=== PATIENT | male | born 1975 | race Caucasian/White ===

== ENCOUNTER 2017-12-18 15:26 | Inpatient (IN) | payer OTHER, SELFPAY ==
[2017-12-18] VITALS (21 sets, daily range): BP systolic 80–162; BP diastolic 55–131; PULSE 76–195; RESP 11–24; TEMP 36.3–37.1; O2SAT 94–99; BMI 31.8; BMI 30.8; BMI 30.9
--- NOTE | 2017-12-18 15:36 | EKG12_ITS ---
Test Reason : CHEST PAIN Blood Pressure : / mmHG Vent. Rate : 184 BPM Atrial Rate : 192 BPM P-R Int : 000 ms QRS Dur : 080 ms QT Int : 246 ms P-R-T Axes : 000 039 263 degrees QTc Int : 430 ms Atrial fibrillation Abnormal ECG Confirmed by AMARJIT PAPPAS ([id number]), video news editor BERE HARRISON ([id number]) on 12/21/2017 1:33:58 PM Referred By: Confirmed By:AMARJIT PAPPAS
--- NOTE | 2017-12-18 15:38 | RAD_ITS ---
STUDY: X-RAY CHEST REASON FOR EXAM: Male, 42 years old. Chest pain. TECHNIQUE: Single frontal view of the chest. COMPARISON: 08/03/2017. FINDINGS: The lungs are hyperexpanded. There are coarsened interstitial markings suggestive of mild chronic fibrosis. No gross focal infiltrates. No gross effusions. Normal size heart. Normal mediastinum and frank. Normal visualized pulmonary arteries. Normal visualized aortic arch and descending thoracic aorta. Normal visualized thoracic spine. Normal visualized ribs, clavicles, and shoulders. There is no demonstrated abnormality of the visualized soft tissue structures of the upper abdomen. RAD/Chest 1 View (Portable) IMPRESSION: There are findings consistent with COPD. There is no evidence of acute chest disease. Electronically Signed: Brayden Wang MD at 16:00 EDT , Service support ,
[2017-12-18 15:49] LABS: Absolute Lymphocyte Count 3.09 X10^3/ul (0.83-4.51); Absolute Neutrophil Count 8.1 X10^3/uL (2.0-7.7); Basophil# 0.02 X10^3/uL; Basophil% 0.2 % (0-1); Eosinophil# 0.16 X10^3/uL; Eosinophils% 1.3 % (0-5); Hemoglobin 16.5 g/dl (13.0-16.5); Lymphocyte # 3.09 X10^3/ul (4.0); Lymphocyte % 24.6 % (19-41); Mean Corp Hgb Conc 33.7 g/gl (32-36); Mean Corpuscular Hgb 34.7 pg (27.0-32.0); Mean Corpuscular Volume 103.2 fL (80-94); Mean Platelet Vol. 9.7 fl (6.2-12.0); Monocyte# 1.19 X10^3/uL; Monocyte% 9.5 % (0-10); Neutrophil # 8.05 X10^3/uL (2.7-7.7); Neutrophil % 64.2 % (47-70); POSITIVE COUNT NO; POSITIVE DIFFERENTIAL NO; POSITIVE MORPHOLOGY NO; Platelet Count 264 K/mm3 (150-450); RBC Distribution Width CV 14.3 % (11.6-14.6); Red Blood Count 4.75 M/mm3 (4.6-6.2); White Blood Count 12.5 K/mm3 (4.4-11.0)
--- NOTE | 2017-12-18 15:56 | ED.VISSUMM ---
- ER Visit Summary Date of Service: 12/18/17 Chief Complaint: Irregular heartbeat and chest pain History of Present Illness: The patient is a 42 M past medical history of hypertension which she is now currently off his medications because his blood pressures been running more normal. She states he accelerated heart rate that began around 1420 today. And developed chest pain rating to both arms. Associated dyspnea. Denies any cardiac history. Had a stress test or heart cath. He is a smoker 2 packs per day. Denies any family history. States that the heart rate became rapid today after walking steps. Physical Examination: Well-appearing male. Currently his heart rates 184. Blood pressure 161/131. His pulse ox is 9 9% on 2 L. HEENT exam unremarkable. Neck nontender no thyromegaly. Lungs clear to auscultation bilaterally. Heart irregularly irregular rate about 180s consistent with A. fib RVR. Abdomen is soft nontender. Normal bowel sounds no peritoneal signs. Extremities moves all 4. Neurovascular intact. Nontender, no edema no cords. Neurologically is awake and alert with no focal motor deficits. Test Results: EKG shows new onset A. fib RVR with a rate of 184. No signs of [place]. CBC normal. BMP unremarkable. Troponin is elevated 7.25 consistent with a non-ST elevation [place]. PT/INR and TSH are both pending. Chest x-ray shows chronic changes but normal cardiac silhouette and mediastinum read both by myself the radiologist. Emergency Department Course and Treatment: Patient was given a second dose of Cardizem currently is rate 120-130. His chest pain is almost totally resolved. He will be anticoagulated with Lovenox. He will be started on a Cardizem drip. He is already received aspirin. And also be started on nitroglycerin drip. This was all discussed with the entertainment dancer on-call Dr. Gustavo Plata and he and are comfortable with the plan. He plans on doing a heart catheterization on the patient in the next several days. Treatment Plan: Admission to the ICU for new onset A. fib RVR and a non-ST elevation [place] Disposition: Admission Impression: New onset A. fib RVR a non-ST elevation [place] Chest pain Tobacco abuse This note was generated with SimplyCastation software. It may contain incorrect words, spelling, and punctuation that were not noted in review of the chart prior to signing ED Disposition - Plan for ED Patient: Chief Complaint: Chest Pain Referrals: Alexander Adam MD [Primary Care Provider] -
[2017-12-18] MEDS: dilTIAZem 25 MG/5 ML Vial 20 MG IV BOLUS ×2 (16:00→16:17)
[2017-12-18] MEDS: Aspirin 325 MG Tablet PO (16:00)
--- NOTE | 2017-12-18 16:00 | ED.DCSUM_ITS ---
- ER Visit Summary Date of Service: 12/18/17 Chief Complaint: Irregular heartbeat and chest pain History of Present Illness: The patient is a 42 M past medical history of hypertension which she is now currently off his medications because his blood pressures been running more normal. She states he accelerated heart rate that began around 1420 today. And developed chest pain rating to both arms. Associated dyspnea. Denies any cardiac history. Had a stress test or heart cath. He is a smoker 2 packs per day. Denies any family history. States that the heart rate became rapid today after walking steps. Physical Examination: Well-appearing male. Currently his heart rates 184. Blood pressure 161/131. His pulse ox is 9 9% on 2 L. HEENT exam unremarkable. Neck nontender no thyromegaly. Lungs clear to auscultation bilaterally. Heart irregularly irregular rate about 180s consistent with A. fib RVR. Abdomen is soft nontender. Normal bowel sounds no peritoneal signs. Extremities moves all 4. Neurovascular intact. Nontender, no edema no cords. Neurologically is awake and alert with no focal motor deficits. Test Results: EKG shows new onset A. fib RVR with a rate of 184. No signs of [place]. CBC normal. BMP unremarkable. Troponin is elevated 7.25 consistent with a non-ST elevation [place]. PT/INR and TSH are both pending. Chest x-ray shows chronic changes but normal cardiac silhouette and mediastinum read both by myself the radiologist. Emergency Department Course and Treatment: Patient was given a second dose of Cardizem currently is rate 120-130. His chest pain is almost totally resolved. He will be anticoagulated with Lovenox. He will be started on a Cardizem drip. He is already received aspirin. And also be started on nitroglycerin drip. This was all discussed with the abrasive grader on-call Dr. Gustavo Plata and he and are comfortable with the plan. He plans on doing a heart catheterization on the patient in the next several days. Treatment Plan: Admission to the ICU for new onset A. fib RVR and a non-ST elevation [place] Disposition: Admission Impression: New onset A. fib RVR a non-ST elevation [place] Chest pain Tobacco abuse This note was generated with backstitchation software. It may contain incorrect words, spelling, and punctuation that were not noted in review of the chart prior to signing ED Disposition - Plan for ED Patient: Chief Complaint: Chest Pain Referrals: Alexander Adam MD [Primary Care Provider] -
[2017-12-18 16:08] LABS: Anion Gap 9 (5-15); BUN 12 mg/dL (7-18); BUN/Creat Ratio 11.7 RATIO (10-20); Calcium,Total 8.7 mg/dL (8.5-10.1); Chloride 103 mmol/L (98-107); Creatinine, Serum 1.03 mg/dL (0.70-1.30); EST Glomerular Filtration Rate 83 mL/min (>60); Est Glom Filt Rate - Afr Amer 101 mL/min (>60); Estimated Creatinine Clearance 118.32 ml/min; Glucose 130 mg/dL (74-106); Potassium 3.4 mmol/L (3.5-5.1); Sodium Level 136 mmol/L (136-145)
--- NOTE | 2017-12-18 16:11 | ED.RN ---
TROP 7.[address] LAB[address] DR SEXTON AWARE
[2017-12-18 16:26] LABS: Prothrombin Time (Protime)PT. 13.1 SECONDS (11.7-14.9); Thyroid Stim Hormone (TSH) 1.97 uIU/mL (0.358-3.74)
[2017-12-18] MEDS: Enoxaparin 120 MG/0.8 ML Syringe SC (16:51)
[2017-12-18] MEDS: Clopidogrel Bisulfate 300 MG Tablet PO (16:55)
--- NOTE | 2017-12-18 17:15 | PCM.HP.STD ---
Problem List (1) Atrial fibrillation with RVR Status: Acute (2) NSTEMI (non-ST elevated myocardial infarction) Status: Acute (3) Hypertension Status: Chronic History of Present Illness Date of Admission: 12/18/17 Chief Complaint: Chest pain, palpitation. The patient is a 42 year old M with past medical history as mentioned above presented to the emergency room because of chest pain or palpitation. This afternoon, he was walking down the stairs to the bathroom and he started having chest pain, described as chest tightness, retrosternal, sudden onset, dull aching pain, 7 out of 10 in severity, associated with palpitation and shortness of breath, lasted for a few minutes and slightly relieved with rest. He sat down for a few minutes and chest pain improved shortly after, he had another episode of chest pain and he was short of breath, having palpitations and profuse sweating. He denied syncope or presyncope. At this time, he has no more chest pain. He is still complaining of palpitation. In the emergency room, patient was in A. fib with RVR, heart rate was up to 180s and his blood pressure was elevated. He was afebrile, pulse ox was 97% on 2 L of oxygen. His routine blood work is remarkable for mild leukocytosis and potassium of 3.4, otherwise normal. TSH was normal. Troponin was 7.25. EKG revealed A. fib with RVR, heart rate has been in the 180s, no acute ischemic changes. Chest x-ray showed no acute infiltrate, consolidation or effusion. He is being admitted for A. fib with RVR and acute non-ST elevation [place]. Past Medical History Past Medical History (Chronic Problems): Chronic Problems Hypertension (Chronic) Allergies No Known Allergies Allergy (Verified 12/18/17 15:26) Home Medications: Ambulatory Orders Medication Instructions Recorded NK [NK] 12/18/17 Surgical History: noncontributory Psychiatric History: No pertinent psych hx Lives: Spouse/ Significant Other Smoking Status: Current every day smoker Tobacco Use: Cigarettes Alcohol: Heavy Drugs: None Review of Systems Constitutional: Denies: Anorexia, Chills, Fever, Weakness Eyes: Denies: Blurred vision, Double vision, Drainage, Redness HEENT: Denies: Difficulty Hearing, Ear Pain, Eye Pain, Nasal Congestion, Sore Throat Cardiovascular: Reports: Chest Pain, Chest Tightness, Light Headedness, Palpitations. Denies: Heaviness, Orthopnea, Paroxysmal Noc. Dyspnea, Syncope Respiratory: Reports: Shortness of Breath, Shortness of breath at rest. Denies: Cough, Pleuritic Pain, Sputum production, Wheezing Gastrointestinal: Denies: Abdominal Pain, Constipation, Diarrhea, Nausea, Vomiting Genitourinary: Denies: Dysuria, Frequency, Hematuria Musculoskeletal: Denies: Arm Pain, Back Pain, Foot Pain Skin: Denies: Dryness, Rash Neurological: Denies: Balance problems, Double vision, Change in Speech, Slurred speech, Confusion, Focal weakness, Headaches, Incoordination Psychiatric: Denies: Anxiety, Depression Endocrine: Denies: Change in Body Habitus, Polydipsia VTE Information - Inpt Only VTE Present on Admission: No VTE Mechan Device Prophylaxis: None VTE Pharm Prophylaxis ordered?: No Patient Problems: Active and Suspected Problems Atrial fibrillation with RVR (Acute) NSTEMI (non-ST elevated myocardial infarction) (Acute) - Physical Exam General: Alert, Oriented x3, Cooperative, No apparent distress HEENT: Atraumatic, PERRLA, EOMI Oral: Moist Mucosa, No Gingival or Mucosal Lesions/ Ulcerations Neck: Supple, No JVD, Negative Carotid Bruits, Trachea Midline, Thyroid Normal Size and Texture Lungs: Clear to auscultation, No rhonchi, No wheeze, No rales, Diminished Cardiovascular: Normal S1, Normal S2, No murmurs, PMI Normal, Irregular Rate, Tachycardic Abdomen: Bowel Sounds Present, Soft, Non Tender, Non-Distended, No Hepato-splenomegaly Extremities: No clubbing, No cyanosis, No edema Skin: No rashes, No breakdown Lymphatic: No Cervical, Supraclavicular, or Inguinal Adenopathy Neurological: Cranial nerves II-XII grossly intact, Motor Exam 5/5 strength throughout Psych/Mental Status: Normal Affect, Appropriate, Alert and oriented to time, place, person, mood and affect Vital Signs Temp Pulse Resp BP Pulse Ox 98.8 F 141 H 24 H 149/93 H 97 12/18/17 16:59 12/18/17 16:59 12/18/17 16:59 12/18/17 16:59 12/18/17 16:59 Oxygen Flow Rate (L/min) 2 Oxygen Delivery Method Nasal Cannula Weight: 275 lb 2.19 oz Body Mass Index (BMI) 31.8 Laboratory Tests Past 24 Hrs 12/18/17 12/18/17 12/18/17 15:30 15:30 15:30 WBC 12.5 H RBC 4.75 Hgb 16.5 Hct 49.0 MCV 103.2 H MCH 34.7 H MCHC 33.7 RDW 14.3 RDW Differential 54.0 H Plt Count 264 MPV 9.7 Immature Gran % (Auto) 0.200 Neut % (Auto) 64.2 Lymph % (Auto) 24.6 [place] % (Auto) 9.5 Eos % (Auto) 1.3 Baso % (Auto) 0.2 Absolute Neuts (auto) 8.1 H Absolute Lymphs (auto) 3.09 Total Counted Not Reportable PT 13.1 INR 1.0 Sodium 136 Potassium 3.4 L Chloride 103 Carbon Dioxide 24.0 Anion Gap 9 BUN 12 Creatinine 1.03 Estim Creat Clear Calc 118.32 Est GFR (MDRD) Af Amer 101 Est GFR (MDRD) Non-Af 83 BUN/Creatinine Ratio 11.7 Glucose 130 H Calcium 8.7 Troponin I 7.25 H* TSH 12/18/17 15:30 WBC RBC Hgb Hct MCV MCH MCHC RDW RDW Differential Plt Count MPV Immature Gran % (Auto) Neut % (Auto) Lymph % (Auto) [place] % (Auto) Eos % (Auto) Baso % (Auto) Absolute Neuts (auto) Absolute Lymphs (auto) Total Counted PT INR Sodium Potassium Chloride Carbon Dioxide Anion Gap BUN Creatinine Estim Creat Clear Calc Est GFR (MDRD) Af Amer Est GFR (MDRD) Non-Af BUN/Creatinine Ratio Glucose Calcium Troponin I TSH 1.97 Clinical Impression(s) from Imaging Studies Chest X-Ray 12/18/17 15:38 IMPRESSION: There are findings consistent with COPD. There is no evidence of acute chest disease. Electronically Signed: Brayden Wang MD at 16:00 EDT , Service support , Assessment/Plan Active and Suspected Problems Atrial fibrillation with RVR (Acute) NSTEMI (non-ST elevated myocardial infarction) (Acute) This is a 42 years old male patient presented to the emergency room because of chest pain on palpitation, found to have A. fib with RVR and acute non-ST elevation [place]. #1 A. fib with RVR: Without significant prior cardiac history. In the ER, heart rate has been in the 180s, given 2 doses of IV Cardizem bolus. Heart rate remained high. He was started on IV Cardizem drip. Blood pressure stable. EKG reviewed, revealed A. fib with RVR, no acute ischemic changes. TSH was normal. Plan: Admit to ICU, critical care monitoring, serial cardiac enzymes, repeat EKG tomorrow morning, repeat CBC and BMP tomorrow morning, check serum magnesium, 2D echocardiogram, cardiology consult. #2 non-ST elevation [place]: EKG reviewed, revealed A. fib with RVR, no acute ST elevation. This could be due to A. fib with RVR or possibly underlying CAD. Patient received loading dose of Plavix and therapeutic Lovenox. Plan as above, cardiac monitoring, serial cardiac enzymes, repeat EKG tomorrow morning, therapeutic Lovenox twice daily, 2D echocardiogram, fasting lipid profile, IV nitroglycerin drip as recommended by cardiology. #3 mild hypokalemia: Replace potassium with potassium chloride added to IV fluids, check serum magnesium, repeat BMP tomorrow morning. #4 Hypertension: Patient used to be on lisinopril for hypertension, stopped taking it by himself one year ago because he claimed that his blood pressure has been stable. At this time, blood pressure is elevated, he will be on IV nitroglycerin drip. #5 DVT prophylaxis: He will be on Lovenox twice daily. This note was generated with [employer] dictation software. It may contain incorrect words, spelling, and punctuation that were not noted in checking the note before signing. Code Visit Inpatient E&M: 82376 Init Hosp L3
--- NOTE | 2017-12-18 17:20 | HP.PCM_ITS ---
Problem List (1) Atrial fibrillation with RVR Status: Acute (2) NSTEMI (non-ST elevated myocardial infarction) Status: Acute (3) Hypertension Status: Chronic History of Present Illness Date of Admission: 12/18/17 Chief Complaint: Chest pain, palpitation. The patient is a 42 year old M with past medical history as mentioned above presented to the emergency room because of chest pain or palpitation. This afternoon, he was walking down the stairs to the bathroom and he started having chest pain, described as chest tightness, retrosternal, sudden onset, dull aching pain, 7 out of 10 in severity, associated with palpitation and shortness of breath, lasted for a few minutes and slightly relieved with rest. He sat down for a few minutes and chest pain improved shortly after, he had another episode of chest pain and he was short of breath, having palpitations and profuse sweating. He denied syncope or presyncope. At this time, he has no more chest pain. He is still complaining of palpitation. In the emergency room , patient was in A. fib with RVR, heart rate was up to 180s and his blood pressure was elevated. He was afebrile, pulse ox was 97% on 2 L of oxygen. His routine blood work is remarkable for mild leukocytosis and potassium of 3.4 , otherwise normal. TSH was normal. Troponin was 7.25. EKG revealed A. fib with RVR, heart rate has been in the 180s, no acute ischemic changes. Chest x- ray showed no acute infiltrate, consolidation or effusion. He is being admitted for A. fib with RVR and acute non-ST elevation [place]. Past Medical History Past Medical History (Chronic Problems): Chronic Problems Hypertension (Chronic) Allergies No Known Allergies Allergy (Verified 12/18/17 15:26) Home Medications: Ambulatory Orders Medication Instructions Recorded NK [NK] 12/18/17 Surgical History: noncontributory Psychiatric History: No pertinent psych hx Lives: Spouse/ Significant Other Smoking Status: Current every day smoker Tobacco Use: Cigarettes Alcohol: Heavy Drugs: None Review of Systems Constitutional: Denies: Anorexia, Chills, Fever, Weakness Eyes: Denies: Blurred vision, Double vision, Drainage, Redness HEENT: Denies: Difficulty Hearing, Ear Pain, Eye Pain, Nasal Congestion, Sore Throat Cardiovascular: Reports: Chest Pain, Chest Tightness, Light Headedness, Palpitations. Denies: Heaviness, Orthopnea, Paroxysmal Noc. Dyspnea, Syncope Respiratory: Reports: Shortness of Breath, Shortness of breath at rest. Denies : Cough, Pleuritic Pain, Sputum production, Wheezing Gastrointestinal: Denies: Abdominal Pain, Constipation, Diarrhea, Nausea, Vomiting Genitourinary: Denies: Dysuria, Frequency, Hematuria Musculoskeletal: Denies: Arm Pain, Back Pain, Foot Pain Skin: Denies: Dryness, Rash Neurological: Denies: Balance problems, Double vision, Change in Speech, Slurred speech, Confusion, Focal weakness, Headaches, Incoordination Psychiatric: Denies: Anxiety, Depression Endocrine: Denies: Change in Body Habitus, Polydipsia VTE Information - Inpt Only VTE Present on Admission: No VTE Mechan Device Prophylaxis: None VTE Pharm Prophylaxis ordered?: No Patient Problems: Active and Suspected Problems Atrial fibrillation with RVR (Acute) NSTEMI (non-ST elevated myocardial infarction) (Acute) - Physical Exam General: Alert, Oriented x3, Cooperative, No apparent distress HEENT: Atraumatic, PERRLA, EOMI Oral: Moist Mucosa, No Gingival or Mucosal Lesions/ Ulcerations Neck: Supple, No JVD, Negative Carotid Bruits, Trachea Midline, Thyroid Normal Size and Texture Lungs: Clear to auscultation, No rhonchi, No wheeze, No rales, Diminished Cardiovascular: Normal S1, Normal S2, No murmurs, PMI Normal, Irregular Rate, Tachycardic Abdomen: Bowel Sounds Present, Soft, Non Tender, Non-Distended, No Hepato- splenomegaly Extremities: No clubbing, No cyanosis, No edema Skin: No rashes, No breakdown Lymphatic: No Cervical, Supraclavicular, or Inguinal Adenopathy Neurological: Cranial nerves II-XII grossly intact, Motor Exam 5/5 strength throughout Psych/Mental Status: Normal Affect, Appropriate, Alert and oriented to time, place, person, mood and affect Vital Signs Temp Pulse Resp BP Pulse Ox 98.8 F 141 H 24 H 149/93 H 97 12/18/17 16:59 12/18/17 16:59 12/18/17 16:59 12/18/17 16:59 12/18/17 16:59 Oxygen Flow Rate (L/min) 2 Oxygen Delivery Method Nasal Cannula Weight: 275 lb 2.19 oz Body Mass Index (BMI) 31.8 Laboratory Tests Past 24 Hrs 12/18/17 12/18/17 12/18/17 15:30 15:30 15:30 WBC 12.5 H RBC 4.75 Hgb 16.5 Hct 49.0 MCV 103.2 H MCH 34.7 H MCHC 33.7 RDW 14.3 RDW Differential 54.0 H Plt Count 264 MPV 9.7 Immature Gran % (Auto) 0.200 Neut % (Auto) 64.2 Lymph % (Auto) 24.6 [place] % (Auto) 9.5 Eos % (Auto) 1.3 Baso % (Auto) 0.2 Absolute Neuts (auto) 8.1 H Absolute Lymphs (auto) 3.09 Total Counted Not Reportable PT 13.1 INR 1.0 Sodium 136 Potassium 3.4 L Chloride 103 Carbon Dioxide 24.0 Anion Gap 9 BUN 12 Creatinine 1.03 Estim Creat Clear Calc 118.32 Est GFR (MDRD) Af Amer 101 Est GFR (MDRD) Non-Af 83 BUN/Creatinine Ratio 11.7 Glucose 130 H Calcium 8.7 Troponin I 7.25 H* TSH 12/18/17 15:30 WBC RBC Hgb Hct MCV MCH MCHC RDW RDW Differential Plt Count MPV Immature Gran % (Auto) Neut % (Auto) Lymph % (Auto) [place] % (Auto) Eos % (Auto) Baso % (Auto) Absolute Neuts (auto) Absolute Lymphs (auto) Total Counted PT INR Sodium Potassium Chloride Carbon Dioxide Anion Gap BUN Creatinine Estim Creat Clear Calc Est GFR (MDRD) Af Amer Est GFR (MDRD) Non-Af BUN/Creatinine Ratio Glucose Calcium Troponin I TSH 1.97 Clinical Impression(s) from Imaging Studies Chest X-Ray 12/18/17 15:38 IMPRESSION: There are findings consistent with COPD. There is no evidence of acute chest disease. Electronically Signed: Brayden Wang MD at 16:00 EDT , Service support , Assessment/Plan Active and Suspected Problems Atrial fibrillation with RVR (Acute) NSTEMI (non-ST elevated myocardial infarction) (Acute) This is a 42 years old male patient presented to the emergency room because of chest pain on palpitation, found to have A. fib with RVR and acute non-ST elevation [place]. #1 A. fib with RVR: Without significant prior cardiac history. In the ER, heart rate has been in the 180s, given 2 doses of IV Cardizem bolus. Heart rate remained high. He was started on IV Cardizem drip. Blood pressure stable. EKG reviewed, revealed A. fib with RVR, no acute ischemic changes. TSH was normal. Plan: Admit to ICU, critical care monitoring, serial cardiac enzymes, repeat EKG tomorrow morning, repeat CBC and BMP tomorrow morning, check serum magnesium, 2D echocardiogram, cardiology consult. #2 non-ST elevation [place]: EKG reviewed, revealed A. fib with RVR, no acute ST elevation. This could be due to A. fib with RVR or possibly underlying CAD. Patient received loading dose of Plavix and therapeutic Lovenox. Plan as above , cardiac monitoring, serial cardiac enzymes, repeat EKG tomorrow morning, therapeutic Lovenox twice daily, 2D echocardiogram, fasting lipid profile, IV nitroglycerin drip as recommended by cardiology. #3 mild hypokalemia: Replace potassium with potassium chloride added to IV fluids, check serum magnesium, repeat BMP tomorrow morning. #4 Hypertension: Patient used to be on lisinopril for hypertension, stopped taking it by himself one year ago because he claimed that his blood pressure has been stable. At this time, blood pressure is elevated, he will be on IV nitroglycerin drip. #5 DVT prophylaxis: He will be on Lovenox twice daily. This note was generated with [employer] dictation software. It may contain incorrect words, spelling, and punctuation that were not noted in checking the note before signing. Code Visit Inpatient E&M: 96615 Init Hosp L3
--- NOTE | 2017-12-18 19:15 | NURSING ---
converted to sr hr 80's bp 128/86, ekg completed
--- NOTE | 2017-12-18 19:25 | ECHOD_ITS ---
Reason For Study: Afib, Aflutter Procedure This was a 2D Doppler, Color Flow transthoracic echocardiogram. Exam performed portable in ICU/CCU. Left Ventricle Normal size and thickness. The estimated ejection fraction is 65 %. Normal diastology for age. No regional wall motion abnormalities noted. Right Ventricle Normal size and thickness. Normal systolic function. Atria Normal left atrium. Normal right atrium. Normal atrial septum. Mitral Valve Mild diffuse mitral valve thickening. Mild (1+) posteriorly directed mitral valve insufficiency. Tricuspid Valve Normal tricuspid valve. Trivial tricuspid valve insufficiency. Right ventricular systolic pressure estimated to be 21 mmHg. Aortic Valve Normal aortic valve. Trisinus/trileaflet aortic valve. Pulmonic Valve Normal pulmonic valve. Trivial pulmonic valve insufficiency. Great Vessels Normal aortic root. Normal arch. Normal inferior vena cava. Inferior vena cava collapse with sniff. Pericardium/Pleural No pericardial effusion. MMode/2D Measurements & Calculations LVIDd: 4.9 cm IVSd: 1.1 cm Ao root diam: 3.3 cm LVIDs: 3.3 cm LVPWd: 1.2 cm LA dimension: 3.1 cm RVDd: 3.6 cm FS: 31.5 % LAV(MOD-bp): 38.7 ml LA A4 area: 13.9 cm2 RA A4 area: 12.0 cm2 LAV(MOD-bp) Indexed: 15.0 ml/m2 LAV(MOD-sp2): 41.5 ml LAV(MOD-sp4): 29.5 ml Doppler Measurements & Calculations MV E max guy: 67.2 cm/sec Lat Peak E' Guy: 14.0 cm/sec Med Peak E' Guy: 9.0 cm/sec MV A max guy: 54.6 cm/sec E/E' lat: 4.8 E/E' med: 7.4 MV E/A: 1.2 Ao V2 max: 109.5 cm/sec LV V1 max: 87.3 cm/sec PA V2 max: 73.8 cm/sec Ao max P.8 mmHg LV V1 max P.1 mmHg Ao V2 mean: 84.6 cm/sec Ao mean P.0 mmHg Ao V2 VTI: 21.1 cm TR max guy: 188.6 cm/sec TR max P.3 mmHg Interpretation Summary The estimated ejection fraction is 65 %. Normal diastology for age. Mild (1+) posteriorly directed mitral valve insufficiency. Trivial tricuspid valve insufficiency. Right ventricular systolic pressure estimated to be 21 mmHg. There is no comparison study available. Ordering Physician: Cassandra Ruth Referring Physician: Virgil Adam Performed By: Lucero Loya, AUBREY, RVT
[2017-12-18 20:30] LABS: Magnesium 2.1 mg/dL (1.6-2.6)
[2017-12-18] MEDS: Metoprolol Tartrate 5 MG/5 ML Vial IV (21:06)
[2017-12-18] MEDS: 0.9% NaCl Peripheral Flush Adult/Peds IV (21:07)
[2017-12-18] MEDS: Metoprolol Tartrate 25 MG Tablet PO (22:24)
[2017-12-19] VITALS (25 sets, daily range): BP systolic 83–129; BP diastolic 49–87; PULSE 61–91; RESP 15–23; TEMP 36.6–37.2; O2SAT 93–97
[2017-12-19 01:40] LABS: M R Staph aureus DNA By PCR Negative (Negative); Probe Check PASS; Specimen Processing Control PASS
[2017-12-19 04:48] LABS: Absolute Lymphocyte Count 2.33 X10^3/ul (0.83-4.51); Absolute Neutrophil Count 4.9 X10^3/uL (2.0-7.7); Basophil# 0.02 X10^3/uL; Basophil% 0.2 % (0-1); Eosinophil# 0.17 X10^3/uL; Eosinophils% 2.1 % (0-5); Hematocrit 44.3 % (40-54); Hemoglobin 14.4 g/dl (13.0-16.5); Lymphocyte # 2.33 X10^3/ul (4.0); Lymphocyte % 28.4 % (19-41); Mean Corp Hgb Conc 32.5 g/gl (32-36); Mean Corpuscular Volume 104.7 fL (80-94); Mean Platelet Vol. 9.5 fl (6.2-12.0); Monocyte# 0.81 X10^3/uL; Monocyte% 9.9 % (0-10); Neutrophil # 4.85 X10^3/uL (2.7-7.7); Neutrophil % 59.2 % (47-70); Platelet Count 233 K/mm3 (150-450); RBC Distribution Width CV 14.5 % (11.6-14.6); Red Blood Count 4.23 M/mm3 (4.6-6.2); White Blood Count 8.2 K/mm3 (4.4-11.0)
[2017-12-19 04:50] LABS: POSITIVE COUNT NO; POSITIVE DIFFERENTIAL NO; POSITIVE MORPHOLOGY NO
[2017-12-19 05:11] LABS: Anion Gap 8 (5-15); BUN 12 mg/dL (7-18); BUN/Creat Ratio 13.6 RATIO (10-20); Calcium,Total 8.1 mg/dL (8.5-10.1); Chloride 106 mmol/L (98-107); Cholesterol 166 mg/dL (200); Creatinine, Serum 0.88 mg/dL (0.70-1.30); EST Glomerular Filtration Rate 100 mL/min (>60); Est Glom Filt Rate - Afr Amer 121 mL/min (>60); Glucose 100 mg/dL (74-106); High Density Lipoprotein 32 mg/dL; Potassium 4.4 mmol/L (3.5-5.1); Sodium Level 138 mmol/L (136-145); Triglycerides 177 mg/dL; Very Low Density Lipoprotein 35 mg/dL (5-40)
[2017-12-19] MEDS: Enoxaparin 120 MG/0.8 ML Syringe SC ×2 (05:17→17:58)
--- NOTE | 2017-12-19 05:55 | EKG12_ITS ---
Test Reason : Blood Pressure : / mmHG Vent. Rate : 087 BPM Atrial Rate : 087 BPM P-R Int : 150 ms QRS Dur : 072 ms QT Int : 326 ms P-R-T Axes : 011 023 027 degrees QTc Int : 392 ms Sinus rhythm with Premature atrial complexes Otherwise normal ECG No previous ECGs available Confirmed by AMARJIT PAPPAS ([id number]), multimedia editor BERE HARRISON ([id number] on 12/24/2017 2:50:50 PM Referred By: KATERINE Confirmed By:AMARJIT PAPPAS
--- NOTE | 2017-12-19 09:22 | PCM.CONS.C ---
Problem List (1) Tobacco abuse Status: Acute (2) Atrial fibrillation with RVR Status: Acute (3) NSTEMI (non-ST elevated myocardial infarction) Status: Acute (4) Hypertension Status: Chronic Reason for Consult Date of Consultation: 12/19/17 Reason for Consultation: New onset atrial fibrillation, chest pain, non-STEMI, tobacco abuse History of Present Illness: The patient is a 42 year old M, no previous cardiac disease, heavy smoker of approximately 2 packs for the past 28 years, also with hypertension, unknown cholesterol, who was in normal health up until yesterday when he developed severe palpitations with associated substernal chest pressure and sought medical attention at [facility] ER. At that time he was found to be in atrial fibrillation with rapid ventricular response with no acute changes. Patient was given IV Cardizem and started on IV Cardizem drip. His initial troponin was found to be 7.2, and he was admitted to ICU. Overnight he converted to normal sinus rhythm with no significant EKG changes. He was placed on baby aspirin, loaded with Plavix, started on IV heparin, as well as IV nitroglycerin drip. This morning the patient is symptom-free, and is doing fairly well. His telemetry showed normal sinus rhythm with rare PACs. His peak troponin was 12.2, now is descending to 10.4. On further history the patient denies any exertional angina, chest pain, shortness of breath previous stress test or catheterization. Echo is pending. [] Past Medical History Allergies/Adverse Reactions: Allergies No Known Allergies Allergy (Verified 12/18/17 15:26) Home Medications: Ambulatory Orders Medication Instructions Recorded NK [NK] 12/18/17 Past Medical History (Chronic Problems): Chronic Problems Hypertension (Chronic) Surgical History: noncontributory Psychiatric History: No pertinent psych hx Lives: Spouse/ Significant Other Smoking Status: Current every day smoker Tobacco Use: Cigarettes Alcohol: Heavy Drugs: None Review of Systems - Review of Systems General: Denies: Fever, Night Sweats, Fatigue Cardiovascular: Reports: Chest Discomfort, Chest Discomfort at Rest, Shortness of Breath at Rest, Palpitations. Denies: Orthopnea, PND, Peripheral Edema, Lightheadedness, Dizziness, Near Syncope, Syncope Respiratory: Denies: Cough, Sputum Production, Hemoptysis Gastrointestinal: Denies: Hematemesis, Hematochezia, Melena Genitourinary: Denies: Dysuria, Hematuria Skin: Denies: Rash Subjectve: Patient laying in bed, no acute distress. Objective: Vital Signs Temp Pulse Resp BP Pulse Ox 98.9 F 71 17 127/87 H 97 12/19/17 04:00 12/19/17 07:31 12/19/17 07:31 12/19/17 07:31 12/19/17 07:31 Oxygen Flow Rate (L/min) 2 Oxygen Delivery Method Room Air Weight: 267 lb 10.259 oz Body Mass Index (BMI) 30.9 Intake and Output for Last 24 Hours 12/17/17 12/18/17 12/19/17 23:59 23:59 23:59 Intake Total 504 / 504 1315 / 1315 Output Total 550 / 550 415 / 415 Balance -46 / -46 900 / 900 General: Awake, Alert, Oriented x 3 HEENT: PERRL, EOMI, Sclera Non Icteric Neck: Supple, Good ROM, No Lymph Node Enlargement Lungs: Clear to auscultation Cardiovascular: Regular Rhythm, Normal S1, Normal S2, No Murmurs, No Rubs, No Gallops Vascular: No Carotid Bruits, Normal Femoral Pulses, Normal Radial Pulses, Normal Dorsalis Pedal Pulse, Normal Posterior Tibial Pulses Abdomen: Bowel Sounds Present, Soft, Non Tender, No HSM, No Organomegaly Extremities: No Cyanosis, No Clubbing, No edema Neurological: No Focal Motor or Sensory Deficit 12/18/17 20:00: Magnesium 2.1 12/18/17 22:30: Troponin I 11.50 H* 12/19/17 02:00: Troponin I 12.40 H* 12/19/17 08:00: Troponin I 10.20 H* 12/19/17 : WBC 8.2, RBC 4.23 L, Hgb 14.4, Hct 44.3, MCV 104.7 H, MCH 34.0 H, MCHC 32.5, RDW 14.5, RDW Differential 56.0 H, Plt Count 233, MPV 9.5, Immature Gran % (Auto) 0.200, Neut % (Auto) 59.2, Lymph % (Auto) 28.4, [place] % (Auto) 9.9, Eos % (Auto) 2.1, Baso % (Auto) 0.2, Absolute Neuts (auto) 4.9, Total Counted Not Reportable 12/19/17 : Sodium 138, Potassium 4.4, Chloride 106, Carbon Dioxide 24.0, Anion Gap 8, BUN 12, Creatinine 0.88, Est GFR (MDRD) Af Amer 121, Est GFR (MDRD) Non-Af 100, BUN/Creatinine Ratio 13.6, Glucose 100, Calcium 8.1 L, Triglycerides 177, Cholesterol 166, LDL Cholesterol 99, VLDL Cholesterol 35, HDL Cholesterol 32 L Rhythm: Normal sinus rhythm with rare PACs. EKG: Normal sinus rhythm, no acute changes. No previous MA. ECHO: Pending Stress Test: Cardiac Cath: Pending PCI: CT Surgery: Holter monitor: EPS: PPM: CXR: Chest CT Scan: Assessment/Plan 1. Atrial fibrillation: The patient presents with atrial fibrillation of new onset, with associated chest pain, shortness of breath and non-STEMI. He has successfully converted to normal sinus rhythm with the assistance of IV Cardizem drip, potassium replacement, and beta-stephanie therapy. He is still on a low-dose Cardizem drip, and our goal would be to discontinue this this morning by titrating up his beta blockers. He was started on Lopressor 25 mg p.o. twice daily last evening, and we will increase this to 50 mg p.o. twice daily and discontinue his Cardizem drip. At this point I would hold on oral anticoagulation as he will require a diagnostic coronary angiogram this upcoming Thursday. He is currently in sinus rhythm but would recommend continuing subcu Lovenox full dose until the morning of his catheterization. 2. Coronary artery disease: Patient had a small troponin release of approximately 12 and is decreasing out of 10. His EKG shows no acute changes either during his atrial fibrillation or afterwards when he has converted to normal sinus rhythm. Nonetheless I recommended a diagnostic coronary under gram this upcoming Thursday. Given his troponin release, we will skip over a stress test. The patient has a 2D echo with Doppler pending from this morning. In the meantime he will continue baby aspirin and Plavix 75 mg a day. Continue beta-stephanie therapy. 3. Hyperlipidemia: Given the patient's non-STEMI, he will require aggressive LDL reduction. Lipitor 40 mill grams p.o. nightly started today. Repeat lipid profile in 6 weeks time. 4. Tobacco abuse: I have strongly encouraged the patient to discontinue all tobacco products. 5. Thank you very much for the opportunity to participate in the cardiac care of your patient. Consultation time took place between 7:30 AM and 8 AM. Code Visit Inpatient E&M: 89401 Init Hosp L2
--- NOTE | 2017-12-19 09:30 | CON.PCM_ITS ---
Problem List (1) Tobacco abuse Status: Acute (2) Atrial fibrillation with RVR Status: Acute (3) NSTEMI (non-ST elevated myocardial infarction) Status: Acute (4) Hypertension Status: Chronic Reason for Consult Date of Consultation: 12/19/17 Reason for Consultation: New onset atrial fibrillation, chest pain, non-STEMI, tobacco abuse History of Present Illness: The patient is a 42 year old M, no previous cardiac disease, heavy smoker of approximately 2 packs for the past 28 years, also with hypertension, unknown cholesterol, who was in normal health up until yesterday when he developed severe palpitations with associated substernal chest pressure and sought medical attention at [facility] ER. At that time he was found to be in atrial fibrillation with rapid ventricular response with no acute changes. Patient was given IV Cardizem and started on IV Cardizem drip. His initial troponin was found to be 7.2, and he was admitted to ICU. Overnight he converted to normal sinus rhythm with no significant EKG changes. He was placed on baby aspirin, loaded with Plavix, started on IV heparin, as well as IV nitroglycerin drip. This morning the patient is symptom-free, and is doing fairly well. His telemetry showed normal sinus rhythm with rare PACs. His peak troponin was 12.2 , now is descending to 10.4. On further history the patient denies any exertional angina, chest pain, shortness of breath previous stress test or catheterization. Echo is pending. [] Past Medical History Allergies/Adverse Reactions: Allergies No Known Allergies Allergy (Verified 12/18/17 15:26) Home Medications: Ambulatory Orders Medication Instructions Recorded NK [NK] 12/18/17 Past Medical History (Chronic Problems): Chronic Problems Hypertension (Chronic) Surgical History: noncontributory Psychiatric History: No pertinent psych hx Lives: Spouse/ Significant Other Smoking Status: Current every day smoker Tobacco Use: Cigarettes Alcohol: Heavy Drugs: None Review of Systems - Review of Systems General: Denies: Fever, Night Sweats, Fatigue Cardiovascular: Reports: Chest Discomfort, Chest Discomfort at Rest, Shortness of Breath at Rest, Palpitations. Denies: Orthopnea, PND, Peripheral Edema, Lightheadedness, Dizziness, Near Syncope, Syncope Respiratory: Denies: Cough, Sputum Production, Hemoptysis Gastrointestinal: Denies: Hematemesis, Hematochezia, Melena Genitourinary: Denies: Dysuria, Hematuria Skin: Denies: Rash Subjectve: Patient laying in bed, no acute distress. Objective: Vital Signs Temp Pulse Resp BP Pulse Ox 98.9 F 71 17 127/87 H 97 12/19/17 04:00 12/19/17 07:31 12/19/17 07:31 12/19/17 07:31 12/19/17 07:31 Oxygen Flow Rate (L/min) 2 Oxygen Delivery Method Room Air Weight: 267 lb 10.259 oz Body Mass Index (BMI) 30.9 Intake and Output for Last 24 Hours 12/17/17 12/18/17 12/19/17 23:59 23:59 23:59 Intake Total 504 / 504 1315 / 1315 Output Total 550 / 550 415 / 415 Balance -46 / -46 900 / 900 General: Awake, Alert, Oriented x 3 HEENT: PERRL, EOMI, Sclera Non Icteric Neck: Supple, Good ROM, No Lymph Node Enlargement Lungs: Clear to auscultation Cardiovascular: Regular Rhythm, Normal S1, Normal S2, No Murmurs, No Rubs, No Gallops Vascular: No Carotid Bruits, Normal Femoral Pulses, Normal Radial Pulses, Normal Dorsalis Pedal Pulse, Normal Posterior Tibial Pulses Abdomen: Bowel Sounds Present, Soft, Non Tender, No HSM, No Organomegaly Extremities: No Cyanosis, No Clubbing, No edema Neurological: No Focal Motor or Sensory Deficit 12/18/17 20:00: Magnesium 2.1 12/18/17 22:30: Troponin I 11.50 H* 12/19/17 02:00: Troponin I 12.40 H* 12/19/17 08:00: Troponin I 10.20 H* 12/19/17 : WBC 8.2, RBC 4.23 L, Hgb 14.4, Hct 44.3, MCV 104.7 H, MCH 34.0 H, MCHC 32.5, RDW 14.5, RDW Differential 56.0 H, Plt Count 233, MPV 9.5, Immature Gran % (Auto) 0.200, Neut % (Auto) 59.2, Lymph % (Auto) 28.4, [place] % (Auto) 9.9 , Eos % (Auto) 2.1, Baso % (Auto) 0.2, Absolute Neuts (auto) 4.9, Total Counted Not Reportable 12/19/17 : Sodium 138, Potassium 4.4, Chloride 106, Carbon Dioxide 24.0, Anion Gap 8, BUN 12, Creatinine 0.88, Est GFR (MDRD) Af Amer 121, Est GFR (MDRD) Non- Af 100, BUN/Creatinine Ratio 13.6, Glucose 100, Calcium 8.1 L, Triglycerides 177 , Cholesterol 166, LDL Cholesterol 99, VLDL Cholesterol 35, HDL Cholesterol 32 L Rhythm: Normal sinus rhythm with rare PACs. EKG: Normal sinus rhythm, no acute changes. No previous SC. ECHO: Pending Stress Test: Cardiac Cath: Pending PCI: CT Surgery: Holter monitor: EPS: PPM: CXR: Chest CT Scan: Assessment/Plan 1. Atrial fibrillation: The patient presents with atrial fibrillation of new onset, with associated chest pain, shortness of breath and non-STEMI. He has successfully converted to normal sinus rhythm with the assistance of IV Cardizem drip, potassium replacement, and beta-stephanie therapy. He is still on a low-dose Cardizem drip, and our goal would be to discontinue this this morning by titrating up his beta blockers. He was started on Lopressor 25 mg p.o. twice daily last evening, and we will increase this to 50 mg p.o. twice daily and discontinue his Cardizem drip. At this point I would hold on oral anticoagulation as he will require a diagnostic coronary angiogram this upcoming Thursday. He is currently in sinus rhythm but would recommend continuing subcu Lovenox full dose until the morning of his catheterization. 2. Coronary artery disease: Patient had a small troponin release of approximately 12 and is decreasing out of 10. His EKG shows no acute changes either during his atrial fibrillation or afterwards when he has converted to normal sinus rhythm. Nonetheless I recommended a diagnostic coronary under gram this upcoming Thursday. Given his troponin release, we will skip over a stress test. The patient has a 2D echo with Doppler pending from this morning. In the meantime he will continue baby aspirin and Plavix 75 mg a day. Continue beta- stephanie therapy. 3. Hyperlipidemia: Given the patient's non-STEMI, he will require aggressive LDL reduction. Lipitor 40 mill grams p.o. nightly started today. Repeat lipid profile in 6 weeks time. 4. Tobacco abuse: I have strongly encouraged the patient to discontinue all tobacco products. 5. Thank you very much for the opportunity to participate in the cardiac care of your patient. Consultation time took place between 7:30 AM and 8 AM. Code Visit Inpatient E&M: 50912 Init Hosp L2
--- NOTE | 2017-12-19 10:12 | PCM.PROGNOTE ---
Patient Problems: Active and Suspected Problems Tobacco abuse (Acute) Atrial fibrillation with RVR (Acute) NSTEMI (non-ST elevated myocardial infarction) (Acute) Subjective: He feels well, denied of any more chest pain. - Physical Exam General: Alert, Oriented x3, Cooperative HEENT: Atraumatic, PERRLA, Normocephalic Oral: Moist Mucosa Neck: Supple, No JVD Lungs: Clear to auscultation, Normal air movement, No rhonchi, No wheeze, No rales Cardiovascular: Regular rate, Regular Rhythm, Normal S1, Normal S2, No murmurs, No Ectopic Activity Abdomen: Bowel Sounds Present, Soft, Non Tender, Non-Distended, No Hepato-splenomegaly Extremities: No clubbing, No cyanosis, No edema Skin: No rashes, No breakdown Musculoskeletal: No Tenderness to Palpation of Joints or Extremities, No Muscle Wasting Lymphatic: No Cervical, Supraclavicular, or Inguinal Adenopathy Neurological: Cranial nerves II-XII grossly intact, Neuro grossly intact Psych/Mental Status: Normal Affect Vital Signs Temp Pulse Resp BP Pulse Ox 98.9 F 71 17 127/87 H 97 12/19/17 04:00 12/19/17 07:31 12/19/17 07:31 12/19/17 07:31 12/19/17 07:31 Oxygen Flow Rate (L/min) 2 Oxygen Delivery Method Room Air Weight: 267 lb 10.259 oz Body Mass Index (BMI) 30.9 Intake and Output for Last 24 Hours 12/17/17 12/18/17 12/19/17 23:59 23:59 23:59 Intake Total 504 / 504 1315 / 1315 Output Total 550 / 550 415 / 415 Balance -46 / -46 900 / 900 Laboratory Tests Past 24 Hrs 12/18/17 12/18/17 12/18/17 20:00 22:30 Unknown WBC RBC Hgb Hct MCV MCH MCHC RDW RDW Differential Plt Count MPV Immature Gran % (Auto) Neut % (Auto) Lymph % (Auto) [place] % (Auto) Eos % (Auto) Baso % (Auto) Absolute Neuts (auto) Absolute Lymphs (auto) Total Counted Sodium Potassium Chloride Carbon Dioxide Anion Gap BUN Creatinine Estim Creat Clear Calc Est GFR (MDRD) Af Amer Est GFR (MDRD) Non-Af BUN/Creatinine Ratio Glucose Calcium Magnesium 2.1 Troponin I 11.50 H* Triglycerides Cholesterol LDL Cholesterol VLDL Cholesterol HDL Cholesterol MRSA (PCR) Negative 12/19/17 12/19/17 12/19/17 02:00 08:00 Unknown WBC 8.2 RBC 4.23 L Hgb 14.4 Hct 44.3 MCV 104.7 H MCH 34.0 H MCHC 32.5 RDW 14.5 RDW Differential 56.0 H Plt Count 233 MPV 9.5 Immature Gran % (Auto) 0.200 Neut % (Auto) 59.2 Lymph % (Auto) 28.4 Real % (Auto) 9.9 Eos % (Auto) 2.1 Baso % (Auto) 0.2 Absolute Neuts (auto) 4.9 Absolute Lymphs (auto) 2.33 Total Counted Not Reportable Sodium Potassium Chloride Carbon Dioxide Anion Gap BUN Creatinine Estim Creat Clear Calc Est GFR (MDRD) Af Amer Est GFR (MDRD) Non-Af BUN/Creatinine Ratio Glucose Calcium Magnesium Troponin I 12.40 H* 10.20 H* Triglycerides Cholesterol LDL Cholesterol VLDL Cholesterol HDL Cholesterol MRSA (PCR) 12/19/17 Unknown WBC RBC Hgb Hct MCV MCH MCHC RDW RDW Differential Plt Count MPV Immature Gran % (Auto) Neut % (Auto) Lymph % (Auto) Real % (Auto) Eos % (Auto) Baso % (Auto) Absolute Neuts (auto) Absolute Lymphs (auto) Total Counted Sodium 138 Potassium 4.4 Chloride 106 Carbon Dioxide 24.0 Anion Gap 8 BUN 12 Creatinine 0.88 Estim Creat Clear Calc 135.00 Est GFR (MDRD) Af Amer 121 Est GFR (MDRD) Non-Af 100 BUN/Creatinine Ratio 13.6 Glucose 100 Calcium 8.1 L Magnesium Troponin I Triglycerides 177 Cholesterol 166 LDL Cholesterol 99 VLDL Cholesterol 35 HDL Cholesterol 32 L MRSA (PCR) Diagnostic Data Chest X-Ray 12/18/17 15:38 IMPRESSION: There are findings consistent with COPD. There is no evidence of acute chest disease. Electronically Signed: Brayden Wang MD at 16:00 EDT , Service support , Medical Necessity - Tobacco Use Smoking Status: Current every day smoker Tobacco Use: Cigarettes Assessment/Plan Active and Suspected Problems Tobacco abuse (Acute) Atrial fibrillation with RVR (Acute) NSTEMI (non-ST elevated myocardial infarction) (Acute) This is a 42 years old male patient admitted for chest pain, showing elevated troponin consistent with NSTEMI. He was also found to have atrial fibrillation with RVR. #1 A. fib with RVR: Started on IV diltiazem. Converted to normal sinus rhythm. TSH normal. Continue diltiazem po. Continue Plavix and aspirin for now, pending 2D-echocardiogram result. [id number] = 1. #2 non-ST elevation [place]: EKG reviewed, revealed A. fib with RVR, no acute ST elevation. This could be due to A. fib with RVR or possibly underlying CAD. Patient received loading dose of Plavix and therapeutic Lovenox. Plan for cardiac catheterization on 12/21/17. 2D-echocardiogram was done on 12/19, result pending. Appreciate cardiology consultation. #3 mild hypokalemia: Replace potassium with potassium chloride added to IV fluids, check serum magnesium, repeat BMP tomorrow morning. #4 Hypertension: Patient used to be on lisinopril for hypertension, stopped taking it by himself one year ago because he claimed that his blood pressure has been stable. He received nitroglycerin drip initially for chest pain. Continue to monitor blood pressure. #5 Nicotine dependency. Importance of cessation of smoking was stressed. VTE prophylaxis: Lovenox weight based dosage. GI prophylaxis: ppi po. Patient is full code. Disposition: home in 2 to 3 days. Code Visit Inpatient E&M: 07207 Subs Hosp L3
--- NOTE | 2017-12-19 10:20 | PN_ITS ---
Patient Problems: Active and Suspected Problems Tobacco abuse (Acute) Atrial fibrillation with RVR (Acute) NSTEMI (non-ST elevated myocardial infarction) (Acute) Subjective: He feels well, denied of any more chest pain. - Physical Exam General: Alert, Oriented x3, Cooperative HEENT: Atraumatic, PERRLA, Normocephalic Oral: Moist Mucosa Neck: Supple, No JVD Lungs: Clear to auscultation, Normal air movement, No rhonchi, No wheeze, No rales Cardiovascular: Regular rate, Regular Rhythm, Normal S1, Normal S2, No murmurs, No Ectopic Activity Abdomen: Bowel Sounds Present, Soft, Non Tender, Non-Distended, No Hepato- splenomegaly Extremities: No clubbing, No cyanosis, No edema Skin: No rashes, No breakdown Musculoskeletal: No Tenderness to Palpation of Joints or Extremities, No Muscle Wasting Lymphatic: No Cervical, Supraclavicular, or Inguinal Adenopathy Neurological: Cranial nerves II-XII grossly intact, Neuro grossly intact Psych/Mental Status: Normal Affect Vital Signs Temp Pulse Resp BP Pulse Ox 98.9 F 71 17 127/87 H 97 12/19/17 04:00 12/19/17 07:31 12/19/17 07:31 12/19/17 07:31 12/19/17 07:31 Oxygen Flow Rate (L/min) 2 Oxygen Delivery Method Room Air Weight: 267 lb 10.259 oz Body Mass Index (BMI) 30.9 Intake and Output for Last 24 Hours 12/17/17 12/18/17 12/19/17 23:59 23:59 23:59 Intake Total 504 / 504 1315 / 1315 Output Total 550 / 550 415 / 415 Balance -46 / -46 900 / 900 Laboratory Tests Past 24 Hrs 12/18/17 12/18/17 12/18/17 20:00 22:30 Unknown WBC RBC Hgb Hct MCV MCH MCHC RDW RDW Differential Plt Count MPV Immature Gran % (Auto) Neut % (Auto) Lymph % (Auto) [place] % (Auto) Eos % (Auto) Baso % (Auto) Absolute Neuts (auto) Absolute Lymphs (auto) Total Counted Sodium Potassium Chloride Carbon Dioxide Anion Gap BUN Creatinine Estim Creat Clear Calc Est GFR (MDRD) Af Amer Est GFR (MDRD) Non-Af BUN/Creatinine Ratio Glucose Calcium Magnesium 2.1 Troponin I 11.50 H* Triglycerides Cholesterol LDL Cholesterol VLDL Cholesterol HDL Cholesterol MRSA (PCR) Negative 12/19/17 12/19/17 12/19/17 02:00 08:00 Unknown WBC 8.2 RBC 4.23 L Hgb 14.4 Hct 44.3 MCV 104.7 H MCH 34.0 H MCHC 32.5 RDW 14.5 RDW Differential 56.0 H Plt Count 233 MPV 9.5 Immature Gran % (Auto) 0.200 Neut % (Auto) 59.2 Lymph % (Auto) 28.4 [place] % (Auto) 9.9 Eos % (Auto) 2.1 Baso % (Auto) 0.2 Absolute Neuts (auto) 4.9 Absolute Lymphs (auto) 2.33 Total Counted Not Reportable Sodium Potassium Chloride Carbon Dioxide Anion Gap BUN Creatinine Estim Creat Clear Calc Est GFR (MDRD) Af Amer Est GFR (MDRD) Non-Af BUN/Creatinine Ratio Glucose Calcium Magnesium Troponin I 12.40 H* 10.20 H* Triglycerides Cholesterol LDL Cholesterol VLDL Cholesterol HDL Cholesterol MRSA (PCR) 12/19/17 Unknown WBC RBC Hgb Hct MCV MCH MCHC RDW RDW Differential Plt Count MPV Immature Gran % (Auto) Neut % (Auto) Lymph % (Auto) [place] % (Auto) Eos % (Auto) Baso % (Auto) Absolute Neuts (auto) Absolute Lymphs (auto) Total Counted Sodium 138 Potassium 4.4 Chloride 106 Carbon Dioxide 24.0 Anion Gap 8 BUN 12 Creatinine 0.88 Estim Creat Clear Calc 135.00 Est GFR (MDRD) Af Amer 121 Est GFR (MDRD) Non-Af 100 BUN/Creatinine Ratio 13.6 Glucose 100 Calcium 8.1 L Magnesium Troponin I Triglycerides 177 Cholesterol 166 LDL Cholesterol 99 VLDL Cholesterol 35 HDL Cholesterol 32 L MRSA (PCR) Diagnostic Data Chest X-Ray 12/18/17 15:38 IMPRESSION: There are findings consistent with COPD. There is no evidence of acute chest disease. Electronically Signed: Brayden Wang MD at 16:00 EDT , Service support , Medical Necessity - Tobacco Use Smoking Status: Current every day smoker Tobacco Use: Cigarettes Assessment/Plan Active and Suspected Problems Tobacco abuse (Acute) Atrial fibrillation with RVR (Acute) NSTEMI (non-ST elevated myocardial infarction) (Acute) This is a 42 years old male patient admitted for chest pain, showing elevated troponin consistent with NSTEMI. He was also found to have atrial fibrillation with RVR. #1 A. fib with RVR: Started on IV diltiazem. Converted to normal sinus rhythm. TSH normal. Continue diltiazem po. Continue Plavix and aspirin for now, pending 2D-echocardiogram result. [id number] = 1. #2 non-ST elevation [place]: EKG reviewed, revealed A. fib with RVR, no acute ST elevation. This could be due to A. fib with RVR or possibly underlying CAD. Patient received loading dose of Plavix and therapeutic Lovenox. Plan for cardiac catheterization on 12/21/17. 2D-echocardiogram was done on 12/19, result pending. Appreciate cardiology consultation. #3 mild hypokalemia: Replace potassium with potassium chloride added to IV fluids, check serum magnesium, repeat BMP tomorrow morning. #4 Hypertension: Patient used to be on lisinopril for hypertension, stopped taking it by himself one year ago because he claimed that his blood pressure has been stable. He received nitroglycerin drip initially for chest pain. Continue to monitor blood pressure. #5 Nicotine dependency. Importance of cessation of smoking was stressed. VTE prophylaxis: Lovenox weight based dosage. GI prophylaxis: ppi po. Patient is full code. Disposition: home in 2 to 3 days. Code Visit Inpatient E&M: 80013 Subs Hosp L3
[2017-12-19] MEDS: Metoprolol Tartrate 50 MG Tablet PO ×2 (10:29→21:25)
[2017-12-19] MEDS: Aspirin 81 MG TAB.CHEW PO (10:29)
[2017-12-19] MEDS: Clopidogrel Bisulfate 75 MG Tablet PO (10:32)
--- NOTE | 2017-12-19 14:45 | NURSING ---
report given to sourcing internship for transfer to room 123,transferred with belongings per wheelchair
[2017-12-19] MEDS: Atorvastatin Calcium 40 MG Tablet PO (21:25)
[2017-12-20] VITALS (12 sets, daily range): BP systolic 110–152; BP diastolic 67–87; PULSE 72–92; RESP 16; TEMP 36.7–36.9; O2SAT 94–96
[2017-12-20] MEDS: Enoxaparin 120 MG/0.8 ML Syringe SC ×2 (05:22→18:15)
--- NOTE | 2017-12-20 09:39 | PCM.PN.CARD ---
Subjectve: Patient doing well this morning, no 24 hour events. Telemetry showed normal sinus rhythm, no ventricular arrhythmias. Blood pressure and heart rate are stable. Awaiting cath tomorrow morning. Objective: Vital Signs Temp Pulse Resp BP Pulse Ox 98.5 F 72 16 110/67 95 12/20/17 03:00 12/20/17 06:54 12/20/17 03:00 12/20/17 03:00 12/20/17 07:35 Oxygen Flow Rate (L/min) 2 Oxygen Delivery Method Room Air Weight: 266 lb 12.149 oz Body Mass Index (BMI) 30.9 Intake and Output for Last 24 Hours 12/18/17 12/19/17 12/20/17 23:59 23:59 23:59 Intake Total 504 / 504 4131 / 4131 657 / 657 Output Total 550 / 550 865 / 865 Balance -46 / -46 3266 / 3266 657 / 657 General: Awake, Alert, Oriented x 3 HEENT: PERRL, EOMI, Sclera Non Icteric Neck: Supple, Good ROM, No Lymph Node Enlargement Lungs: Clear to auscultation Cardiovascular: Regular Rhythm, Normal S1, Normal S2, No Murmurs, No Rubs, No Gallops Vascular: No Carotid Bruits, Normal Femoral Pulses, Normal Radial Pulses, Normal Dorsalis Pedal Pulse, Normal Posterior Tibial Pulses Abdomen: Bowel Sounds Present, Soft, Non Tender, No HSM, No Organomegaly Extremities: No Cyanosis, No Clubbing, No edema Neurological: No Focal Motor or Sensory Deficit Rhythm: EKG: ECHO: Stress Test: Cardiac Cath: PCI: CT Surgery: Holter monitor: EPS: PPM: CXR: Chest CT Scan: Medical Necessity - Tobacco Use Smoking Status: Current every day smoker Tobacco Use: Cigarettes Assessment/Plan 1. Atrial fibrillation: The patient presents with atrial fibrillation of new onset, with associated chest pain, shortness of breath and non-STEMI. He has successfully converted to normal sinus rhythm with the assistance of IV Cardizem drip, potassium replacement, and beta-stephanie therapy. Cardizem drip is been discontinued and patient is tolerating Lopressor 50 mg twice daily rather well. Echocardiogram was performed yesterday, which shows normal LV function, normal RVSP. At this point I would hold on oral anticoagulation as he will require a diagnostic coronary angiogram this upcoming Thursday as well as the fact that he has normal EF, and his atrial fibrillation has resolved. He is currently in sinus rhythm but would recommend continuing subcu Lovenox full dose until the morning of his catheterization. 2. Coronary artery disease: Patient had a small troponin release of approximately 12 and is decreasing out of 10. His EKG shows no acute changes either during his atrial fibrillation or afterwards when he has converted to normal sinus rhythm. Nonetheless I recommended a diagnostic coronary under gram this upcoming Thursday. Given his troponin release, we will skip over a stress test. In the meantime he will continue baby aspirin and Plavix 75 mg a day. Continue beta-stephanie therapy. 3. Hyperlipidemia: Given the patient's non-STEMI, he will require aggressive LDL reduction. Lipitor 40 mill grams p.o. nightly started today. Repeat lipid profile in 6 weeks time. 4. Tobacco abuse: I have strongly encouraged the patient to discontinue all tobacco products. 5. Thank you very much for the opportunity to participate in the cardiac care of your patient. We will proceed with left heart catheterization tomorrow morning. Code Visit Inpatient E&M: 29232 Subs Hosp L2
[2017-12-20] MEDS: Metoprolol Tartrate 50 MG Tablet PO ×2 (10:08→21:06)
[2017-12-20] MEDS: Aspirin 81 MG TAB.CHEW PO (10:08)
[2017-12-20] MEDS: Pantoprazole Sodium 20 MG Tablet PO (10:08)
[2017-12-20] MEDS: Clopidogrel Bisulfate 75 MG Tablet PO (10:13)
--- NOTE | 2017-12-20 10:59 | PCM.PROGNOTE ---
Patient Problems: Active and Suspected Problems Tobacco abuse (Acute) Atrial fibrillation with RVR (Acute) NSTEMI (non-ST elevated myocardial infarction) (Acute) Subjective: Patient feels well. He did not have any more chest pain. he denied of any palpitations, dyspnea, nausea, or headache. - Physical Exam General: Alert, Oriented x3, Cooperative HEENT: Atraumatic, PERRLA, Normocephalic Oral: Moist Mucosa Neck: Supple, No JVD Lungs: Clear to auscultation, Normal air movement, No rhonchi, No wheeze, No rales Cardiovascular: Regular rate, Regular Rhythm, Normal S1, Normal S2, No murmurs, No Ectopic Activity Abdomen: Bowel Sounds Present, Soft, Non Tender, Non-Distended, No Hepato-splenomegaly Extremities: No clubbing, No cyanosis, No edema Skin: No rashes, No breakdown Musculoskeletal: No Tenderness to Palpation of Joints or Extremities, No Muscle Wasting Lymphatic: No Cervical, Supraclavicular, or Inguinal Adenopathy Neurological: Cranial nerves II-XII grossly intact, Neuro grossly intact Psych/Mental Status: Normal Affect - Physical Exam Vital Signs Temp Pulse Resp BP Pulse Ox 98.5 F 86 16 152/87 H 96 12/20/17 09:00 12/20/17 10:08 12/20/17 09:00 12/20/17 09:00 12/20/17 09:00 Oxygen Flow Rate (L/min) 2 Oxygen Delivery Method Room Air Weight: 266 lb 12.149 oz Body Mass Index (BMI) 30.9 Intake and Output for Last 24 Hours 12/18/17 12/19/17 12/20/17 23:59 23:59 23:59 Intake Total 504 / 504 4131 / 4131 657 / 657 Output Total 550 / 550 865 / 865 Balance -46 / -46 3266 / 3266 657 / 657 Diagnostic Data Chest X-Ray 12/18/17 15:38 IMPRESSION: There are findings consistent with COPD. There is no evidence of acute chest disease. Electronically Signed: Brayden Wang MD at 16:00 EDT , Service support , Medical Necessity - Tobacco Use Smoking Status: Current every day smoker Tobacco Use: Cigarettes Assessment/Plan Active and Suspected Problems Tobacco abuse (Acute) Atrial fibrillation with RVR (Acute) NSTEMI (non-ST elevated myocardial infarction) (Acute) This is a 42 years old male patient admitted for chest pain, showing elevated troponin consistent with NSTEMI. He was also found to have atrial fibrillation with RVR. #1 A. fib with RVR: Started on IV diltiazem. Converted to normal sinus rhythm. TSH normal. Diltiazem drip stopped, started on metoprolol 50 mg po bid. He is in sinus rhythm, no recurrence of a-fib. Continue Plavix and aspirin for now. Echo was done, unremarkable. [id number] = 1. #2 non-ST elevation MD: EKG reviewed, revealed A. fib with RVR, no acute ST elevation. This could be due to A. fib with RVR or possibly underlying CAD. Patient received loading dose of Plavix and therapeutic Lovenox. Plan for cardiac catheterization on 12/21/17. 2D-echocardiogram was done on 12/19, no regional wall abnormality, preserved LV function, mild MR. Appreciate cardiology consultation. #3 mild hypokalemia: Corrected. #4 Hypertension: Patient used to be on lisinopril for hypertension, stopped taking it by himself one year ago because he claimed that his blood pressure has been stable. He received nitroglycerin drip initially for chest pain. BP is adequate with metoprolol. Continue to monitor blood pressure. #5 Nicotine dependency. Importance of cessation of smoking was stressed. Nicotine patch was started. VTE prophylaxis: Lovenox weight based dosage. GI prophylaxis: ppi po. Patient is full code. Disposition: home in 1 to 2 days. Code Visit Inpatient E&M: 63998 Subs Hosp L2
--- NOTE | 2017-12-20 11:06 | PN_ITS ---
Patient Problems: Active and Suspected Problems Tobacco abuse (Acute) Atrial fibrillation with RVR (Acute) NSTEMI (non-ST elevated myocardial infarction) (Acute) Subjective: Patient feels well. He did not have any more chest pain. he denied of any palpitations, dyspnea, nausea, or headache. - Physical Exam General: Alert, Oriented x3, Cooperative HEENT: Atraumatic, PERRLA, Normocephalic Oral: Moist Mucosa Neck: Supple, No JVD Lungs: Clear to auscultation, Normal air movement, No rhonchi, No wheeze, No rales Cardiovascular: Regular rate, Regular Rhythm, Normal S1, Normal S2, No murmurs, No Ectopic Activity Abdomen: Bowel Sounds Present, Soft, Non Tender, Non-Distended, No Hepato- splenomegaly Extremities: No clubbing, No cyanosis, No edema Skin: No rashes, No breakdown Musculoskeletal: No Tenderness to Palpation of Joints or Extremities, No Muscle Wasting Lymphatic: No Cervical, Supraclavicular, or Inguinal Adenopathy Neurological: Cranial nerves II-XII grossly intact, Neuro grossly intact Psych/Mental Status: Normal Affect - Physical Exam Vital Signs Temp Pulse Resp BP Pulse Ox 98.5 F 86 16 152/87 H 96 12/20/17 09:00 12/20/17 10:08 12/20/17 09:00 12/20/17 09:00 12/20/17 09:00 Oxygen Flow Rate (L/min) 2 Oxygen Delivery Method Room Air Weight: 266 lb 12.149 oz Body Mass Index (BMI) 30.9 Intake and Output for Last 24 Hours 12/18/17 12/19/17 12/20/17 23:59 23:59 23:59 Intake Total 504 / 504 4131 / 4131 657 / 657 Output Total 550 / 550 865 / 865 Balance -46 / -46 3266 / 3266 657 / 657 Diagnostic Data Chest X-Ray 12/18/17 15:38 IMPRESSION: There are findings consistent with COPD. There is no evidence of acute chest disease. Electronically Signed: Brayden Wang MD at 16:00 EDT , Service support , Medical Necessity - Tobacco Use Smoking Status: Current every day smoker Tobacco Use: Cigarettes Assessment/Plan Active and Suspected Problems Tobacco abuse (Acute) Atrial fibrillation with RVR (Acute) NSTEMI (non-ST elevated myocardial infarction) (Acute) This is a 42 years old male patient admitted for chest pain, showing elevated troponin consistent with NSTEMI. He was also found to have atrial fibrillation with RVR. #1 A. fib with RVR: Started on IV diltiazem. Converted to normal sinus rhythm. TSH normal. Diltiazem drip stopped, started on metoprolol 50 mg po bid. He is in sinus rhythm, no recurrence of a-fib. Continue Plavix and aspirin for now. Echo was done, unremarkable. [id number] = 1. #2 non-ST elevation [place]: EKG reviewed, revealed A. fib with RVR, no acute ST elevation. This could be due to A. fib with RVR or possibly underlying CAD. Patient received loading dose of Plavix and therapeutic Lovenox. Plan for cardiac catheterization on 12/21/17. 2D-echocardiogram was done on 12/19, no regional wall abnormality, preserved LV function, mild MR. Appreciate cardiology consultation. #3 mild hypokalemia: Corrected. #4 Hypertension: Patient used to be on lisinopril for hypertension, stopped taking it by himself one year ago because he claimed that his blood pressure has been stable. He received nitroglycerin drip initially for chest pain. BP is adequate with metoprolol. Continue to monitor blood pressure. #5 Nicotine dependency. Importance of cessation of smoking was stressed. Nicotine patch was started. VTE prophylaxis: Lovenox weight based dosage. GI prophylaxis: ppi po. Patient is full code. Disposition: home in 1 to 2 days. Code Visit Inpatient E&M: 13005 Subs Hosp L2
[2017-12-20] MEDS: Atorvastatin Calcium 40 MG Tablet PO (21:05)
[2017-12-21] VITALS (28 sets, daily range): BP systolic 98–166; BP diastolic 65–117; PULSE 59–98; RESP 12–21; TEMP 36.7–37.1; O2SAT 93–100; BMI 31.1
[2017-12-21 00:28] LABS: Bacteria 0 SEEN /hpf (None Seen); Mucous, Urine 0 SEEN /hpf (<or=2+); Red Blood Cells-Urine 0 SEEN /hpf (0-5); Squamous Epithelial Cells - UA 0 SEEN /hpf (0-5); White Blood Cells 0 SEEN /hpf (0-5)
[2017-12-21 00:44] LABS: Color, Urine Straw (Yellow); Glucose, Dipstick Normal (Normal); Ketone-Dipstick Negative (Negative); Leukocyte Esterase-Dipstick Negative /ul (Negative); Nitrite-Dipstick Negative (Negative); Occult Blood-Urine Negative /ul (Negative); Protein-Dipstick Negative (Negative); Urine Bilirubin Dipstick Negative (Negative); Urine Clarity Clear (Clear); Urine Urobilinogen Normal (Normal)
--- NOTE | 2017-12-21 05:55 | EKG12_ITS ---
Test Reason : AM EKG Blood Pressure : / mmHG Vent. Rate : 068 BPM Atrial Rate : 068 BPM P-R Int : 130 ms QRS Dur : 086 ms QT Int : 394 ms P-R-T Axes : 049 030 054 degrees QTc Int : 418 ms Normal sinus rhythm Normal ECG When compared with ECG of 18-DEC-2017 19:11, MANUAL COMPARISON REQUIRED, DATA IS UNCONFIRMED Confirmed by AMARJIT PAPPAS ([id number]), video editor BERE HARRISON ([id number]) on 12/24/2017 2:52:44 PM Referred By: AZEEM Confirmed By:AMARJIT PAPPAS
[2017-12-21 06:16] LABS: Prothrombin Time (Protime)PT. 13.6 SECONDS (11.7-14.9)
[2017-12-21 06:17] LABS: Partial Thromboplast Time 30.8 Seconds (24.1-36.2)
[2017-12-21 06:21] LABS: Absolute Lymphocyte Count 2.26 X10^3/ul (0.83-4.51); Absolute Neutrophil Count 4.7 X10^3/uL (2.0-7.7); Basophil# 0.02 X10^3/uL; Basophil% 0.3 % (0-1); Eosinophil# 0.23 X10^3/uL; Eosinophils% 2.9 % (0-5); Hemoglobin 14.9 g/dl (13.0-16.5); Lymphocyte # 2.26 X10^3/ul (4.0); Lymphocyte % 28.7 % (19-41); Mean Corp Hgb Conc 33.1 g/gl (32-36); Mean Corpuscular Hgb 34.2 pg (27.0-32.0); Mean Corpuscular Volume 103.2 fL (80-94); Monocyte# 0.65 X10^3/uL; Monocyte% 8.2 % (0-10); Neutrophil % 59.6 % (47-70); Platelet Count 230 K/mm3 (150-450); RBC Distribution Width CV 14.1 % (11.6-14.6); RBC Distribution Width SD 53.2 fl (35.1-43.9); Red Blood Count 4.36 M/mm3 (4.6-6.2); White Blood Count 7.9 K/mm3 (4.4-11.0)
[2017-12-21] MEDS: 0.9% Normal Saline 1,000 ML 15 ML IV (06:23)
[2017-12-21] MEDS: Metoprolol Tartrate 50 MG Tablet PO ×2 (06:24→21:47)
[2017-12-21] MEDS: Aspirin 81 MG TAB.CHEW PO (06:24)
[2017-12-21] MEDS: Clopidogrel Bisulfate 75 MG Tablet PO (06:27)
[2017-12-21] MEDS: DiphenhydrAMINE 25 MG Capsule 50 MG PO (06:27)
[2017-12-21 06:40] LABS: Anion Gap 8 (5-15); BUN 9 mg/dL (7-18); BUN/Creat Ratio 10.7 RATIO (10-20); Calcium,Total 8.4 mg/dL (8.5-10.1); Chloride 106 mmol/L (98-107); Creatinine, Serum 0.84 mg/dL (0.70-1.30); EST Glomerular Filtration Rate 105 mL/min (>60); Est Glom Filt Rate - Afr Amer 127 mL/min (>60); Estimated Creatinine Clearance 141.43 ml/min; Glucose 85 mg/dL (74-106); POSITIVE COUNT NO; POSITIVE DIFFERENTIAL NO; POSITIVE MORPHOLOGY NO; Potassium 4.1 mmol/L (3.5-5.1); Sodium Level 137 mmol/L (136-145)
--- NOTE | 2017-12-21 06:50 | NURSING ---
Called report to Aníbal in [facility] at this time - updated on patient.
--- NOTE | 2017-12-21 08:56 | NURSING ---
report called to LUISA Navarro in ICU. Pt to go to ICU 204.
--- NOTE | 2017-12-21 09:06 | CASEMGMT ---
According to [facility] network, the following are in-network tertiary facilities: [facility], [facility], [facility], [facility], and . Marisol MORAN CM
[2017-12-21 09:50] LABS: ACT Activated Clotting Time 164 sec (74-137)
--- NOTE | 2017-12-21 09:56 | CL.I_ITS ---
Patient Name: MARIA TERESA FERREIRA Study Date: 12/21/2017 Performing: Darin Plata MD Ht: 77.95 inches 198 cm : 1975 Wt: 268.96 lbs 122 kg Age: 42 Gender: male BSA: 2.56 PROCEDURE(S) PERFORMED [id number]/COR/LV [id number], CORONARY OR GRAFT, INITIAL VESSEL [id number] W OR WO PTCA, SINGLE CORONARY ARTERY CLINICAL PROFILE AND CO-MORBIDITIES Patient presents with NSTEMI for urgent cardiac cath INDICATIONS: Unstable Angina Stress/Imaging Stress/Image Study Performed: No Angina Classification Anginal Classification w/in 2 Weeks: No symptoms CAD Presentations: Non-STEMI. Symptom onset Date/Time: 12/18/17 Time Not Available Comorbidities/Risk Factors: Current/Recent Smoker (< 1year) Hypertension Dyslipidemia CONCLUSIONS Single vessel CAD of the ostial/proximal RCA Segmented LV systolic dysfunction- Mild Successful PTCA/YOHANA of the ostial/proximal RCA with thrombectomy, IVUS guidance to confirm true lumen , followed by 4.0 x 20 Promus Synergy, post dilated with a 4.5 x 15 NC Balloon. No additional ostial stenting done due to concern for additional plaque shifting down SA david branch and complete resolu ashley of dissected proximal area. Stent apposition confirmed by IVUS. Successful Mynx closure of RFA. RECOMMENDATIONS Referred for immediate PCI Management as per referring Radio Frequency Engineer Highly recommend quitting all tobacco products Follow up with primary signal manager Risk factor modification ASA Indefinitley Plavix for at least 12 months Routine post interventional care Refer for Outpatient Cardiac Rehab Manual sheath removal per protocol Follow up with Dr. Plata DESCRIPTION OF PROCEDURE The patient arrived to the procedure lab. The risks and benefits of the procedure as well as a full d escription of our services here and lack of surgical backup were fully explained to the patient and/o r their significant other prior to the catheterization. The Timeout was completed, verifying the mireya ect patient and procedure. The patient's procedural site was prepped and draped in the usual fashion. Local anesthetic was given subcutaneously to right groin region with Lidocaine 2%. Using a modified Seldinger technique, arterial access was obtained via the right femoral artery, a 4Fr sheath was inse rted. Left Coronary Artery selective angiography was performed in multiple views using a 4 Fr. JL5 c atheter. Right Coronary Artery selective angiography was then performed in multiple views using a 4 F r. 3DRC catheter. Left Ventriculography was performed in MINOR projection using a 4 Fr. Pigtail cathete rThe images were reviewed and options discussed. A decision was then made to proceed with an Interven tion, IVUS or other adjunct procedure. Arterial sheath was exchanged for a 6 Fr Sheath HS II Guide catheter was inserted and engaged into th e RCA. bmw Guide wire was advanced to the RCA. IVUS pullback recording was performed on the RCA for p re- intervention / lesion assessment Garrison AP inserted Pass # 1 Garrison AP Removed Garrison AP inserted Pass # 2 Garrison AP Removed IVUS pullback recording was performed on the RCA for pre- intervention / lesion assessment 2.50x12 emerge Balloon catheter was inserted. Angiogram performed pre balloon dilat ation. PTCA balloon inflated at 6 atms for 12 secs PTCA balloon inflated at 6 atms for 5 secs Garrison AP inserted Pass # 1 Garrison AP Removed Angiogram performed pre stent deployment. synergy 4x20 Drug El uting stent was inserted Angiogram performed post stent deployment. nc emerge 4.5x15 Balloon catheter was inserted. PTCA balloon inflated at 12 atms for 9 secs PTCA balloon inflated at 12 atms for 6 sec s Angiogram performed post balloon dilatation.. Contrast was injected through the sheath and the Righ t Iliac and Femoral artery were assessed for possible closure device.. The arterial sheath was pulle d and a Mynx closure device was deployed for hemostasis. CORONARY ANGIOGRAPHY DOMINANCE: Right Dominant LEFT HEART ASSESSMENT Left Ventricular Ejection Fraction: by LV Gram 50-55 % Depressed Left Ventricular systolic function Normal Left Ventricular End Diastolic Pressure Inferior Mid Hypokinesis - Mild LEFT MAIN: Angiographically normal LEFT ANTERIOR DECENDING ARTERY: Angiographically normal CIRCUMFLEX ARTERY: Angiographically normal RIGHT CORONARY ARTERY: Possible longitudinal dissection along ostial/proximal RCA. OSTIAL RCA: 75 % Stenosis INTERVENTION INFORMATION LESION SITE: RCA (Ostial) Lesion Complexity: High/C, lesion at bifurcation: No, thrombus present: Yes, lesion length: 20 mm, cu lprit lesion: Yes Pre Stenosis: 75 % Pre intervention DIANA flow: 3 PROCEDURE: Balloon Angioplasty, Drug Eluting Stent with pre and post dilatation, Thrombectomy, IVUS for pre PCI assessment of vessel, IVUS for pre PCI assessment and post stent placement Post Stenosis: 0 % Post intervention DIANA flow: 3 Lesion Devices: SurDoctronic 6 Fr. Garrison AP Aspiration Catheter Mohinder Sci Synergy MR YOHANA 4.00x20 Mohinder Sci EMERGE MR 2.50x12 BALLOON Mohinder Sci NC EMERGE MR 4.50x15 BALLOON COMPLICATIONS No Complications PROCEDURE MEDICATIONS Fentanyl 25 mcg IV Versed 1 mg IV Fentanyl 25 mcg IV Fentanyl 25 mcg IV Fentanyl 25 mcg IV Oxygen: 2 L/min via nasal cannula Heparin 6000 unit(s) IV 12/21/2017 08:38:54 Heparin 3000 unit(s) IV 12/21/2017 09:32:06 Nitro 200 mcg IC 12/21/2017 08:50:49 Nifedipine 100 mg 12/21/2017 09:13:25 Nitro 200 mcg IC 12/21/2017 09:16:06 IV Bolus: .9 NaCl 500 ml total 12/21/2017 08:42:22 SUMMARY OF HEMODYNAMIC DATA Time AIR REST ECG 07:52:07 AO 130/91 (109) SA 08:26:38 LV 142/-15, 16 08:34:48 LV 142/-16, 15 08:34:49 LVp 137/-15, 17 08:35:14 AOp 146/84 (109) 08:35:20 Signed By Darin Plata MD On 12/21/2017 09:56:05 Darin Plata MD
[2017-12-21 10:21] LABS: Hematocrit 44.8 % (40-54); Mean Corp Hgb Conc 33.5 g/gl (32-36); Mean Corpuscular Hgb 34.7 pg (27.0-32.0); Mean Corpuscular Volume 103.7 fL (80-94); Mean Platelet Vol. 9.4 fl (6.2-12.0); Platelet Count 256 K/mm3 (150-450); RBC Distribution Width SD 53.3 fl (35.1-43.9); Red Blood Count 4.32 M/mm3 (4.6-6.2); Scan Indicated on CBC? Y/N NO; White Blood Count 8.7 K/mm3 (4.4-11.0)
[2017-12-21] MEDS: Pantoprazole Sodium 20 MG Tablet PO (10:33)
[2017-12-21] MEDS: diazePAM 5 MG Tablet PO (10:33)
[2017-12-21 10:38] LABS: CPK Total, Creatine Kinase 91 U/L (39-308)
[2017-12-21] MEDS: Losartan Potassium 25 MG Tablet PO (10:41)
[2017-12-21] MEDS: 0.9% Normal Saline 1,000 ML 150 ML IV (10:42)
--- NOTE | 2017-12-21 11:21 | PCM.PROGNOTE ---
Patient Problems: Active and Suspected Problems Tobacco abuse (Acute) Atrial fibrillation with RVR (Acute) NSTEMI (non-ST elevated myocardial infarction) (Acute) Subjective: Chief complaint: Follow-up after admission for non-ST elevation SC and new onset A. fib with RVR. Patient seen and examined. No acute events overnight. 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 He denies any more chest pain or shortness of breath. His blood pressure is elevated, other vital signs are stable. - Physical Exam General: Alert, Oriented x3, Cooperative, No apparent distress HEENT: Atraumatic, PERRLA, EOMI Oral: Moist Mucosa, No Gingival or Mucosal Lesions/ Ulcerations Neck: Supple, No JVD, Negative Carotid Bruits, Trachea Midline, Thyroid Normal Size and Texture Lungs: Clear to auscultation, No rhonchi, No wheeze, No rales, Diminished Cardiovascular: Regular rate, Regular Rhythm, Normal S1, Normal S2, No murmurs Abdomen: Bowel Sounds Present, Soft, Non Tender, Non-Distended, No Hepato-splenomegaly Extremities: No clubbing, No cyanosis Skin: No rashes, No breakdown Lymphatic: No Cervical, Supraclavicular, or Inguinal Adenopathy Neurological: Cranial nerves II-XII grossly intact, Motor Exam 5/5 strength throughout Psych/Mental Status: Normal Affect, Appropriate, Alert and oriented to time, place, person, mood and affect Vital Signs Temp Pulse Resp BP Pulse Ox 98.6 F 66 16 139/91 H 95 12/21/17 06:20 12/21/17 06:51 12/21/17 06:20 12/21/17 06:24 12/21/17 06:20 Oxygen Flow Rate (L/min) 2 Oxygen Delivery Method Room Air Weight: 269 lb 10.005 oz Body Mass Index (BMI) 30.9 Intake and Output for Last 24 Hours 12/19/17 12/20/17 12/21/17 23:59 23:59 23:59 Intake Total 4131 / 4131 3569 / 3569 732 / 732 Output Total 865 / 865 550 / 550 Balance 3266 / 3266 3019 / 3019 732 / 732 Laboratory Tests Past 24 Hrs 12/21/17 12/21/17 12/21/17 00:10 05:40 05:40 WBC 7.9 RBC 4.36 L Hgb 14.9 Hct 45.0 MCV 103.2 H MCH 34.2 H MCHC 33.1 RDW 14.1 RDW Differential 53.2 H Plt Count 230 MPV 10.0 Immature Gran % (Auto) 0.300 Neut % (Auto) 59.6 Lymph % (Auto) 28.7 [place] % (Auto) 8.2 Eos % (Auto) 2.9 Baso % (Auto) 0.3 Absolute Neuts (auto) 4.7 Absolute Lymphs (auto) 2.26 Total Counted Not Reportable PT 13.6 INR 1.0 APTT 30.8 Activated Clotting Time Sodium Potassium Chloride Carbon Dioxide Anion Gap BUN Creatinine Estim Creat Clear Calc Est GFR (MDRD) Af Amer Est GFR (MDRD) Non-Af BUN/Creatinine Ratio Glucose Calcium Total Creatine Kinase Urine Color Straw Urine Clarity Clear Urine pH 6.0 Ur Specific [place] 1.010 Urine Protein Negative Urine Glucose (UA) Normal Urine Ketones Negative Urine Occult Blood Negative Urine Nitrite Negative Urine Bilirubin Negative Urine Urobilinogen Normal Ur Leukocyte Esterase Negative Urine RBC 0 SEEN Urine WBC 0 SEEN Ur Squamous Epith Cells 0 SEEN Urine Bacteria 0 SEEN Urine Mucus 0 SEEN 12/21/17 12/21/17 12/21/17 05:40 09:24 10:15 WBC RBC Hgb Hct MCV MCH MCHC RDW RDW Differential Plt Count MPV Immature Gran % (Auto) Neut % (Auto) Lymph % (Auto) [place] % (Auto) Eos % (Auto) Baso % (Auto) Absolute Neuts (auto) Absolute Lymphs (auto) Total Counted PT INR APTT Activated Clotting Time 164 H Sodium 137 Potassium 4.1 Chloride 106 Carbon Dioxide 23.0 Anion Gap 8 BUN 9 Creatinine 0.84 Estim Creat Clear Calc 141.43 Est GFR (MDRD) Af Amer 127 Est GFR (MDRD) Non-Af 105 BUN/Creatinine Ratio 10.7 Glucose 85 Calcium 8.4 L Total Creatine Kinase 91 Urine Color Urine Clarity Urine pH Ur Specific [place] Urine Protein Urine Glucose (UA) Urine Ketones Urine Occult Blood Urine Nitrite Urine Bilirubin Urine Urobilinogen Ur Leukocyte Esterase Urine RBC Urine WBC Ur Squamous Epith Cells Urine Bacteria Urine Mucus 12/21/17 10:15 WBC 8.7 RBC 4.32 L Hgb 15.0 Hct 44.8 MCV 103.7 H MCH 34.7 H MCHC 33.5 RDW 14.0 RDW Differential 53.3 H Plt Count 256 MPV 9.4 Immature Gran % (Auto) Neut % (Auto) Lymph % (Auto) [place] % (Auto) Eos % (Auto) Baso % (Auto) Absolute Neuts (auto) Absolute Lymphs (auto) Total Counted PT INR APTT Activated Clotting Time Sodium Potassium Chloride Carbon Dioxide Anion Gap BUN Creatinine Estim Creat Clear Calc Est GFR (MDRD) Af Amer Est GFR (MDRD) Non-Af BUN/Creatinine Ratio Glucose Calcium Total Creatine Kinase Urine Color Urine Clarity Urine pH Ur Specific [place] Urine Protein Urine Glucose (UA) Urine Ketones Urine Occult Blood Urine Nitrite Urine Bilirubin Urine Urobilinogen Ur Leukocyte Esterase Urine RBC Urine WBC Ur Squamous Epith Cells Urine Bacteria Urine Mucus Medical Necessity - Tobacco Use Smoking Status: Current every day smoker Tobacco Use: Cigarettes Assessment/Plan Active and Suspected Problems Tobacco abuse (Acute) Atrial fibrillation with RVR (Acute) NSTEMI (non-ST elevated myocardial infarction) (Acute) This is a 42 years old male patient presented to the emergency room because of chest pain on palpitation, found to have A. fib with RVR and acute non-ST elevation SC. #1 A. fib with RVR: Converted back to sinus rhythm. At this time, he is on metoprolol. He was on IV Cardizem drip. He was on Lovenox twice daily for anticoagulation which was stopped today. His heart rate has been in the 70s, blood pressure is elevated at this time. Serum potassium was replaced and corrected, serum magnesium is normal. TSH was normal. 2D echocardiogram revealed normal ejection fraction of 65%, no significant valvular heart disease. Plan to continue same treatment. #2 non-ST elevation [place]: Status post cardiac catheterization today, found to have single-vessel disease of the ostial/proximal RCA, status post PTCA and drug eluting stent, has segmental LV systolic dysfunction. He is on aspirin, statins, Plavix, metoprolol. Plan to continue same treatment as above, cardiology on the case. #3 mild hypokalemia: Serum potassium replaced and corrected per protocol, serum magnesium is normal. #4 Hypertension: Patient used to be on lisinopril for hypertension, stopped taking it by himself one year ago because he claimed that his blood pressure has been stable. His blood pressure has been fluctuating. At this time, it is elevated. He is on metoprolol. Plan to monitor for now. #5 DVT prophylaxis: Patient was on Lovenox twice daily which was discontinued today. He is at high risk for DVT anyhow. This note was generated with [employer] software. It may contain incorrect words, spelling, and punctuation that were not noted in checking the note before signing. Code Visit Inpatient E&M: 51598 Subs Hosp L2
--- NOTE | 2017-12-21 11:27 | PN_ITS ---
Patient Problems: Active and Suspected Problems Tobacco abuse (Acute) Atrial fibrillation with RVR (Acute) NSTEMI (non-ST elevated myocardial infarction) (Acute) Subjective: Chief complaint: Follow-up after admission for non-ST elevation WI and new onset A. fib with RVR. Patient seen and examined. No acute events overnight. 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 He denies any more chest pain or shortness of breath. His blood pressure is elevated, other vital signs are stable. - Physical Exam General: Alert, Oriented x3, Cooperative, No apparent distress HEENT: Atraumatic, PERRLA, EOMI Oral: Moist Mucosa, No Gingival or Mucosal Lesions/ Ulcerations Neck: Supple, No JVD, Negative Carotid Bruits, Trachea Midline, Thyroid Normal Size and Texture Lungs: Clear to auscultation, No rhonchi, No wheeze, No rales, Diminished Cardiovascular: Regular rate, Regular Rhythm, Normal S1, Normal S2, No murmurs Abdomen: Bowel Sounds Present, Soft, Non Tender, Non-Distended, No Hepato- splenomegaly Extremities: No clubbing, No cyanosis Skin: No rashes, No breakdown Lymphatic: No Cervical, Supraclavicular, or Inguinal Adenopathy Neurological: Cranial nerves II-XII grossly intact, Motor Exam 5/5 strength throughout Psych/Mental Status: Normal Affect, Appropriate, Alert and oriented to time, place, person, mood and affect Vital Signs Temp Pulse Resp BP Pulse Ox 98.6 F 66 16 139/91 H 95 12/21/17 06:20 12/21/17 06:51 12/21/17 06:20 12/21/17 06:24 12/21/17 06:20 Oxygen Flow Rate (L/min) 2 Oxygen Delivery Method Room Air Weight: 269 lb 10.005 oz Body Mass Index (BMI) 30.9 Intake and Output for Last 24 Hours 12/19/17 12/20/17 12/21/17 23:59 23:59 23:59 Intake Total 4131 / 4131 3569 / 3569 732 / 732 Output Total 865 / 865 550 / 550 Balance 3266 / 3266 3019 / 3019 732 / 732 Laboratory Tests Past 24 Hrs 12/21/17 12/21/17 12/21/17 00:10 05:40 05:40 WBC 7.9 RBC 4.36 L Hgb 14.9 Hct 45.0 MCV 103.2 H MCH 34.2 H MCHC 33.1 RDW 14.1 RDW Differential 53.2 H Plt Count 230 MPV 10.0 Immature Gran % (Auto) 0.300 Neut % (Auto) 59.6 Lymph % (Auto) 28.7 [place] % (Auto) 8.2 Eos % (Auto) 2.9 Baso % (Auto) 0.3 Absolute Neuts (auto) 4.7 Absolute Lymphs (auto) 2.26 Total Counted Not Reportable PT 13.6 INR 1.0 APTT 30.8 Activated Clotting Time Sodium Potassium Chloride Carbon Dioxide Anion Gap BUN Creatinine Estim Creat Clear Calc Est GFR (MDRD) Af Amer Est GFR (MDRD) Non-Af BUN/Creatinine Ratio Glucose Calcium Total Creatine Kinase Urine Color Straw Urine Clarity Clear Urine pH 6.0 Ur Specific [place] 1.010 Urine Protein Negative Urine Glucose (UA) Normal Urine Ketones Negative Urine Occult Blood Negative Urine Nitrite Negative Urine Bilirubin Negative Urine Urobilinogen Normal Ur Leukocyte Esterase Negative Urine RBC 0 SEEN Urine WBC 0 SEEN Ur Squamous Epith Cells 0 SEEN Urine Bacteria 0 SEEN Urine Mucus 0 SEEN 12/21/17 12/21/17 12/21/17 05:40 09:24 10:15 WBC RBC Hgb Hct MCV MCH MCHC RDW RDW Differential Plt Count MPV Immature Gran % (Auto) Neut % (Auto) Lymph % (Auto) [place] % (Auto) Eos % (Auto) Baso % (Auto) Absolute Neuts (auto) Absolute Lymphs (auto) Total Counted PT INR APTT Activated Clotting Time 164 H Sodium 137 Potassium 4.1 Chloride 106 Carbon Dioxide 23.0 Anion Gap 8 BUN 9 Creatinine 0.84 Estim Creat Clear Calc 141.43 Est GFR (MDRD) Af Amer 127 Est GFR (MDRD) Non-Af 105 BUN/Creatinine Ratio 10.7 Glucose 85 Calcium 8.4 L Total Creatine Kinase 91 Urine Color Urine Clarity Urine pH Ur Specific [place] Urine Protein Urine Glucose (UA) Urine Ketones Urine Occult Blood Urine Nitrite Urine Bilirubin Urine Urobilinogen Ur Leukocyte Esterase Urine RBC Urine WBC Ur Squamous Epith Cells Urine Bacteria Urine Mucus 12/21/17 10:15 WBC 8.7 RBC 4.32 L Hgb 15.0 Hct 44.8 MCV 103.7 H MCH 34.7 H MCHC 33.5 RDW 14.0 RDW Differential 53.3 H Plt Count 256 MPV 9.4 Immature Gran % (Auto) Neut % (Auto) Lymph % (Auto) [place] % (Auto) Eos % (Auto) Baso % (Auto) Absolute Neuts (auto) Absolute Lymphs (auto) Total Counted PT INR APTT Activated Clotting Time Sodium Potassium Chloride Carbon Dioxide Anion Gap BUN Creatinine Estim Creat Clear Calc Est GFR (MDRD) Af Amer Est GFR (MDRD) Non-Af BUN/Creatinine Ratio Glucose Calcium Total Creatine Kinase Urine Color Urine Clarity Urine pH Ur Specific [place] Urine Protein Urine Glucose (UA) Urine Ketones Urine Occult Blood Urine Nitrite Urine Bilirubin Urine Urobilinogen Ur Leukocyte Esterase Urine RBC Urine WBC Ur Squamous Epith Cells Urine Bacteria Urine Mucus Medical Necessity - Tobacco Use Smoking Status: Current every day smoker Tobacco Use: Cigarettes Assessment/Plan Active and Suspected Problems Tobacco abuse (Acute) Atrial fibrillation with RVR (Acute) NSTEMI (non-ST elevated myocardial infarction) (Acute) This is a 42 years old male patient presented to the emergency room because of chest pain on palpitation, found to have A. fib with RVR and acute non-ST elevation WI. #1 A. fib with RVR: Converted back to sinus rhythm. At this time, he is on metoprolol. He was on IV Cardizem drip. He was on Lovenox twice daily for anticoagulation which was stopped today. His heart rate has been in the 70s, blood pressure is elevated at this time. Serum potassium was replaced and corrected, serum magnesium is normal. TSH was normal. 2D echocardiogram revealed normal ejection fraction of 65%, no significant valvular heart disease. Plan to continue same treatment. #2 non-ST elevation WI: Status post cardiac catheterization today, found to have single-vessel disease of the ostial/proximal RCA, status post PTCA and drug eluting stent, has segmental LV systolic dysfunction. He is on aspirin, statins, Plavix, metoprolol. Plan to continue same treatment as above, cardiology on the case. #3 mild hypokalemia: Serum potassium replaced and corrected per protocol, serum magnesium is normal. #4 Hypertension: Patient used to be on lisinopril for hypertension, stopped taking it by himself one year ago because he claimed that his blood pressure has been stable. His blood pressure has been fluctuating. At this time, it is elevated. He is on metoprolol. Plan to monitor for now. #5 DVT prophylaxis: Patient was on Lovenox twice daily which was discontinued today. He is at high risk for DVT anyhow. This note was generated with [employer]ak[employer] software. It may contain incorrect words, spelling, and punctuation that were not noted in checking the note before signing. Code Visit Inpatient E&M: 63015 Subs Hosp L2
[2017-12-21] MEDS: HYDROCHLOROTHIAZIDE 12.5 MG CAPSULE PO (14:08)
--- NOTE | 2017-12-21 15:15 | CRPHASE1 ---
Patient Data/Charges Food Counselor:: Darin Plata Refer Phase II:: Yes Phase II Referral:: [facility] Start Phase II:: After Cardiology visit Phase I Charge:: Level I - Education Risk Factors/Lifestyle Smoking Status: Current every day smoker Hx Hypertension: Yes Hx Dyslipidemia: Yes Hx Obesity: Yes Height: 1.98 m Weight:: 122.016 kg BMI: 31.1 Stress: Recent ETOH: Yes Risk Factor for Sedentary Lifestyle: Highest Risk Laboratory Values: Cardiac Rehab Phase I Labs Triglycerides 177 mg/dL (-199) 12/19/17 Unknown Cholesterol 166 mg/dL (200) 12/19/17 Unknown LDL Cholesterol 99 mg/dL (0-130) 12/19/17 Unknown HDL Cholesterol 32 mg/dL (40-) L 12/19/17 Unknown Phase I Education Given On:: [place], Nutrition, Antiplatelet medication, CHF, Smoking cessation Issues Affecting Care:: None Medical/Surgical History COPD:: Yes Hypertension:: Yes Dyslipidemia:: Yes Discharge/Home/Social Eval Marital Status:
--- NOTE | 2017-12-21 15:19 | CRPHASE1_ITS ---
Patient Data/Charges Show Host/Hostess:: Darin Plata Refer Phase II:: Yes Phase II Referral:: [facility] Start Phase II:: After Cardiology visit Phase I Charge:: Level I - Education Risk Factors/Lifestyle Smoking Status: Current every day smoker Hx Hypertension: Yes Hx Dyslipidemia: Yes Hx Obesity: Yes Height: 1.98 m Weight:: 122.016 kg BMI: 31.1 Stress: Recent ETOH: Yes Risk Factor for Sedentary Lifestyle: Highest Risk Laboratory Values: Cardiac Rehab Phase I Labs Triglycerides 177 mg/dL (-199) 12/19/17 Unknown Cholesterol 166 mg/dL (200) 12/19/17 Unknown LDL Cholesterol 99 mg/dL (0-130) 12/19/17 Unknown HDL Cholesterol 32 mg/dL (40-) L 12/19/17 Unknown Phase I Education Given On:: [place], Nutrition, Antiplatelet medication, CHF, Smoking cessation Issues Affecting Care:: None Medical/Surgical History COPD:: Yes Hypertension:: Yes Dyslipidemia:: Yes Discharge/Home/Social Eval Marital Status:
--- NOTE | 2017-12-21 15:21 | CRPH1.INST_ITS ---
General Education CAD and cardiac anatomy and function:: Patient communicates acknowledgment, Needs reinforcement Explanation of diagnoses and procedures:: Patient communicates acknowledgment, Needs reinforcement Sign/Symptoms of [place]:: Patient communicates acknowledgment, Needs reinforcement Antiplatelet therapy: Patient communicates acknowledgment, Needs reinforcement Proper use of NTG-SL: Patient communicates acknowledgment, Needs reinforcement Emergency procedures and activation of EMS: Patient communicates acknowledgment , Needs reinforcement Compliance of all prescribed medications: Patient communicates acknowledgment, Needs reinforcement Smoking Patient Nicotine/Smoking Risk Factors Are:: Cigarettes Recommendations Include:: Smoking cessation strategies/Smoking packet, Second- hand smoke recommendation, Participation in a smoking cessation program Nicotine/Smoking Response Code:: Patient communicates acknowledgment, Needs reinforcement Dyslipidemia Patient Dyslipidemia Risk Factors Are:: Total Cholesterol, Triglycerides, HDL, LDL Recommendations Include:: Lipid profile provided Dyslipidemia Response Code:: Patient communicates acknowledgment, Needs reinforcement Overweight/Obesity Patient Overweight/Obesity Risk Factors Are:: Obesity - > or = 30 Recommendations Include:: Weight loss of 5-10%, Reduced calorie diet, Exercise 5 -7 times/week Overweight/Obesity:: Patient communicates acknowledgment, Needs reinforcement Hypertension Recommendations Include:: Maintain BP <130/85, DASH dietary guidelines, Decrease /maintain normal body weight, Moderation of ETOH Hypertension:: Patient communicates acknowledgment, Needs reinforcement Heart Disease Recommendations Include:: Educated family members of their risk, Educated family members of importance of prevention of heart disease Heart Disease Response Code:: Patient communicates acknowledgment, Needs reinforcement Diabetes Patient Diabetes Risk Factors Are:: No documented hx of diabetes Diabetes:: Not instructed Metabolic Syndrome Patient Metabolic Syndrome Risk Factors Are [3 of 5]:: Waist circumference > 35 [female] or 40 [male], Hypertension, Low HDL <40 [male] or < 50 [female] Recommendations Include:: Reinforce compliance to risk factor modifications Metabolic Syndrome Response Code:: Patient communicates acknowledgment, Needs reinforcement Sedentary Patient Sedentary Risk Factors Are:: Lack of regular exercise Recommendations Include:: Aerobic exercise 5-7 times/week for 20-30 minutes continuously, Benefits of regular exercise, Discussed home walking program, Monitored Outpatient Cardiac Rehab Sedentary Response Code:: Patient communicates acknowledgment, Needs reinforcement Stress Recommendations Include:: Identification of stressors, and assessment of coping skills, Stress management techniques Stress Response Code:: Patient communicates acknowledgment, Needs reinforcement
[2017-12-21 16:20] LABS: Hematocrit 43.4 % (40-54); Hemoglobin 14.6 g/dl (13.0-16.5); Mean Corp Hgb Conc 33.6 g/gl (32-36); Mean Corpuscular Hgb 34.8 pg (27.0-32.0); Mean Corpuscular Volume 103.3 fL (80-94); Mean Platelet Vol. 9.4 fl (6.2-12.0); Platelet Count 233 K/mm3 (150-450); RBC Distribution Width SD 52.6 fl (35.1-43.9); White Blood Count 8.6 K/mm3 (4.4-11.0)
[2017-12-21 16:25] LABS: Scan Indicated on CBC? Y/N NO
[2017-12-21 16:36] LABS: CPK Total, Creatine Kinase 78 U/L (39-308)
[2017-12-21] MEDS: Atorvastatin Calcium 40 MG Tablet PO (21:48)
[2017-12-21] MEDS: 0.9% NaCl Peripheral Flush Adult/Peds IV (21:50)
[2017-12-21 22:10] LABS: Hematocrit 44.5 % (40-54); Hemoglobin 15.1 g/dl (13.0-16.5); Mean Corp Hgb Conc 33.9 g/gl (32-36); Mean Platelet Vol. 9.6 fl (6.2-12.0); Platelet Count 240 K/mm3 (150-450); RBC Distribution Width SD 53.1 fl (35.1-43.9); Red Blood Count 4.32 M/mm3 (4.6-6.2); White Blood Count 8.2 K/mm3 (4.4-11.0)
[2017-12-21 22:16] LABS: Scan Indicated on CBC? Y/N NO
[2017-12-21 22:23] LABS: CPK Total, Creatine Kinase 73 U/L (39-308)
[2017-12-22] VITALS (13 sets, daily range): BP systolic 98–140; BP diastolic 50–88; PULSE 68–85; RESP 14–20; TEMP 36.7–36.9; O2SAT 91–95
[2017-12-22 04:26] LABS: Anion Gap 7 (5-15); BUN 10 mg/dL (7-18); Calcium,Total 8.9 mg/dL (8.5-10.1); Chloride 103 mmol/L (98-107); Creatinine, Serum 0.84 mg/dL (0.70-1.30); EST Glomerular Filtration Rate 106 mL/min (>60); Est Glom Filt Rate - Afr Amer 128 mL/min (>60); Estimated Creatinine Clearance 145.08 ml/min; Glucose 95 mg/dL (74-106); Potassium 4.2 mmol/L (3.5-5.1); Sodium Level 136 mmol/L (136-145)
[2017-12-22 04:29] LABS: Hematocrit 46.2 % (40-54); Hemoglobin 15.8 g/dl (13.0-16.5); Mean Corp Hgb Conc 34.2 g/gl (32-36); Mean Corpuscular Hgb 35.1 pg (27.0-32.0); Mean Corpuscular Volume 102.7 fL (80-94); Mean Platelet Vol. 9.6 fl (6.2-12.0); Platelet Count 276 K/mm3 (150-450); RBC Distribution Width CV 13.8 % (11.6-14.6); RBC Distribution Width SD 51.6 fl (35.1-43.9); White Blood Count 8.5 K/mm3 (4.4-11.0)
[2017-12-22 04:38] LABS: Scan Indicated on CBC? Y/N NO
--- NOTE | 2017-12-22 05:55 | EKG12_ITS ---
Test Reason : PCI Blood Pressure : / mmHG Vent. Rate : 067 BPM Atrial Rate : 067 BPM P-R Int : 120 ms QRS Dur : 088 ms QT Int : 388 ms P-R-T Axes : 067 037 039 degrees QTc Int : 409 ms Normal sinus rhythm Normal ECG When compared with ECG of 21-DEC-2017 05:49, MANUAL COMPARISON REQUIRED, DATA IS UNCONFIRMED Confirmed by AMARJIT PAPPAS ([id number]), editor trade journal BERE HARRISON ([id number]) on 12/24/2017 2:53:22 PM Referred By: ELYSE Confirmed By:AMARJIT PAPPAS
[2017-12-22] MEDS: HYDROCHLOROTHIAZIDE 12.5 MG CAPSULE PO (08:51)
[2017-12-22] MEDS: Losartan Potassium 25 MG Tablet PO (08:51)
[2017-12-22] MEDS: Pantoprazole Sodium 20 MG Tablet PO (08:52)
[2017-12-22] MEDS: Clopidogrel Bisulfate 75 MG Tablet PO (08:52)
[2017-12-22] MEDS: Metoprolol Tartrate 50 MG Tablet PO (08:52)
[2017-12-22] MEDS: Aspirin 81 MG TAB.CHEW PO (08:52)
--- NOTE | 2017-12-22 08:53 | PCM.DC ---
- Discharge Diagnoses Current Active Problems: Current Active and Chronic Problems Tobacco abuse (Acute) Atrial fibrillation with RVR (Acute) NSTEMI (non-ST elevated myocardial infarction) (Acute) Hypertension (Chronic) You will use the following diet at home:: Cardiac Your food should be the consistency of: Regular Discharge Activity: Return to Normal Activity Weight Bearing Status: Full weight bearing Call your doctor if you observe: Fever of 101 or Higher, Shortness of breath, Dizziness, Fainting spells, Chest pain, Increased palpitations (irregular heartbeat), Uncontrolled pain Instructions: Nicotine Transdermal patch - 24 hour, Discharge Instructions for Heart Attack Additional Instructions: Use NicoDerm patch 21 mg daily for 14 days, then use 14 mg daily for 14 days, then use 7 mg patches daily for 14 days. Allergies/Adverse Reactions: Allergies No Known Allergies Allergy (Verified 12/18/17 15:26) Medications to take at Discharge Aspirin [Aspirin, Baby] 81 mg PO DAILY@0800 #90 tab.chew 12/22/17 Atorvastatin Calcium [Lipitor] 40 mg PO QHS #90 tab 12/22/17 Clopidogrel Bisulfate [Plavix] 75 mg PO DAILY #90 tab 12/22/17 Hydrochlorothiazide 12.5 mg PO DAILY #30 cap 12/22/17 Losartan Potassium [Cozaar] 25 mg PO DAILY #30 tab 12/22/17 Metoprolol Tartrate [Lopressor (beta stephanie)] 50 mg PO BID #90 tab 12/22/17 Nicotine [Nicoderm Cq ([facility])] 7 mg TRANSDERM. DAILY #14 patch 12/22/17 Nicotine [Nicoderm Cq ([facility])] 14 mg TRANSDERM. DAILY #14 patch 12/22/17 Nicotine [Nicoderm Cq ([facility])] 21 mg TRANSDERM. DAILY #14 patch 12/22/17 The following prescriptions were given: Aspirin [Aspirin, Baby] 81 mg PO DAILY@0800 #90 tab.chew Atorvastatin Calcium [Lipitor] 40 mg PO QHS #90 tab Clopidogrel Bisulfate [Plavix] 75 mg PO DAILY #90 tab Hydrochlorothiazide 12.5 mg PO DAILY #30 cap Losartan Potassium [Cozaar] 25 mg PO DAILY #30 tab Nicotine [Nicoderm Cq ([facility])] 14 mg TRANSDERM. DAILY #14 patch Nicotine [Nicoderm Cq ([facility])] 21 mg TRANSDERM. DAILY #14 patch Nicotine [Nicoderm Cq ([facility])] 7 mg TRANSDERM. DAILY #14 patch Metoprolol Tartrate [Lopressor (beta stephanie)] 50 mg PO BID #90 tab Primary Care Physician: Alexander Adam MD [Primary Care Provider] - Please follow up with your Primary Care Physician in: 2 weeks. Please Follow Up With: Darin Plata MD When: His office will call you.
--- NOTE | 2017-12-22 12:44 | PN.CARD_ITS ---
Subjectve: Patient doing very well this morning, no chest pain or angina, right groin is clean/dry/intact. Hemoglobin and creatinine within nominal limits. EKG shows normal sinus rhythm, no acute changes. CKs negative. Telemetry negative. Objective: Vital Signs Temp Pulse Resp BP Pulse Ox 98.1 F 85 20 H 140/88 H 91 12/22/17 08:00 12/22/17 09:00 12/22/17 09:00 12/22/17 09:00 12/22/17 09:00 Oxygen Flow Rate (L/min) 2 Oxygen Delivery Method Room Air Weight: 268 lb 15.423 oz Body Mass Index (BMI) 30.9 Intake and Output for Last 24 Hours 12/20/17 12/21/17 12/22/17 23:59 23:59 23:59 Intake Total 3569 / 3569 2997 / 2997 300 / 300 Output Total 550 / 550 1600 / 1600 600 / 600 Balance 3019 / 3019 1397 / 1397 -300 / -300 General: Awake, Alert, Oriented x 3 HEENT: PERRL, EOMI, Sclera Non Icteric Neck: Supple, Good ROM, No Lymph Node Enlargement Lungs: Clear to auscultation Cardiovascular: Regular Rhythm, Normal S1, Normal S2, No Murmurs, No Rubs, No Gallops Vascular: No Carotid Bruits, Normal Femoral Pulses, Normal Radial Pulses, Normal Dorsalis Pedal Pulse, Normal Posterior Tibial Pulses Abdomen: Bowel Sounds Present, Soft, Non Tender, No HSM, No Organomegaly Extremities: No Cyanosis, No Clubbing, No edema Neurological: No Focal Motor or Sensory Deficit 12/21/17 16:10: WBC 8.6, RBC 4.20 L, Hgb 14.6, Hct 43.4, MCV 103.3 H, MCH 34.8 H , MCHC 33.6, RDW 14.0, RDW Differential 52.6 H, Plt Count 233, MPV 9.4 12/21/17 21:55: WBC 8.2, RBC 4.32 L, Hgb 15.1, Hct 44.5, MCV 103.0 H, MCH 35.0 H , MCHC 33.9, RDW 14.0, RDW Differential 53.1 H, Plt Count 240, MPV 9.6 12/22/17 04:00: Sodium 136, Potassium 4.2, Chloride 103, Carbon Dioxide 26.0, Anion Gap 7, BUN 10, Creatinine 0.84, Est GFR (MDRD) Af Amer 128, Est GFR (MDRD ) Non-Af 106, BUN/Creatinine Ratio 12.0, Glucose 95, Calcium 8.9 12/22/17 04:00: WBC 8.5, RBC 4.50 L, Hgb 15.8, Hct 46.2, MCV 102.7 H, MCH 35.1 H , MCHC 34.2, RDW 13.8, RDW Differential 51.6 H, Plt Count 276, MPV 9.6 Rhythm: EKG: ECHO: Stress Test: Cardiac Cath: PCI: CT Surgery: Holter monitor: EPS: PPM: CXR: Chest CT Scan: Medical Necessity - Tobacco Use Smoking Status: Current every day smoker Tobacco Use: Cigarettes Assessment/Plan 1. Atrial fibrillation: The patient presented with atrial fibrillation of new onset, with associated chest pain, shortness of breath and non-STEMI. He has successfully converted to normal sinus rhythm with the assistance of IV Cardizem drip, potassium replacement, and beta-stephanie therapy. Cardizem drip is been discontinued and patient is tolerating Lopressor 50 mg twice daily rather well. Echocardiogram was performed yesterday, which shows normal LV function, normal RVSP. Would not recommend anticoagulation given his normal LV function and maintenance of normal sinus rhythm since initiation of beta- stephanie. 2. Coronary artery disease: Patient had a small troponin release of approximately 12 and is decreasing out of 10. His EKG shows no acute changes either during his atrial fibrillation or afterwards when he has converted to normal sinus rhythm. Patient underwent catheterization on 12/21/17 which demonstrated a possible spontaneous dissection in the proximal portion of the right coronary artery. Patient underwent successful CHIQUITA guided angioplasty and drug-eluting stent to the proximal RCA with an excellent result. He will remain on baby aspirin and Plavix going forward. He has no other lesions which require intervention at this time. Continue medical management. We will see him in the office in 4-6 weeks time. He will undergo evaluation for cardiac rehab in 2 weeks time. His right groin was closed with minx device which was successful. In the meantime he will continue baby aspirin and Plavix 75 mg a day. Continue beta-stephanie therapy. 3. Hyperlipidemia: Given the patient's non-STEMI, he will require aggressive LDL reduction. Lipitor 40 mill grams p.o. nightly started today. Repeat lipid profile in 6 weeks time. 4. Tobacco abuse: I have strongly encouraged the patient to discontinue all tobacco products. 5. Thank you very much for the opportunity to participate in the cardiac care of your patient. Patient may be discharged home. Code Visit Inpatient E&M: 49563 Subs Hosp L2
--- NOTE | 2017-12-22 15:00 | PCM.DC.SUM ---
Discharge Date and Diagnosis Date of Admission: 12/18/17 Date of Discharge: 12/22/17 - Primary Discharge Diagnosis #1 acute new onset A. fib with RVR. #2 acute non-ST elevation RI status post PTCA/YOHANA to RCA. #3 mild hypokalemia. - Secondary Discharge Diagnosis Chronic Problems Hypertension (Chronic) Hospital Course and Treatment Imaging Results: Clinical Impression(s) from Imaging Studies Chest X-Ray 12/18/17 15:38 IMPRESSION: There are findings consistent with COPD. There is no evidence of acute chest disease. Electronically Signed: Brayden Wang MD at 16:00 EDT , Service support , Dr. Plata, cardiology. Operations: None Procedures: 2-D Echocardiogram, Cardiac catheterization, EGD Summary of Care Provided: Patient seen and examined on the day of discharge and appeared to be stable to be discharged home. He has no more complaints, no more chest pain or shortness of breath. He has been ambulating without any difficulties. Vital signs are stable. - Physical Exam General: Alert, Oriented x3, Cooperative, No apparent distress. HEENT: Atraumatic, PERRLA, EOMI. Neck: Supple, No JVD, Negative Carotid Bruits, Trachea Midline, Thyroid Normal. Lungs: Clear to auscultation, Normal air movement, No rhonchi, No wheeze, No rales. Cardiovascular: Regular rate, Regular Rhythm, Normal S1, Normal S2, PMI Normal. Abdomen: Bowel Sounds Present, Soft, Non Tender, Non-Distended, No Hepato-splenomegaly. Extremities: No clubbing, No cyanosis, No edema Skin: No rashes, No breakdown Neurological: Neuro grossly intact Vital Signs are stable. Hospital course: The patient is a 42 year old M admitted because of chest pain and palpitation and he was found to be in new onset A. fib with RVR and also found to have acute non-ST elevation RI. Patient was admitted to PCU, started on IV Cardizem drip as well as IV nitroglycerin drip for new onset A. fib with RVR as well as chest pain and non-ST elevation RI. Also, he received loading dose of Plavix and started on aspirin, losartan and metoprolol. He converted back to sinus rhythm and he was started on beta-blockers. 2D echocardiogram revealed ejection fraction of 65%, trivial tricuspid insufficiency and RVSP of 21. His serum potassium was slightly below reference image which was replaced and corrected. His serum magnesium and TSH was normal. His troponin went up to 12.4 and then started to drop down. Patient remained in sinus rhythm since he converted back to sinus rhythm. He underwent cardiac catheterization and he was found to have single-vessel disease of the ostial/proximal RCA, had successful PTCA/YOHANA to the ostial/proximal RCA with thrombectomy. After the cardiac catheterization, patient symptoms improved and he did very well. He was continued on aspirin, statins, Plavix, losartan and metoprolol as well as HCTZ. Patient discharged home in a stable medical condition, discharged on aspirin, statins, Plavix, losartan, metoprolol and HCTZ, plan to follow-up with PCP in 2 weeks and follow-up with cardiology according to Dr. Plata. Prescription for NicoDerm patch for a total of 6 weeks given to start with 21 mg patch daily for 2 weeks and then 14 mg patch daily for 2 weeks and then 7 mg patch daily for 2 weeks and then to stop. Discharge Activity: Return to Normal Activity Weight Bearing Status: Full weight bearing Call your doctor if you observe: Fever of 101 or Higher, Shortness of breath, Dizziness, Fainting spells, Chest pain, Increased palpitations (irregular heartbeat), Uncontrolled pain Home Medications: Medications to take at Discharge Aspirin [Aspirin, Baby] 81 mg PO DAILY@0800 #90 tab.chew 12/22/17 Atorvastatin Calcium [Lipitor] 40 mg PO QHS #90 tab 12/22/17 Clopidogrel Bisulfate [Plavix] 75 mg PO DAILY #90 tab 12/22/17 Hydrochlorothiazide 12.5 mg PO DAILY #30 cap 12/22/17 Losartan Potassium [Cozaar] 25 mg PO DAILY #30 tab 12/22/17 Metoprolol Tartrate [Lopressor (beta yvonne)] 50 mg PO BID #90 tab 12/22/17 Nicotine [Nicoderm Cq ([facility])] 7 mg TRANSDERM. DAILY #14 patch 12/22/17 Nicotine [Nicoderm Cq ([facility])] 14 mg TRANSDERM. DAILY #14 patch 12/22/17 Nicotine [Nicoderm Cq ([facility])] 21 mg TRANSDERM. DAILY #14 patch 12/22/17 Following Prescrptions Were Given to Patient: Aspirin [Aspirin, Baby] 81 mg PO DAILY@0800 #90 tab.chew Atorvastatin Calcium [Lipitor] 40 mg PO QHS #90 tab Clopidogrel Bisulfate [Plavix] 75 mg PO DAILY #90 tab Hydrochlorothiazide 12.5 mg PO DAILY #30 cap Losartan Potassium [Cozaar] 25 mg PO DAILY #30 tab Nicotine [Nicoderm Cq ([facility])] 14 mg TRANSDERM. DAILY #14 patch Nicotine [Nicoderm Cq ([facility])] 21 mg TRANSDERM. DAILY #14 patch Nicotine [Nicoderm Cq ([facility])] 7 mg TRANSDERM. DAILY #14 patch Metoprolol Tartrate [Lopressor (beta yvonne)] 50 mg PO BID #90 tab Primary Care Physician: Alexander Adam MD [Primary Care Provider] - Please follow up with your Primary Care Physician in: 2 weeks. Please Follow Up With: Darin Plata MD When: His office will call you. Patient Instructions: Nicotine Transdermal patch - 24 hour, Discharge Instructions for Heart Attack Disposition: Home Minutes spent on discharge:: 32 Patient Condition:: Stable Medical Necessity - Tobacco Use Smoking Status: Current every day smoker Tobacco Use: Cigarettes Meaningful Use Info Meaningful Use Diagnoses (Choose all that apply): AMI - AMI Aspirin given w/in 24hrs of arrival?: Yes ASA at discharge?: Yes Statins at discharge?: Yes Micah/ARB at discharge?: Yes Beta Yvonne at discharge?: Yes Done w/ Acute RI measure.: Yes Code Visit Inpatient E&M: 50417 Disch Hosp
--- NOTE | 2017-12-22 15:08 | DS.PCM_ITS ---
Discharge Date and Diagnosis Date of Admission: 12/18/17 Date of Discharge: 12/22/17 - Primary Discharge Diagnosis #1 acute new onset A. fib with RVR. #2 acute non-ST elevation CO status post PTCA/YOHANA to RCA. #3 mild hypokalemia. - Secondary Discharge Diagnosis Chronic Problems Hypertension (Chronic) Hospital Course and Treatment Imaging Results: Clinical Impression(s) from Imaging Studies Chest X-Ray 12/18/17 15:38 IMPRESSION: There are findings consistent with COPD. There is no evidence of acute chest disease. Electronically Signed: Brayden Wang MD at 16:00 EDT , Service support , Dr. Plata, cardiology. Operations: None Procedures: 2-D Echocardiogram, Cardiac catheterization, EGD Summary of Care Provided: Patient seen and examined on the day of discharge and appeared to be stable to be discharged home. He has no more complaints, no more chest pain or shortness of breath. He has been ambulating without any difficulties. Vital signs are stable. - Physical Exam General: Alert, Oriented x3, Cooperative, No apparent distress. HEENT: Atraumatic, PERRLA, EOMI. Neck: Supple, No JVD, Negative Carotid Bruits, Trachea Midline, Thyroid Normal. Lungs: Clear to auscultation, Normal air movement, No rhonchi, No wheeze, No rales. Cardiovascular: Regular rate, Regular Rhythm, Normal S1, Normal S2, PMI Normal. Abdomen: Bowel Sounds Present, Soft, Non Tender, Non-Distended, No Hepato- splenomegaly. Extremities: No clubbing, No cyanosis, No edema Skin: No rashes, No breakdown Neurological: Neuro grossly intact Vital Signs are stable. Hospital course: The patient is a 42 year old M admitted because of chest pain and palpitation and he was found to be in new onset A. fib with RVR and also found to have acute non-ST elevation CO. Patient was admitted to PCU, started on IV Cardizem drip as well as IV nitroglycerin drip for new onset A. fib with RVR as well as chest pain and non-ST elevation CO. Also, he received loading dose of Plavix and started on aspirin, losartan and metoprolol. He converted back to sinus rhythm and he was started on beta-blockers. 2D echocardiogram revealed ejection fraction of 65%, trivial tricuspid insufficiency and RVSP of 21. His serum potassium was slightly below reference image which was replaced and corrected. His serum magnesium and TSH was normal. His troponin went up to 12.4 and then started to drop down. Patient remained in sinus rhythm since he converted back to sinus rhythm. He underwent cardiac catheterization and he was found to have single-vessel disease of the ostial/proximal RCA, had successful PTCA/YOHANA to the ostial/proximal RCA with thrombectomy. After the cardiac catheterization, patient symptoms improved and he did very well. He was continued on aspirin, statins, Plavix, losartan and metoprolol as well as HCTZ. Patient discharged home in a stable medical condition, discharged on aspirin, statins, Plavix, losartan, metoprolol and HCTZ, plan to follow-up with PCP in 2 weeks and follow-up with cardiology according to Dr. Plata. Prescription for NicoDerm patch for a total of 6 weeks given to start with 21 mg patch daily for 2 weeks and then 14 mg patch daily for 2 weeks and then 7 mg patch daily for 2 weeks and then to stop. Discharge Activity: Return to Normal Activity Weight Bearing Status: Full weight bearing Call your doctor if you observe: Fever of 101 or Higher, Shortness of breath, Dizziness, Fainting spells, Chest pain, Increased palpitations (irregular heartbeat), Uncontrolled pain Home Medications: Medications to take at Discharge Aspirin [Aspirin, Baby] 81 mg PO DAILY@0800 #90 tab.chew 12/22/17 Atorvastatin Calcium [Lipitor] 40 mg PO QHS #90 tab 12/22/17 Clopidogrel Bisulfate [Plavix] 75 mg PO DAILY #90 tab 12/22/17 Hydrochlorothiazide 12.5 mg PO DAILY #30 cap 12/22/17 Losartan Potassium [Cozaar] 25 mg PO DAILY #30 tab 12/22/17 Metoprolol Tartrate [Lopressor (beta yvonne)] 50 mg PO BID #90 tab 12/22/17 Nicotine [Nicoderm Cq ([facility])] 7 mg TRANSDERM. DAILY #14 patch 12/22/17 Nicotine [Nicoderm Cq ([facility])] 14 mg TRANSDERM. DAILY #14 patch 12/22/17 Nicotine [Nicoderm Cq ([facility])] 21 mg TRANSDERM. DAILY #14 patch 12/22/17 Following Prescrptions Were Given to Patient: Aspirin [Aspirin, Baby] 81 mg PO DAILY@0800 #90 tab.chew Atorvastatin Calcium [Lipitor] 40 mg PO QHS #90 tab Clopidogrel Bisulfate [Plavix] 75 mg PO DAILY #90 tab Hydrochlorothiazide 12.5 mg PO DAILY #30 cap Losartan Potassium [Cozaar] 25 mg PO DAILY #30 tab Nicotine [Nicoderm Cq ([facility])] 14 mg TRANSDERM. DAILY #14 patch Nicotine [Nicoderm Cq ([facility])] 21 mg TRANSDERM. DAILY #14 patch Nicotine [Nicoderm Cq ([facility])] 7 mg TRANSDERM. DAILY #14 patch Metoprolol Tartrate [Lopressor (beta yvonne)] 50 mg PO BID #90 tab Primary Care Physician: Alexander Adam MD [Primary Care Provider] - Please follow up with your Primary Care Physician in: 2 weeks. Please Follow Up With: Darin Plata MD When: His office will call you. Patient Instructions: Nicotine Transdermal patch - 24 hour, Discharge Instructions for Heart Attack Disposition: Home Minutes spent on discharge:: 32 Patient Condition:: Stable Medical Necessity - Tobacco Use Smoking Status: Current every day smoker Tobacco Use: Cigarettes Meaningful Use Info Meaningful Use Diagnoses (Choose all that apply): AMI - AMI Aspirin given w/in 24hrs of arrival?: Yes ASA at discharge?: Yes Statins at discharge?: Yes Micah/ARB at discharge?: Yes Beta Yvonne at discharge?: Yes Done w/ Acute CO measure.: Yes Code Visit Inpatient E&M: 15359 Disch Hosp
== END 2017-12-22 09:45 | disposition home or self-care (01) | DRG 247 ==
LOC: ED 15:56 → ICU 17:10 → PCU 12-19 14:54 → ICU 12-21 14:11 → PCU 12-21 14:11
PROVIDERS: Hospitalist; Internal Medicine Cardiovascular Disease; Admitting Provider Hospitalist; Emergency Provider Emergency Medicine; Family Provider Family Medicine; PCP Family Medicine; Visit Provider Hospitalist
DX: I21.4 Non-ST elevation (NSTEMI) myocardial infarction (principal); I48.91 Unspecified atrial fibrillation; F17.210 Nicotine dependence, cigarettes, uncomplicated; I10 Essential (primary) hypertension; E87.6 Hypokalemia; I25.10 Atherosclerotic heart disease of native coronary artery without angina pectoris
CPT/HCPCS: 36415; 71045; 80048; 80061; 81001; 82550; 83735; 84443; 84484; 85025; 85027; 85347; 85610; 85730; 87641; 92928; 92978; 93005; 93306; 93458; 99152; 99153; 99285; C1760; J3010; J7030; J7040; Q9957; A4216; C1725; C1753; C1757; C1769; C1874; C1887; C1894; C9600; Q9967

== ENCOUNTER 2018-03-30 08:30 | Outpatient (RCR) | payer OTHER, SELFPAY ==
--- NOTE | 2018-03-30 13:52 | PCM.HP.BLA ---
History and Physical Identifying information Patient is a 43-year-old male who presents to the behavioral medicine [facility] with chief complaint of I have an addiction. I am thinking I am bipolar. History is been obtained per interview with patient, discussion with staff, review of chart. Case discussed with treatment team. History of present illness Patient is a 43-year-old male with long-standing history of mood cycling with symptoms worse over the past 6 months. Patient reports history of discrete mood episodes lasting weeks to months. He describes episodes of lily in which he was larger than life with massive energy and felt unstoppable. He would be excessively productive. He would need decreased sleep of only 2-3 hours per night. He would engage in risky sexual behavior. He reports ports did increased spending and reckless driving. These episodes were generally followed by increased depression and sleep. More recently in the past 6 months he is described rapid cycling and mixed symptoms. He endorses symptoms of both depression and lily daily including depressed mood, anhedonia, variable energy, irritability, and variable sleep and appetite. On February 28 he cut his arm with suicidal intent. He called his and stated he was going to make a cut on his arm for every wrongdoing. He did not seek treatment at the time. Lacerations appear to be well-healed. No evidence of infection. He has intermittent passive thoughts of stating that he wants the pain to end. He denies suicide plan or intent. Feels able to maintain safety. No homicidal ideation. No hallucinations. Reports ruminative anxiety about everything. Denies panic attacks. Has some obsessive-compulsive traits including organizing counting checking behavior and perfectionism. He does not feel that these interfere with his general functioning. He denies history of eating disorder. Denies history of trauma or symptoms consistent with PTSD. He is generally sleeping from midnight until 7 or 8 AM. He reports snoring. He does not feel rested. He has not previously had a sleep study. He reports a 6-month period of increased alcohol consumption of up to 1/2 gallon of whiskey every 2 days. He would frequently black out. He reports that he would consume alcohol to numb himself or so that he would stay in the house and avoid risky sexual activity. He views himself as a sex addict. He states he engages in risky sexual behavior in the absence of alcohol. He reports history of a tumultuous relationship with his stating that they have multiple times. In February, they temporarily but have now reunited. He is currently residing with and 4 kids. Past psychiatric history Patient denies previous psychiatric inpatient hospitalization. He does not have an outpatient psychiatrist. He does see Debby Aguilera for counseling whom he is seen once. Denies previous psychiatric medications. Reports one previous suicide attempt on February 28 as noted above. No treatment at time. Substance use history Reports increased alcohol consumption for a period of 6 months up to 1/2 gallon of whiskey every 2 days. He would black out frequently. He stopped drinking whiskey last month. He has consumed a total of 12 beers within 1 month. He drank 3 beers last night. He denies illicit drug use. He smokes 2 packs of cigarettes daily. He consumes 1 caffeinated soda daily. Past medical history Elevated blood pressure MRI-December 2017-stent placement Vitamin D deficiency Denies history of seizure or head injury Primary care physician Virgil Adam Review of systems No fevers chills nausea vomiting chest pain dyspnea. Patient does report snoring. All other systems reviewed and negative except as above. Allergies no known medical allergies Current medications Lipitor Plavix Hydrochlorothiazide Baby aspirin Cozaar Lopressor Family medical psychiatric history Reports 2 distant relatives with alcohol dependence Developmental social history Born and raised in [place]. Only child. Raised by mother. Father absent. Met father twice in life. No abuse. Reports acceptance issues and abandonment issues. Graduated high school. 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 Lives with and 4 kids. Kids include daughter age 18 and 3 sons ages 16, 14 and 11. Legal history Bankruptcy in 2005 Mental status exam Vital signs will be reviewed and discussed with nursing. Alert and oriented . No acute distress. Ambulatory with normal gait and station. Appears stated age. Casually dressed and groomed. Appropriate hygiene. Cooperative with interview. Good eye contact. No psychomotor agitation or retardation. Mood dysphoric. Affect congruent. Speech is clear and with regular rate and rhythm. Language fluent. Thought process organized. Associations logical. Thought content significant for ruminative anxiety and themes of depression. Intermittent passive thoughts of . No suicide plan or intent. No homicidal ideation related or detected.. No symptoms consistent with psychosis noted or detected. Immediate recent and remote memory grossly intact. Attention and concentration are fair. Estimated intelligence and fund of knowledge average. Judgment and insight fair. Labs and testing TSH normal fall 2016. Lab work will be requested from primary care physician. Further lab work will be obtained as needed. Diagnosis Bipolar disorder F 31.9 Anxiety unspecified Rule out obstructive sleep apnea Nicotine dependence Alcohol use disorder Plan Admit to IOP as the structured setting is necessary to prevent decompensation. Risk-benefit alternative of medications discussed with patient. Patient acknowledges understanding. Start Depakote ER 500 mg p.o. nightly. Dispense #30 with 1 refill. Requisition provided for Depakote level, CMP, CBC to be obtained next week. Encourage smoking cessation. Encouraged alcohol abstinence. Follow-up with Debby Aguilera. Encourage sleep study to assess for sleep apnea. Recommended reading calm seas. Referral provided to Valentina Lo. Patient acknowledges understanding and is in agreement with plan. Feels able to maintain safety. Agrees to seek help or emergency care if feeling unsafe to self or others.
--- NOTE | 2018-03-30 14:16 | HP.PCM_ITS ---
History and Physical Identifying information Patient is a 43-year-old male who presents to the behavioral medicine [facility] with chief complaint of I have an addiction. I am thinking I am bipolar. History is been obtained per interview with patient, discussion with staff, review of chart. Case discussed with treatment team. History of present illness Patient is a 43-year-old male with long-standing history of mood cycling with symptoms worse over the past 6 months. Patient reports history of discrete mood episodes lasting weeks to months. He describes episodes of lily in which he was larger than life with massive energy and felt unstoppable . He would be excessively productive. He would need decreased sleep of only 2- 3 hours per night. He would engage in risky sexual behavior. He reports ports did increased spending and reckless driving. These episodes were generally followed by increased depression and sleep. More recently in the past 6 months he is described rapid cycling and mixed symptoms. He endorses symptoms of both depression and lily daily including depressed mood, anhedonia, variable energy , irritability, and variable sleep and appetite. On February 28 he cut his arm with suicidal intent. He called his and stated he was going to make a cut on his arm for every wrongdoing. He did not seek treatment at the time. Lacerations appear to be well-healed. No evidence of infection. He has intermittent passive thoughts of stating that he wants the pain to end. He denies suicide plan or intent. Feels able to maintain safety. No homicidal ideation. No hallucinations. Reports ruminative anxiety about everything. Denies panic attacks. Has some obsessive-compulsive traits including organizing counting checking behavior and perfectionism. He does not feel that these interfere with his general functioning. He denies history of eating disorder. Denies history of trauma or symptoms consistent with PTSD. He is generally sleeping from midnight until 7 or 8 AM. He reports snoring. He does not feel rested. He has not previously had a sleep study. He reports a 6-month period of increased alcohol consumption of up to 1/2 gallon of whiskey every 2 days. He would frequently black out. He reports that he would consume alcohol to numb himself or so that he would stay in the house and avoid risky sexual activity. He views himself as a sex addict. He states he engages in risky sexual behavior in the absence of alcohol. He reports history of a tumultuous relationship with his stating that they have multiple times. In February, they temporarily but have now reunited. He is currently residing with and 4 kids. Past psychiatric history Patient denies previous psychiatric inpatient hospitalization. He does not have an outpatient psychiatrist. He does see Debby Aguilera for counseling whom he is seen once. Denies previous psychiatric medications. Reports one previous suicide attempt on February 28 as noted above. No treatment at time. Substance use history Reports increased alcohol consumption for a period of 6 months up to 1/2 gallon of whiskey every 2 days. He would black out frequently. He stopped drinking whiskey last month. He has consumed a total of 12 beers within 1 month. He drank 3 beers last night. He denies illicit drug use. He smokes 2 packs of cigarettes daily. He consumes 1 caffeinated soda daily. Past medical history Elevated blood pressure MRI-December 2017-stent placement Vitamin D deficiency Denies history of seizure or head injury Primary care physician Virigl Adam Review of systems No fevers chills nausea vomiting chest pain dyspnea. Patient does report snoring. All other systems reviewed and negative except as above. Allergies no known medical allergies Current medications Lipitor Plavix Hydrochlorothiazide Baby aspirin Cozaar Lopressor Family medical psychiatric history Reports 2 distant relatives with alcohol dependence Developmental social history Born and raised in [place]. Only child. Raised by mother. Father absent. Met father twice in life. No abuse. Reports acceptance issues and abandonment issues. Graduated high school. 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 Lives with and 4 kids. Kids include daughter age 18 and 3 sons ages 16, 14 and 11. Legal history Bankruptcy in 2005 Mental status exam Vital signs will be reviewed and discussed with nursing. Alert and oriented . No acute distress. Ambulatory with normal gait and station. Appears stated age. Casually dressed and groomed. Appropriate hygiene. Cooperative with interview. Good eye contact. No psychomotor agitation or retardation. Mood dysphoric. Affect congruent. Speech is clear and with regular rate and rhythm. Language fluent. Thought process organized. Associations logical. Thought content significant for ruminative anxiety and themes of depression. Intermittent passive thoughts of . No suicide plan or intent. No homicidal ideation related or detected.. No symptoms consistent with psychosis noted or detected. Immediate recent and remote memory grossly intact. Attention and concentration are fair. Estimated intelligence and fund of knowledge average. Judgment and insight fair. Labs and testing TSH normal fall 2016. Lab work will be requested from primary care physician. Further lab work will be obtained as needed. Diagnosis Bipolar disorder F 31.9 Anxiety unspecified Rule out obstructive sleep apnea Nicotine dependence Alcohol use disorder Plan Admit to IOP as the structured setting is necessary to prevent decompensation. Risk-benefit alternative of medications discussed with patient. Patient acknowledges understanding. Start Depakote ER 500 mg p.o. nightly. Dispense # 30 with 1 refill. Requisition provided for Depakote level, CMP, CBC to be obtained next week. Encourage smoking cessation. Encouraged alcohol abstinence. Follow-up with Debby Aguilera. Encourage sleep study to assess for sleep apnea. Recommended reading calm seas. Referral provided to Valentina Lo. Patient acknowledges understanding and is in agreement with plan. Feels able to maintain safety. Agrees to seek help or emergency care if feeling unsafe to self or others.
--- NOTE | 2018-03-30 14:16 | BH.DR.ITP ---
Initial Treatment Plan - Patient Information Visit Information: ADMISSION DATE: EXPECTED LOS: 4-6 weeks Diagnoses:: Bipolar disorder F 31.9 - Problems/Symptoms Problem #1:: Mood instability Symptom:: Depression, lily, sad mood, irritability, biologic disruption of sleep and appetite, suicidal ideation Problem #2:: Anxiety Symptom:: Rumination
--- NOTE | 2018-03-30 15:12 | BH.SGPN ---
Service Group Progress Note - Session Psychotherapy Session #1 Date Open:: 03/30/18 Time Started:: 09:03 Time Stopped:: 10:09 Targeted Problem #:: 1 Type of Group:: Process - 5 participants Goal of Group:: The goal of today's group was to check-in with client's mood, stressors, and positives, review homework and introduce topic for the day. Client Response/Progress/Benefit:: Client first day in IOP program and did well to adjust to dynamics of the group. He took on a mostly passive participatory role; however, did well to open up to the group when processing. He shared that for most of his life he has worried about taking care of everyone else and never considered his own needs. CLient discussed a history of avoidance or jusitifying not asking for help when he is struggling. Client went on to share that i've been putting my boots on for everyone else and never for myself. He was receptive of feedback and appeared to benefit from the enouragement and support provided in the group environment. Client appeared to progress in his level of comfort and willingness to engage with the group. He is recommended continued IOP to begin addressing current mental health symptoms and stressors and aid client in identifying strategies for coping in healthier ways. Eye Contact:: Good Motor Activity:: Appropriate Appearance:: Casual Speech:: Appropriate Mood:: Anxious Affect:: Constricted Thoughts:: Linear, Logical, No evidence of hallucinations/delusions noted Staff Interventions:: Therapist used open-ended questions to elicit information about client's current stressors and mood state. Therapist was supportive by using active listening and reflection.
--- NOTE | 2018-03-30 16:19 | BH.SGPN ---
Service Group Progress Note - Session Psychotherapy Session #3 Date Open:: 03/30/18 Time Started:: 11:25 Time Stopped:: 12:15 Targeted Problem #:: 1 Type of Group:: Functional Skills Development Goal of Group:: The goal of group was to increase clients ability to recognize the different between an internal and external coping strategy. Another goal was to increase clients self-awareness on their use of coping strategies and increase repertoire of healthy coping strategies. Client Response/Progress/Benefit:: Client alert and oriented, contributed to discussion and listened attentively to others. Client able to identify positive and negatives to each category of coping. Client reported he can see benefits to distraction techniques, but knows for himself he tends to overuse distraction coping skills which leads to avoidance of problems. Client connected with importance of having balance of coping because most coping skills if taken to the extreme can become unhealthy. Client reported thought challenge could be very helpful with giving self a reality check and keeping him focused on staying balanced. Client identified he will work on increasing coping skills under the self-love category of coping because he tends to put others first and not take care of him. Client seemed to benefit from increasing repertoire of healthy coping skills. Eye Contact:: Good Motor Activity:: Appropriate Appearance:: Casual Speech:: Appropriate Mood:: Anxious, Depressed Affect:: Congruent Thoughts:: Linear, Logical, No evidence of hallucinations/delusions noted Staff Interventions:: Therapist facilitated discussion about the different types of coping skills. Therapist led group in an activity in which group members were asked to brainstorm coping strategies that fit in each coping skill category. Therapist led a discussion about whether the coping strategies identified were healthy or unhealthy.
--- NOTE | 2018-04-01 11:33 | BH.SGPN ---
Service Group Progress Note - Session Psychotherapy Session #1 Date Open:: 18 - 5 group members Time Started:: 09:00 Time Stopped:: 10:00 Targeted Problem #:: 1 Type of Group:: Process Goal of Group:: The goal of today's group was to check-in with client's mood, stressors, and positives, and introduce topic for the day. Client Response/Progress/Benefit:: Client responded well to session, providing supportive statements to peers. Client reports mixed emotions today sharing, I feel blah, but I have a lot of energy. Client described his daily moods as up and down lately. Client shared yesterday was busy at work, but client made sure to take time for self-care after he got home which helped calm client down. Client reported belief the weather has an impact on his mood as well and client is hopeful with the sunshine this weekend he will feel better. Client shared today he plans to work on his house to get out his energy in a healthy way. Client appeared to benefit from identifying strategies to manage symptoms and connecting with peers. Limited progress at this time, client's first week of IOP. Client to continue IOP to prevent decompensation and promote mood stability. Eye Contact:: Good Motor Activity:: Appropriate Appearance:: Neat Speech:: Appropriate Mood:: Euthymic, Other - reporting high energy and mixed moods- rapid cycling Affect:: Congruent Thoughts:: Linear, Logical, No evidence of hallucinations/delusions noted Staff Interventions:: Therapist used open-ended questions to elicit information about client's current stressors and mood state. Therapist was supportive by using active listening and reflection.
--- NOTE | 2018-04-01 11:46 | BH.MTP_ITS ---
[facility] - Patient Information Program Physician:: Rossana Sherwood Primary Therapist:: Lizet Pedroza - Psychiatric Diagnoses Psychiatric Diagnoses:: Bipolar disorder; Anxiety unspecified Diagnosis Code(s):: F 31.9 - Estimated LOS Estimated LOS (in weeks):: 6 Problem/Goal #1 - Problem/Goal #1 Stated Goal:: Client will increase mood stability and decrease depressive symptoms, anger/irritability, and suicidal ideation due to Bipolar I through Intensive Outpatient Program. Description of Barriers: Client has no previous experience with counseling and reports mental health is all new to me. Client shared having been in denial of his mental health in the past, and although he has become more accepting, he continues to struggle with the stigma. Client reports a tremulous relationship with his and four children due to behaviors from past manic episodes. Client described himself as a knee-jerk reaction kind of person, which has impacted client's patience and ability to cope with stressful situations. Client shared in the past he has used isolation, drinking, and sex to cope with his symptoms. Functional Impact: Client presented to [facility] with long-standing history of mood cycling with symptoms worse over the past 6 months. Client reports discrete mood episodes in the past lasting weeks to months in which experience grandiose thoughts of self, ?massive energy,? increased productivity, decreased need for sleep, and risky sexual behavior. Client?s manic episodes were generally followed by increased depression and sleep. More recently in the past 6 months he is described rapid cycling and mixed symptoms. Client currently endorses symptoms of both depression and lily daily including depressed mood, anhedonia , variable energy, irritability, and variable sleep and appetite. Client reports a recent suicide attempt in which client cut his arm with suicidal intent. Client did not seek help for this and currently denies suicidal ideation , plan, and intent. Client Feels able to maintain safety. Client states having ruminative anxiety about everything? as well as some obsessive-compulsive traits and perfectionism. Client reported 6 months ago he used alcohol to numb himself and to keep himself from engaging in risky sexual activity. 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 Client reports he feels like his emotions are ? all over the place? which makes it difficult for client to cope with daily stressors. Client stated his symptoms have impacted is ability to function at his baseline and has led to relationship issues with his and children. Goal Relevant Strengths/Supports: Client appears motivated for treatment and reports wanting to learn about warning signs, triggers, and coping skills to manage his symptoms. Client is cooperative, intelligent, and engaged in group and individual sessions. 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 Client shared his mother, best friend, and can all be supports to client. - Objectives Objective #1 Stated Objective: Client will increase self-awareness of his bipolar disorder by identifying 2-3 warning signs and triggers to both manic and depressive episodes and learn 2-3 strategies to cope with his symptoms to increase mood stability as evidenced by reduced DSM-5 cross-cutting scores for lily and depression. Interventions: Therapist will help client through individual and group work to identify triggers and warning signs for manic and depressive episodes. Therapist will provide psychoeducation on bipolar disorder and use CBT strategies to increase client?s awareness of how thoughts, feelings, and behaviors impact functioning. Therapist will encourage the use of a mood log to help client increase self-awareness and teach client various coping strategies to use before mood worsens. Discharge Criteria: Client will have met this treatment goal when his DSM-5 symptoms reflect a reduction for lily and depression. Additionally, client will have accomplished this goal when he can identify at least 2 warning signs and at least 2 coping strategies to increase mood stability. Target Date: 05/11/18 Review Date: 04/29/18 Status: open Objective #2 Stated Objective: Client will identify 2-3 depressive thinking patterns and be able to challenge and replace those thoughts. Interventions: Therapist will explore and educate client about cognitive distortions that trigger depressive mood. Therapist will assist client in identifying strategies to challenge and defeat those thinking patterns. Discharge Criteria: Client will have met this goal when can identify at least 2 depressive thinking patterns and be able to challenge and reframe them. Target Date: 05/11/18 Review Date: 04/29/18 Status: open Problem/Goal #2 - Problem/Goal #2 Stated Goal:: Stabilize anxiety level while increasing ability to function and decreasing ruminative thoughts on a daily basis through Intensive Outpatient Program. Description of Barriers: Client has no previous experience with counseling and reports mental health is all new to me. Client shared having been in denial of his mental health in the past, and although he has become more accepting, he continues to struggle with the stigma. Client reports a tremulous relationship with his and four children due to behaviors from past manic episodes. Client described himself as a knee-jerk reaction kind of person, which has impacted client's patience and ability to cope with stressful situations. Client shared in the past he has used isolation, drinking, and sex to cope with his symptoms. Functional Impact: Client presented to [facility] with long-standing history of mood cycling with symptoms worse over the past 6 months. Client reports discrete mood episodes in the past lasting weeks to months in which experience grandiose thoughts of self, ?massive energy,? increased productivity, decreased need for sleep, and risky sexual behavior. Client?s manic episodes were generally followed by increased depression and sleep. More recently in the past 6 months he is described rapid cycling and mixed symptoms. Client currently endorses symptoms of both depression and lily daily including depressed mood, anhedonia , variable energy, irritability, and variable sleep and appetite. Client reports a recent suicide attempt in which client cut his arm with suicidal intent. Client did not seek help for this and currently denies suicidal ideation , plan, and intent. Client Feels able to maintain safety. Client states having ruminative anxiety about everything? as well as some obsessive-compulsive traits and perfectionism. Client reported 6 months ago he used alcohol to numb himself and to keep himself from engaging in risky sexual activity. 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 Client reports he feels like his emotions are ? all over the place? which makes it difficult for client to cope with daily stressors. Client stated his symptoms have impacted is ability to function at his baseline and has led to relationship issues with his and children. Goal Relevant Strengths/Supports: Client appears motivated for treatment and reports wanting to learn about warning signs, triggers, and coping skills to manage his symptoms. Client is cooperative, intelligent, and engaged in group and individual sessions. 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 Client shared his mother, best friend, and can all be supports to client. - Objectives Objective #1 Stated Objective: Client will identify 2-3 ruminating thought patterns and at least 2 coping skills to reduce his anxiety as evidenced by a decrease in client 's DSM cross-cutting symptom measure scores. Interventions: Therapist will teach client about the common cognitive distortions and provide psychoeducation on anxiety. Therapist will encourage client to use self-awareness strategies to increase insight to negative thought patterns, anxiety triggers, and warning signs. Therapist will assist client in developing coping strategies to manage, reframe, and challenge ruminating thoughts. Discharge Criteria: Client will have accomplished this goal when his DSM-5 scores reflect a reduction in anxiety symptoms, and when he can identify at least 2 ruminating thought patterns and at least 2 coping skills to use when anxious. Target Date: 05/11/18 Review Date: 04/29/18 Status: open
--- NOTE | 2018-04-01 11:46 | BH.PSA ---
Source of Information - Presenting Problems/Circumstances Problems, Referral Source, Mental Status, Client: Client is a 42-year-old male with long-standing history of mood cycling with symptoms worse over the past 6 months. Client reports history of discrete mood episodes lasting weeks to months. Client describes his episodes of lily in which he was larger than life with massive energy. During episodes of lily client would be excessively productive and need decreased sleep of only 2-3 hours per night. Additionally, client would engage in risky sexual behavior, increased spending, and reckless driving. In the past 6 months he is described rapid cycling and mixed symptoms. Client currently endorses symptoms of both depression and lily daily including depressed mood, anhedonia, variable energy, irritability, and variable sleep and appetite. On February 28 he cut his arm with suicidal intent and he did not seek treatment at the time. Client denies current suicidal ideation, plan, or intent. Client reports ruminative anxiety about everything.? Client reports a 6-month period of increased alcohol consumption of up to 1/2 gallon of whiskey every 2 days. Client shared that he would consume alcohol to numb himself or so that he would stay in the house and avoid risky sexual activity. Client was alert and oriented during the assessment. Client referred by who found the program online. No signs of hallucinations or delusions. Psychiatric Presentation - Psych Issues & Need for Admission Psychiatric Issues:: Mood cycling, alcohol use disorder, bipolar 1 disorder, depression, suicidal ideation, anxiety, rumination. 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 Past Psychiatric History - Treatment Hx Treatment History: Client reported seeing a counselor as a teenager for depression. Client denied previous medication trials for mental health prior to coming to [facility]. Client does not currently have an outpatient psychiatrist. Client recently began seeing Daisha Hong after a suicide attempt in February 2018. First hospitalization:: Denies hospitalizations Most recent hospitalization:: Denies Medication Trials:: Yes - currently taking Depakote. No previous medication trials ECT Therapy:: No Age of first mental health symptoms: Client reports belief his symptoms of bipolar disorder started 25 years ago as client describes episodes of lily such as heighten sense of self, increased goal-focused behaviors, and impulsivity. Client reports his depression has been present since he was a teenager. Describe (age, circumstance, etc) any past hospitalizations: Client denies history of previous psychiatric hospitalizations. Current providers for mental health treatment (counselor, psychiatrist, field nurse case manager, etc.): Client recently started seeing Daisha Hal at [facility]. Client has seen Daisha once. Client does not have an outpatient psychiatrist. Development & Family of Origin - Childhood Significant Childhood Events: Client reported his father was never around as a child and client shared because of this he has problems with abandonment and rejection. 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 - Family Who currently lives in your home?: Client currently lives in [place] with his and three sons ages 16, 14, and 11. Client's oldest daughter is currently not living with the family due to recent family issues. 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 Describe family composition:: Client was born and raised in [place], [place]. Client was raised by his mother, his father absent and only met client twice. Client shared he and his mother have a good relationship. Client is an only child. Client and his Claudia have been for 17 years (together 22 years). Client described the relationship as good or miserable. Client and his have four times over the years, but they are currently together. Client and his have four children, a daughter age 18 and three sons ages 16, 14 and 11. Client reported his relationship with his daughter is not the best right now, she's mad at me. Client shared he has a good relationship with is younger sons and an okay relationship with his oldest son. - Family History Family History: Family History (Last Reviewed 05/10/18 @ 10:07 by Addis Cheng) Mother No problems noted. Family Hx of Psychiatric or AOD Problems: Reports two distant relatives with alcohol dependence Ethnicity - Culture Do you identify yourself with any particular cultural, ethnic background, or community?: No - Sexuality Sexual Orientation: Heterosexual Spirituality - Jain Do you currently identify with any organized jewish?: Latter Day - Beliefs Is there a particular form of support from this community you can use for your recovery?: Yes - Client attends [employer] in [place] Mental Status - Memory Recent Memory: Good Remote Memory: Good - Concentration Concentration: Fair - Eye Contact Eye Contact: Good - Speech Speech: Rapid - Thought Process Thought Process: Logical Insight: Fair Judgment: Fair Behavior: Anxious - Orientation Orientation: Time, Person, Place, Situation - Appearance Appearance: Appropriate - Mood Mood: Anxious - Affect Affect: Alert Suicide Assessment - Suicidal Ideation Have you ever felt like hurting yourself?: Yes Please explain:: Client reports on February 28 he cut his arm with suicidal intent. Client shared he called his and stated he was going to make a cut on his arm for every wrongdoing. Client stated he was drunk and did not seek treatment at the time. Were you using ETOH/drugs at the time?: Yes - Client reports he was drunk off [email or web address] Suicidal Intentional Rating Scale (SIRS): Suicidal thoughts (past) - Client denies active suicidal ideation, plan, and intent. However, client reports past thoughts of wanting to end it all. Client shared the suicidal thoughts are increased by drinking hard liquor, which client reports he has been avoiding. Client reports ability to maintain safety. Physician Notification: If Active suicidal thoughts/Will not contract for safety is checked, contact physician and document in the Physician Notification section below. Violent Behavior/Abuse History - Homicidal Ideation Do you have any homicidal thoughts? If so, explain:: No Is there a known potential victim? If yes, who:: No - Abuse Have you ever been abused?: No - Life Events Are there any other significant life events?: Hardships - Client reports history of a tumultuous relationship with his stating that they have multiple times. Client's oldest daughter is currently not speaking to client, or living with client and his , due to his infidelity. - Safety Do you ever feel threatened in your home? If yes, describe:: No Adult Social History - Age 16 to Present Describe your current support system:: Client identified his , mother, and past employee as his biggest supports. Client shared he is able to talk with his past employee/friend about client's mental health, possible sex addiction, and drinking without judgement. Substance Use - Substance Substance Use Type: Alcohol - whiskey and beer, Tobacco - smokes 2 packs of cigarettes daily, Caffeine - 1 caffeinated soda daily. - Specific Drugs What specific drugs have you used?: alcohol, tobacco, caffeine. - Extent of Use What quantity of substances have you used?: Client reports increased alcohol consumption for a period of 6 months up to 1/2 gallon of whiskey every 2 days. Client stated he would black out frequently. Client stopped drinking whiskey last month due to increased suicidal thoughts during use. Client has consumed a total of 12 beers within 1 month. Client smokes two packs of cigarettes daily. - Duration of Use How long have you used substances?: Client shared he started using tobacco when he was 14 and has been using daily since. Client has been drinking since he was a teenager as well, but his increased consumption happened about 6 months ago. - Last Usage What is the date and situation you last used?: Client drank 3 beers last evening. Client reports he often drinks 3-4 beers almost every night to relax. Client reports 3-4 beers does not have an impact on client. Client stopped drinking whiskey a month ago. Client last smoked this morning. - Withdrawal History Comments:: denies - IV Substance Use Do you have a history of IV use?: denies Leisure/Social Activities - Interests What do you enjoy or might be interested in learning about?: Client enjoys music, home renovations, and spending time with friends. 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 Education & Occupational Histo - Education What is your level of education?: High School - graduated from [employer]. Client shared school really wasn't my thing, I'm a hands-on learner. 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 List any previous volunteering you may have done:: none reported Service - Service Have you ever been in the ?: No Legal History - Records Have you had any past legal charges?: Yes - Bankruptcy 2006 Do you have any current legal charges?: No Have you ever been incarcerated? If yes, describe:: No - Court Orders Have you had any past court orders for psychiatric treatment?: No Do you have a present court order for psychiatric treatment?: No Problem Checklist - Current Problem Areas Problem List: Depressed mood/sad, Anxiety - Client reports ruminative anxiety about everything and endorses some obsessive-compulsive traits such as counting and checking behaviors., Anger/aggression - Client reports he can be impatient and easily triggered by criticism, Inattention - Client reports difficulty concentrating at times., Impulsivity - Client has engaged in risky sexual behavior, increased spending, and reckless driving while manic., Mood swings/hyperactivity - Client reports symptoms consistent with lily and reports during manic episodes he would be excessively productive. Client describes episodes of lily in which he was larger than life with massive energy and felt unstoppable., Substance use - Client reports a 6-month period of increased alcohol consumption of up to 1/2 gallon of whiskey every 2 days. Client has consumed a total of 12 beers within 1 month. Client reports drinking 3-4 days a week. 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 However, it is likely client's risky sexual behavior is due to his bipolar disorder as client reports increased sexual behavior during lily., Sleep problems - During recent manic episode client would need decreased sleep of only 2-3 hours per night. Client is generally sleeping from midnight until 7 or 8 AM and does not feel rested., Pertinent health issues - Client had a heart attack in December,, Additional psychosocial stressors - Client reports history of a tumultuous relationship with his stating that they have multiple times. Client's daughter is currently not speaking to client due recent mental health issues and risky sexual behavior. Discharge Planning Needs - Anticipated Follow-Up Mental Health Center (Name/Phone Number):: [facility] Private Therapist/Psychiatrist:: Daisha Hong [phone] Primary Care Physician: Alexander Adam Family and Caregiver Contacts:: Claudia Quiroz Release of Information Signed:: Yes Community Agency Contacts: none reported Secondary School Registrar Name/Phone Number: none reported Library Specialist's Assessment - Client's Needs What are the client's feelings about the program?: Client has never had mental health treatment before, so client stated the program is already helping me a lot. Client shared he enjoys the topics and being around peers, but he does not always feel comfortable talking about his issues. What are the client's goals?: Client identified his treatment goals as improving mood stability, improving his ability to manage emotions, and learning how to cope with warning signs and triggers. What are the client's strengths?: Client appears motivated for treatment and reports wanting to learn about warning signs, triggers, and coping skills to manage his symptoms. Client is cooperative, intelligent, and engaged in group and individual sessions. 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 Client shared his mother, best friend, and can all be supports to client. Diagnoses - Diagnoses Diagnosis #1:: Bipolar disorder F 31.9 Diagnosis #2:: Anxiety unspecified Diagnosis #3:: Alcohol use disorder Interpretive Summary - Interpretive Summary Interpretive Summary: Client is a 42-year-old male with long-standing history of mood cycling with symptoms worse over the past 6 months. Client reports history of discrete mood episodes lasting weeks to months. Client describes his episodes of lily in which he was larger than life with massive energy and felt unstoppable. During episodes of lily client would be excessively productive and need decreased sleep of only 2-3 hours per night. Additionally, client would engage in risky sexual behavior, increased spending, and reckless driving. Client denies STIs from increased sexual behavior. Client?s episodes were generally followed by increased depression and sleep. In the past 6 months he is described rapid cycling and mixed symptoms. Client currently endorses symptoms of both depression and lily daily including depressed mood, anhedonia, variable energy, irritability, and variable sleep and appetite. On February 28 he cut his arm with suicidal intent and he did not seek treatment at the time. Client denies current suicidal ideation, plan, or intent. Client reports ruminative anxiety about everything? and has some obsessive-compulsive traits including organizing counting checking behavior and perfectionism, but he does not feel that these interfere with his general functioning. Client denies history of trauma or symptoms consistent with PTSD. Client reports family history of alcohol dependence. Client reports a 6-month period of increased alcohol consumption of up to 1/2 gallon of whiskey every 2 days. Client shared that he would consume alcohol to numb himself or so that he would stay in the house and avoid risky sexual activity. Client denies seeing his alcohol use as a problem. Therapist discussed AA with client should he change his mind. Client views himself as a sex addict as engages in risky sexual behavior in the absence of alcohol. Client reports history of a tumultuous relationship with his stating that they have four times. In February, they temporarily but have now reunited. Treatment Plan Recommendations - Recommendations Guidelines: Special needs identified to be included in the development of an individualized treatment plan regarding past psychiatric history and treatment, developmental events, family relationships/events/culture, past and/or current educational, occupational, social, and residential experience, and legal status. Recommendations:: Client to be admitted to [facility] for 4-6 weeks as the structured setting is necessary to prevent decompensation. Client was recommended by [facility] psychiatrist to start Depakote ER 500 mg p.o. nightly. Client encourage smoking cessation and alcohol abstinence. Client recommended to follow-up with Debby Aguilera for outpatient counseling. A referral was provided to Valentina Lo as client reports possible sex addiction.
--- NOTE | 2018-04-01 13:57 | BH.MDN ---
Multi-Disciplinary Note - Note 45-min Individual Time Started:: 12:11 Date: 04/01/18 Purpose of session/treatment goals addressed:: The purpose of this session was to establish rapport and gather information on client's current symptoms, stressors, mental health history, and treatment goals. Another goal was to help client become more aware of warning signs and triggers for bipolar disorder. Eye Contact:: Good Motor Activity:: Appropriate Appearance:: Neat Speech:: Appropriate Mood:: Euthymic Affect:: Congruent Thoughts:: Linear, Logical, No evidence of hallucinations/delusions noted Staff Interventions:: Therapist used active listening and open-ended questions to explore client's mental health symptoms, stressors, history, and treatment goals. Therapist provided emotional support, psychoeducation, and normalized client's experience to reduce shame. Therapist assessed for risk and reviewed healthy coping strategies with client. Therapist helped client identify treatment goals and gave client homework to identify warning signs and triggers for depression, lily, and sex addiction. Client Response:: Client responded well to session, open to meeting with therapist. Client shared he did not know he was bipolar until recently when his brought the symptoms to his attention. Client reported looking back though I realize I've been this way since my 20s. Client shared he has been experiencing lily where client has increased energy, risky sexual behavior, and feelings of invisibility. Client's lily is followed by depression with suicidal ideation and increased drinking. Client shared in the past month he has been rapid cycling with mixed moods throughout the day. Client reported I could wake up with the energy and by the end of the day I'm depressed. Client shared starting 6-7 months ago he started drinking whiskey to numb his emotions and in attempts to avoid risky sexual behavior. Client stated his increased whiskey consumption was what led to his suicide attempt in February. Client has since stopped drinking whiskey and denies suicidal ideation. Client reported belief he is a sex addict as well, and stated he understands lily contributes to this addiction. Client expressed since finding out he may be bipolar he has been doing a lot of research, and what once was denial, is now a desire to learn to cope and get my life together. Client identified his treatment goals as improving mood stability, improving his ability to manage emotions, and learning how to cope with warning signs and triggers. Client reported he enjoys group and he has already increased his mental health awareness. Client was receptive to identifying triggers and warning signs for depression, lily, and sex addiction as well as using one new healthy coping skill a day for homework. Risks/Concerns:: Client denies suicidal ideation, plan, and intent as of 04/01/18. Client reports he had a suicide attempt in February, shared belief it was due to heavy consumption of whiskey while depressed. Client denies drinking whiskey or having whiskey in the house and reports ability to maintain safety. Client was future oriented stating, I want to get better and I do something if I put my mind to it. Progress Toward Goals/Plan:: Progress limited at this time as it is client's first week in IOP. Client appears motivated per his report and demonstrates willingness to implement strategies learned in group and individual sessions. Client reports medication compliance since starting Depakote. Client to continue IOP to prevent decompensation and increase mood stability. Time Stopped:: 13:00
--- NOTE | 2018-04-01 17:56 | BH.SGPN_ITS ---
Service Group Progress Note - Session Psychotherapy Session #2 Date Open:: 04/01/18 Time Started:: 10:09 Time Stopped:: 10:09 Targeted Problem #:: 1,103 Type of Group:: Illness Management - 5 participants Goal of Group:: The goal of group was to increase understanding of goals and goal setting benefits and practice a method of goal setting. Client Response/Progress/Benefit:: Client responded well to session and was engaged throughout. He did well to work with fellow participants on identifying the importance of goal setting on improving mental health symptom management. Client shared that setting goals helps us to see things as more achieveable and overcome potential barriers. CLient benefitted from the discussion reviewing SMART goal setting method and connected to discussing the importance of ensuring goals are created to be both specific and measureable. Client displayed progress in ability to utilize the activity portion as a way to practice implementing SMART goals and took on a leadership role during such. Client recommended continued IOP tx to further mental health management and improve application of healthy coping. Eye Contact:: Good Motor Activity:: Appropriate Appearance:: Casual Speech:: Appropriate Mood:: Anxious, Dysthymic Affect:: Congruent Thoughts:: Linear, Logical, No evidence of hallucinations/delusions noted Staff Interventions:: Therapist facilitated group discussion about goals, potential mental health benefits of setting and working towards achieving goals , and means for goal setting. Therapist taught group the acronym SMART (Specific , Measurable, Achievable, Realistic, Timely) as a tool to help with goal setting. Therapist led the group in an activity to be used as a method of practicing goal setting. Therapist provided the group with a small beach ball and explained their goal was to keep the ball in the air for as long as possible. Therapist guided the group through the SMART acronym as group was participating in activity. Psychotherapy Session #3 Date Open:: 04/01/18 Time Started:: 11:13 Time Stopped:: 12:03 Targeted Problem #:: 1 Type of Group:: Functional Skills Development - 5 participants Goal of Group:: The goal of group was to identify a goal for the week, explore ways to make goal follow SMART goal setting guidelines, identify the potential barriers to achieving that set goal, and identify strategies to overcome barriers. Client Response/Progress/Benefit:: Client remained engaged and willing to participate in discussion. He was able to apply the SMART goal setting method to his own mental health related goal and actively worked with fellow participants on reviewing the potential barriers and supports to achieving this goal. Client identified a goal of increasing his patience by identifying and implementing 1-2 healthy stress management skills when frustrated for the next week. CLient indicated finding supports he feels comfortable venting to as well as creating a stress and anger management plan as two potential skills he can start with implementing. CLient benefited from identifying reasons why this goal will benefit overal mental health and motivations to accomplish it. Recommended continued IOP to maintain and improve emotion regulation and distress tolerance skills. Eye Contact:: Fair Motor Activity:: Appropriate Appearance:: Casual Speech:: Appropriate Mood:: Anxious, Dysthymic Affect:: Congruent Thoughts:: Linear, Logical, No evidence of hallucinations/delusions noted Staff Interventions:: Therapist explained goal setting activity to group. Therapist provided each group member with a piece of paper and asked them to write down a goal they would like to accomplish over the weekend. Therapist then asked each member to draw a path to their goal and identify barriers that could potentially get in the way of their goal. Therapist led group in processing their goal maps and had them come up with strategies to overcome the barriers. Therapist provided support by using reflective listening.
== END 2018-04-03 23:59 ==
LOC: BHIOP 08:30
PROVIDERS: Family Provider Family Medicine; PCP Family Medicine; Visit Provider Psychiatry & Neurology Psychiatry
DX: F31.9 Bipolar disorder, unspecified (principal); F41.9 Anxiety disorder, unspecified; F17.210 Nicotine dependence, cigarettes, uncomplicated; F10.20 Alcohol dependence, uncomplicated
CPT/HCPCS: H0035; 90834; 90853

== ENCOUNTER 2018-04-05 09:00 | Outpatient (RCR) | payer OTHER, SELFPAY ==
[2017-12-21 15:19] VITALS: BMI 31.1
--- NOTE | 2018-04-05 11:38 | BH.SGPN ---
Service Group Progress Note - Session Psychotherapy Session #1 Date Open:: 04/05/18 - 5 group members Time Started:: 09:05 Time Stopped:: 10:05 Targeted Problem #:: 1 Type of Group:: Process Goal of Group:: The goal of today's group was to check-in with client's mood, stressors, and positives, and review homework. Client Response/Progress/Benefit:: Client responded well to session, quiet, but participating when prompted. Client reports feeling optimistic to take on the week after having what client described as one of his best weekends in a long time. Client shared he believes his medication has helped his moods be more stable and allowed him to think before I act. Client stated the weekend was uneventful and relaxing, spending most of his time working on house updates. Client shared he has always struggled with perfectionism and unrealistic expectations of self, but he has been trying to not beat myself up if client does not meet his goals. Client appeared to benefit from identifying positives from the weekend. Progress noted as evidenced by client's improved mood stability, but can continue to benefit from increased mental health awareness and using healthy coping skills to prevent decompensation. Eye Contact:: Good Motor Activity:: Appropriate Appearance:: Neat Speech:: Appropriate Mood:: Euthymic Affect:: Congruent Thoughts:: Linear, Logical, No evidence of hallucinations/delusions noted Staff Interventions:: Therapist used open-ended questions to elicit information about client's current stressors and mood state. Therapist was supportive by using active listening and reflection.
--- NOTE | 2018-04-05 14:18 | BH.MDN_ITS ---
Multi-Disciplinary Note - Note 45-min Individual Time Started:: 12:13 Date: 04/05/18 Purpose of session/treatment goals addressed:: The purpose of this session was to increase client's self-awareness of his bipolar diagnosis including warning signs, triggers, and vulnerability traits. Another goal was to discuss heathy coping and setting up a family session. Eye Contact:: Good Motor Activity:: Appropriate Appearance:: Neat Speech:: Appropriate Mood:: Euthymic Affect:: Full Thoughts:: Linear, Logical, No evidence of hallucinations/delusions noted Staff Interventions:: Therapist used open-ended questions and active listening to explore client's current symptoms, stressors, and response to medication. Therapist provided psychoeducation on bipolar disorder including warning signs, triggers, and vulnerabilities. Therapist helped client process client's thoughts , behaviors, and emotions associated with the warning signs and triggers. Therapist and client discussed social supports and the benefits of having a family session with client's . Therapist gave client a mood chart for homework and asked client to be more aware of his thoughts, feelings, and behaviors this week to help increase insight to warning signs and triggers. Client Response:: Client responded well to session, open to meeting with therapist. Client shared he feels the medication is working well as client stated, I feel more balanced and chill. Client reported belief the medication is making him have normal emotions and has helped him be less impatient and impulsive. Client shared he has also been trying to be more aware of his emotions and the way he responds to stress. Client reported he has been working to avoid sex triggers as well. Client was receptive to learning about warning signs and triggers, sharing bipolar and mental health is all so new to me. Client connected with the list of warning signs and the article about triggers. Client identified his top warning signs as anger, agitation, overconfidence, impatience, and grandiosity. Client reported he did not have awareness of warning signs before, so it was hard for him to identify them at first. Client also identified his common triggers to be stress, change in routine, social isolation, and negative thinking. Client and therapist discussed behaviors, feelings, stigmas, and thoughts that contribute to triggers and warning signs. Client recognized that his perfectionism and high standards for self and others make him more vulnerable to stress triggers. Client stated he would like to bring in his so she can learn more about bipolar and why client has done some of the things he has in the past. Risks/Concerns:: No risks or concerns at this time. Client denies suicidal ideation, plan, and intent as of 04/05/18. Client reports improved mood stability and was future oriented throughout session as shown by his report of wanting to involve his in treatment. Progress Toward Goals/Plan:: Client demonstrating progress towards treatment goals as evidenced by his reported of improved mood stability. Client has been medication compliant and reports belief the medication has made me chill. Client shared he has been trying to be more aware of his emotions and is trying to control his knee jerk responses. Client to continue IOP to prevent decompensation and promote mood stability. Client to talk with his to set up a family session. Time Stopped:: 13:03
--- NOTE | 2018-04-06 09:04 | BH.SGPN_ITS ---
Service Group Progress Note - Session Psychotherapy Session #2 Date Open:: 04/05/18 Time Started:: 10:13 Time Stopped:: 11:04 Targeted Problem #:: 1 Type of Group:: Illness Management - 4 participants Goal of Group:: To increase understanding of fear and explore the negative impact fear of failure can have on mental health and decision making. Client Response/Progress/Benefit:: Client responded positively to session and was did well to provide input throughout both the group and activity portions. Client worked with fellow participants to define their perception of failure and discussed connecting with the various components described. CLient shared often viewing failure as not meeting his own expectations or giving up on a goal. He connected with the conversation discussing famous failures and how perspective can impact impact our reaction and ability to cope with failure. CLient benefited from discusssing strategies for reframing current definitions to begin viewing failure as a new opportunity or a way to learn more about what does and doesn't work. CLient displayng progress in his ability to open up with the group, AEB increase leadership and support client provided throughout the activity. He would benefit from coninuing with IOP program to maintain stability and further promote use of thought challenging, as well as assessing expectations for self and others. Eye Contact:: Good Motor Activity:: Appropriate Appearance:: Casual Speech:: Appropriate Mood:: Euthymic, Anxious Affect:: Congruent - providing guidance and encouragement throughout he activity portion Thoughts:: Linear, Logical, No evidence of hallucinations/delusions noted Staff Interventions:: Therapist facilitated discussion about fear and impact fear of failure can have. Therapist led group in an experiential activity in which client?s would fail numerous times throughout, but were given the opportunity to try again. Therapist led the processing of the activity and assisted clients with connecting how fear of failure impacted their decision making during the activity. Psychotherapy Session #3 Date Open:: 04/05/18 Time Started:: 11:13 Time Stopped:: 12:15 Targeted Problem #:: 1 Goal of Group:: To identify the impact fear of failure has had on the group members lives and identify strategies to overcome fear of failure. Client Response/Progress/Benefit:: Client again did well to remain engaged in session and connect the materials discussed to his own life. CLient is displaying an increased ability to make associations between group activities and his own life. This is evidenced by client associating the various setbacks in the activity with the concept of sometimes having to use our setbacks as ways to move forward. CLient discussed that for him the biggenst difficulty is identifying what barriers to look out for so that he does not feel he is setting himself up for failure. Client benefitted from discussion reviewing strategies for identifying barriers and resources available for doing so. He connected with idea of incorporating supports in this process and discussed wating to begin viewing failure as an opportunity to learn something new and knowledge as to what to avoid next time. Client is displaying progress in his continued ability to apply reframing strategies and insight into warning signs or triggers. Recommended continued IOP to further promote insight into mental health symptoms and prevent decompensation. Eye Contact:: Good Motor Activity:: Appropriate Appearance:: Casual Speech:: Appropriate Mood:: Euthymic, Anxious Affect:: Congruent Thoughts:: Linear, Logical, No evidence of hallucinations/delusions noted Staff Interventions:: Therapist provided each group member with a worksheet to complete that asked questions about their experiences with fear of failure. Therapist led the processing of the worksheet, helping client?s connect how fear of failure has impacted them. Therapist provided support by using active listening and providing feedback.
--- NOTE | 2018-04-06 14:05 | BH.SGPN_ITS ---
Service Group Progress Note - Session Psychotherapy Session #1 Date Open:: 04/06/18 - 5 group members Time Started:: 09:10 Time Stopped:: 10:07 Targeted Problem #:: 1 Type of Group:: Process Goal of Group:: The goal of today's group was to check-in with client's mood, stressors, and positives, review homework and introduce topic for the day. Client Response/Progress/Benefit:: Client responded well to session, active participant. Client reports feeling ?optimistic? today as client did not let his stressors ?get me down? yesterday. Client shared after leaving group he thought he would have a calm day, but it ended up being stressful at work. Client shared he felt too overwhelmed at first so he avoided the situation and went to lunch. Client expressed he viewed this avoidance as a helpful break. Client reported he was able to get done with the work he needed to do at work, but did not finish his goals at home. Client shared he continues to struggle with accepting when he does not meet his unrealistic expectations. With therapist gentle challenging, client recognized the benefits of being more self- compassionate. Client appeared to benefit from gaining support from the group. Client to continue IOP to increase mood stability. Eye Contact:: Good Motor Activity:: Appropriate Appearance:: Neat Speech:: Appropriate Mood:: Euthymic Affect:: Congruent Thoughts:: Linear, Logical, No evidence of hallucinations/delusions noted Staff Interventions:: Therapist used open-ended questions to elicit information about client's current stressors and mood state. Therapist was supportive by using active listening and reflection.
--- NOTE | 2018-04-06 14:56 | BH.MDN_ITS ---
Multi-Disciplinary Note - Note 60-min Individual Time Started:: 12:17 Date: 04/06/18 Purpose of session/treatment goals addressed:: The purpose of this session was to assess current symptoms and treatment goal progress. Another purpose was to increase client insight and awareness of early warning signs and triggers for anxiety and panic symptoms as well as potential strategies for preventing symptom escalation. Additional topics included: communication and boundaries with supports. Negative self-talk. Eye Contact:: Good Motor Activity:: Appropriate Appearance:: Casual Speech:: Appropriate Mood:: Anxious Affect:: Congruent Staff Interventions:: Therapist aksed open-ended and futhering questions to gather Client current symptoms, stressors, and treatment goal progress. Provided psychoeducation regarding Anxiety Disorder, common symptoms, and coping skills. Assisted Client in identifying symptoms and warning signs personally experienced. Worked with client to discuss the importance of healthy boundaries and consistently practicing strategies for managing sx to prevent panic. Risks/Concerns:: No risks or concerns noted. Client denies si, plan, or intent as of 04/06/18 Progress Toward Goals/Plan:: Client continues to make steady strides forward in treatment. She is displaying significant increases in her ability to identify distorted thinking patterns following periods of increased anxiety, however indicates difficulties with implementing thought challenging or reframing techniques in the moment. Client is able to make connections between treatment matterinals and personal experiences. She continues to struggle with high levels of rumination and introsive thought but is beginning to note decreased frequency and duration of these thoughts. CLient is beginning to show improvements in her ability to challenge use of self deprication and continues to actively process skills learning in treatment. Recommended continued IOP to increase consistent application of skills learned, improve emotional boundaries , and thought challenging skills. Time Stopped:: 13:18
--- NOTE | 2018-04-06 15:42 | BH.SGPN_ITS ---
Service Group Progress Note - Session Psychotherapy Session #2 Date Open:: 04/06/18 Time Started:: 10:20 Time Stopped:: 11:15 Targeted Problem #:: 1 Type of Group:: Illness Management - 5 group members Goal of Group:: To increase understanding of a crisis and improve clients awareness of how he/she feels when in a crisis. Client Response/Progress/Benefit:: Client active and engaged participant AEB many contributions to discussion and connecting with others comments. Client reported he doesn't cope effectively when faced with a crisis which often results in increased problems. Client shared often times when he experiences a crisis he feels anger and will explode. client reported his reaction to a crisis can result in relationship problems. Client seemed to benefit from increased awareness into how his response to a crisis could lead to increased problems if not responding in a healthy manner. Eye Contact:: Good Motor Activity:: Appropriate Appearance:: Casual Speech:: Appropriate Mood:: Euthymic, Anxious Affect:: Congruent Thoughts:: Linear, Logical, No evidence of hallucinations/delusions noted Staff Interventions:: Therapist facilitated group discussion about defining a crisis and specifying various events that are considered a crisis. Therapist led group in an activity in which group members had to identify their thoughts and emotions attached to being in a crisis. Therapist provided support by using active listening and providing feedback. Psychotherapy Session #3 Date Open:: 04/06/18 Time Started:: 11:25 Time Stopped:: 12:15 Targeted Problem #:: 1 Type of Group:: Functional Skills Development Goal of Group:: To increase awareness of warning signs before a crisis and identify interventions/coping strategies that would help clients proactively manage potential crises. Client Response/Progress/Benefit:: Client contributed his thoughts and ideas to discussion, engaged throughout. Client reported his top 3 warning signs he is starting to struggle include: increased anger, increased anxiety, and increased risk taking. Client shared for his crisis kit he chose the following items: a pipe and test supervisor because he can use it as a sensory tool, a rock to remind him of hiking, a seashell to remind him how soothing the beach can be, the word calm to remind himself to use skills to stay calm, and a binder clip to remind himself he can clip/shut out the negative thoughts. Client seemed to benefit from increased self-awareness of his warning signs as well as creating a tangible kit of items to remind client of what strategies could help him in a crisis. Eye Contact:: Good Motor Activity:: Appropriate Appearance:: Casual Speech:: Appropriate Mood:: Euthymic, Anxious Affect:: Congruent Thoughts:: Linear, Logical, No evidence of hallucinations/delusions noted Staff Interventions:: Therapist led the group in discussion about identifying personal warning signs before a crisis and importance of being aware of those signs.Therapist provided the group with various types of items and asked each group member to select five items that represent something that would be helpful in managing their warning signs of a crisis. Therapist facilitated group processing of the crisis emergency kits each group member created. Therapist used open-ended questions to encourage elaboration of each item chosen for their kit. Therapist helped clients connect how the crisis emergency kit could help be a crisis prevention tool.
--- NOTE | 2018-04-08 10:10 | BH.SGPN.GN ---
Behaviors/Verbalizations/Mental Status: [Pt eye contact good, casually dressed, motor activity appropriate, speech normal rate and tone, mood euthymic, congruent affect, thoughts linear and intact, no evidence of delusions or hallucinations.] Client Response/Progress/Benefit: [Client engaged and active throughout session, contributing thoughts and ideas to discussion. Client reported he connected with the quote because when he gets angry it tends to result in more problems. Client shared he recognizes the way he manages his anger is unhelpful and wants to work on being able to stop and think before having a knee jerk reaction. When processing activity client shared it really helped him to be in a position that required him to be patient, wait for instructions, think his decision through, instead of making impulsive decisions. Client seemed to benefit from increased self-awareness into how his current response to emotions impacts his progress. ]
--- NOTE | 2018-04-08 10:18 | BH.SGPN ---
Service Group Progress Note - Session Psychotherapy Session #1 Date Open:: 18 - 4 group members Time Started:: 09:05 Time Stopped:: 10:00 Targeted Problem #:: 1 Type of Group:: Process Goal of Group:: The goal of today's group was to check-in with client's mood, stressors, and positives, review homework and introduce topic for the day. Client Response/Progress/Benefit:: Client responded well to session, active participant. Client reports feeling stable today sharing belief he has been nonstop for so long, I'm finally steadying out. Client stated yesterday he was exhausted and was not able to get the things he wanted to get done around the house. Client reported this did not bother him like it normally would as client recognized he needed the rest. Client shared he continues to struggle with unrealistic expectations as client feels like if he does not push himself to the extreme then he is not pushing himself enough. Client was receptive to thought challenging from the group. Client stated he plans to jump back into things quickly after being exhausted and was encouraged by therapist and the group to slowly transition to avoid burnout and unhealthy coping. Client reported he as he continues to learn about his warning signs and trigger he hopes it will become easier to get out of negative maintenance cycles. Client appeared to benefit from challenging black and white thinking in group. Client seems to be progress as shown by his increased awareness and medication increasing mood stability, but continues to struggle with black and white thinking and self-sabotaging behaviors. Eye Contact:: Good Motor Activity:: Appropriate Appearance:: Neat Speech:: Appropriate Mood:: Euthymic Affect:: Congruent Thoughts:: Linear, Logical, No evidence of hallucinations/delusions noted Staff Interventions:: Therapist used open-ended questions to elicit information about client's current stressors and mood state. Therapist was supportive by using active listening and reflection.
--- NOTE | 2018-04-08 11:15 | BH.SGPN.GN ---
Behaviors/Verbalizations/Mental Status: Pt eye contact good, casually dressed, motor activity appropriate, speech normal rate and tone, mood euthymic, congruent affect, thoughts linear and intact, no evidence of delusions or hallucinations. Client Response/Progress/Benefit: Pt active participant, engaged and contributing thoughts to session. Pt reported he could connect with the different zones of alertness, identifying he most often is in the heightened state of alertness. Pt able to identify several emotions that would fall under each zone. Pt shared when he is physically exhausted taking a nap helps him feel refreshed and more alert. Pt recognizes when he is depressed, napping is something that does not help and only keeps him more stuck. Pt seemed to benefit from identifying specific coping skills that would be helpful based on which zone of alertness he is in.
--- NOTE | 2018-04-12 14:53 | BH.COMM ---
Communication Note - Communication with Client Communication Note: Therapist called client as he no called/ no showed for scheduled IOP session today. Client shared he forgot to call and had to miss due to work. Client reports plan to make up for missing today by coming Thursday in addition to Thursday and . Client to attend group tomorrow 04/13/18.
--- NOTE | 2018-04-13 09:07 | BH.SGPN.GN ---
Number of group members: 6 Behaviors/Verbalizations/Mental Status: []Client alert and oriented, neatly dressed and groomed. Speech within normal limits. Good eye contact. Motor activity appropriate. Mood anxious, affect incongruent as evidenced by smiling, but reporting higher anxiety and mixed emotions. Thoughts linear and logical, no signs of hallucinations or delusions. Therapist reviewed clients symptom tracker to assess for intensity of mental health symptoms and identify risk for suicide. No signs of suicidal ideation, plan, or intent to date. Client Response/Progress/Benefit: [] Client responded well to session, active participant. Client shared he did not want to come to group today, because client feels all over the place, however, client shared he recognizes when he comes to group he feels better. Client reports feeling higher anxiety today after having to deal with some issues at work yesterday and letting an employee go. Client stated he feels as though everything is barrier right now and that people in his life are trying to prevent client from getting better. With therapist elicitation, client recognized that his higher anxiety and stress may be contributing to client feeling overwhelmed with barriers. Client shared belief he has been dealing with his emotions better since starting IOP, stating the medication and use of coping has helped him make less emotional decisions and more rational decisions. Client appeared to benefit from processing emotions and reflecting on progress. Progress noted as client reports increased mood stability, but continues to struggle with managing stress and challenging cognitive distortions.
--- NOTE | 2018-04-13 10:20 | BH.SGPN.GN ---
Behaviors/Verbalizations/Mental Status: [] Pt eye contact good, casual dress, speech and tone appropriate, thoughts linear and intact, no evidence of delusions or hallucinations, mood euthymic. Client Response/Progress/Benefit: [] Pt engaged and active throughout session AEB many contributions and listened attentively to others. Pt connected with the quote that having a positive support network can help her feel more secure. Pt able to identify the benefits of having social supports. Pt reported she wants to have better balance between her external supports and internal supports. Shared she wants to be able to rely on herself when needed, however reported she knows social support can help provide guidance and challenge her irrational thoughts. Pt seemed to benefit from learning about the benefits of social support as well as engaging in activity that required pt to utilize her supports.
--- NOTE | 2018-04-13 14:14 | BH.MDN ---
Multi-Disciplinary Note - Note 30-min Individual Time Started:: 11:50 Date: 04/13/18 Purpose of session/treatment goals addressed:: The purpose of this session was to address client's current symptoms, stressors, and use of coping skills. Another goal was to identify client's most used cognitive distortions and educate client on the impact thoughts have on emotions, behaviors, and self-fulfilling prophecies. Eye Contact:: Good Motor Activity:: Appropriate Appearance:: Neat Speech:: Appropriate Mood:: Euthymic Affect:: Congruent Thoughts:: Linear, Logical, No evidence of hallucinations/delusions noted Staff Interventions:: Therapist used open-ended questions to explore client's current symptoms, stressors, and use of coping skills. Therapist normalized client's report of feeling out of his comfort zone and feeling abnormal that I have normal feelings. Therapist introduced CBT, cognitive distortions, and self-fulfilling prophecies. Therapist challenged client on some of his mistaken beliefs of self and his distorted thoughts. Therapist encouraged the use of healthy coping skills and praised client for his progress with decision-making. Therapist provided client homework to increase awareness of his cognitive distortions and how they impact his mood and behaviors. Client Response:: Client responded well to session, open to meeting with therapist. Client shared his medication is making him feel good and normal...but normal makes me feel abnormal. Therapist validated client's experience and client connected with realizing he has been so used to the extreme lows and highs and he will feel out of his comfort zone experiencing normal emotions for a while. Client described his current feelings like being a lion out of his cage at the Zoo I'm either going to run away or go back to what's comfortable. Client stated at times he thinks when will the next shoe drop and client reports belief he will have a relapse. Client receptive to discussing cognitive distortions, self-fulfilling prophecies, and the CBT triangle. With therapist elicitation, client recognized that by thinking he will relapse he may be setting himself up for failure as thoughts impact behaviors and emotions. Client identified other cognitive distortions he uses such as black and white thinking, jumping to conclusions, and magnifying/ minimizing. Client reported he tends to be magnify others mistakes and minimize his own. Client reflected on how his negative thoughts keep him stuck feeling angry, depressed, and stressed. Client and therapist talked about relapse and ways to prevent falling into unhealthy patterns of coping, addiction, and habits. Client receptive to identifying the thoughts that occur when client has the urge to fall back into old ways and writing reasons why client does not want to fall back in old ways. Client reported he has seen the most progress in his decision-making. Prior to being medicated and treated for mental health client reported he made all my decisions based on emotions and impulse but now client can take a step back and be logical. Risks/Concerns:: Client denies suicidal ideation, plan, and intent as of 04/13/18. Client reports motivation to get better which serves as a protective factor. Progress Toward Goals/Plan:: Client demonstrating progress towards treatment goals as evidenced by client's report of improved mood stability and increased decision-making skills. Client shared for the first time in my life I'm making logical decisions, not only emotional. Client continues to endorse black and white thinking, grandiose thoughts of self, and anxiety. Client also continues to struggle with unrealistic expectations of self and others which leads to frustration and issues with his supports at times. Client reports he is waiting for the other shoe to drop referring to falling back into old ways. Client and therapist discussed self-sabotage and self-fulfilling prophecies, but if client does not challenge this thinking it may hinder his progress. Client to continue IOP to prevent decompensation and increase use of healthy coping skills. Time Stopped:: 12:20
--- NOTE | 2018-04-15 09:10 | BH.SGPN.GN ---
Behaviors/Verbalizations/Mental Status: [] Eye contact is good. Motor activity is appropriate. Appearance is neat. Speech is appropriate. Mood is euthymic. Affect is full. Thoughts are liner and logical. No evidence of hallucinations or delusions noted. Client Response/Progress/Benefit: [] Active participant in group discussion. Provided appropriate feedback. Emotion for today is optimistic. Shared that he feels that he is better able to manage his mood and responsibilities more effectively. Discussed how he always felt like his intensity and aggressiveness was simply his passion for things, however he is able to see that he can be passionate w/o negatively impacting others. Feels that this has made him a better leader, co-worker, and parent. Shared how he dealt with recent discipline of his sons in a calm and more effective manner. Reports feeling more positive and energetic recently. His and co-workers have also reported a positive change in him. Significant progress noted per pt report. Benefited from support and praise from group. Will continue in IOP to maintain gains, further stabilize mood, and prevent decompensation.
--- NOTE | 2018-04-15 10:05 | BH.SGPN.GN ---
Behaviors/Verbalizations/Mental Status: [Client alert and oriented, well engaged in session. Eye contact remained good - at times appearing intense or to be staring. Speech WNL, appropriate rate/tone. Appropriate motor activity. Client appearance casual, with appropriate grooming and hygiene. Mood was euthymic, affect congruent with mood. Thoughts remained linear and logical, no appearance of delusion/hallucination.] Client Response/Progress/Benefit: [Client responded well to session and actively engaged in the discussion covering boundaries. He shared that boundaries are safeguards we set for ourself explaining that one of the benefits of personal boundaries is that we can set them as a means for keeping ourselves in check. Client went on to explain that setting personal limits and boundaries with ourselves we can make sure we do not fall back into negative behavior patterns. Client benefited from reviewing the pros/cons and characteristics of various types of boundary setting. He indicated connecting most with both the rigid and permeable styles of boundary setting. CLient displaying progress in ability to apply treatment content to his own life and increase insight into his own mental health. Recommended continued IOP to promote ongoing treatment progress and maintenance of MH sx, as well as prevent decompensation. ] Narrative Note: []
--- NOTE | 2018-04-15 11:12 | BH.SGPN.GN ---
Behaviors/Verbalizations/Mental Status: [Client alert and orient x3. Appropriate Motor activity. Eye contact appeared intense at times, though mostly appropriate. Speech WNL, appropriate rate and tone. CLient appearance was casual, grooming and hygiene cared for. Mood was euthymic, affect full and congruent with mood. Thoughts remained linear and logical, no noted delusion or hallucinations.] Client Response/Progress/Benefit: [Client again responded well to session and was engaged throughout. He took part in the drawing activity in which participants were challenged to create abstract representations of their own personal boundaries. Client shared that he identifies his boundaries as being a forest and open field as he struggles with being with too permeable or too rigid with others. Client shared wanting to work towards becoming more open with his family. Benefitted from brainstorming ideas with the group for improving boundaries and indicated that challenging expectations for self as an initial step in doing so. Client recommended continued IOP tx to promote ongoing treatment goal progress and maintain stability. ] Narrative Note: []
--- NOTE | 2018-04-16 10:04 | BH.NOTE ---
BH: Inpatient Note - Notes Behavioral Health Inpatient Note: Client reports that he increased the dose of his Depakote ER to 1000mg QHS on 04/12/18 as per discussion with Dr. Sherwood. He has not noticed any side effects and feels that his mood swings are more regulated and reigned in. He has a requisition for a depakote level to be done next week. Dave Fernandez BSN, RN
--- NOTE | 2018-04-16 10:11 | BH.NA_ITS ---
Physical Data - Vital Signs Pulse Rate: 72 Respiratory Rate: 14 Blood Pressure: 115/72 - Height/Weight Height: 1.98 m Weight:: 113.852 kg Weight in Pounds: 251.0 lbs Current Medication Compliance - Medication Compliance Do you take your medication as prescribed?: Yes Do you need assistance with taking medication?: No Have you had side effects from medication?: No Nutritional History - Appetite Nutritional Instructions:: If client shows signs of a swallowing problem, weight change of 10 pounds or more in the last month, or is on a diabetic diet, the physician will review and request a dietitian consult, as appropriate. All unintentional weight loss will be referred to the physician for decision on need for dietitian consult. Describe your appetite:: Good Have you noticed a change in your eating habits lately?: No Additional nutritional information:: minimal caffeine use Functional Assessment - Sleep Pattern Describe any problems with sleeping: difficulty staying asleep, wakes 1-2x/ night for approx 30-60m each time. - Activities Motor Activity:: Functional Sensory/Communication Assess - Hearing Problems Do you have any hearing problems?: Adequate - Communication Problems Do you have difficulty understanding what people are saying?: No Do you have trouble putting your thoughts into words or expressing what you want to say?: No Do people ever have trouble understanding what you say?: No What is your primary language?: [place] Learning Assessment - Learning Barriers Learning Barriers:: Ready to learn Medical Problems/History - Cardiac Conditions Cardiovascular: Atrial fibrillation, Coronary artery disease - s/p YOHANA to proximal RCA, Hypertension, Hyperlipidemia - Neurological Conditions Neurological: Other (See comments) - suspected NORY based on reported Sx - Pain Assessment Do you have acute or chronic pain?: No - Family History Family History: Family History (Last Reviewed 05/10/18 @ 10:07 by Addis Cheng) Mother No problems noted. Substance Abuse - Substance Abuse Please describe substance abuse in the last 30 days:: 4-5 beers daily, 1-1.5 packs cigarettes daily. Denies illicit substance use. Mental Status Summary - Mental Status Significant Findings/Observations on Appearance and Mood:: Client is A&Ox4, cooperative with interview, and makes good eye contact. Normal activity and steady, unassisted gait. Casually dressed with appropriate hygiene and grooming. Speech is clear and of regular rate and volume. No obvious anxiety, depression, or anger. Full and appropriate affect. Logical associations and normal process. No symptoms of delusions. Denies hallucinations, SI, and HI. Judgement and impulse control seem intact at this time, but he recognizes that these are difficult areas for him to control. Suicide Assessment - Suicidal Ideation Are you currently or have you been suicidal in the past?: Yes Suicidal Intentional Rating Scale (SIRS): Suicidal thoughts (past) Physician Notification: If Active suicidal thoughts/Will not contract for safety is checked, contact physician and document in the Physician Notification section below. Fall Risk Assessment - Age Age: Less than 60 - Mental Status Mental Status: Willing & able to ask for assistance when needed - Physical Status Physical Status: No problems - Impairments Impairments: None - Elimination Elimination: Continent AND independent - Gait or Balance Gait or Balance: Walks independently - Hx of Falls History of falls in the past 6 months: No known history - Medications/Substances Psychotropics:: Mood stabilizers Others:: Antihypertensives Medications/substances used within the past 24 hours or ordered to administer: 1 -2 of the medications/substances listed above - Total Score Total Points:: 1 Physician Notification - Physician Notification Physician Notified: Rossana Sherwood Method of Notification: Face to Face Comments: treatment planning discussion RN Summary of Impressions - Impressions Recommendations: Include psychiatric and medical issues, treatment planning recommendations, and discharge planning needs. Impressions: Psychiatric Issues: bipolar (rapid cycling), OCD Impression: General Medical Conditions: HTN, HLD, CAD s/p YOHANA to proximal RCA, NORY?, a fib Impressions: Treatment Planning Recommendations: Client needs ongoing encouragement for tobacco cessation and reducing use of ETOH. - Level of Care How do the client's current symptoms and functional deficits support need for this level of care?: Client notes an increase in stressors, mostly involving work and an ongoing remodel of his home that have triggered increased symptoms of his bipolar disorder. He endorses increased alcohol use, a SA by cutting his arm, and risky sexual activity outside of his marriage for the past 6 months. This is his third week in the program and he notes improved mood stabilization on Depakote. IOP is promoting gains and preventing decompensation.
--- NOTE | 2018-04-16 10:15 | BH.SGPN.GN ---
Behaviors/Verbalizations/Mental Status: [Client alert and orient x3. Active participant, maintaining appropriate eye contact throughout. Client motor activity normal. Appearance was clean and casual, grooming and hygiene well maintained. Speech remained within normal limits. Mood was euthymic, affect constricted. Thoughts remained linear and logical, void of observable hallucination or delusions.] Client Response/Progress/Benefit: [Client willing to participate in session and responded positively to group topic covering conflict resolution. Client did well to reflect upon the importance of a healthy approach to conflict and shared that he has learned from example that if we avoid conflict the consequences are often times worse. CLient actively worked with fellow group members on identifying the various means in which we often approach conflict as well as the pros/cons of each. He benefitted from the discussion reviewing potential situations in which each conflict style may be used as client discussed previously thinking that only the collaborating style would be ideal. Displayed progress in his ability to identify that competing styles may be needed when advocating for ones needs or avoiding to prevent unnecessary conflict. Recommended continued IOP tx to continue current progress on improving emotion regulation and symptom management skills as well as to prevent decompensation. ] Narrative Note: []
--- NOTE | 2018-04-16 11:16 | BH.SGPN.GN ---
Behaviors/Verbalizations/Mental Status: [Client alert and orient x3. Active participant, willing to engage. Maintained appropriate eye contact throughout with normal motor activity normal. Appearance was casual, grooming and hygiene maintained. Speech remained within normal limits. Mood was euthymic. affect constricted. Thoughts remained linear and logical, void of observable hallucination or delusions. ] Client Response/Progress/Benefit: [Client responded well to session and remained actively engaged throughout. He did well to engage with fellow participants in the activity portion of session and discussed differences between his conflict resolution style used when placed in potential conflict setting in the group versus his daily life. Client appeared to benefit from processing the activity and ways he would like to begin altering his current approach to conflict to best aid in managing mental health symptoms. Client shared that he thinks trying to improve overall communication with his supports and see things from their point of view may be an appropriate first step. CLient shared feeling as though he does not open up to his family when things are bothering or upsetting him which may lead to unresolved conflict or miscommunication. Client displaying progress in his ability to identify areas of communication he would benefit from improving upon with supports. Client recommended continued IOP to maintain gains, prevent decompensation, and improve insight into effective strategies for managing mental health sx. ] Narrative Note: []
--- NOTE | 2018-04-20 09:12 | BH.SGPN.GN ---
Behaviors/Verbalizations/Mental Status: [Client alert and orient x3. Client maintained fair eye contact throughout - a times looking down or away. Motor activity appropriate. Appearance was casual, grooming and hygiene appropriate. Speech within normal limits. Mood was euthymic, affect constricted, client making jokes though struggled to discuss during his turn to process. Thoughts remained linear and logical, no present hallucinations or delusions. Therapist reviewed clients symptom tracker to assess for intensity of mental health symptoms and identify risk for suicide. No signs of suicidal ideation, plan, or intent to date.] Client Response/Progress/Benefit: [Receptive of session. He remained a mostly passive participant throughout. This was evidenced by client minimal input provided, however remain engaged in session as client was actively paying attention, laughing at fellow participants jokes, and providing humor to the group. He did well to provide support and encouragement to other members of the group though expressed not wanting to process his own symptoms or areas of progress. Appeared to benefit from the structured group environment and positive feedback and support discussed throughout. Client appeared to connect with fellow participants who indicated at times struggling with maintaining the progress they have made. Client would benefit from ongoing IOP treatment to further explore potential barriers or warning signs for client maintenance cycle as well as continue to focus on identification and implementation of healthy skills for management of mh sx. Narrative Note: []
--- NOTE | 2018-04-20 10:30 | BH.SGPN.GN ---
Behaviors/Verbalizations/Mental Status: []Client alert and oriented, neatly dressed and groomed. Eye contact good. Motor activity appropriate. Speech within normal limits. Affect constricted, mood euthymic. Thoughts linear, logical, no signs of hallucinations or delusions. Client Response/Progress/Benefit: []Client responded well to session, positively contributing to discussion. Client connected with the quote sharing, Fabienne had to rethink my definition of strong...being resilient isnt just about being strong. 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 Client defined resilience as adapting and bouncing back from hard times. Client provided insight on the benefits of being flexible versus being rigid. Client helped the group identify factors that contribute to building resilience such as hope, moving towards goals, and optimism. Client appeared to benefit from increasing awareness of resilience and the factors that contribute to developing a resilient personality. Progress noted per clients report of increased mood stability, but client can continue to benefit from IOP to improve emotional regulation.
--- NOTE | 2018-04-20 11:30 | BH.SGPN.GN ---
Behaviors/Verbalizations/Mental Status: []Client alert and oriented, neatly dressed and groomed. Eye contact good. Motor activity appropriate. Speech within normal limits. Affect constricted, mood euthymic. Thoughts linear, logical, no signs of hallucinations or delusions. Client Response/Progress/Benefit: []Client responded well to session, receptive to positive statements from peers and providing positive feedback. Client engaged in activity, demonstrating resilient traits as shown by clients words of encouragement, motivation, and report of hope. Client connected the stress ball to a resilient personality as the stress ball can bounce back from hardships. Client identified personal resilience traits such as determination, acceptance, not letting mental health define me, and positive self-talk to help client maintain resilience despite hardships. Client appeared to benefit from giving and receiving positive statements to and from peers. Progress noted as shown by clients improved use of coping skills and self-report of increase mood stability, but continues to struggle with managing cognitive distortions and managing anger.
--- NOTE | 2018-04-22 09:04 | BH.SGPN.GN ---
Behaviors/Verbalizations/Mental Status: [] Pt eye contact good, casually dressed, motor activity appropriate, speech normal rate and tone, mood euthymic, congruent affect, thoughts linear and intact, no evidence of delusions or hallucinations. Client Response/Progress/Benefit: [] Client reported he is feeling stable. 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 Client reported in the past he would be extremely anxious and all over the place but is enjoying the fact that he can manage his emotions instead of reacting to how he feels. Client shared he is finding it helpful to do a quick check in with himself and asking self is this a true crisis or am I making this bigger than it actually is. Client reported he believes his symptoms have decreased due to increased knowledge of coping strategies as well as taking the right medications. Progress noted AEB pt reporting improved mood stabilization and utilization of her healthy coping skills. Narrative Note: []
--- NOTE | 2018-04-22 10:03 | BH.SGPN.GN ---
Behaviors/Verbalizations/Mental Status: []Client alert and oriented, neatly dressed and groomed. Fair eye contact, on phone at times. Motor activity appropriate. Speech within normal limits. Affect constricted, mood euthymic. Thoughts linear, logical, no signs of hallucinations or delusions. Client Response/Progress/Benefit: []Client responded well to session, providing insight to discussion, but distracted at times on his phone. Client connected with the quote sharing I notice I have a lot of miscommunications... I think I mean one thing, but they hear something else. Client identified increased trust and better understanding of needs as the benefits of effective communication in mental health and relationships. Client stated negative thinking, stress, and assumptions can impact client's communication. Client reported he often uses assertive communication at work, but aggressive communication at home. Client shared he struggles with active listening and not escalating the situation. Client stated he wants to be a better listener and wishes at times he was more passive and assertive rather than aggressive with his family. Client appeared to benefit from identifying how his communication style impacts mental health and relationships. Progress noted as client reports increased mood stability, but continues to struggle with communicating with supports and emotional regulation.
--- NOTE | 2018-04-22 11:10 | BH.SGPN.GN ---
Behaviors/Verbalizations/Mental Status: []Client alert and oriented, neatly dressed and groomed. Eye contact fair. Motor activity appropriate. Speech within normal limits. Affect congruent, mood euthymic, irritable. Thoughts linear, logical, no signs of hallucinations or delusions. Client Response/Progress/Benefit: []Client responded well to session, active participant. Client participated in the communication activity and was able to use specific, assertive communication with peers. Client shared the activity was challenging for him at times because he was making assumptions, which impacted his communication with peers. Client connected the activity to his life stating, I need to be a better listener and let people talk instead of assume. Client helped the group identify strategies to improve communication such as managing emotions, controlling tone and body language, and challenging assumptions. Client appeared to benefit from practicing assertive communication in the moment and gaining awareness of how client can improve communication with his supports. Progress noted in increased mood stability but continues to struggle with managing emotions when communication with family. Client to continue IOP to prevent decompensation and increase emotional regulation.
--- NOTE | 2018-04-22 14:32 | BH.MDN ---
Multi-Disciplinary Note - Note 30-min Individual Time Started:: 12:04 Date: 04/22/18 Purpose of session/treatment goals addressed:: The purpose of this session was to address client's current stressors, symptoms, and application of coping strategies. Another goal was to identify strategies to improve emotional regulation and promote mindfulness to improve client's work-life balance. Other topics included communication, triggers, and boundaries. Eye Contact:: Good Motor Activity:: Restless Appearance:: Neat Speech:: Appropriate Mood:: Euthymic, Anxious Affect:: Congruent Thoughts:: Linear, Logical, No evidence of hallucinations/delusions noted Staff Interventions:: Therapist used active listening and open-ended questions to explore client's current stressors, symptoms, and application of coping skills. Therapist helped client process his current triggers and praised client for applying healthy coping skills. Therapist and client discussed ways to increase effective communication with client's family and identified strategies to promote work-life balance. Therapist helped client identify mindfulness cues to promote self-awareness and use of healthy coping to help client more effectively adjust between roles. Therapist encouraged client to continue implementing coping skills to promote mood stability and reminded client that the mindfulness cues are not intended to promote checking behaviors. Client Response:: Client responded well to session, open to meeting with therapist. Client reported belief he is progressing, sharing I feel like I'm back to earth again. Client stated he has been more aware of the cognitive distortions he uses and how thoughts can determine someone's entire day. Client shared coworkers and his have noticed positive changes in how client manages stress. Client reported he has been trying to improve his communication, but client continues to struggle with being aggressive and not listening. Client shared he is worried about maintenance and would like to continue to work on challenging negative thoughts, communicating effectively, and using healthy coping skills. 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 Risks/Concerns:: No risks or concerns to document at this time. Client denies suicidal ideation, plan, and intent as of 04/22/18. Client reports his moods have been more stable which has improved his decision-making and reduced impulsivity. Progress Toward Goals/Plan:: Client demonstrating progress towards treatment goals as shown by his increased mood stability, improved self-awareness, and self-report of reduced symptoms. Client reports utilizing calming coping strategies to manage anger and stress, but continues to struggle with his work role and his role as a and a father which often leads to conflict and increased stress. Client to continue IOP to prevent decompensation and increase emotional regulation skills. Client to practice mindfulness and active listening this week. Time Stopped:: 12:39
--- NOTE | 2018-04-22 14:50 | BH.MDN_ITS ---
Multi-Disciplinary Note - Note 30-min Individual Time Started:: 12:04 Date: 04/22/18 Purpose of session/treatment goals addressed:: The purpose of this session was to address client's current stressors, symptoms, and application of coping strategies. Another goal was to identify strategies to improve emotional regulation and promote mindfulness to improve client's work-life balance. Other topics included communication, triggers, and boundaries. Eye Contact:: Good Motor Activity:: Restless Appearance:: Neat Speech:: Appropriate Mood:: Euthymic, Anxious Affect:: Congruent Thoughts:: Linear, Logical, No evidence of hallucinations/delusions noted Staff Interventions:: Therapist used active listening and open-ended questions to explore client's current stressors, symptoms, and application of coping skills. Therapist helped client process his current triggers and praised client for applying healthy coping skills. Therapist and client discussed ways to increase effective communication with client's family and identified strategies to promote work-life balance. Therapist helped client identify mindfulness cues to promote self-awareness and use of healthy coping to help client more effectively adjust between roles. Therapist encouraged client to continue implementing coping skills to promote mood stability and reminded client that the mindfulness cues are not intended to promote checking behaviors. Client Response:: Client responded well to session, open to meeting with therapist. Client reported belief he is progressing, sharing I feel like I'm back to earth again. Client stated he has been more aware of the cognitive distortions he uses and how thoughts can determine someone's entire day. Client shared coworkers and his have noticed positive changes in how client manages stress. Client reported he has been trying to improve his communication, but client continues to struggle with being aggressive and not listening. Client shared he is worried about maintenance and would like to continue to work on challenging negative thoughts, communicating effectively, and using healthy coping skills. 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 Risks/Concerns:: No risks or concerns to document at this time. Client denies suicidal ideation, plan, and intent as of 04/22/18. Client reports his moods have been more stable which has improved his decision-making and reduced impulsivity. Progress Toward Goals/Plan:: Client demonstrating progress towards treatment goals as shown by his increased mood stability, improved self-awareness, and self-report of reduced symptoms. Client reports utilizing calming coping strategies to manage anger and stress, but continues to struggle with his work role and his role as a and a father which often leads to conflict and increased stress. Client to continue IOP to prevent decompensation and increase emotional regulation skills. Client to practice mindfulness and active listening this week. Time Stopped:: 12:39
--- NOTE | 2018-04-23 14:43 | BH.COMM ---
Communication Note - Communication with Client Communication Note: Therapist called client as he no called/no showed for scheduled IOP group and psychiatrist appointment today. Client shared he forgot to call this morning to cancel due to work. Client reported lack of sleep last night due to work schedule, and therapist encouraged self-care this weekend to prevent burnout. Client shared plan to attend group 04/26/18.
--- NOTE | 2018-04-26 09:10 | BH.SGPN.GN ---
Behaviors/Verbalizations/Mental Status: [] Pt eye contact good, casually dressed, motor activity appropriate, speech normal rate and tone, mood euthymic, congruent affect, thoughts linear and intact, no evidence of delusions or hallucinations. Reviewed client?s symptom tracker, no signs of suicidal ideation, plan, or intent as of today. Client Response/Progress/Benefit: [] Client reported he had a really good weekend with staying busy remodeling his home. Client shared he is continuing to feel more stable with his moods. Client reported he has noticed that in the past she typically will go to alcohol or TV in order to shut his mind. Shared since the remodel he has not had a TV in his bedroom which is helped him not use that as a form of escape. Client reported he was able to communicate to his that he does not really want to put the TV back into his bedroom once the remodeling is complete. Client shared he recognizes when he watches the TV to escape it turns into increased anxiety because he does not sleep as much as he would like. Client demonstrating progress with reporting mood stability, utilizing skills and demonstrating increased insight into what can impact his progress. Client to continue IOP level care to maintain gains and prevent decompensation. Narrative Note: []
--- NOTE | 2018-04-26 10:22 | BH.SGPN.GN ---
Behaviors/Verbalizations/Mental Status: [Client eye contact clear and consistent, casually dressed, motor activity WNL, speech normal rate and tone, mood euthymic - joking with group participants throughout, congruent affect, thoughts linear and logical, no evidence of delusions or hallucinations.] Client Response/Progress/Benefit: [Client responded positively to session and actively engaged in both discussion and activity portions of the group. He indicated identifying with many of the emotions associated with change that were used in the charades activity. CLient indicated he often struggles with accepting change, especially if it is due to his own personal struggles and went on to explain this is due to perceptions of having to change meaning he is weak. Client showed progress in his ability to openly share with the group personal connections with tx content discussed and noted that for him recognizing and addressing the need for change regarding his mental health had been difficult. CLient benefitted from review of the Change Process and expressed again connecting with the resistance stage of change as related to needing help in managing mental health sx. CLient recommended continued IOP tx to further improve insight into his own mental health and effective strategies for challenging negative core beliefs impacting continued progress. ] Narrative Note: []
--- NOTE | 2018-04-26 11:29 | BH.SGPN.GN ---
Behaviors/Verbalizations/Mental Status: [Client eye contact appropriate, consistent, casual dress, motor activity WNL, speech normal rate and tone, mood positive and euthymic, congruent affect, thoughts linear and logical, no evidence of delusions or hallucinations. ] Client Response/Progress/Benefit: [Client actively engaged in session and was able to make several insightful connections between content discussed in group and his own experiences in managing mental health sx. Client took on a leadership role in the activity portion of group and appeared to benefit from challenging himself to remain patient and encouraging when fellow participants may have interrupted the group's progress or made mistakes. Blair did well to connect the use of patience and adjusting expectations with strategies he can apply to managing change in his own life. CLient displaying progress in ability to internalize tx materials however continues to struggle with consistent implementation. Client recommended continued IOP tx to prevent decompensation and maintain ongoing tx progress.] Narrative Note: []
--- NOTE | 2018-04-27 09:04 | BH.SGPN.GN ---
Behaviors/Verbalizations/Mental Status: [Client eye maintained consistent eye contact, casually dressed, motor activity WNL, speech normal rate and tone, mood euthymic, positive - joking with others and providing support, congruent affect, thoughts linear and logical, no evidence of delusions or hallucinations. Therapist reviewed clients symptom tracker to assess for intensity of mental health symptoms and identify risk for suicide. No signs of suicidal ideation, plan, or intent to date.] Client Response/Progress/Benefit: [Client responded well to session and appeared more engaged in session than previous process group This was evidenced by increased input and feedback to fellow participants as well as more openly sharing his own tx progress. Client indicated recently having to ground both of his sons which he described as being just as hard on me as it is on them. He went on to discuss wishing that his children would open up and talk to him about what they are dealing with before making impulsive decisions. Client indicated that maintaining healthy communication and realistic expectations of his supports has been on ongoing area of struggle. Client benefitted from being challenged to also look at things from his supports point of view. He would benefit from continued IOP tx focusing on identifying and challenging distorted or unrealistic thinking patterns while continuing to prevent decompensation. ] Narrative Note: []
--- NOTE | 2018-04-27 10:30 | BH.SGPN.GN ---
Behaviors/Verbalizations/Mental Status: []Client alert and oriented, neatly dressed and groomed. Eye contact good. Motor activity appropriate. Speech within normal limits. Affect congruent, mood euthymic. Thoughts linear, logical, no signs of hallucinations or delusions. Client Response/Progress/Benefit: []Client responded well to session, participating when prompted. Client appeared to connect with the quote, sharing, I create thoughts all the time. Client contributing to the discussion of automatic thoughts and how negative automatic thoughts can impact emotions and behaviors. Client helped the group identify the common cognitive distortions. Client shared he most often uses black and white thinking and mental filter. Client reported he is a perfectionist and will tell himself if its not perfect its not good enough. Client shared he also has black and white thinking about others which leads to unrealistic expectations. Client appeared to benefit from gaining awareness of the cognitive distortions and how negative thinking impacts mental health and functioning. Client appears to be progressing as evidenced by his report of improved mood, but client continues to struggle with communicating his emotional needs and challenging unrealistic expectations.
--- NOTE | 2018-04-27 11:33 | BH.SGPN.GN ---
Behaviors/Verbalizations/Mental Status: []Client alert and oriented, neatly dressed and groomed. Eye contact fair- on phone at times. Motor activity appropriate. Speech within normal limits. Affect full, mood euthymic. Thoughts linear, logical, no signs of hallucinations or delusions. Client Response/Progress/Benefit: []Client responded well to session, active participant and helped group rehearse thought challenging strategies. Client participated in the activity and connected that it takes more than just awareness to combat cognitive distortions that client has had for years. Client identified a current cognitive distortion to challenge I can always do betterIm a perfectionist. Client stated he has this distortion frequently and it makes client feel discouraged and anxious. Client helped the group identify ways to combat negative thoughts such as identifying positives and successes, looking at evidence against, and challenging as soon as client recognizes the negative thought. Client appeared to benefit from gaining awareness of the distortions and learning strategies to combat cognitive distortions. Client seems to be progressing as evidenced by his report of increased mood stability, but client continues to struggle with all or nothing thinking and lack of communication with his supports.
--- NOTE | 2018-04-29 09:02 | BH.SGPN.GN ---
Behaviors/Verbalizations/Mental Status: [] Pt eye contact good, casually dressed, motor activity appropriate, speech normal rate and tone, mood euthymic, congruent affect, thoughts linear and intact, no evidence of delusions or hallucinations. Reviewed client?s symptom tracker, no signs of suicidal ideation, plan, or intent as of today. Client Response/Progress/Benefit: []Pt reported he is continuing to feel stable and making progress. Pt shared overall his moods have been stable and he is able to manage his emotions throughout the day. 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 Pt shared his family notices a difference in him as well because he joked they actually want to be around me. Pt reported he believes his relationships have improved because he is better at managing his emotions which has improved his ability to communicate more effectively. Pt progressing well with decreased depression and anxious symptoms. Pt to continue IOP level of care to maintain gains and prevent decompensation. Narrative Note: []
--- NOTE | 2018-04-29 10:09 | BH.SGPN.GN ---
Behaviors/Verbalizations/Mental Status: [Client maintained consistent eye contact, casually dressed, appropriate grooming/hygiene, motor activity WNL, speech normal rate and tone, mood positive and euthymic, congruent affect, thoughts linear and logical, no evidence of delusions or hallucinations.] Client Response/Progress/Benefit: [Client a positive participant and engaged throughout. He does well to connect with the group topic of obstacles and solutions. Client shared that he has been able to increasingly identify some of the personally obstacles he has faced preventing him from attaining the reality he desires for himself. Client expressed that for him his current reality feels as though everyone on the outside sees him as put together but client feels he isfalling apart . Client benefitted from identifying shared barriers with fellow participants such as unrealistic expectations of himself. He is displaying progress in his ability to identify his own responsibility in managing mental health symptoms. Recommended continued IOP tx to maintain stability as well as promote application of tx concepts learned.] Narrative Note: []
--- NOTE | 2018-04-29 11:18 | BH.SGPN.GN ---
Behaviors/Verbalizations/Mental Status: [Client maintained consistent eye contact, casually dressed, motor activity appropriate, speech normal rate and tone, mood euthymic, congruent affect, thoughts linear and logical, no evidence of delusions or hallucinations.] Client Response/Progress/Benefit: [Client responded well to session and was actively engaged in the [place] activity in which participants were challenged to assist one another through a series of obstacles representing their own personal barriers. Client took on role of a guide to members who were blindfolded. Client benefitted from assisting the group in problem solving strategies for barriers they encountered throughout. Client identified connecting most with barrier of unrealistic expectations of self and others. He displayed progress in his ability to identify internal coping strategies needed for overcoming this barrier and indicated that setting realistic goals and reaching out to supports would be most helpful. Recommended continued IOP tx to prevent decompensation and work on improving insight and application of skills learned.] Narrative Note: []
--- NOTE | 2018-04-29 14:15 | BH.MTP_ITS ---
Treatment Plan Review Date of Admission:: 03/30/18 Date of Treatment Plan Review:: 04/29/18 Admitting Diagnoses:: Bipolar disorder F 31.9; Anxiety unspecified; Alcohol use disorder Current Diagnoses:: Bipolar disorder F 31.9; Anxiety unspecified; Alcohol use disorder Patient's Response to Treatment:: Client appears to be responding well to treatment as evidenced by his overall consistent attendance and participation in group and individual sessions. Client has no called/no showed for group twice due to work, but overall client is prompt and contributes positively to sessions. Client often takes on a leadership role in groups and provides feedback to peers. Client has improved with letting things go regarding perfectionism and high expectations of self as shown by his ability accept and manage emotions during sessions when things are not perfect. Client reports being medication compliant and denies issues with medications. Client reports setting small goals, self-talk, and avoiding triggers has helped client during IOP. Client seems receptive to learning and applying coping skills learned in group and individual sessions, but self-reports lack of follow through with homework given by therapist, which could impact maintenance of progress. Client has made progress with reducing his symptoms, increasing self-awareness, and regulating emotions as evidenced by his reduced DSM-5 cross-cutting scores. Status of Current Problems and Symptoms: Client continues to report ongoing mild symptoms of depression, anxiety, and lily. Client shared finding a work- life balance and regulating emotions of frustration and irritability continue be difficult for him. Client also reports ongoing family stressors, high expectations of self and others, and fear of falling back to old ways. Client reports concerns of not recognizing normal emotions as client has spent many years experiencing extreme highs and lows. Client reports urges to engage in risky sexual behaviors, but of reduced intensity. Client continues to consume alcohol, but reports he has been avoiding hard liquor as it has been a trigger for increased depression and suicidal thoughts in the past. Therapist has encouraged alcohol abstinence, but client shared he does not view it as an issue at this time. Per client's report, he has been trying to work on improving his communication with family and be less aggressive, but client continues to struggle with this at times. Problem #1 Problem Name:: Client will increase mood stability and decrease depressive symptoms Status of Goals:: Client has accomplished part of his treatment goal as he can identify 2-3 warning signs and triggers for both lily and depression and reports utilizing self-talk, calming strategies, boundaries, and goal setting to cope with the symptoms. Client also recognized his depressive thought patterns, but continues to struggle with reframing his black and white thinking. Client has shown progress with increasing mood stability and decreasing depressive symptoms as evidenced by his reduced DSM-5 cross-cutting scores for lily and depression. At admission, client scored 4 out of 8 for depression and 5 out of 8 for lily. At review, client scored 2 out of 8 and 2 out of 8 for depression and lily respectively. Client also reduced his scores for thoughts of actually harming himself from a 1 out of 4 at admission to a 0 out of 4 at review. Team Recommendations:: Client recommended to continue working on this treatment goal as he can continue to improve with recognizing early warning signs, challenging negative thoughts, and managing emotions. Client can also continue to benefit IOP and this treatment goal to promote gains and maintain mood stability and the use of healthy coping. Client and therapist currently working on developing a maintenance plan to help client have awareness of warning signs and use healthy coping skills to prevent setbacks. Therapist also hoping to engage client's in the treatment process. Problem #2 Problem Name:: Stabilize anxiety, increase ability to function and reduce rumination Status of Goals:: Client has accomplished part of his treatment goal as he can identify at least 2 ruminating thought patterns and reports utilizing thought challenging to cope. Client has shown progress with reducing anxiety, but continues to report mild anxiety symptoms such as feeling worried and avoiding situations that make him anxious. At admission, client scored 9 out of 12 for anxiety of the DSM-5 cross-cutting symptom measure, and at review client scored 4 out of 12. Client can continue to increase self-care and stress management skills. Team Recommendations:: Client recommended to continue working on treatment goals he has made progress with gaining awareness of ruminating thought patterns and using healthy coping skills, but continues to report ongoing challenges with work-life balance which increases stress. Client shares his perfectionism traits increase his work load and anxiety at times as well. Therapist attempted to call client's outpatient counselor, Sara Hong to discuss client's progress and updates.
--- NOTE | 2018-04-29 15:21 | BH.MDN_ITS ---
Multi-Disciplinary Note - Note 60-min Individual Time Started:: 12:23 Date: 04/29/18 Purpose of session/treatment goals addressed:: The purpose of this session was to address client's current stressors, symptoms, and assess progress. Another goal was to work on goal #1 objective #1 of client's treatment plan. Other topics included scheduling family session and improving communication of emotions with family. Eye Contact:: Good Motor Activity:: Restless - AEB frequent adjusting in chair. Appearance:: Neat Speech:: Rapid Mood:: Euthymic Affect:: Congruent Thoughts:: Linear, Logical, No evidence of hallucinations/delusions noted Staff Interventions:: Therapist used active listening and open-ended questions to explore client's current stressors, symptoms, and assess client's progress at time of treatment plan review. Therapist praised client on increased emotional regulation and mood stability. Therapist helped client identify warning signs and develop strategies to help client avoid pitfalls and promote maintenance of mood stability. Therapist offered a family session with client and his and gave client the challenge to practice being more vulnerable with his emotions at home. Client Response:: Client responded well to session, open to meeting with therapist. Client reported the group topic today helped client gain insight to the progress he has made and what he needs to keep working to improve. Client stated, ?it has been hard for me at times to recognize I?m getting better.? Client shared I'm pretty close to my desired reality, but I'm a work in progress. Client reported he is worrying less, his depression isn't taking hold of me and he is communicating more without shutting down. Client stated what is keeping him from his desired reality is difficulty showing vulnerability and communicating his emotions with family as well as fear of falling back into unhealthy coping patterns. Client reported he has been doing well with managing triggers for depression and lily, but client has worries of what if I don't catch the warning signs and then I lose control. Client and therapist discussed protective factors that may keep client from falling back into unhealthy patterns of coping. Client identified the protective factors as medication compliance, sharing warning signs with supports, self-care, being mindful and slowing down to monitor energy and mood, and removing triggers when possible. Client stated setting daily, tangible goals has been helpful for managing his stress and depressive symptoms. Client and therapist discussed patience, realistic goals, and paying attention to warning signs of lily while working towards his daily goals. Client was receptive to starting an appreciation jar at home to start breaking down client's mask and increase emotional connection with client's family. Risks/Concerns:: No risks or concerns to document at this time. Client denies suicidal ideation, plan, and intent as of 04/29/18. Client reported I don't want to fall back into old ways it's too important to move forward which demonstrates future orientation and motivation. Progress Toward Goals/Plan:: Client progressing towards treatment goals as evidenced by his reduced DSM-5 cross-cutting symptom scores as well as his self- report of increased mood stability and emotional regulation. Client stated his awareness of triggers and warning signs has helped client monitor his symptoms and maintain mood stability. Client stated he was recently faced with a drinking trigger and was able to successfully cope with it rather than get plastered. Client reports reduced anxiety and depression. Client continues to endorse some mild symptoms of lily, depression, and anxiety per his scores of the DSM-5 cross-cutting symptom measure. Client can also continue to improve with challenging distortions, communicating with supports, and using mindfulness to help monitor symptoms. Client to continue IOP to prevent decompensation, promote coping skill consistency, and increase mood stability. Time Stopped:: 13:20
--- NOTE | 2018-05-03 09:05 | BH.SGPN.GN ---
Behaviors/Verbalizations/Mental Status: [Client maintained good eye contact, casually dressed, motor activity within normal limits, speech normal rate and tone, mood euthymic,anxious - client described feeling anxious as well, affect congruent, thoughts linear and logical, no evidence of delusions or hallucinations. Therapist reviewed clients symptom tracker to assess for intensity of mental health symptoms and identify risk for suicide. No signs of suicidal ideation, plan, or intent to date.] Client Response/Progress/Benefit: [Client responded well to session, engaged throughout. He discussed having had a very crazy weekend as it had been packed with a lot of home remodeling projects. Client went on to describe that although it was an exhausting weekend it had been a positive one. He shared being able to set aside time to discuss realistic goals for what he and his family would be able to accomplish over the weekend. Client benefitted from reflecting up how his ability to set realistic goals and adhering to them despite wanting to do more demonstrates progress. Client displaying improved abilities to identify areas of personal growth and development as well as improving communication with supports. Client recommended continued IOP tx to prevent decompensation and promote ongoing application of mood management and thought challenging skills.] Narrative Note: []
--- NOTE | 2018-05-03 10:35 | BH.SGPN.GN ---
Behaviors/Verbalizations/Mental Status: []Client alert and oriented, neatly dressed and groomed. Eye contact good. Motor activity appropriate. Speech within normal limits. Affect constricted, mood euthymic. Thoughts linear, logical, no signs of hallucinations or delusions. Client Response/Progress/Benefit: []Client responded well to session, active participant and providing good insight to discussion. Client appeared to connect with the quote sharing, anything can be viewed as impossible depending how you look at it. Client stated having an impossible mindset can negatively impact mental health and can keep people from accomplishing goals. Client engaged in activity, taking on a leadership role and encouraging peers. Client stated, I wasnt going to let us quit. Client stated he is a driven person, but that can be a weakness as client recognizes he has a hard time letting go and he overworks himself. Client helped the group identify strategies that helped the group accomplish the impossible activity such as patience, good timing, communication, and motivation. Client appeared to benefit from recognizing the consequences of viewing situations as impossible. Clients seems to be progressing as evidenced by his improved mood stability and emotional regulation skills. Client can continue to benefit from IOP to increase communication of mental health needs and promote coping skill maintenance to prevent decompensation.
--- NOTE | 2018-05-03 11:32 | BH.SGPN.GN ---
Behaviors/Verbalizations/Mental Status: []Client alert and oriented, neatly dressed and groomed. Eye contact fair. Motor activity appropriate. Speech within normal limits. Affect constricted, mood euthymic. Thoughts linear, logical, no signs of hallucinations or delusions Client Response/Progress/Benefit: []Client responded well to session, active participant. Client appeared to connect with growth versus fixed mindset as client resonated with some of the fixed mindset thought patterns. Client helped the group process the benefits of growth mindset and ways to work towards a growth mindset such as challenging negative thinking and identifying positive outcomes. 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 Client stated this goal took a lot of determination because it was very challenging. Client able to identify internal and external resources that can help client overcome current barriers of stress and a busy schedule such as setting realistic goals, communicating, and being okay with not getting everything done. Client appeared to benefit from learning about growth mindset and increasing awareness of internal and external resources that may help client overcome barriers. Client seems to be progressing as shown by his report of more stable moods, but client continues to report ongoing issues with family and managing stress.
--- NOTE | 2018-05-04 10:48 | BH.MDN ---
Multi-Disciplinary Note - Note 60-min Individual Time Started:: 09:20 Date: 05/04/18 Purpose of session/treatment goals addressed:: The purpose of this session was to create a maintenance plan to help client recognize warning signs of lily, depression, and anxiety and to identify healthy coping strategies and resources to manage symptoms. Another goal was to discuss discharge and review progress. Eye Contact:: Good Motor Activity:: Appropriate Appearance:: Neat Speech:: Appropriate Mood:: Euthymic Affect:: Full Thoughts:: Linear, Logical, No evidence of hallucinations/delusions noted Staff Interventions:: Therapist used active listening and open-ended questions to explore client's progress and thoughts on discharge. Therapist helped client fill out his maintenance plan by eliciting warning signs and coping strategies that have been helpful to client. Therapist made client aware of cognitive distortions and gave client coping strategies to manage anger and his high expectations of others. Therapist discussed radical acceptance and challenging perspective to increase client's emotional intelligence. Therapist and client discussed discharge and aftercare options. Client Response:: Client responded well to session, open to meeting with therapist. Client shared I'm ready to spread my wings referring to discharging from [facility]. Client stated he has seen progress with improved mood stability, decision-making, and managing stress. Client reported there are still things he needs to work on long-term with his outpatient therapist such as his issues with abandonment and acceptance, but client stated, I feel more ready to work on those now that I have the skills. Client shared he also continues to struggle with managing frustration at work when things are out of his control and also with work-life balance. Client was receptive to challenging from therapist to help client recognize cognitive distortions behind the frustration. Client shared I expect people to be like me and then when they aren't I get angry. Client reported he also expected others to read his mind at times which causes issues with his family and workers. Client and therapist discussed radical acceptance, challenging perspectives, and emotional regulation skills to help client cope better with stressors out of his control. Client open to working on his maintenance plan. Client identified healthy coping skills for managing lily and depressive. Client also identified behaviors that client should avoid as they make me worse. Client agreed to discharge next week and was receptive to following up with outpatient therapist and setting up psychiatry through [facility]. Risks/Concerns:: Client denies suicidal ideation, plan, and intent as of 05/04/18. Client reports ability to maintain safety and is aware of crisis resources should he feel unsafe. Progress Toward Goals/Plan:: Client has demonstrated progress towards treatment goals as shown by his report of improved mood stability, increased emotional regulation, and reduced impulsive behavior. Client shared I haven't had any lows and that he feels more in control of his emotions and actions. Client continues to report difficulty to communication, managing irritability, and using emotional intelligence. Client shared belief he is ready to discharge next week due to his progress. Client asked therapist to set up an appointment at [facility] for psychiatry. Time Stopped:: 10:20
--- NOTE | 2018-05-04 10:57 | BH.MDN_ITS ---
Multi-Disciplinary Note - Note 60-min Individual Time Started:: 09:20 Date: 05/04/18 Purpose of session/treatment goals addressed:: The purpose of this session was to create a maintenance plan to help client recognize warning signs of lily, depression, and anxiety and to identify healthy coping strategies and resources to manage symptoms. Another goal was to discuss discharge and review progress. Eye Contact:: Good Motor Activity:: Appropriate Appearance:: Neat Speech:: Appropriate Mood:: Euthymic Affect:: Full Thoughts:: Linear, Logical, No evidence of hallucinations/delusions noted Staff Interventions:: Therapist used active listening and open-ended questions to explore client's progress and thoughts on discharge. Therapist helped client fill out his maintenance plan by eliciting warning signs and coping strategies that have been helpful to client. Therapist made client aware of cognitive distortions and gave client coping strategies to manage anger and his high expectations of others. Therapist discussed radical acceptance and challenging perspective to increase client's emotional intelligence. Therapist and client discussed discharge and aftercare options. Client Response:: Client responded well to session, open to meeting with therapist. Client shared I'm ready to spread my wings referring to discharging from [facility]. Client stated he has seen progress with improved mood stability, decision-making, and managing stress. Client reported there are still things he needs to work on long-term with his outpatient therapist such as his issues with abandonment and acceptance, but client stated, I feel more ready to work on those now that I have the skills. Client shared he also continues to struggle with managing frustration at work when things are out of his control and also with work-life balance. Client was receptive to challenging from therapist to help client recognize cognitive distortions behind the frustration. Client shared I expect people to be like me and then when they aren't I get angry. Client reported he also expected others to read his mind at times which causes issues with his family and workers. Client and therapist discussed radical acceptance, challenging perspectives, and emotional regulation skills to help client cope better with stressors out of his control. Client open to working on his maintenance plan. Client identified healthy coping skills for managing lily and depressive. Client also identified behaviors that client should avoid as they make me worse. Client agreed to discharge next week and was receptive to following up with outpatient therapist and setting up psychiatry through [facility]. Risks/Concerns:: Client denies suicidal ideation, plan, and intent as of . Client reports ability to maintain safety and is aware of crisis resources should he feel unsafe. Progress Toward Goals/Plan:: Client has demonstrated progress towards treatment goals as shown by his report of improved mood stability, increased emotional regulation, and reduced impulsive behavior. Client shared I haven't had any lows and that he feels more in control of his emotions and actions. Client continues to report difficulty to communication, managing irritability, and using emotional intelligence. Client shared belief he is ready to discharge next week due to his progress. Client asked therapist to set up an appointment at [facility] for psychiatry. Time Stopped:: 10:20
--- NOTE | 2018-05-04 15:09 | BH.COMM ---
Communication Note - Communication with Client Communication Note: Per client request, therapist called [facility] to set up a psychiatry appointment for continuity of care post IOP discharge. Client's appointment is June 25 at 1:30pm with Dr. Krause. This information was communicated with client and client stated agreement of the plan.
--- NOTE | 2018-05-11 09:04 | BH.SGPN.GN ---
Behaviors/Verbalizations/Mental Status: [Client maintained good eye contact, casually dressed, well groomed, motor activity appropriate, speech normal rate and tone, mood euthymic, affect congruent, thoughts linear and logical, no evidence of delusions or hallucinations. Reviewed client?s symptom tracker, no risk for suicidal ideation, plan, or intent as of 05/11/18.] Client Response/Progress/Benefit: [Client receptive of session, engaged throughout, provided supportive feedback. Indicated that his emotion for the day is hopeful as his last day in the program is Thursday and Client feels he is ready to discharge. Client benefitted from reflecting upon areas of growth and progress in management of his emotions since beginning IOP tx. Client noted that communication with his family as well as being able to challenge expectations for self and others. Client discussed that doing so has improved his relationship with his son, though he knows he continues to struggle in this area. Client progress noted in reports of improved sx management and ability to identify areas for continued growth as well as strategies in doing so. Client to continue IOP to promote gains and maintain stability.] Narrative Note: []
[2018-05-21 14:31] VITALS: BP 115/72; PULSE 72; RESP 14
== END 2018-05-04 23:59 ==
LOC: BHIOP 09:00
PROVIDERS: Family Provider Family Medicine; PCP Family Medicine; Visit Provider Psychiatry & Neurology Psychiatry
DX: F31.9 Bipolar disorder, unspecified (principal); F42.9 Obsessive-compulsive disorder, unspecified; F10.20 Alcohol dependence, uncomplicated
CPT/HCPCS: H0035; 90832; 90834; 90837; 90853

== ENCOUNTER → 2018-04-06 08:15 | Outpatient (CLI) | payer BC, SELFPAY ==
[2017-12-21 15:19] VITALS: BMI 31.1
[2018-04-06 09:20] LABS: Hematocrit 43.2 % (40-54); Hemoglobin 14.8 g/dl (13.0-16.5); Mean Corp Hgb Conc 34.3 g/gl (32-36); Mean Corpuscular Hgb 35.3 pg (27.0-32.0); Mean Corpuscular Volume 103.1 fL (80-94); Mean Platelet Vol. 10.7 fl (6.2-12.0); Platelet Count 266 K/mm3 (150-450); RBC Distribution Width CV 12.5 % (11.6-14.6); RBC Distribution Width SD 46.4 fl (35.1-43.9); Red Blood Count 4.19 M/mm3 (4.6-6.2); White Blood Count 6.8 K/mm3 (4.4-11.0)
[2018-04-06 09:25] LABS: Scan Indicated on CBC? Y/N NO
[2018-04-06 09:48] LABS: Valproic Acid (Depakene) Level 36 ug/mL (50-100)
[2018-04-06 09:52] LABS: ALB/GLOB Ratio 0.9 RATIO (0.9-2.4); AST(SGOT) 21 U/L (15-37); Alanine Aminotransfer ALT/SGPT 29 U/L (16-61); Albumin, Serum 3.4 g/dL (3.2-5.0); Alkaline Phosphatase 93 U/L (45-117); Anion Gap 10 (5-15); BUN 11 mg/dL (7-18); BUN/Creat Ratio 12.4 RATIO (10-20); Calcium,Total 8.5 mg/dL (8.5-10.1); Chloride 105 mmol/L (98-107); Creatinine, Serum 0.88 mg/dL (0.70-1.30); EST Glomerular Filtration Rate 99 mL/min (>60); Est Glom Filt Rate - Afr Amer 120 mL/min (>60); Globulin 3.7 g/dL (2.2-4.2); Glucose 84 mg/dL (74-106); Potassium 4.1 mmol/L (3.5-5.1); Protein, Total 7.1 g/dL (6.4-8.2); Sodium Level 140 mmol/L (136-145)
== END ==
PROVIDERS: Family Provider Family Medicine; PCP Family Medicine; Visit Provider Psychiatry & Neurology Psychiatry
DX: Z79.899 Other long term (current) drug therapy (principal)
CPT/HCPCS: 36415; 80053; 80164; 85027

== ENCOUNTER → 2018-04-20 08:22 | Outpatient (CLI) | payer BC, SELFPAY ==
[2018-04-20 09:37] LABS: Valproic Acid (Depakene) Level 62 ug/mL (50-100)
== END ==
PROVIDERS: Family Provider Family Medicine; PCP Family Medicine; Visit Provider Psychiatry & Neurology Psychiatry
DX: Z79.899 Other long term (current) drug therapy (principal)
CPT/HCPCS: 36415; 80164

== ENCOUNTER 2018-05-06 09:00 | Outpatient (RCR) | payer BC, SELFPAY ==
[2017-12-21 15:19] VITALS: BMI 31.1
--- NOTE | 2018-05-06 09:03 | BH.SGPN.GN ---
Behaviors/Verbalizations/Mental Status: Pt alert and oriented. Casually dressed and appropriately groomed. Mood euthymic, affect congruent. Speech tone and rate WNL. Thoughts linear and logical. Motor activity appropriate. No evidence of delusions or hallucinations. Reviewed clients symptom tracker, no risk for suicidal ideation, plan, or intent as of 05/06/18. Client Response/Progress/Benefit: []Pt reported he is continuing to maintain mood stability. Pt reported he is enjoying not going all over the place in regards to his emotions. Pt shared he is better able to manage his thoughts and overall his thought patterns are more positive and optimistic. Pt reported he is still finishing the remodeling of his home, which has been physically tiring, but reports he'd rather feel physically tired verus mentally tired. Progress noted with pt reporting mood stability, improved relationships and use of healthy coping. Pt to continue IOP level of care to maintain gains and prevent decompensation. Narrative Note: []
--- NOTE | 2018-05-06 10:07 | BH.SGPN.GN ---
Behaviors/Verbalizations/Mental Status: []Client alert and oriented, neatly dressed and groomed. Eye contact good. Motor activity appropriate. Speech within normal limits. Affect full, mood euthymic. Thoughts linear, logical, no signs of hallucinations or delusions. Client Response/Progress/Benefit: []Client responded well to session, active participant. Client connected with the quote sharing, you might be able to do something, but if you doubt yourself you fail before you try. Client defined failure as not hitting the sherry. Client stated he struggles with this at times because client has high expectations of self and from others. Client reported if one does not overcome fear of failure it can keep a person stuck in negative maintenance cycles. Client connected the activity to failures in life, sharing progress isnt a straight line, you have to get ready to practice overcoming setbacks over and over. Client appeared to benefit from increasing awareness of how fear of failure impacts mental health. Client seems to be progressing as shown by clients self-report of improved emotional regulation. Client to continue IOP to increase mood stability and consistency of using healthy coping skills.
--- NOTE | 2018-05-06 11:15 | BH.SGPN.GN ---
Behaviors/Verbalizations/Mental Status: []Client alert and oriented, neatly dressed and groomed. Eye contact good. Motor activity appropriate. Speech within normal limits. Affect constricted, mood euthymic. Thoughts linear, logical, no signs of hallucinations or delusions. Client Response/Progress/Benefit: []Client responded well to session, positively contributing to discussion. Client shared fear of failure has impacted client in the past as he has relied on others because client did not have confidence in himself. Client reported he is improving with overcoming his fear of failure by telling himself no one is perfect, and I have to keep trying. Client helped the group identify strategies to overcome fear of failure such as challenging distorted thoughts, adjusting ones expectations, and setting small goals. 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 Client stated this would help him overcome fear of failure because it would increase others confidence which would increase clients confidence as well. Client appeared to benefit from gaining strategies to overcome fear of failure. Client seems to be progressing with setting realistic goals but continues to struggle with perfectionism and regulating frustration in the moment.
--- NOTE | 2018-05-07 09:42 | BH.COMM ---
Communication Note - Communication with Client Communication Note: Client scheduled to meet with program psychiatrist on this date. Client was irritable and restless while waiting to be seen. He indicated being unwilling to stay and wait when informed that psychiatrist was going to be 15 minutes late due to others appointments running behind. Client indicated understanding the risks of missing his appointment and left against treatment team recommendation.
--- NOTE | 2018-05-10 14:53 | BH.COMM ---
Communication Note - Communication with Client Communication Note: Client's outpatient provider, Sara Hong, called this therapist today to discuss updates, upcoming discharge, and strategies that have helped client make progress in IOP. Therapist to follow up with client on scheduling with Sara post IOP discharge.
--- NOTE | 2018-05-11 10:23 | BH.SGPN.GN ---
Behaviors/Verbalizations/Mental Status: []Client alert and oriented, neatly dressed and groomed. Eye contact good. Motor activity appropriate. Speech within normal limits. Affect constricted, mood euthymic. Thoughts linear, logical, no signs of hallucinations or delusions. Client Response/Progress/Benefit: []Client responded well to session, contributing to discussion and giving peers helpful feedback. Client shared that fear of failure, old habits, and rumination can cause people to re-read the past and keep people stuck from obtaining mental wellness. Client stated change is not always negative and can help reach better quality of life. Client identified personal changes he would like to make this week to improve his mental health such as increase exercise, cut back on smoking, and see a friend once this week. Client reported these changes would help client relax and feel better about himself. Client identified his barriers to be me as client uses negative self-talk and does not always follow through with change. Client appeared to benefit from identifying goals for the week and gaining awareness of his barriers. Client to continue IOP to promote gains and coping skill consistency.
--- NOTE | 2018-05-11 11:25 | BH.SGPN.GN ---
Behaviors/Verbalizations/Mental Status: []Client alert and oriented, neatly dressed and groomed. Eye contact fair-on phone at times. Motor activity appropriate. Speech within normal limits. Affect congruent, mood euthymic. Thoughts linear, logical, no signs of hallucinations or delusions. Client Response/Progress/Benefit: []Client responded well to session, contributing positively to discussion. Client identified cut relying on others more and communicating instead of setting his own expectations as a change client is ready and willing to make this week. Client shared this would improve his relationships and improve his mood. Client shared his personal barriers are anxiety, negative self-talk, and discomfort. Client helped the group identify solutions to overcome barriers such as looking at the evidence against negative thoughts, planning time for communication, and setting reminders in his phone. Client appeared to benefit from identifying solutions to his barriers. Client seems to be progressing as evidenced by his report of increase mood stability and reduced impulsive behaviors, but can continue to benefit from increase generalization of healthy coping skills.
--- NOTE | 2018-05-14 08:41 | BH.AFTERPLAN ---
Aftercare Plan - Demographics Treatment End Date:: 05/14/18 Psychiatrist:: Rossana Sherwood Psychiatrist Office #:: [id number] [facility] Therapist:: Lizet Pedroza Therapist Phone #:: [phone] - Medications Home Medications: Home Medications Aspirin [Aspirin, Baby] 81 mg PO DAILY@0800 #90 tab.chew 12/22/17 hydrochlorothiazide 12.5 mg capsule 12.5 mg PO DAILY #90 cap 01/22/18 losartan 25 mg tablet 25 mg PO DAILY #90 tab 01/22/18 metoprolol tartrate 50 mg tablet 50 mg PO BID #180 tab 02/04/18 atorvastatin 40 mg tablet 40 mg PO QHS #90 tab 03/24/18 clopidogrel 75 mg tablet 75 mg PO DAILY #90 tab 03/24/18 Divalproex Sodium [Depakote ER] 1,000 mg PO QHS 04/09/18 - Plan Details Progress/Aftercare Plan Details:: You have made significant progress with stabilizing your mood and improving your emotional regulation skills! You have shared many times that you do not use knee jerk reactions anymore, you think things through using your colbert mind before responding. You have worked very hard to identify your warning signs and triggers for bipolar, depression, and anxiety which has helped you learn coping skills to prevent and manage those symptoms. You have mentioned wanting to improve communication, express more gratitude, and take off the mask more often. 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 You have learned many different strategies to combat negative thoughts, manage anxiety, and reduce depression. Additionally, you have learned what coping skills DON'T help your mental health which may prevent you from falling back to old ways and promote healthy maintenance cycles. Strategies for Success:: 1. Communicate with your supports- warning signs, triggers, needs, and coping skills. 2. Remember to challenge negative thoughts and your perspective! 3. Be consistent! Use healthy coping even when you feel good- it will become a habit. 4. Be mindful and focus on being present with family. 5. Self-care! 6. Use the awareness you have gained to recognize early warning signs and pitfalls so you can avoid or overcome them. 7. Reflect on progress to give yourself confidence when you face challenges. 8. Set boundaries!! With yourself and others. Know what promotes healthy maintenance cycles and what leads to unhealthy (drinking, isolating, driving, etc.) 9. Use your maintenance plan!! 10. Keep up with counseling, communicating, and regulating emotions! - Appointments Appointments/Referrals to Other Services:: 1. Sara Hong, client reports plan to call to schedule today. 2. Dr. Krause at [facility] for psychiatry appointment 06/25/18 at 1:30pm.
--- NOTE | 2018-05-14 08:44 | BH.IGGP_ITS ---
Aftercare Plan - Demographics Treatment End Date:: 05/14/18 Psychiatrist:: Rossana Sherwood Psychiatrist Office #:: [id number] [facility] Therapist:: Lizet Pedroza Therapist Phone #:: [phone] - Medications Home Medications: Home Medications Aspirin [Aspirin, Baby] 81 mg PO DAILY@0800 #90 tab.chew 12/22/17 hydrochlorothiazide 12.5 mg capsule 12.5 mg PO DAILY #90 cap 01/22/18 losartan 25 mg tablet 25 mg PO DAILY #90 tab 01/22/18 metoprolol tartrate 50 mg tablet 50 mg PO BID #180 tab 02/04/18 atorvastatin 40 mg tablet 40 mg PO QHS #90 tab 03/24/18 clopidogrel 75 mg tablet 75 mg PO DAILY #90 tab 03/24/18 Divalproex Sodium [Depakote ER] 1,000 mg PO QHS 04/09/18 - Plan Details Progress/Aftercare Plan Details:: You have made significant progress with stabilizing your mood and improving your emotional regulation skills! You have shared many times that you do not use knee jerk reactions anymore, you think things through using your colbert mind before responding. You have worked very hard to identify your warning signs and triggers for bipolar, depression, and anxiety which has helped you learn coping skills to prevent and manage those symptoms. You have mentioned wanting to improve communication, express more gratitude, and ?take off the mask? more often. 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 You have learned many different strategies to combat negative thoughts, manage anxiety, and reduce depression. Additionally, you have learned what coping skills DON'T help your mental health which may prevent you from falling back to old ways and promote healthy maintenance cycles. Strategies for Success:: 1. Communicate with your supports- warning signs, triggers, needs, and coping skills. 2. Remember to challenge negative thoughts and your perspective! 3. Be consistent! Use healthy coping even when you feel good- it will become a habit. 4. Be mindful and focus on being present with family. 5. Self-care! 6. Use the awareness you have gained to recognize early warning signs and pitfalls so you can avoid or overcome them. 7. Reflect on progress to give yourself confidence when you face challenges. 8. Set boundaries !! With yourself and others. Know what promotes healthy maintenance cycles and what leads to unhealthy (drinking, isolating, driving, etc.) 9. Use your maintenance plan!! 10. Keep up with counseling, communicating, and regulating emotions! - Appointments Appointments/Referrals to Other Services:: 1. Sara Hong, client reports plan to call to schedule today. 2. Dr. Krause at [facility] for psychiatry appointment 06/25/18 at 1:30pm.
--- NOTE | 2018-05-14 09:06 | BH.SGPN.GN ---
Behaviors/Verbalizations/Mental Status: [] Pt eye contact good, casually dressed, motor activity appropriate, speech normal rate and tone, mood euthymic, congruent affect, thoughts linear and intact, no evidence of delusions or hallucinations. Reviewed client?s symptom tracker, no signs of suicidal ideation, plan, or intent as of today. Client Response/Progress/Benefit: [] Client reported he is continuing to feel stable and ready to discharge from [facility] today. Client shared he did have a tough day on Thursday when his daughter, who does not talk to him, came to the house to pharmacy picking tech his son and client reported he tried to talk with her but it did not go well. Client reported his daughter went off on him and refused to have a conversation with him about the mistakes he has made and trying to apologize. Client shared after his daughter left the house he communicates to his to not leave him alone because he knew he would drive to the store and pharmacy picking tech alcohol so he could numb himself out. Client shared after this situation when they became more apparent to him how much she utilized alcohol as a way to not feel. Client also able to recognize how much progress he has made given he was able to communicate to his what he needed and not revert back to using unhealthy coping strategies to deal. Client has demonstrated progress with mood stability, challenging negative thought patterns and consistently applying healthy coping strategies. Plan is to eat for client to discharge from [facility] level of care due to no longer meeting medical necessity for this level of care. Narrative Note: []
--- NOTE | 2018-05-14 09:42 | BH.DS_ITS ---
Discharge Summary - Demographics Date of Admission:: 03/30/18 Discharge Date: 05/14/18 Presenting Problems at Admission:: Client presented to [facility] with long-standing history of mood cycling with symptoms worse over the past 6 months. At admission, client described rapid cycling and mixed symptoms including depressed mood, anhedonia, variable energy, irritability, and variable sleep and appetite. Client had a recent suicide attempt prior to starting IOP, where client cut his arm. Client reported ruminative anxiety about everything? as well as some obsessive-compulsive traits and perfectionism. Client reported history of using alcohol to numb himself and to keep himself from engaging in risky sexual activity. 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 At admission, client described his emotions as ?all over the place? which made it difficult for client to cope with daily stressors, mental health, and family issues. Client stated his symptoms had impacted is ability to function at his baseline and has led to relationship issues with his and children. Discharge Diagnoses:: Bipolar disorder F 31.9; Anxiety unspecified; Nicotine dependence; Alcohol use disorder Reason for Discharge:: Client has made significant progress and has accomplished his treatment goals evidenced by his report of improved mood stability, generalization of healthy coping skills, increased awareness of warning signs and triggers, and reduced DSM-5 cross-cutting symptoms scores for depression, anxiety, suicidal ideation, and lily. For these reasons client no longer meets criteria for [facility] level of care. - Treatment Progress During Treatment & Response: Client seemed to respond well to treatment as evidenced by his overall consistent attendance and participation in group and individual sessions. Client had only missed two scheduled sessions due to work, but overall client was prompt and contributed positively to sessions often taking on a leadership role. At discharge client and his , Claudia, stated client increased emotional regulation, improved healthy coping, and reduced impulsive behaviors. Client self-reported feeling more in control of his emotions and stated, for the first time in my life I'm not making decisions based on emotions. Client reported medication, gaining awareness of warning signs and triggers, and learning healthy coping strategies to manage bipolar and anxiety has helped client make progress. Client reported no suicidal ideation at discharge which demonstrates progress. Client's , Claudia, also shared seeing progress in client's ability to manage anger, use active listening, and avoid unhealthy coping skills. Additionally, client showed progress in IOP as evidenced by his reduced DSM-5 cross-cutting scores for depression, lily, and anxiety. At admission client scored 4 out of 8, 8 being severe, for depression and 5 out of 8 for lily symptoms. At discharge client scored 1 out of 8 for depression and 0 out of 8 for lily. Additionally, client went from moderate anxiety symptoms (9 out of 12) to slight anxiety (1 out of 12) at discharge. Issues Still to be Addressed:: Client has made significant progress with increasing mood stability through medication compliance, awareness of warning signs and triggers, and use of healthy coping skills. However, client reports there are long-term issues such as problems with abandonment, smoking, communication, and acceptance he wants to work on post IOP discharge. Client can also continue to benefit from following his maintenance plan which includes warning signs, supports, and strategies to manage mental health symptoms, promote gains, and prevent decompensation. Client may also benefit from ongoing work with communicating emotions, mental health needs, and asking for help as client reports in the past he experienced isolation, depression, unhealthy coping when he did not communicate effectively. Additionally, client reported ongoing discord with certain family members that may impact client's depression. Discharge Recommendations/Instructions:: Client recommended to follow up with his outpatient mental health providers for continuity of care post IOP discharge. Client is established with counseling at [facility] where he sees Sara Hong. Therapist has been in contact with Sara and informed her of client's discharge. Client reports plan to call today to schedule an appointment. Client recommended to follow up with Dr. Krause at [facility] on 06/25/18 for psychiatric services. Discharge Handout: Complete Discharge Handout with client on aftercare options and continuity of care.
--- NOTE | 2018-05-14 10:23 | BH.SGPN.GN ---
Behaviors/Verbalizations/Mental Status: []Client alert and oriented, neatly dressed and groomed. Eye contact good. Motor activity appropriate. Speech within normal limits. Affect constricted, mood irritable, euthymic. Thoughts linear, logical, no signs of hallucinations or delusions. Client Response/Progress/Benefit: []Client responded well to session, quiet, but participating when prompted. Client connected with the quote sharing you dont want feliz because then no one can get in, but you want protection. Client identified benefits of boundaries such protecting oneself, removing toxic people, and communicating needs. Client reported there are barriers to setting healthy boundaries such as anger, fear of rejection, and other people. Client helped the group discuss the different types of boundaries, porous, rigid, and flexible as well as the pros and cons to each. Client stated he is rigid most of the time. 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 Client appeared to benefit from learning how boundaries impact mental health and identifying his boundary type. Client to discharge from [facility] today as he has demonstrated significant progress towards treatment goals.
--- NOTE | 2018-05-14 11:21 | BH.SGPN.GN ---
Behaviors/Verbalizations/Mental Status: []Client alert and oriented, neatly dressed and groomed. Eye contact good. Motor activity appropriate. Speech within normal limits. Affect constricted, mood euthymic. Thoughts linear, logical, no signs of hallucinations or delusions. Client Response/Progress/Benefit: []Client responded well to session, receptive to statements from peers on his progress. Client created a visual representation of his current boundaries sharing Im very guarded. Theres lots of protections on my castle and no one really gets in. Client stated recently he let my bridge down to open up with his daughter which did not go well. Client shared he felt like never opening up again, but with group feedback realized the positive ways he coped with the situation and the benefits of striving for more flexible boundaries. Client receptive to learning ways to set healthy boundaries such as reminding him of the long-term benefits, allowing his positive supports to know his emotions and thoughts, and being determined to improve. Client appeared to benefit from learning how to set healthy boundaries and from getting supportive feedback from peers. Client to discharge from [facility].
--- NOTE | 2018-05-14 14:41 | BH.DS ---
Discharge Summary - Demographics Date of Admission:: 03/30/18 Discharge Date: 05/14/18 Presenting Problems at Admission:: Client presented to [facility] with long-standing history of mood cycling with symptoms worse over the past 6 months. At admission, client described rapid cycling and mixed symptoms including depressed mood, anhedonia, variable energy, irritability, and variable sleep and appetite. Client had a recent suicide attempt prior to starting IOP, where client cut his arm. Client reported ruminative anxiety about everything as well as some obsessive-compulsive traits and perfectionism. Client reported history of using alcohol to numb himself and to keep himself from engaging in risky sexual activity. 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 At admission, client described his emotions as all over the place which made it difficult for client to cope with daily stressors, mental health, and family issues. Client stated his symptoms had impacted is ability to function at his baseline and has led to relationship issues with his and children. Discharge Diagnoses:: Bipolar disorder F 31.9; Anxiety unspecified; Nicotine dependence; Alcohol use disorder Reason for Discharge:: Client has made significant progress and has accomplished his treatment goals evidenced by his report of improved mood stability, generalization of healthy coping skills, increased awareness of warning signs and triggers, and reduced DSM-5 cross-cutting symptoms scores for depression, anxiety, suicidal ideation, and lily. For these reasons client no longer meets criteria for [facility] level of care. - Treatment Progress During Treatment & Response: Client seemed to respond well to treatment as evidenced by his overall consistent attendance and participation in group and individual sessions. Client had only missed two scheduled sessions due to work, but overall client was prompt and contributed positively to sessions often taking on a leadership role. At discharge client and his , Claudia, stated client increased emotional regulation, improved healthy coping, and reduced impulsive behaviors. Client self-reported feeling more in control of his emotions and stated, for the first time in my life I'm not making decisions based on emotions. Client reported medication, gaining awareness of warning signs and triggers, and learning healthy coping strategies to manage bipolar and anxiety has helped client make progress. Client reported no suicidal ideation at discharge which demonstrates progress. Client's , Claudia, also shared seeing progress in client's ability to manage anger, use active listening, and avoid unhealthy coping skills. Additionally, client showed progress in IOP as evidenced by his reduced DSM-5 cross-cutting scores for depression, lily, and anxiety. At admission client scored 4 out of 8, 8 being severe, for depression and 5 out of 8 for lily symptoms. At discharge client scored 1 out of 8 for depression and 0 out of 8 for lily. Additionally, client went from moderate anxiety symptoms (9 out of 12) to slight anxiety (1 out of 12) at discharge. Issues Still to be Addressed:: Client has made significant progress with increasing mood stability through medication compliance, awareness of warning signs and triggers, and use of healthy coping skills. However, client reports there are long-term issues such as problems with abandonment, smoking, communication, and acceptance he wants to work on post IOP discharge. Client can also continue to benefit from following his maintenance plan which includes warning signs, supports, and strategies to manage mental health symptoms, promote gains, and prevent decompensation. Client may also benefit from ongoing work with communicating emotions, mental health needs, and asking for help as client reports in the past he experienced isolation, depression, unhealthy coping when he did not communicate effectively. Additionally, client reported ongoing discord with certain family members that may impact client's depression. Discharge Recommendations/Instructions:: Client recommended to follow up with his outpatient mental health providers for continuity of care post IOP discharge. Client is established with counseling at [facility] where he sees Sara Hong. Therapist has been in contact with Sara and informed her of client's discharge. Client reports plan to call today to schedule an appointment. Client recommended to follow up with Dr. Krause at [facility] on 06/25/18 for psychiatric services. Discharge Handout: Complete Discharge Handout with client on aftercare options and continuity of care.
--- NOTE | 2018-05-14 15:10 | BH.MDN_ITS ---
Multi-Disciplinary Note - Note Family Time Started:: 12:20 Date: 05/14/18 Purpose of session/treatment goals addressed:: The purpose of this session was to discuss progress, strategies for success to maintain progress, and include client's Claudia in the treatment process. Another goal was to provide closure and review aftercare plan. Eye Contact:: Good Motor Activity:: Appropriate Appearance:: Neat Speech:: Appropriate Mood:: Euthymic Affect:: Congruent Thoughts:: Linear, Logical, No evidence of hallucinations/delusions noted Staff Interventions:: Therapist used open-ended questions to explore the couple' s thoughts on client?s progress. Therapist reviewed strategies, warning signs, and coping skills with client to promote gains and prevent setbacks. Therapist discussed aftercare plan with client and used strengths-perspective to empower client on the goals client accomplished. Therapist answered client?s Claudia?s questions and encouraged ongoing communication between the couple. Therapist provided emotional support and validation. Therapist gave client a quote collage for closure and had client complete the IOP surveys. Client Response:: Client responded well to session, open to meeting with therapist. Client reflected on his progress, sharing he feels more in control of his emotions and for the first time in my life I'm not making decisions based on emotions. Client reported medication, gaining awareness of warning signs and triggers, and learning healthy coping strategies to manage depression and anxiety has helped client make progress. Client's , Claudia, shared seeing progress in client's ability to manage anger, use active listening, and avoid unhealthy coping skills. Client and Claudia reflected client's recent success with using healthy coping skills to manage a depression trigger instead of isolating and drinking. Claudia had several questions about bipolar disorder including ongoing maintenance and chances of living a successful life. Client and therapist helped provide psychoeducation to Claudia to increase her awareness of bipolar and promote client empowerment. Client identified his strategies for success as communicating with supports, being aware of warning signs, proactively using healthy coping skills, and setting personal boundaries. Risks/Concerns:: No risks or concerns to document at this time. Client denies suicidal ideation, plan, and intent as of 05/14/18. Progress Toward Goals/Plan:: Client has made significant progress towards his treatment goals as evidenced by his reduced DSM-5 cross-cutting scores as well as his report of increased mood stability and use of coping skills. Client recently experienced a depression trigger with his daughter and had urges to isolate and drink, but did not engage in unhealthy coping which demonstrates significant progress. At discharge client and Claudia, stated he has increased emotional regulation, healthy coping, and less impulsive behaviors. Client to discharge from IOP as he no longer meets the criteria for IOP level of care. Client to follow up with Sara Hong for outpatient counseling, client reports plan to call today and establish an appointment. Client also recommended to follow up with Dr. Krause on 06/25/18 for outpatient psychiatry. Time Stopped:: 12:55
== END 2018-05-14 14:00 | disposition home or self-care (01) ==
LOC: BHIOP 09:00
PROVIDERS: Family Provider Family Medicine; PCP Family Medicine; Visit Provider Psychiatry & Neurology Psychiatry
DX: F31.9 Bipolar disorder, unspecified (principal); F41.9 Anxiety disorder, unspecified; F17.210 Nicotine dependence, cigarettes, uncomplicated; F10.20 Alcohol dependence, uncomplicated
CPT/HCPCS: H0035; 90847; 90853

== ENCOUNTER → 2018-05-25 15:20 | Outpatient (CLI) | payer BC, SELFPAY | PROVIDERS: Family Provider Family Medicine; PCP Family Medicine; Visit Provider Family Medicine | DX: M54.5 Low back pain (principal) | CPT/HCPCS: 72110 ==

== ENCOUNTER → 2018-11-05 10:42 | Outpatient (CLI) | payer BC, SELFPAY ==
[2017-12-21 15:19] VITALS: BMI 31.1
[2018-05-10 10:06] VITALS: BMI 29.9
[2018-11-05 11:31] LABS: Hematocrit 42.3 % (40-54); Hemoglobin 14.7 g/dl (13.0-16.5); Mean Corp Hgb Conc 34.8 g/gl (32-36); Mean Corpuscular Hgb 34.7 pg (27.0-32.0); Mean Corpuscular Volume 99.8 fL (80-94); Platelet Count 293 K/mm3 (150-450); RBC Distribution Width CV 13.1 % (11.6-14.6); RBC Distribution Width SD 47.9 fl (35.1-43.9); Red Blood Count 4.24 M/mm3 (4.6-6.2); White Blood Count 7.2 K/mm3 (4.4-11.0)
[2018-11-05 11:33] LABS: Scan Indicated on CBC? Y/N NO
[2018-11-05 12:04] LABS: Valproic Acid (Depakene) Level 54 ug/mL (50-100)
[2018-11-05 12:07] LABS: ALB/GLOB Ratio 0.9 RATIO (0.9-2.4); AST(SGOT) 22 U/L (15-37); Alanine Aminotransfer ALT/SGPT 27 U/L (16-61); Albumin, Serum 3.5 g/dL (3.2-5.0); Alkaline Phosphatase 94 U/L (45-117); Anion Gap 11 (5-15); BUN 16 mg/dL (7-18); BUN/Creat Ratio 16.4 RATIO (10-20); Calcium,Total 8.9 mg/dL (8.5-10.1); Chloride 106 mmol/L (98-107); Creatinine, Serum 0.98 mg/dL (0.70-1.30); EST Glomerular Filtration Rate 88 mL/min (>60); Est Glom Filt Rate - Afr Amer 107 mL/min (>60); Globulin 4.1 g/dL (2.2-4.2); Glucose 87 mg/dL (74-106); Potassium 4.3 mmol/L (3.5-5.1); Protein, Total 7.6 g/dL (6.4-8.2); Sodium Level 140 mmol/L (136-145)
== END ==
PROVIDERS: Family Provider Family Medicine; PCP Family Medicine
DX: F31.31 Bipolar disorder, current episode depressed, mild (principal)
CPT/HCPCS: 36415; 80053; 80164; 85027

== ENCOUNTER → 2018-11-06 11:50 | Outpatient (CLI) | payer BC, SELFPAY ==
[2018-11-06 13:21] LABS: AST(SGOT) 27 U/L (15-37); Alanine Aminotransfer ALT/SGPT 27 U/L (16-61); Albumin, Serum 3.5 g/dL (3.2-5.0); Alkaline Phosphatase 94 U/L (45-117); Bilirubin, Direct 0.09 mg/dL (0.00-0.30); Cholesterol 151 mg/dL (200); Globulin 4.1 g/dL (2.2-4.2); High Density Lipoprotein 55 mg/dL; Protein, Total 7.6 g/dL (6.4-8.2); Triglycerides 147 mg/dL; Very Low Density Lipoprotein 29 mg/dL (5-40)
== END ==
PROVIDERS: Family Provider Family Medicine; PCP Family Medicine; Referring Provider Nurse Practitioner Family; Visit Provider Nurse Practitioner Family
DX: I25.10 Atherosclerotic heart disease of native coronary artery without angina pectoris (principal); E78.5 Hyperlipidemia, unspecified
CPT/HCPCS: 36415; 80061; 80076

== ENCOUNTER → 2018-11-19 10:29 | Outpatient (CLI) | payer BC, SELFPAY ==
[2018-11-08 13:35] VITALS: BMI 31.1
--- NOTE | 2018-11-19 10:31 | STE_ITS ---
Reason For Study: CAD/ASHD Stress Results Protocol: Mohsen Protocol Maximum Predicted HR: 175 bpm Target HR: 149 bpm % Maximum Predicted HR: 91 % DurationHeart Rate Stage (mm:ss) (bpm) BP Comment Baseline 78 140/94No Chest Pain Mohsen Protocol Stage I 3:00 127 150/72No Chest Pain; Mild to Moderate Dyspnea Mohsen Protocol Stage II 3:00 157 164/78No Chest Pain; Mild to Moderate Dyspnea Mohsen Protocol Stage III 0:15 160 / No Chest Pain; Moderate Dyspnea Recovery 92 132/78No Chest Pain Stress Duration: 6:15 mm:ss Maximum Stress HR: 160 bpm METS: 7 Baseline Echocardiogram Findings The estimated ejection fraction is 65 %. Stress Echo Wall motion Data Resting WM Intermediate WM Stress WM Resting Wall Motion Wall Motion Stress No regional wall motion No regional wall motion abnormalities noted. abnormalities noted. EKG Data Normal intervals are noted. The patient exercised according to the regular Mohsen protocol for a total duration of 6:15. The maximum heart rate attained was 162 beats per minute. This was 92% of maximum predicted heart rate. The patient exercised into stage 3 of the Mohsen protocol. During stress, there were no ST or T wave changes noted to suggest ischemia. No clinical angina was noted. Interpretation Summary The estimated ejection fraction is 65 %. Normal, adequate, treadmill echocardiogram. Negative for ischemia by EKG and echocardiographic criteria. No anginal symptoms noted. Rare PVC noted. Appropriate blood pressure response to exercise. Average exercise capacity for age. Final LVEF of 75%. Test terminated due to dyspnea. No complications. Ordering Physician: Darin Plata Referring Physician: Virgil Adam Performed By: Lucero Loya, AUBREY, RVT
== END ==
PROVIDERS: Family Provider Family Medicine; PCP Family Medicine; Referring Provider Internal Medicine Cardiovascular Disease; Visit Provider Internal Medicine Cardiovascular Disease
DX: I25.10 Atherosclerotic heart disease of native coronary artery without angina pectoris (principal); Z72.0 Tobacco use; I25.2 Old myocardial infarction; Z95.5 Presence of coronary angioplasty implant and graft
CPT/HCPCS: 93017; 93350

== ENCOUNTER → 2019-03-31 15:42 | Outpatient (CLI) | payer BC, SELFPAY ==
[2018-11-08 13:35] VITALS: BMI 31.1
[2019-03-31 17:33] LABS: Absolute Lymphocyte Count 2.56 X10^3/ul (0.83-4.51); Basophil# 0.02 X10^3/uL; Basophil% 0.2 % (0-1); Eosinophil# 0.21 X10^3/uL; Eosinophils% 2.2 % (0-5); Hematocrit 41.7 % (40-54); Hemoglobin 14.3 g/dl (13.0-16.5); Lymphocyte # 2.56 X10^3/ul (4.0); Lymphocyte % 27.3 % (19-41); Mean Corp Hgb Conc 34.3 g/gl (32-36); Mean Corpuscular Hgb 34.7 pg (27.0-32.0); Mean Corpuscular Volume 101.2 fL (80-94); Mean Platelet Vol. 10.3 fl (6.2-12.0); Monocyte# 0.61 X10^3/uL; Monocyte% 6.5 % (0-10); Neutrophil # 5.97 X10^3/uL (2.7-7.7); Neutrophil % 63.6 % (47-70); Platelet Count 292 K/mm3 (150-450); RBC Distribution Width CV 13.2 % (11.6-14.6); RBC Distribution Width SD 47.6 fl (35.1-43.9); Red Blood Count 4.12 M/mm3 (4.6-6.2); White Blood Count 9.4 K/mm3 (4.4-11.0)
[2019-03-31 17:34] LABS: POSITIVE COUNT NO; POSITIVE DIFFERENTIAL NO; POSITIVE MORPHOLOGY NO
[2019-03-31 17:48] LABS: Erythrocyte Sedimentation Rate 16 mm/hr (0-15)
[2019-03-31 17:55] LABS: Vitamin B12 308 pg/mL (211-911); Vitamin D,25 Hydroxy 10.1 ng/mL (29.95-100.01)
[2019-03-31 18:00] LABS: ALB/GLOB Ratio 0.8 RATIO (0.9-2.4); AST(SGOT) 48 U/L (15-37); Alanine Aminotransfer ALT/SGPT 46 U/L (16-61); Albumin, Serum 3.4 g/dL (3.2-5.0); Alkaline Phosphatase 136 U/L (45-117); Amylase 25 U/L (25-115); Anion Gap 12 (5-15); BUN 10 mg/dL (7-18); BUN/Creat Ratio 9.8 RATIO (10-20); Calcium,Total 9.4 mg/dL (8.5-10.1); Chloride 104 mmol/L (98-107); Creatinine, Serum 1.02 mg/dL (0.70-1.30); EST Glomerular Filtration Rate 84 mL/min (>60); Est Glom Filt Rate - Afr Amer 101 mL/min (>60); Ferritin 288 ng/mL (26-388); GGTP 124 U/L (15-85); Glucose 84 mg/dL (74-106); Iron 131 ug/dL (65-175); LDH 252 U/L (87-241); Lipase 107 U/L (73-393); Potassium 4.5 mmol/L (3.5-5.1); Protein, Total 7.4 g/dL (6.4-8.2); Sodium Level 142 mmol/L (136-145); Thyroid Stim Hormone (TSH) 2.66 uIU/mL (0.358-3.74)
== END ==
PROVIDERS: Family Provider Family Medicine; PCP Family Medicine; Referring Provider Family Medicine; Visit Provider Family Medicine
DX: R10.9 Unspecified abdominal pain (principal); F10.10 Alcohol abuse, uncomplicated; R53.83 Other fatigue; E55.9 Vitamin D deficiency, unspecified
CPT/HCPCS: 36415; 80053; 82150; 82306; 82607; 82728; 82977; 83540; 83615; 83690; 84403; 84443; 85025; 85652

== ENCOUNTER → 2019-04-29 10:13 | Outpatient (CLI) | payer BC, SELFPAY ==
[2018-11-08 13:35] VITALS: BMI 31.1
--- NOTE | 2019-04-29 10:21 | US_ITS ---
STUDY: ABDOMINAL ULTRASOUND - RIGHT UPPER QUADRANT REASON FOR VISIT: Male, 43 years old. Pain x1 month, elevated LFTs TECHNIQUE: Ultrasound evaluation of the right upper quadrant was performed with real-time and static encarnacion-scale imaging. TECHNICAL QUALITY: Limited. Examination limited by bowel gas. COMPARISON: None. FINDINGS: Liver: The liver measures 18.4 cm. There is increased echogenicity consistent with fatty infiltration. The bile ducts are within normal limits. There is hepatic color flow. The direction of portal flow is hepatopetal. There is no demonstrated mass lesion. Gallbladder: Normal distended gallbladder. The gallbladder wall measures 2.2 mm. There is a negative sonographic Allen's sign. There is no pericholecystic fluid. There are no gallstones. Common Bile Duct (C.B.D.): The common bile duct measures 3.5 mm. Pancreas: Normal size of the head, body and tail of the pancreas. There is increased echogenicity of the pancreas. There is no demonstrated pancreatic mass or cyst. Right Kidney: Normal size of the right kidney. The right kidney measures 12.1 x 6.0 x 4.9 cm. Normal renal cortex. The right cortex measures 1.2 cm. There is no demonstrated renal mass or cyst. There is no right hydronephrosis. US/Abdomen Limited IMPRESSION: Fatty infiltration of liver, no discrete lesion Electronically Signed: Michael Espinoza MD at 13:19 EDT , Service support ,
== END ==
PROVIDERS: Family Provider Family Medicine; PCP Family Medicine; Referring Provider Family Medicine; Visit Provider Family Medicine
DX: R10.11 Right upper quadrant pain (principal)
CPT/HCPCS: 76705

== ENCOUNTER → 2019-07-06 11:47 | Outpatient (CLI) | payer BC, SELFPAY ==
[2019-05-23 14:28] VITALS: BMI 32.5
[2019-07-06 13:06] LABS: AST(SGOT) 23 U/L (15-37); Alanine Aminotransfer ALT/SGPT 34 U/L (16-61); Albumin, Serum 3.6 g/dL (3.2-5.0); Alkaline Phosphatase 134 U/L (45-117); Bilirubin, Direct 0.11 mg/dL (0.00-0.30); Cholesterol 196 mg/dL (200); Globulin 4.6 g/dL (2.2-4.2); High Density Lipoprotein 45 mg/dL; Protein, Total 8.2 g/dL (6.4-8.2); Triglycerides 231 mg/dL; Very Low Density Lipoprotein 46 mg/dL (5-40)
== END ==
PROVIDERS: Family Provider Family Medicine; PCP Family Medicine; Referring Provider Internal Medicine Cardiovascular Disease; Visit Provider Internal Medicine Cardiovascular Disease
DX: E78.5 Hyperlipidemia, unspecified (principal); I25.10 Atherosclerotic heart disease of native coronary artery without angina pectoris
CPT/HCPCS: 36415; 80061; 80076

== ENCOUNTER → 2019-07-19 11:17 | Outpatient (CLI) | payer BC, SELFPAY ==
[2019-05-23 14:28] VITALS: BMI 32.5
[2019-07-19 13:01] LABS: Vitamin B12 > 2000 pg/mL (211-911); Vitamin D,25 Hydroxy 35.2 ng/mL (29.95-100.01)
[2019-07-19 13:05] LABS: AST(SGOT) 28 U/L (15-37); Alanine Aminotransfer ALT/SGPT 34 U/L (16-61); Albumin, Serum 3.6 g/dL (3.2-5.0); Alkaline Phosphatase 123 U/L (45-117); Bilirubin, Direct 0.08 mg/dL (0.00-0.30); Globulin 4.2 g/dL (2.2-4.2); Protein, Total 7.8 g/dL (6.4-8.2)
== END ==
PROVIDERS: Family Provider Family Medicine; PCP Family Medicine; Referring Provider Family Medicine; Visit Provider Family Medicine
DX: E53.9 Vitamin B deficiency, unspecified (principal); F10.10 Alcohol abuse, uncomplicated; E55.9 Vitamin D deficiency, unspecified
CPT/HCPCS: 36415; 80076; 82306; 82607

== ENCOUNTER → 2019-10-20 11:39 | Outpatient (CLI) | payer BC, SELFPAY ==
[2019-05-23 14:28] VITALS: BMI 32.5
[2019-10-20 14:02] LABS: Hematocrit 48.1 % (40-54); Hemoglobin 15.8 g/dL (13.0-16.5); Mean Corp Hgb Conc 32.8 g/dL (32-36); Mean Corpuscular Volume 100.4 fL (80-94); Mean Platelet Vol. 10.1 fl (6.2-12.0); Platelet Count 308 K/mm3 (150-450); RBC Distribution Width CV 13.2 % (11.6-14.6); RBC Distribution Width SD 49.2 fl (35.1-43.9); Red Blood Count 4.79 M/mm3 (4.6-6.2); White Blood Count 12.8 K/mm3 (4.4-11.0)
[2019-10-20 14:15] LABS: Valproic Acid (Depakene) Level 43 ug/mL (50-100)
[2019-10-20 14:25] LABS: Vitamin B12 830 pg/mL (211-911); Vitamin D,25 Hydroxy 38.5 ng/mL (29.95-100.01)
[2019-10-20 14:28] LABS: ALB/GLOB Ratio 0.8 RATIO (0.9-2.4); AST(SGOT) 63 U/L (15-37); Alanine Aminotransfer ALT/SGPT 77 U/L (16-61); Albumin, Serum 3.7 g/dL (3.2-5.0); Alkaline Phosphatase 108 U/L (45-117); Anion Gap 8 (5-15); BUN 10 mg/dL (7-18); BUN/Creat Ratio 9.7 RATIO (10-20); Calcium,Total 9.6 mg/dL (8.5-10.1); Chloride 100 mmol/L (98-107); Cholesterol 187 mg/dL (200); Creatinine, Serum 1.03 mg/dL (0.70-1.30); EST Glomerular Filtration Rate 83 mL/min (>60); Est Glom Filt Rate - Afr Amer 100 mL/min (>60); Globulin 4.7 g/dL (2.2-4.2); Glucose 83 mg/dL (74-106); High Density Lipoprotein 67 mg/dL; Potassium 4.7 mmol/L (3.5-5.1); Protein, Total 8.4 g/dL (6.4-8.2); Sodium Level 132 mmol/L (136-145); Thyroid Stim Hormone (TSH) 2.32 uIU/mL (0.358-3.74); Triglycerides 92 mg/dL; Very Low Density Lipoprotein 18 mg/dL (5-40)
== END ==
PROVIDERS: PCP Family Medicine; Referring Provider Family Medicine; Visit Provider Family Medicine
DX: I25.10 Atherosclerotic heart disease of native coronary artery without angina pectoris (principal); E53.8 Deficiency of other specified B group vitamins; E55.9 Vitamin D deficiency, unspecified; F31.31 Bipolar disorder, current episode depressed, mild; Z51.81 Encounter for therapeutic drug level monitoring
CPT/HCPCS: 36415; 80053; 80061; 80164; 82306; 82607; 84443; 85027

== ENCOUNTER → 2020-06-07 11:56 | Outpatient (CLI) | payer BC, SELFPAY ==
[2020-05-28 15:23] VITALS: BMI 27.8
--- NOTE | 2020-06-07 11:58 | STEWCON_ITS ---
Reason For Study: CHEST PAIN, CAD Stress Results Protocol: Stress Echocardiogram Maximum Predicted HR: 173 bpm Target HR: 147 bpm % Maximum Predicted HR: 94 % DurationHeart Rate Stage (mm:ss) (bpm) BP Comment BASELINE 76 124/84DILUTED DEFINITY 5 CC USED ZO PROTOCOL- STAGE 1 3:00 109 130/74NO CP, MILD DYSPNEA ZO PROTOCOL- STAGE 2 3:00 137 144/80NO CP, MILD DYSPNEA ZO PROTOCOL- STAGE 3 3:00 162 150/82NO CP, MODERATE DYSPNEA, LEG DISCOMFORT RECOVERY 95 114/80 Stress Duration: 9:00 mm:ss Maximum Stress HR: 162 bpm METS: 10 Baseline Echocardiogram Findings Stress Echo Wall motion Data Resting WM Intermediate WM Stress WM Resting Wall Motion Wall Motion Stress All segments Normal. All segments Hyperkinetic. Ejection Fraction 55 %. Ejection Fraction 70 %. Stress Results Heart rate response: Appropriate Blood pressure response: Normal resting blood pressure-appropriate response Arrhythmias: None Functional capacity: Good Stopped secondary to: Dyspnea and leg discomfort. EKG Data Baseline ECG: Sinus rhythm; nonspecific T wave abnormality. Peak exercise ECG: No obvious ECG changes. Symptoms with Stress No chest discomfort reported during exercise or recovery. Interpretation Summary 1. Contrast injection performed 2. Negative (adequate) stress echocardiogram Ordering Physician: Darin Plata Referring Physician: Darin Plata Performed By: Lorrie Arora RDCS
== END ==
PROVIDERS: PCP Family Medicine; Referring Provider Internal Medicine Cardiovascular Disease; Visit Provider Internal Medicine Cardiovascular Disease
DX: I25.10 Atherosclerotic heart disease of native coronary artery without angina pectoris (principal); E78.5 Hyperlipidemia, unspecified; Z72.0 Tobacco use
CPT/HCPCS: 93017; 93350; Q9957; A4216; C8928

== ENCOUNTER 2021-05-16 20:05 | Emergency (ER) | payer OTHER, SELFPAY ==
[2020-05-28 15:23] VITALS: BMI 27.8
[2021-05-16] VITALS (7 sets, daily range): BP systolic 139–174; BP diastolic 90–105; PULSE 95–113; RESP 15–23; TEMP 36.7; O2SAT 95–99; BMI 29.7
--- NOTE | 2021-05-16 20:13 | EKG12_ITS ---
Test Reason : NEURO Blood Pressure : / mmHG Vent. Rate : 107 BPM Atrial Rate : 107 BPM P-R Int : 146 ms QRS Dur : 088 ms QT Int : 336 ms P-R-T Axes : 069 061 -18 degrees QTc Int : 448 ms Sinus tachycardia Nonspecific ST and T wave abnormality Confirmed by ARELY RAMOS, MARY ([id number]), health editor ANA MARIA ARMAS ([id number]) on 05/21/2021 8:46:41 AM Referred By: HAMILTON Confirmed By:MARY MCGEE MD
--- NOTE | 2021-05-16 20:13 | CT_ITS ---
EXAMINATION : Head CT w/out contrast HISTORY : Neuro deficit, acute, stroke suspected COMPARISON : None. TECHNIQUE : Multiple contiguous axial images were obtained from the skull base to the vertex without intravenous contrast. A radiation dose optimization technique was used for this scan. FINDINGS : The ventricles and sulci are normal in size. There is no evidence for acute intracranial hemorrhage, mass effect, or midline shift. There is no extra-axial fluid collection. There is normal felipe-white differentiation, without CT evidence of acute ischemia or infarct. The skull base and calvarium are unremarkable. The orbits are unremarkable. The paranasal sinuses are clear. The mastoid air cells are well-aerated. The soft tissues are unremarkable. CT/STROKE Brain/Head without Cont IMPRESSION: No acute intracranial abnormality. Electronically Signed: Virgil Washington MD at 20:29 EDT Tel , Service support ,
--- NOTE | 2021-05-16 20:13 | CT_ITS ---
STUDY: CTA HEAD AND NECK WITH CONTRAST REASON FOR EXAM: Male, 46 years old. Neural deficit. Acute stroke suspected. RADIATION DOSAGE (If Supplied By Facility): CTDIvol = ( 22.485 ) mGy, DLP = ( 880.14 ) mGycm TECHNIQUE: CT angiography was performed with a multi-detector CT scanner. Data acquisition was obtained from the skull base through the vertex following intravenous administration of IV 100mL [id number]-370. MIP images were reconstructed from the axial data set. Post-processing of the angiographic images was performed, with multiplanar reformation and 3D reconstruction. Individualized dose optimization techniques were used for this CT. COMPARISON: CT of the brain, 05/16/2021. FINDINGS: Normal bilateral petrous carotid arteries. Normal right cavernous carotid artery with a normal supraclinoid bifurcation. Normal left cavernous carotid artery with a normal supraclinoid bifurcation. Normal right A1 segments of the anterior cerebral artery. There is hypoplastic development of the left A1 segment of the anterior cerebral arteries with an atretic but intact artery. Normal intact anterior communicating artery (ACOM). Normal bilateral A2 segments of the anterior cerebral arteries. Normal right M1 and M2 segments of the middle cerebral arteries, with a normal M1 bifurcation. Normal left M1 and M2 segments of the middle cerebral arteries, with a normal M1 bifurcation. There is non-visualization of the right posterior communicating artery (PCOM). Normal left posterior communicating artery (PCOM). Normal bilateral vertebral arteries. Normal basilar artery with a normal basilar bifurcation. The visualized bilateral superior cerebellar (SCA) arteries are normal. Normal bilateral P1, P2 and visualized P3 segments of the posterior cerebral arteries. There is no demonstrated aneurysm of the [place] of [place]. There is no demonstrated abnormality of the visualized brain. AORTIC ARCH: Normal visualized aortic arch. Normal origins of the brachiocephalic, left common carotid, and left subclavian arteries. RIGHT CAROTID ARTERIES: Normal right common carotid artery (CCA). There is a large thrombus versus noncalcified plaque in the carotid bulb producing the luminal size to less than 50%. This extends into the proximal ICA with approximately 50% stenosis. No associated dissection cannot be ruled out. Normal origin of the right internal carotid (ICA) artery without a hemodynamically significant stenosis. Normal visualized cervical portion of the right internal carotid artery. Normal origin of the right external carotid artery (ECA). LEFT CAROTID ARTERIES: Normal left common carotid artery (CCA). Minimal atherosclerotic changes in the carotid bulb without significant stenosis. Normal origin of the left internal carotid (ICA) artery without a hemodynamically significant stenosis. Normal visualized cervical portion of the left internal carotid artery. Normal origin of the left external carotid artery (ECA). VERTEBRAL ARTERIES: There is enhancement within the bilateral vertebral arteries with a small right vertebral artery, and a dominant left vertebral artery. CT/STROKE CTA Head AND Neck W/Con IMPRESSION: 1. Noncalcified plaque versus thrombus in the right carotid bulb and proximal ICA with greater than 50% stenosis. 2. 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 Otherwise normal [place] of [place]. N.B. : The above Results were Read Back by North Marshall DO to Alistair Zapata MD, and understanding confirmed on 05/16/2021 21:03:03 (ET). Electronically Signed: North Marshall DO at 21:05 EDT Tel [phone], Service support ,
--- NOTE | 2021-05-16 20:13 | ED.RN ---
PULLED [facility] [place] FOR
--- NOTE | 2021-05-16 20:19 | EDS_ITS ---
HPI History of Present Illness Chief Complaint: Neuro S/Sx Informant: patient and spouse/S.O. Onset/Context/Timing Onset: Today Narrative Narrative: Patient presents with left-sided weakness. Patient reports having transient left arm and hand weakness over the past 2 days. He states he had an episode each day that would last approximately an hour and then spontaneously resolved. Patient's states when she got home from work at 5:00 he was asleep. She woke up at 630 and noted he was unable to use his left side. Patient states he laid down at 4 PM and is unsure if he was having symptoms at that time. He states he was not having symptoms at lunchtime today. He is unable to definitively say when his episode started today. Patient is complaining of a mild right frontal headache. He does have a history of prior [place] with a cardiac stent. He denies taking anticoagulants. [facility] Medical History (Updated 05/16/21 @ 20:[address] Suze Zapata MD) Atherosclerosis of coronary artery of [place] heart without angina pectoris Atrial fibrillation with RVR Bipolar disorder Essential hypertension Hyperlipidemia NSTEMI (non-ST elevated myocardial infarction) Presence of stent in coronary artery (~12/21/17) Tobacco abuse Home Medications aspirin 81 mg PO DAILY@0800 #90 tab.chew 12/22/17 [Rx Last Taken Unknown] divalproex 500 mg tablet,extended release 24 hr 1,000 mg PO QHS tab 05/28/20 [History Last Taken Unknown] atorvastatin 40 mg tablet 40 mg PO QHS #90 tab 05/10/21 [Rx Last Taken Unknown] hydrochlorothiazide 12.5 mg capsule 12.5 mg PO DAILY #90 cap 05/10/21 [Rx Last Taken Unknown] losartan 25 mg tablet 25 mg PO DAILY #90 tab 05/10/21 [Rx Last Taken Unknown] metoprolol tartrate 50 mg tablet 50 mg PO BID #180 tab 05/10/21 [Rx Last Taken Unknown] clopidogrel 75 mg PO DAILY 05/16/21 [History Last Taken Unknown] sildenafil 100 mg PO DAILY 05/16/21 [History Last Taken Unknown] Allergy/AdvReac Type Severity Reaction Status Date / Time No Known Allergies Allergy Verified 11/14/19 14:52 Family History Mother No problems noted. Surgical History History of hand surgery Presence of coronary angioplasty implant and graft Social History Smoking Status: Current every day smoker tobacco type: cigarettes alcohol intake: current alcohol intake frequency: a few times a week Alcohol type: beer, wine and hard liquor substance use type: does not use caffeine: Yes Type: carbonated beverages what type of physical activity do you participate in: none seatbelt use: never do you feel safe at home: Yes ROS ROS ED Constitutional Constitutional ED: Denies chills or fever(s) Eyes Eyes: Denies change in vision ENT ENT ED: Denies sore throat Cardiovascular Cardiovascular: Denies chest pain Respiratory/Chest Respiratory/Chest: Denies cough or dyspnea Gastrointestinal Gastrointestinal: Denies abdominal pain, diarrhea, nausea or vomiting Genitourinary Genitourinary ED: Denies dysuria Musculoskeletal Musculoskeletal: Denies back pain Integumentary Denies rash Neurologic Neurologic: Reports headache(s) and weakness; Denies paresthesias Psychiatric Psychiatric: Denies anxiety or depression Allergic/Immunologic Allergic/Immunologic ED: Denies urticaria EXAM Physical Exam Const Vital Signs: 05/16/21 20:13 05/16/21 20:32 05/16/21 20:44 Temperature 98.1 F 98.1 F Temperature Source Temporal Temporal Pulse Rate 113 H 113 H 109 H Respiratory Rate 23 H 23 H 20 H Blood Pressure 174/105 H 174/105 H 152/92 H Blood Pressure Mean 128 128 112 Pulse Ox 98 98 95 Oxygen Delivery Method Room Air Room Air Room Air 05/16/21 20:52 05/16/21 21:06 05/16/21 21:13 Temperature Temperature Source Pulse Rate 108 H 95 97 Respiratory Rate 16 15 15 Blood Pressure 152/92 H 139/94 H 139/94 H Blood Pressure Mean 112 109 109 Pulse Ox 99 99 98 Oxygen Delivery Method Room Air Room Air Room Air 05/16/21 21:34 Temperature Temperature Source Pulse Rate 100 Respiratory Rate 15 Blood Pressure 139/95 H Blood Pressure Mean 109 Pulse Ox 99 Oxygen Delivery Method Positive well nourished and well developed General Appearance ED: well developed HEENT Reports normocephalic and head/scalp atraumatic Eyes PERRL and EOMs intact bilaterally Neck supple Chest Wall inspection of chest normal and palpation of chest normal Resp normal respiratory effort and clear to auscultation bilaterally Cardio regular rate and regular rhythm GI normal to inspection, nondistended, normoactive bowel sounds Palpation: soft Extremity normal to inspection Neuro oriented x3 Sensorium / Orientation: alert Psych mental status grossly normal Skin no rashes or lesions noted STROKE Vital Signs/Narrative: Vital Signs Temp Pulse Resp BP Pulse Ox 05/16/21 21:34 100 15 139/95 H 99 05/16/21 21:13 97 15 139/94 H 98 05/16/21 21:06 95 15 139/94 H 99 05/16/21 20:52 108 H 16 152/92 H 99 05/16/21 20:44 109 H 20 H 152/92 H 95 05/16/21 20:32 98.1 F 113 H 23 H 174/105 H 98 05/16/21 20:13 98.1 F 113 H 23 H 174/105 H 98 NIHSS Initial: 1a Level of Consciousness: 0 1b LOC Questions (Score 2 if aphasic/stupor): 0 1c LOC Commands (Only score 1st attempt): 0 2 Best Gaze (If aphasic, use reflexive mvmts.): 0 3 Visual: 0 4 Facial Palsy: 2 5 Motor Arm Right (UN = amputation/fusion): 0 5 Motor Arm Left: 4 6 Motor Leg Right: 0 6 Motor Leg Left: 4 7 Limb ataxia (Only + if out of proportion): 0 8 Sensory (Aphasia/stupor=0 or 1, coma=2): 0 9 Best Language: 0 10 Dysarthria (mute, coma=2, intubated=UN): 0 11 Extinction and Inattention (only scored if +): 0 Total Score: 10 MDM MDM MDM Narrative Medical decision making narrative: Patient sent immediately to CT. On return from CT he does have preference gaze to the right. technical asst called and advised there was a large clot in the right carotid artery. I spoke with [facility] neurology. They would like the patient in [place] for perfusion studies to see if clot retrieval will be an option.. Further work-up is still pending at this time. Patient will be given aspirin prior to transfer. Lab Data Attestation: I reviewed the patient's lab results. Labs: Laboratory Results - last 24 hr 05/16/21 05/16/21 05/16/21 20:19 20:30 20:30 WBC 8.6 RBC 4.19 L Hgb 14.4 Hct 42.6 MCV 101.7 H MCH 34.4 H MCHC 33.8 RDW Std Deviation 56.7 H RDW Coeff of Emma 15.2 H Plt Count 268 MPV 8.8 Immature Gran % (Auto) 0.300 Neut % (Auto) 53.4 Lymph % (Auto) 36.0 Norman % (Auto) 7.3 Eos % (Auto) 2.7 Baso % (Auto) 0.3 Absolute Neuts (auto) 4.6 Absolute Lymphs (auto) 3.10 Nucleated RBC % 0 PT 13.4 INR 1.1 APTT 23.1 L Sodium 136 Potassium 3.4 L Chloride 99 Carbon Dioxide 24.0 Anion Gap 13 BUN 9 Creatinine 1.29 Estim Creat Clear Calc 90.53 Est GFR (MDRD) Af Amer 76 Est GFR (MDRD) Non-Af 63 BUN/Creatinine Ratio 7.0 L Glucose 147 H Calcium 8.7 Troponin I High Sens 3.8 POC Glucose 05/16/21 20:32 WBC RBC Hgb Hct MCV MCH MCHC RDW Std Deviation RDW Coeff of Emma Plt Count MPV Immature Gran % (Auto) Neut % (Auto) Lymph % (Auto) Norman % (Auto) Eos % (Auto) Baso % (Auto) Absolute Neuts (auto) Absolute Lymphs (auto) Nucleated RBC % PT INR APTT Sodium Potassium Chloride Carbon Dioxide Anion Gap BUN Creatinine Estim Creat Clear Calc Est GFR (MDRD) Af Amer Est GFR (MDRD) Non-Af BUN/Creatinine Ratio Glucose Calcium Troponin I High Sens POC Glucose 141 H Radiography Diagnostic Testing: Radiology Impression Brain CT 05/16/21 20:13 IMPRESSION: No acute intracranial abnormality. Electronically Signed: Virgil Washington MD at 20:29 EDT Tel , Service support , ADDENDUM: 05/16/212039 IMPRESSION: No acute intracranial abnormality. N.B. : The above Results were Read Back by Virgil Washington MD to Dr. Evie Zapata MD, and understanding confirmed on 05/16/2021 20:34:00 (ET). Electronically Signed: Virgil Washington MD at 20:29 EDT Tel , Service support , Head/Neck CTA 05/16/21 20:13 IMPRESSION: 1. Noncalcified plaque versus thrombus in the right carotid bulb and proximal ICA with greater than 50% stenosis. 2. 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 Otherwise normal [place]. N.B. : The above Results were Read Back by North Marshall DO to Alistair Zapata MD, and understanding confirmed on 05/16/2021 21:03:03 (ET). Electronically Signed: North Marshall DO at 21:05 EDT Tel [phone], Service support , ADDENDUM: 05/16/212111 IMPRESSION: 1. Noncalcified plaque versus thrombus in the right carotid bulb and proximal ICA with greater than 50% stenosis. 2. 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 Otherwise normal [place]. N.B. : The above Results were Read Back by North Marshall DO to Alistair Zapata MD, and understanding confirmed on 05/16/2021 21:03:03 (ET). Electronically Signed: North Marshall DO at 21:05 EDT Tel [phone], Service support , Chest X-Ray 05/16/21 20:40 IMPRESSION: Degenerative changes, as described above. No demonstrated acute cardiopulmonary process. Electronically Signed: North Marshall DO at 21:13 EDT Tel [phone], Service support , EKG Initial EKG: Attestation: I personally reviewed and interpreted this EKG as follows: Interpretation: Sinus Tachycardia (Sinus tach at 107. No acute ST change.) Treatment and Re-Evaluation Comments:: I did discuss the patient with the neurologist on the phone just after the patient had his CTA done. He was able to be him in on the computer and evaluate the patient. Unfortunately her conduction issues making further evaluation difficult. I did speak with him on the phone again after he was able to review the CTA himself. He felt that the patient had approximately 90% blockage of the right internal carotid. To help prevent any further occlusion he did ask for a heparin bolus and drip to be started. Patient failed his bedside swallow study. Rectal aspirin was given. Due to poor weather patient was not able to be flown. Ground transport did take the patient to [facility] for further evaluation. Stroke Documentation Questions Stroke Team Activated: Yes Was Patient considered for Endovascular Intervention?: Yes IV Alteplase (t-PA) Administered: No Critical Care Time Critical Care Time: Yes Critical care time (excluding procedures): 30-74 minutes (30 minutes) Discharge Plan Triage Chief Complaint: Neuro S/Sx ED Provider: Suze Zapata Dx/Rx/DC Orders Clinical Impression: Acute ischemic stroke Prescriptions: No Action aspirin 81 MG tablet,chewable 81 mg PO DAILY@0800 Qty: 90 RF: 0 clopidogrel 75 mg Tablet 75 mg PO DAILY RF: 0 sildenafil 100 mg Tablet 100 mg PO DAILY RF: 0 divalproex 500 mg tablet extended release 24 hr 1,000 mg PO QHS RF: 0 atorvastatin 40 mg tablet 40 mg PO QHS Qty: 90 RF: 3 hydrochlorothiazide 12.5 mg capsule 12.5 mg PO DAILY Qty: 90 RF: 3 losartan 25 mg tablet 25 mg PO DAILY Qty: 90 RF: 3 metoprolol tartrate 50 mg tablet 50 mg PO BID Qty: 180 RF: 3 Primary Care Provider: Alexander Adam Referrals: Alexander Adam MD [Primary Care Provider] - Disposition Disposition: Acute Care Hospital Discharge Location: [facility] [place] Discharge Date/Time: 05/16/21 21:35
[2021-05-16 20:39] LABS: Absolute Neutrophil Count 4.6 X10^3/uL (2.0-7.7); Basophil# 0.03 X10^3/uL; Basophil% 0.3 % (0-1); Eosinophil# 0.23 X10^3/uL; Eosinophils% 2.7 % (0-5); Hematocrit 42.6 % (40-54); Hemoglobin 14.4 g/dL (13.0-16.5); Mean Corp Hgb Conc 33.8 g/dL (32-36); Mean Corpuscular Hgb 34.4 pg (27.0-32.0); Mean Corpuscular Volume 101.7 fL (80-94); Mean Platelet Vol. 8.8 fl (6.2-12.0); Monocyte# 0.63 X10^3/uL; Monocyte% 7.3 % (0-10); NRBC Flagged by Analyzer 0 % (0-5); Neutrophil # 4.59 X10^3/uL (2.7-7.7); Neutrophil % 53.4 % (47-70); Platelet Count 268 K/mm3 (150-450); RBC Distribution Width CV 15.2 % (11.6-14.6); RBC Distribution Width SD 56.7 fl (35.1-43.9); Red Blood Count 4.19 M/mm3 (4.6-6.2); White Blood Count 8.6 K/mm3 (4.4-11.0)
--- NOTE | 2021-05-16 20:40 | RAD_ITS ---
STUDY: X-RAY CHEST REASON FOR EXAM: Male, 46 years old. Acute stroke suspected. Neuro deficit. TECHNIQUE: Single AP portable view of the chest. COMPARISON: 12/18/2017 FINDINGS: The lungs are clear and expanded. There is no demonstrated pleural abnormality. Normal size heart. Normal mediastinum and frank. Normal visualized pulmonary arteries. Normal visualized aortic arch and descending thoracic aorta. There are diffuse degenerative changes of the visualized thoracic spine. Normal visualized ribs, clavicles, and shoulders. There is no demonstrated abnormality of the visualized soft tissue structures of the upper abdomen. RAD/Chest 1 View IMPRESSION: Degenerative changes, as described above. No demonstrated acute cardiopulmonary process. Electronically Signed: North Marshall DO at 21:13 EDT Tel [phone], Service support ,
[2021-05-16 20:41] LABS: Bedside Glucose 141 mg/dL (70-110)
[2021-05-16 20:52] LABS: International Normalized Ratio 1.1; Partial Thromboplast Time 23.1 Seconds (24.1-36.2); Prothrombin Time (Protime)PT. 13.4 SECONDS (11.7-14.9)
[2021-05-16] MEDS: Aspirin 300 MG Suppository RC (20:54)
[2021-05-16] MEDS: HEPARIN/D5w 25,000 UNITS 25,000 UNITS/250 ML IV.SOLN. 16 UNITS IV (20:58)
[2021-05-16 21:00] LABS: Anion Gap 13 (5-15); BUN 9 mg/dL (7-18); Calcium,Total 8.7 mg/dL (8.5-10.1); Chloride 99 mmol/L (98-107); Creatinine, Serum 1.29 mg/dL (0.70-1.30); EST Glomerular Filtration Rate 63 mL/min (>60); Est Glom Filt Rate - Afr Amer 76 mL/min (>60); Estimated Creatinine Clearance 90.53 ml/min; Glucose 147 mg/dL (74-106); Potassium 3.4 mmol/L (3.5-5.1); Sodium Level 136 mmol/L (136-145); Troponin-I HS 3.8 pg/mL (3.0-78.5)
[2021-05-16] MEDS: Heparin Injection (Vial) 5,000 UNIT/ML VIAL 9500 UNIT IV (21:01)
== END 2021-05-16 21:35 | disposition short-term general hospital (02) ==
PROVIDERS: Emergency Provider Emergency Medicine; PCP Family Medicine
DX: I63.231 Cerebral infarction due to unspecified occlusion or stenosis of right carotid arteries (principal); G83.24 Monoplegia of upper limb affecting left nondominant side; R29.710 NIHSS score 10; I25.10 Atherosclerotic heart disease of native coronary artery without angina pectoris; I48.91 Unspecified atrial fibrillation; I25.2 Old myocardial infarction; I10 Essential (primary) hypertension; E78.5 Hyperlipidemia, unspecified; F17.210 Nicotine dependence, cigarettes, uncomplicated; Z95.5 Presence of coronary angioplasty implant and graft; Z79.82 Long term (current) use of aspirin; Z79.02 Long term (current) use of antithrombotics/antiplatelets; Z79.899 Other long term (current) drug therapy
CPT/HCPCS: 70450; 70496; 70498; 71045; 80048; 82962; 84484; 85025; 85610; 85730; 93005; 96365; 96376; 99285; Q9967; A4216

== ENCOUNTER 2021-05-23 12:28 | Inpatient (IN) | payer OTHER, SELFPAY ==
[2021-05-23 12:43] VITALS: BP 124/87; PULSE 69; RESP 18; TEMP 36.4; O2SAT 97
--- NOTE | 2021-05-23 14:49 | EX.PCM.HP.RE ---
[facility] - General General Date of Admission: 05/23/21 Date of Service: 05/23/21 Chief Complaint: Debility secondary to large embolic ischemic CVA in the right frontal, temporal, parietal and occipital lobes with petechial hemorrhagic transformation. HPI Narrative DOMENICO FERREIRA, is a 46 YO M with a PMH of BPD, tobacco dependence, CAD, obesity, PAF(not on anticoagulation), HTN, ED, migraines, dyslipidemia and daily alcohol consumption who presented to an O[facility] ED on 05/17/21 with c/o Left side weakness and numbness and facial droop. A noncontrasted head CT showed no acute findings. CTA showed large subocclusive clot in the proximal right internal carotid artery. He was given a rectal ASA. Telestroke Consult was obtained with Dr. Earl. The pt was outside the window for TPA. Dr. Earl recommended transfer to [facility] for possible mechanical thrombectomy. He was not eligible for clot retrieval due to the proximal location of the clot in the R carotid artery bifurcation. He was placed on a heparin drip. Hemoglobin A1c was 5.4 and the LDL was 81. Echocardiogram showed normal left ventricular size and wall thickness. There were no regional wall motion abnormalities and the ejection fraction was normal. There was no significant valvular heart disease. There was no PFO. He had no intervention while at [facility]. He was seen by PT/OT/ST and recommendation was for an acute rehab unit at [facility]. He was transferred to [facility] acute rehab unit on 05/23/21 for 3 hours of therapy daily to restore function/independence at or near his prior level. 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 His 's name is Claudia and they have 4 children. He was diagnosed with BPD within the past few years and he saw Dr. Krause at behavioral Health at [facility]. He was placed on Depakote. His tells that sometimes he gets very depressed. He thinks his father was bipolar but, he does not know much about his father and they are estranged. He is crying frequently now and is very worried about his future. He wants to know if he will get all better or if he will be like this the rest of his life. He was able to quit smoking for a time after the PTCA of the RCA in 2018 but, he has gone back to smoking. He also tells me that he never drinks when he is on the road but when he is at home he will drink 2 12 packs of beer a week and 2 shots a day. He binges when he gets home. He is craving a cigarette now. He quit with a nicotine patch in the past. [facility] Medical History (Updated 05/23/21 @ 17:[address] Sandra Barbosa DO) Alcohol use Atherosclerosis of coronary artery of [place] heart without angina pectoris Atrial fibrillation with RVR Bipolar disorder Erectile dysfunction Essential hypertension Hyperlipidemia NSTEMI (non-ST elevated myocardial infarction) Presence of stent in coronary artery (~12/21/17) Home Medications divalproex 500 mg tablet,extended release 24 hr 1,000 mg PO QHS tab 05/28/20 [History Last Taken Unknown] clopidogrel 75 mg PO DAILY 05/16/21 [History Last Taken Unknown] sildenafil 100 mg PO DAILY 05/16/21 [History Last Taken Unknown] aspirin 81 mg PO DAILY@0800 05/23/21 [History Last Taken Unknown] atorvastatin 40 mg PO QHS 05/23/21 [History Last Taken Unknown] hydrochlorothiazide 12.5 mg PO DAILY 05/23/21 [History Last Taken Unknown] losartan 25 mg PO DAILY 05/23/21 [History Last Taken Unknown] metoprolol tartrate 50 mg PO BID 05/23/21 [History Last Taken Unknown] Allergy/AdvReac Type Severity Reaction Status Date / Time No Known Allergies Allergy Verified 11/14/19 14:52 Family History Mother No problems noted. Surgical History History of hand surgery Presence of coronary angioplasty implant and graft Social History (Updated 05/23/21 @ 17:[address] Sandra Barbosa DO) Smoking Status: Current every day smoker tobacco type: cigarettes alcohol intake: current alcohol intake frequency: a few times a week Alcohol type: beer, wine and hard liquor details: 2 12pks a week and 2 shots a day - binges. Does not drink when on the road substance use type: does not use caffeine: Yes Type: carbonated beverages what type of physical activity do you participate in: none seatbelt use: never do you feel safe at home: Yes ROS Constitutional Constitutional: Reports headache(s); Denies chills or difficulty sleeping Eyes Eyes: Denies blurry vision, change in vision or discharge from eye(s) ENT HEENT: Reports headache(s); Denies loss taste/smell, nasal congestion, nasal discharge, odynophagia, rhinorrhea or sore throat Cardiovascular Cardiovascular: Denies chest pain, dizziness, dyspnea or leg edema Respiratory/Chest Respiratory/Chest: Denies dyspnea, nail bed cyanosis, portable oxygen @ home, productive cough, restlessness or wheezing Gastrointestinal Gastrointestinal: Reports dysphagia; Denies belching, bloating, cramping, fecal incontinence, heartburn or vomiting Genitourinary Genitourinary: Reports other Details: He has a condom cath in place from the other hospital. It has been removed. He is able to use a urinal ; Denies burning urination Musculoskeletal Musculoskeletal: Reports back pain Integumentary Integumentary: Denies non-healing lesions, photosensitivity, pruritus, unusual bruising or wounds Neurologic Neurologic: Reports abnormal gait, focal weakness and other Details: please see the NIHSS exam ; Denies convulsions, dizziness, loss of vision, numbness or seizures Psychiatric Psychiatric: Reports anhedonia, behavioral changes and depression; Denies auditory hallucinations, confusion, hallucinations, homicidal ideation, irritability, suicidal ideation or suicidal thoughts Endocrine Endocrinology: Reports systems reviewed and no addt'l complaints, except as documented Hematologic/Lymphatic Hematologic/Lymphatic: Denies easy bleeding or easy bruising Allergic/Immunologic Allergic/Immunologic: Denies rhinitis, eczemia or wheezing Vital Signs Vital Signs Vital Signs: 05/23/21 12:43 Temperature 97.5 F L Temperature Source Oral Pulse Rate 69 Respiratory Rate 18 Blood Pressure 124/87 H Blood Pressure Mean 99 Blood Pressure Source Monitor Blood Pressure Position Semi-Fowlers Blood Pressure Location Right Arm Pulse Ox 97 Oxygen Delivery Method Room Air Weight Weight: 260 lb Body Mass Index (BMI) 30.0 Indicators for Scoring Admitted with or Primary Diagnosis of CVA/Stroke: No Hx of CVA/Stroke: Yes Modified [place] Score MRS Score at time of Evaluation: 5-Severe disability NIHSS NIHSS 1a. Level of Consciousness: Alert; keenly responsive 1b. LOC Questions: Answers BOTH questions correctly. 1c. LOC Commands: Performs both tasks correctly. 2. Best Gaze: Normal 3. Visual: No visual loss 4. Facial Palsy: Minor paralysis (flattened nasolabial fold, asymmetry on smiling) 5a. Left Arm: No movement 5b. Right Arm: No drift; arm holds 90 (or 45) degrees for full 10 seconds 6a. Left Leg: Some effort against gravity; 6b. Right Leg: No drift; leg holds 30-degree position for full 5 seconds 7. Limb Ataxia: Absent 8. Sensory: Normal; no sensory loss 9. Best Language: No aphasia; normal 10. Dysarthria: Normal 11. Extinction and Inattention: No abnormality Total: 7 Stroke Questions Stroke Team Activated: No IV TPA Administered: No Critical care time (excluding procedures): - (This is an admission to rehab AFTER the stroke) Physical Exam Const alert and oriented x3 Constitutional Narrative: tearful and emotionally upset and depressed General Appearance: cooperative, well kempt and well developed HEENT normocephalic, head/scalp atraumatic and moist oral mucous membranes HEENT Narrative: tongue deviates to the left. Eyes PERRL, EOMs intact bilaterally and no scleral icterus Neck No nuchal rigidity, supple, no JVD and No no carotid bruits Chest Chest: symmetrical chest wall rise Resp normal respiratory effort, normal air movement, no use of accessory muscles and clear to auscultation bilaterally Resp Narrative: Not tachypneic and no conversational dyspnea. Effort and Inspection: able to speak in complete sentences Cardio regular rate, regular rhythm, S1 normal heart sound, S2 normal heart sound, no murmurs, no rub and no gallops GI soft to palpation, non-tender and non-distended GI Narrative: No guarding with palpation. Normal bowel sounds. Narrative: He has a condom cath present - placed at the other hospital because he could not make it to the bathroom it time/for convenience. He is able to use a urinal Extremity normal capillary refill, no joint enlargement, no calf tenderness and no pedal edema Peripheral Pulses: Yes pulses 2+ throughout Skin General Skin Exam: no breakdown Rashes: no rashes Neuro Neuro Narrative: Please see the NIHSS documentation. Psych mental status grossly normal, thought process normal and cooperative Psych Narrative: depressed affect Appearance: grossly normal, appropriate and well kempt Attitude: calm Activity / Motor Behavior: other eye contact is off and on and I had to ask him to look at me a few times Speech: normal speech Assessment & Plan Assessment/Plan (1) Physical debility: (2) Acute ischemic stroke: (3) Atrial fibrillation with RVR: (4) Oropharyngeal dysphagia: (5) Left hemiplegia: (6) Cognitive dysfunction: (7) Facial droop due to stroke: (8) Bipolar disorder: (9) Atherosclerosis of coronary artery of [place] heart without angina pectoris: QUALIFIERS: Coronary Disease-Associated Artery/Lesion type: [place] artery Qualified Code(s): I25.10 - Atherosclerotic heart disease of [place] coronary artery without angina pectoris (10) Presence of stent in coronary artery: (11) Essential hypertension: (12) Hyperlipidemia: (13) Obesity: (14) Overweight (BMI 25.0-29.9): PLAN: PLAN PT for gait stability OT for ADL's ST for evaluation Analgesics as needed Bowel protocol Fall precautions Assess for Anxiety/Depression. I left a VM on the office phone of Dr. Krause in spring asking him to call me because I feel Aníbal needs a antidepressant. GI prophylaxis not necessary] DVT prophylaxis not necessary - he is on full dose anticoagulation for PAF. Follow up with Dr. Adam and neurology following DC from [facility] AM lab including CMP, CBC, Mag, valproic acid level and Phos Overnight trending pulse ox - The PAF may be due to binge drinking/holiday heart but, he snores and may have sleep apnea that has been undiagnosed. Charges/Coding Visit Charges Inpatient E&M: 39538 Init Hosp L3
[2021-05-23 15:30] VITALS: O2SAT 93
--- NOTE | 2021-05-23 15:42 | REHABEVAL_ITS ---
Admission Information Primary Diagnosis:: Debility secondary to recent large right cerebral hemisphere CVA Actual Problem List:: Cognitve Impr/Memory Loss, Depression, Bladder Incontinence, Bowel, Incontinence, Mobility Impaired, Self Care Deficit, Ineffective Communication, Know.Dfct/Disease Process, Know.Dfct of Medicaitons and BP, Hypertension Potential Problem List:: DVT, Bleeding, Infection, UTI, Aspiration, Falls, Skin Integrity and Depression Risk of Complications DVT: SIMONA Hose and - (Apixaban 5 mg p.o. twice daily) Bleeding: Monitor Lab Values, Nursing to Teach Precautions for anti-coagulation therapy., Wound, if applicable, to be assessed every shift. and Stroke patients assessed for lethargy or change in status. Infection: Clinical Staff to Monitor for S/S of infection: and S/S of infection include fever, redness, warmth, etc. Urinary Tract Infection: Monitor for frequency, burning, discomfort, or incontinence. and Nursing will obtain urine sample for urinalysis and C&S when ordered. Aspiration: Clinical staff will monitor for coughing, drooling, congestion., Speech will evaluate swallowing and dsyphasia. and Nursing will monitor patient swallowing during meals. Falls: Patient will be evaluated for Fall Precautions and Patient will be placed on Fall Precautions as indicated per protocol. Skin Breakdown: Nursing will assess skin daily using assessment tool. and Nursing will place on Skin Breakdown Precautions as indicated. Pain: Clinical staff will assess patient's pain level per protocol., Medications will be given, if needed, and the pain level reassessed. and Other methods: Massage, distraction, decrease stimulus, etc. used PRN. Plan of Care Patient requires physician specializing in physical medicine and rehab oversight to provide close medical supervision of rehab issues including: Pain Management, Sleep Problems, Bowel and Bladder, Medical and co-morbidity Management, DVT prophylaxis, Rehabilitation Leadership and Coordination of treatment team Patient needs Physical Therapy: For a minimum of 1 hour and At least 5 out of 7 days Patient needs Physical Therapy to improve:: Mobility, Strengthening, Transfers, Stretching, ROM, Endurance, Stairs, Gait and Balance Patient needs Occupational Therapy: For a minimum of 1 hour and At least 5 out of 7 days Patient needs Occupational Therapy to improve ADL's incl.: Eating, Grooming, Bathing, Dressing, Toileting, Toilet transfers, Community Reintegration, Higher functioning activities, Household tasks, Adaptive Equipment, Splinting and Other activities as determined Patient requires speech therapy: For a minimum of 1 hour and At least 5 out of 7 days Patient requires speech therapy for: Swallowing, Cognition, Language Skills and Compensatory Strategies Patient requires 24/7 Rehabilitation Nursing for: Pain Issues, Identifying and preventing risk factors, Monitoring and reporting current medical conditions, Assisting with ambulation, transfer, and all ADL's, Teaching patients about disease process and medications, Family teaching, Providing safe environment, Bowel and Bladder Issues, Skin integrity and Medication Management Patient needs Land Reclamation Specialist/ Case Management for: Discharge Planning, Arranging Home Equipment or Services and Family Interventions Patient needs Dietary and Nutrition Services for: Adequate Nutrition, Nutritional Supplements and Nutritional Education Goals Patient will remain: free from falls and or injury at time of discharge. Patient will perform bed mobility at: MOD I level of assist. Patient will complete transfers from bed to chair at: MOD I level of assist. Patient will ambulate: 100 feet and with LRD Patient will complete upper body dressing at: MOD I level of assist. Patient will complete lower body dressing at: MOD I level of assist. Patient will complete toileting at: MOD I level of assist. Patient will perform bathing at: MOD I level of assist. Patient will complete grooming at: MOD I level of assist. Patient will complete home management skills at: MOD I level of assist. Patient will achieve: - (1 curb step and 14 steps with 1 handrail at contact- guard assist) Patient will have pain level of: of 3 or less Patient's skin will: remain intact Patient will receive: adequate nutrition. Discharge Planning Pt Prognosis for Sig. Practical Improv. w/in Reasonable Time: Good Estimated Length of stay (days): 28 Anticipated D/C Destination: Home Was Preadmission Assessment Accurate?: Yes
[2021-05-23] MEDS: Divalproex Sodium 250 MG Tablet 500 MG PO (17:13)
[2021-05-23 17:45] VITALS: O2SAT 96
[2021-05-23] MEDS: NYSTATIN 500,000 UNIT/5 ML UDC 500000 UNIT PO ×2 (18:35→22:28)
[2021-05-23 21:50] VITALS: BP 151/88; PULSE 93; RESP 16; TEMP 36.6; O2SAT 97
[2021-05-23 22:00] VITALS: PULSE 86; O2SAT 93
[2021-05-23 22:26] VITALS: BP 151/88; PULSE 93
[2021-05-23] MEDS: Metoprolol Tartrate 25 MG Tablet 12.5 MG PO (22:26)
[2021-05-23] MEDS: APIXABAN 5 MG TABLET PO (22:28)
[2021-05-23] MEDS: Atorvastatin Calcium 80 MG Tablet PO (22:28)
[2021-05-24 01:55] LABS: Bacteria 0 SEEN /hpf (None Seen); Mucous, Urine 0 SEEN /hpf (<or=2+); Red Blood Cells-Urine 0 SEEN /hpf (0-5); Squamous Epithelial Cells - UA 0 SEEN /hpf (0-5)
[2021-05-24 02:12] LABS: Color, Urine Yellow (Yellow); Glucose, Dipstick Normal (Normal); Ketone-Dipstick Negative (Negative); Leukocyte Esterase-Dipstick 25 /ul (Negative); Nitrite-Dipstick Negative (Negative); Occult Blood-Urine Negative /ul (Negative); Protein-Dipstick Negative (Negative); Specific Gravity, Urine 1.005 (1.002-1.030); Urine Bilirubin Dipstick Negative (Negative); Urine Clarity Clear (Clear); Urine Urobilinogen 4 mg/dl (Normal)
[2021-05-24 02:18] LABS: White Blood Cells 0-5 SEEN /hpf (0-5)
[2021-05-24 05:38] LABS: Hemoglobin 14.8 g/dL (13.0-16.5); Mean Corp Hgb Conc 34.4 g/dL (32-36); Mean Corpuscular Hgb 34.8 pg (27.0-32.0); Mean Corpuscular Volume 101.2 fL (80-94); Mean Platelet Vol. 9.7 fl (6.2-12.0); Platelet Count 311 K/mm3 (150-450); RBC Distribution Width CV 13.7 % (11.6-14.6); RBC Distribution Width SD 51.3 fl (35.1-43.9); Red Blood Count 4.25 M/mm3 (4.6-6.2); White Blood Count 8.4 K/mm3 (4.4-11.0)
[2021-05-24 06:06] LABS: Valproic Acid (Depakene) Level 86 ug/mL (50-100)
[2021-05-24 06:07] LABS: ALB/GLOB Ratio 0.7 RATIO (0.9-2.4); AST(SGOT) 25 U/L (15-37); Alanine Aminotransfer ALT/SGPT 26 U/L (16-61); Albumin, Serum 3.1 g/dL (3.2-5.0); Alkaline Phosphatase 82 U/L (45-117); Anion Gap 7 (5-15); BUN 15 mg/dL (7-18); BUN/Creat Ratio 15.2 RATIO (10-20); Calcium,Total 9.1 mg/dL (8.5-10.1); Chloride 98 mmol/L (98-107); Creatinine, Serum 0.98 mg/dL (0.70-1.30); EST Glomerular Filtration Rate 86 mL/min (>60); Est Glom Filt Rate - Afr Amer 104 mL/min (>60); Estimated Creatinine Clearance 119.17 ml/min; Globulin 4.6 g/dL (2.2-4.2); Glucose 93 mg/dL (74-106); Magnesium 2.1 mg/dL (1.6-2.6); Phosphorus 3.6 mg/dL (2.5-4.9); Potassium 4.4 mmol/L (3.5-5.1); Protein, Total 7.7 g/dL (6.4-8.2); Sodium Level 131 mmol/L (136-145)
[2021-05-24] MEDS: Divalproex Sodium 250 MG Tablet 500 MG PO ×3 (07:45→21:30)
[2021-05-24] MEDS: Clopidogrel Bisulfate 75 MG Tablet PO (07:45)
[2021-05-24 07:46] VITALS: PULSE 70
[2021-05-24] MEDS: APIXABAN 5 MG TABLET PO ×2 (07:46→21:30)
[2021-05-24] MEDS: Metoprolol Tartrate 25 MG Tablet 12.5 MG PO ×2 (07:46→21:31)
[2021-05-24] MEDS: NYSTATIN 500,000 UNIT/5 ML UDC 500000 UNIT PO ×4 (07:50→21:31)
[2021-05-24 08:17] VITALS: BP 111/77; PULSE 76; RESP 18; TEMP 36.8; O2SAT 93
[2021-05-24 08:30] VITALS: O2SAT 94
[2021-05-24] MEDS: Menthol/Lanolin/Calamine/Znox 113 GM Tube 1 APPLIC TOPICAL ×2 (14:16→21:30)
[2021-05-24 19:58] VITALS: BP 132/69; PULSE 78; RESP 18; TEMP 36.6; O2SAT 93
[2021-05-24] MEDS: Atorvastatin Calcium 80 MG Tablet PO (21:30)
[2021-05-24 21:31] VITALS: BP 132/69; PULSE 78
--- NOTE | 2021-05-25 04:34 | NURSING ---
Reviewed and agree with PETROLOGIST assessment
[2021-05-25] MEDS: Menthol/Lanolin/Calamine/Znox 113 GM Tube 1 APPLIC TOPICAL ×3 (06:29→21:41)
[2021-05-25 07:10] VITALS: O2SAT 92
[2021-05-25 08:31] VITALS: BP 117/70; PULSE 68; RESP 18; TEMP 36.5; O2SAT 94
[2021-05-25 08:51] VITALS: PULSE 70
[2021-05-25] MEDS: Divalproex Sodium 250 MG Tablet 500 MG PO ×3 (08:51→21:40)
[2021-05-25] MEDS: Senna/Docusate Sodium 1 Tablet 2 TABLET PO (08:51)
[2021-05-25] MEDS: Metoprolol Tartrate 25 MG Tablet 12.5 MG PO ×2 (08:51→21:40)
[2021-05-25] MEDS: APIXABAN 5 MG TABLET PO ×2 (08:51→21:39)
[2021-05-25] MEDS: NYSTATIN 500,000 UNIT/5 ML UDC 500000 UNIT PO ×4 (08:53→21:41)
[2021-05-25] MEDS: Clopidogrel Bisulfate 75 MG Tablet PO (08:53)
[2021-05-25 21:40] VITALS: BP 112/76; PULSE 75
[2021-05-25] MEDS: Atorvastatin Calcium 80 MG Tablet PO (21:40)
[2021-05-25 22:00] VITALS: BP 112/76; PULSE 75; RESP 16; TEMP 36.4; O2SAT 97
[2021-05-26] MEDS: Menthol/Lanolin/Calamine/Znox 113 GM Tube 1 APPLIC TOPICAL ×3 (06:00→21:13)
[2021-05-26 08:10] VITALS: PULSE 78
[2021-05-26] MEDS: APIXABAN 5 MG TABLET PO ×2 (08:10→21:06)
[2021-05-26] MEDS: Metoprolol Tartrate 25 MG Tablet 12.5 MG PO ×2 (08:10→21:08)
[2021-05-26] MEDS: Divalproex Sodium 250 MG Tablet 500 MG PO ×3 (08:10→21:06)
[2021-05-26] MEDS: NYSTATIN 500,000 UNIT/5 ML UDC 500000 UNIT PO ×4 (08:10→21:07)
[2021-05-26] MEDS: Clopidogrel Bisulfate 75 MG Tablet PO (08:10)
[2021-05-26 08:14] VITALS: BP 117/72; PULSE 60; RESP 18; TEMP 36.2; O2SAT 98
[2021-05-26] MEDS: Atorvastatin Calcium 80 MG Tablet PO (21:06)
[2021-05-26 21:08] VITALS: BP 122/77; PULSE 70
[2021-05-26 21:15] VITALS: BP 122/77; PULSE 70; RESP 18; TEMP 36.5; O2SAT 98
[2021-05-27] MEDS: Menthol/Lanolin/Calamine/Znox 113 GM Tube 1 APPLIC TOPICAL ×3 (07:09→20:32)
[2021-05-27 07:30] VITALS: BP 114/76; PULSE 72; RESP 18; TEMP 36.5; O2SAT 98
[2021-05-27 08:27] VITALS: BP 114/76; PULSE 72
[2021-05-27] MEDS: Metoprolol Tartrate 25 MG Tablet 12.5 MG PO ×2 (08:27→20:33)
[2021-05-27] MEDS: Clopidogrel Bisulfate 75 MG Tablet PO (08:28)
[2021-05-27] MEDS: Divalproex Sodium 250 MG Tablet 500 MG PO ×3 (08:28→20:32)
[2021-05-27] MEDS: APIXABAN 5 MG TABLET PO ×2 (08:28→20:31)
[2021-05-27] MEDS: NYSTATIN 500,000 UNIT/5 ML UDC 500000 UNIT PO ×4 (08:35→20:31)
--- NOTE | 2021-05-27 12:08 | PCM.PN.BLA ---
Progress Note Aníbal was seen on TEAM rounds today. His Claudia participated by phone. Afebrile VSS-blood pressures well controlled. Maintaining appropriate oxygen saturation on RA Oral intake is good Discussed with nursing - He is requesting Melatonin and a nicotine patch. Reviewed the PT/OT/ST notes Medication list reviewed. Physical Exam Const alert, oriented x3 and no apparent distress General Appearance: cooperative, comfortable, well kempt and well developed HEENT normocephalic, head/scalp atraumatic and moist oral mucous membranes Eyes PERRL, EOMs intact bilaterally and no scleral icterus Visual Field: other Other Details: no visual field cuts Neck No nuchal rigidity, supple, no JVD and No no carotid bruits Chest Chest: symmetrical chest wall rise Resp normal respiratory effort, normal air movement, no use of accessory muscles and clear to auscultation bilaterally Resp Narrative: Not tachypneic and no conversational dyspnea. Effort and Inspection: able to speak in complete sentences Cardio regular rate, regular rhythm, S2 normal heart sound, no murmurs, no rub and no gallops GI normal to inspection, nondistended, normoactive bowel sounds, soft to palpation, non-tender and non-distended GI Narrative: No guarding with palpation. Normal bowel sounds. Narrative: incontinent of urine at times. Extremity normal capillary refill, no joint enlargement, no calf tenderness and no pedal edema Skin General Skin Exam: no breakdown Rashes: no rashes Neuro Neuro Narrative: Please see the NIHSS documentation. Psych mental status grossly normal, thought process normal and cooperative Appearance: grossly normal, appropriate and well kempt Attitude: calm Activity / Motor Behavior: other eye contact is off and on and I had to ask him to look at me a few times Speech: normal speech Assessment & Plan Assessment/Plan (1) Physical debility: (2) Cognitive dysfunction: (3) Left hemiplegia: (4) Bipolar disorder: (5) Acute ischemic stroke: (6) Urinary incontinence: PLAN: 1. continue therapy 2. start Sertraline at a low dose and observe for any sx of hypomania 3. alcohol and tobacco cessation counselling again today. 3. RX a Nictotine patch and Melatonin. 4. give the second dose of Depakote at HS which is how he takes it at home. the Valproic acid level is WNL. Visit Charges Inpatient E&M: 55782 Subs Hosp L2
[2021-05-27] MEDS: Sertraline 50 MG Tablet PO (14:26)
--- NOTE | 2021-05-27 14:30 | CASEMGMT ---
Social Work Team meeting held today with pt present and on conference call. Pt is currently receiving PT/OT/ST and making functional gains. SW explained that pt insurance update is 05/31 and continued stay is not guaranteed. Pt plans to return home with his at time of discharge. Barriers include bedroom and bathroom on second story and pt does work outside the home. Will continue with treatment plan and reteam next week. AL Muller
[2021-05-27 19:25] VITALS: BP 132/71; PULSE 72; RESP 18; TEMP 36.1; O2SAT 96
[2021-05-27 20:15] VITALS: PULSE 72; RESP 18; O2SAT 96
[2021-05-27] MEDS: Atorvastatin Calcium 80 MG Tablet PO (20:31)
[2021-05-27] MEDS: MELATONIN 3 MG TABLET PO (20:32)
[2021-05-27 20:33] VITALS: BP 132/71; PULSE 72
[2021-05-27] MEDS: Nystatin Powder 15gm Bottle 1 APPLIC TOPICAL (20:34)
--- NOTE | 2021-05-28 04:35 | NURSING ---
reviewed and agree with gear design engineer documentation and charting.
[2021-05-28] MEDS: Sertraline 50 MG Tablet PO (08:39)
[2021-05-28] MEDS: NYSTATIN 500,000 UNIT/5 ML UDC 500000 UNIT PO ×4 (08:39→22:41)
[2021-05-28] MEDS: APIXABAN 5 MG TABLET PO ×2 (08:39→22:39)
[2021-05-28] MEDS: Clopidogrel Bisulfate 75 MG Tablet PO (08:39)
[2021-05-28] MEDS: Divalproex Sodium 250 MG Tablet 500 MG PO ×3 (08:39→22:40)
[2021-05-28 08:40] VITALS: BP 138/72; BP 138/75; PULSE 72; RESP 18; TEMP 36.7; O2SAT 94
[2021-05-28] MEDS: Metoprolol Tartrate 25 MG Tablet 12.5 MG PO ×2 (08:40→22:41)
[2021-05-28 19:19] VITALS: BP 148/75; PULSE 74; RESP 16; TEMP 36.6; O2SAT 93
[2021-05-28] MEDS: MELATONIN 3 MG TABLET PO (22:39)
[2021-05-28] MEDS: Atorvastatin Calcium 80 MG Tablet PO (22:40)
[2021-05-28] MEDS: Menthol/Lanolin/Calamine/Znox 113 GM Tube 1 APPLIC TOPICAL (22:40)
[2021-05-28 22:41] VITALS: BP 148/75; PULSE 74
[2021-05-28 22:45] VITALS: PULSE 74; RESP 16; O2SAT 93
[2021-05-29] MEDS: Menthol/Lanolin/Calamine/Znox 113 GM Tube 1 APPLIC TOPICAL ×3 (06:34→23:04)
--- NOTE | 2021-05-29 07:37 | NURSING ---
pt refused teds this am , pt educated on the risks of not wearing teds, pt acknowledged
[2021-05-29 07:48] VITALS: BP 115/68; PULSE 62; RESP 18; TEMP 36.6; O2SAT 94
[2021-05-29 08:20] VITALS: BP 115/68; PULSE 62
[2021-05-29] MEDS: APIXABAN 5 MG TABLET PO ×2 (08:20→23:00)
[2021-05-29] MEDS: Divalproex Sodium 250 MG Tablet 500 MG PO ×3 (08:20→23:00)
[2021-05-29] MEDS: Sertraline 50 MG Tablet PO (08:20)
[2021-05-29] MEDS: Metoprolol Tartrate 25 MG Tablet 12.5 MG PO ×2 (08:20→23:06)
[2021-05-29] MEDS: NYSTATIN 500,000 UNIT/5 ML UDC 500000 UNIT PO ×4 (08:20→23:01)
[2021-05-29] MEDS: Clopidogrel Bisulfate 75 MG Tablet PO (08:20)
[2021-05-29 19:06] VITALS: BP 144/72; PULSE 72; RESP 18; TEMP 36.4; O2SAT 96
[2021-05-29] MEDS: Atorvastatin Calcium 80 MG Tablet PO (23:00)
[2021-05-29] MEDS: MELATONIN 3 MG TABLET PO (23:00)
[2021-05-29 23:06] VITALS: BP 121/72; PULSE 66
--- NOTE | 2021-05-30 04:13 | NURSING ---
Reviewed and agree with COLLEGE ARCHIVIST assessment.
[2021-05-30] MEDS: Menthol/Lanolin/Calamine/Znox 113 GM Tube 1 APPLIC TOPICAL ×3 (05:57→20:42)
[2021-05-30 08:24] VITALS: BP 121/77; PULSE 66
[2021-05-30] MEDS: Divalproex Sodium 250 MG Tablet 500 MG PO ×3 (08:24→20:22)
[2021-05-30] MEDS: APIXABAN 5 MG TABLET PO ×2 (08:24→20:22)
[2021-05-30] MEDS: Metoprolol Tartrate 25 MG Tablet 12.5 MG PO ×2 (08:24→20:22)
[2021-05-30] MEDS: NYSTATIN 500,000 UNIT/5 ML UDC 500000 UNIT PO ×4 (08:25→20:24)
[2021-05-30] MEDS: Clopidogrel Bisulfate 75 MG Tablet PO (08:25)
[2021-05-30] MEDS: Sertraline 50 MG Tablet PO (08:26)
[2021-05-30 08:35] VITALS: BP 121/77; PULSE 66; RESP 18; TEMP 36.5; O2SAT 97
--- NOTE | 2021-05-30 09:20 | PCM.PN.BLA ---
Progress Note Afebrile VSS-blood pressure is well controlled and the heart rate is within normal limits. Maintaining appropriate oxygen saturation on RA Oral intake is good Discussed with nursing - no problems that need addressed Reviewed the PT/OT/ST notes Medication list reviewed. Tolerating the Sertraline with no adverse reactions. Assessment & Plan Assessment/Plan (1) Physical debility: PLAN: Recheck a BMP in the AM Continue Therapy He is still wanting to smoke. Will recommend the smoking cessation program to him
[2021-05-30 19:49] VITALS: BP 128/68; PULSE 83; RESP 16; TEMP 36.7; O2SAT 97
[2021-05-30 20:22] VITALS: BP 128/68; PULSE 83
[2021-05-30] MEDS: Atorvastatin Calcium 80 MG Tablet PO (20:22)
[2021-05-30] MEDS: MELATONIN 3 MG TABLET PO (20:24)
[2021-05-31] MEDS: Menthol/Lanolin/Calamine/Znox 113 GM Tube 1 APPLIC TOPICAL ×3 (06:49→21:43)
[2021-05-31 07:06] LABS: Anion Gap 6 (5-15); BUN 12 mg/dL (7-18); BUN/Creat Ratio 14.4 RATIO (10-20); Calcium,Total 8.9 mg/dL (8.5-10.1); Chloride 105 mmol/L (98-107); Creatinine, Serum 0.83 mg/dL (0.70-1.30); EST Glomerular Filtration Rate 105 mL/min (>60); Est Glom Filt Rate - Afr Amer 127 mL/min (>60); Estimated Creatinine Clearance 140.71 ml/min; Glucose 84 mg/dL (74-106); Potassium 4.3 mmol/L (3.5-5.1); Sodium Level 138 mmol/L (136-145)
[2021-05-31 07:43] VITALS: BP 124/76; PULSE 60; RESP 18; TEMP 36.3; O2SAT 93
[2021-05-31] MEDS: Divalproex Sodium 250 MG Tablet 500 MG PO ×3 (08:01→21:42)
[2021-05-31 08:02] VITALS: PULSE 60
[2021-05-31] MEDS: Metoprolol Tartrate 25 MG Tablet 12.5 MG PO ×2 (08:02→21:41)
[2021-05-31] MEDS: Clopidogrel Bisulfate 75 MG Tablet PO (08:02)
[2021-05-31] MEDS: Sertraline 50 MG Tablet PO (08:02)
[2021-05-31] MEDS: APIXABAN 5 MG TABLET PO ×2 (08:02→21:42)
[2021-05-31] MEDS: NYSTATIN 500,000 UNIT/5 ML UDC 500000 UNIT PO ×2 (08:02→13:22)
--- NOTE | 2021-05-31 08:30 | NURSING ---
pt given nystatin swish and swallow at this time. when this RN looks over at pt, pt noted to be deep red in color. pt begins lightly coughing and struggling to catch breath. this RN tries to help pt facilitate a forceful cough. pt still gives small coughs while attempting to catch breath. This RN places 2L supplemental O2 on pt via NC to help with oxygen. This RN pats pt on the back in attempt to help achieve a forceful cough. pt remains well oxygenated but still coughs. O2 sats at 97% with 2L O2. lung sounds auscultated at this time and lungs remain clear throughout. this RN remains with pt until coughing has subsided. pt still has an occasional cough. will continue to monitor lung sounds. pt able to maintain conversation at this time and no longer requires the supplemental oxygen. Dr. Barbosa and speech therapy aware of aspiration. call light within reach. pt denies further needs a this time. PA attached and functional.
--- NOTE | 2021-05-31 10:40 | PCM.PN.BLA ---
Progress Note Remains afebrile. blood pressure is well controlled and the heart rate is within normal limits. He is maintaining appropriate oxygen saturation on room air. The O2 sat decreased to 93% this AM after he aspirated the Nystatin swish and swallow. He had a prolonged coughing paroxysm. Good oral intake. Fluid balance yesterday was negative. He is incontinent of urine so the outputs are not totally accurate. Tells me that the Nystatin has a bitter taste that makes him cough. Denies SOB. No chest pain, calf pain, N/V/abd pain Physical Exam Const alert, oriented x3 and no apparent distress Constitutional Narrative: he is making very good progress with therapy. He is seeing that he is improving and he is making good connections to figure out how to move differently. Has started to be able to make a fist with the left hand at times. Needed only moderate assist of 1 when bathing today. Minimal assistance with upper body dressing. Max assist with lower body dressing. He walked 100' X 2 today with a quad cane at [facility]. No steps yet. General Appearance: cooperative, comfortable, well kempt and well developed Eyes PERRL and EOMs intact bilaterally Visual Field: other Other Details: no visual field cuts Resp normal respiratory effort, normal air movement, no use of accessory muscles and clear to auscultation bilaterally Effort and Inspection: able to speak in complete sentences Cardio regular rate, regular rhythm and no gallops GI normal to inspection, nondistended, normoactive bowel sounds Extremity no calf tenderness and no pedal edema Psych mental status grossly normal, thought process normal and cooperative Psych Narrative: no longer tearful. He has good insight into treatment of BPD and how the Depakote has made such a huge impact on his life. He tells me he used to cycle many times a day. Assessment & Plan Assessment/Plan (1) Physical debility: PLAN: continue therapy. Making good progress. (2) Oropharyngeal dysphagia: PLAN: He s having trouble with the Nystatin swish and swallow. Will DC and try Mycelex troches. (3) Acute ischemic stroke: PLAN: extensive with petechial hemorrhages (4) Bipolar disorder: PLAN: tolerating the addition of the Sertraline to the drug regimen with no lily. No longer crying. More up beat and thinking about the future. (5) Essential hypertension: PLAN: well controlled. (6) Atrial fibrillation with RVR: PLAN: We discussed why he may have developed AF and how it could be related to binge drinking. He drinks in the evening to calm down and help with sleep. 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 smoking cessation counselling was given. He is not craving cigarettes right now. He has made promises to his children that he is going to quit smoking and drinking. Reminded him about the smoking cessation program here at the hospital of he feels the desire to start smoking again. We reviewed the RF's for CAD and CVA's. Visit Charges Inpatient E&M: 26040 Subs Hosp L2
--- NOTE | 2021-05-31 14:08 | CASEMGMT ---
Social Work SW met with pt in room and provided written information on applying for disability. Questions answered and pt appreciative for information and will pass on to his when she visits next. AL Muller
--- NOTE | 2021-05-31 14:24 | CASEMGMT ---
Social Work Pt notified that continued stay has been approved with NRD 06/07/21. AL Muller
[2021-05-31] MEDS: Clotrimazole 10 MG Troche MUCOUS MEM ×2 (17:12→21:40)
[2021-05-31 18:57] VITALS: BP 140/81; PULSE 77; RESP 16; TEMP 36.6; O2SAT 97
[2021-05-31 21:41] VITALS: BP 140/81; PULSE 77
[2021-05-31] MEDS: MELATONIN 3 MG TABLET PO (21:41)
[2021-05-31] MEDS: Atorvastatin Calcium 80 MG Tablet PO (21:42)
[2021-06-01] MEDS: Clotrimazole 10 MG Troche MUCOUS MEM ×3 (06:41→20:18)
[2021-06-01] MEDS: Menthol/Lanolin/Calamine/Znox 113 GM Tube 1 APPLIC TOPICAL (06:42)
[2021-06-01 07:04] VITALS: BP 133/71; PULSE 67; RESP 16; TEMP 36.7; O2SAT 94
[2021-06-01 07:55] VITALS: PULSE 79
[2021-06-01] MEDS: Clopidogrel Bisulfate 75 MG Tablet PO (07:55)
[2021-06-01] MEDS: Sertraline 50 MG Tablet PO (07:55)
[2021-06-01] MEDS: Metoprolol Tartrate 25 MG Tablet 12.5 MG PO ×2 (07:55→20:16)
[2021-06-01] MEDS: Divalproex Sodium 250 MG Tablet 500 MG PO ×3 (07:57→20:15)
[2021-06-01] MEDS: APIXABAN 5 MG TABLET PO ×2 (07:57→20:15)
[2021-06-01 20:16] VITALS: PULSE 76
[2021-06-01] MEDS: Atorvastatin Calcium 80 MG Tablet PO (20:16)
[2021-06-01] MEDS: MELATONIN 3 MG TABLET PO (20:17)
[2021-06-01 20:22] VITALS: BP 125/61; PULSE 16; RESP 78; TEMP 36.7; O2SAT 97
[2021-06-01 22:00] VITALS: PULSE 70; RESP 16
[2021-06-02] MEDS: Menthol/Lanolin/Calamine/Znox 113 GM Tube 1 APPLIC TOPICAL ×2 (05:42→23:12)
[2021-06-02] MEDS: Clotrimazole 10 MG Troche MUCOUS MEM ×5 (05:42→22:49)
[2021-06-02 07:46] VITALS: BP 108/76; PULSE 63; RESP 16; TEMP 36.6; O2SAT 97
[2021-06-02] MEDS: Divalproex Sodium 250 MG Tablet 500 MG PO ×3 (09:07→22:48)
[2021-06-02 10:41] VITALS: PULSE 70
[2021-06-02] MEDS: Sertraline 50 MG Tablet PO (10:41)
[2021-06-02] MEDS: Clopidogrel Bisulfate 75 MG Tablet PO (10:41)
[2021-06-02] MEDS: Metoprolol Tartrate 25 MG Tablet 12.5 MG PO ×2 (10:41→22:54)
[2021-06-02] MEDS: APIXABAN 5 MG TABLET PO ×2 (10:41→22:48)
[2021-06-02 19:16] VITALS: BP 130/79; PULSE 71; RESP 16; TEMP 36.8; O2SAT 95
[2021-06-02] MEDS: Atorvastatin Calcium 80 MG Tablet PO (22:49)
[2021-06-02] MEDS: MELATONIN 3 MG TABLET PO (22:49)
[2021-06-02 22:54] VITALS: BP 113/72; PULSE 67
--- NOTE | 2021-06-03 04:33 | NURSING ---
Reviewed and agree with AXLE TURNER documentation and assessment charting.
[2021-06-03] MEDS: Clotrimazole 10 MG Troche MUCOUS MEM ×5 (06:22→21:48)
[2021-06-03] MEDS: Menthol/Lanolin/Calamine/Znox 113 GM Tube 1 APPLIC TOPICAL ×2 (06:22→21:48)
[2021-06-03 08:12] VITALS: BP 124/70; PULSE 63; RESP 18; TEMP 36.8; O2SAT 98
[2021-06-03 08:24] VITALS: BP 124/70; PULSE 63
[2021-06-03] MEDS: APIXABAN 5 MG TABLET PO ×2 (08:24→21:48)
[2021-06-03] MEDS: Divalproex Sodium 250 MG Tablet 500 MG PO ×3 (08:24→21:48)
[2021-06-03] MEDS: Metoprolol Tartrate 25 MG Tablet 12.5 MG PO ×2 (08:24→21:48)
[2021-06-03] MEDS: Clopidogrel Bisulfate 75 MG Tablet PO (08:25)
[2021-06-03] MEDS: Sertraline 50 MG Tablet PO (08:25)
--- NOTE | 2021-06-03 12:06 | PCM.PN.BLA ---
Progress Note Afebrile VSS Maintaining appropriate oxygen saturation on RA Oral intake is good Discussed with nursing - no problems that need addressed Reviewed the PT/OT/ST notes Medication list reviewed. He is making progress and he is happy about what he is currently able to do that he was not able to do at admission. He is no longer tearful and is more optimistic about his future. He would like to be functional and able to work to support his family. Physical Exam Const alert, oriented x3, no apparent distress, healthy appearing and well nourished General Appearance: cooperative Eyes PERRL and EOMs intact bilaterally Resp clear to auscultation bilaterally Cardio regular rate, regular rhythm and no murmurs GI normal to inspection, nondistended, normoactive bowel sounds Extremity no calf tenderness and no pedal edema Neuro Neuro Narrative: ambulating with a quad cane now. Assessment & Plan Assessment/Plan (1) Physical debility: (2) Left-sided neglect: (3) Oropharyngeal dysphagia: (4) Left hemiplegia: (5) Acute ischemic stroke: (6) Bipolar disorder: (7) Depression: PLAN: 1. Increase sertraline to 100 mg p.o. daily 2. Continue therapy Visit Charges Inpatient E&M: 89708 Subs Hosp L2
--- NOTE | 2021-06-03 15:50 | CASEMGMT ---
Social Work Team meeting held today with pt and present. Pt is receiving PT/OT/ST and making functional gains. Pt has progressed to a quad cane and now a straight cane. Is able to complete flight of stairs. Pt notified that next review date is 06/07 with continued stay not guaranteed. Family training has been set for Wednesday 06/06. When pt is ready to return home, plans to return home with however she does work outside the home and pt will be home alone. Pt is benefiting from 3 hours of therapy and continuing to show improvement. Will continue with treatment plan at this time and will reteam next week. AL Muller
[2021-06-03 19:15] VITALS: BP 132/78; PULSE 74; RESP 18; TEMP 36.8; O2SAT 97
[2021-06-03 21:48] VITALS: BP 120/72; PULSE 62
[2021-06-03] MEDS: MELATONIN 3 MG TABLET PO (21:48)
[2021-06-03] MEDS: Atorvastatin Calcium 80 MG Tablet PO (21:48)
[2021-06-04] MEDS: Clotrimazole 10 MG Troche MUCOUS MEM ×5 (06:13→20:34)
[2021-06-04] MEDS: Menthol/Lanolin/Calamine/Znox 113 GM Tube 1 APPLIC TOPICAL (06:14)
[2021-06-04 08:01] VITALS: BP 138/84; PULSE 73
[2021-06-04] MEDS: Sertraline 100 MG Tablet PO (08:01)
[2021-06-04] MEDS: APIXABAN 5 MG TABLET PO ×2 (08:01→20:32)
[2021-06-04] MEDS: Metoprolol Tartrate 25 MG Tablet 12.5 MG PO ×2 (08:01→20:33)
[2021-06-04] MEDS: Clopidogrel Bisulfate 75 MG Tablet PO (08:01)
[2021-06-04] MEDS: Divalproex Sodium 250 MG Tablet 500 MG PO ×3 (08:01→20:31)
[2021-06-04 09:29] VITALS: BP 138/84; PULSE 73; RESP 18; TEMP 36.6; O2SAT 95
[2021-06-04 19:43] VITALS: BP 120/63; PULSE 67; RESP 18; TEMP 36.4; O2SAT 93
[2021-06-04] MEDS: MELATONIN 3 MG TABLET PO (20:32)
[2021-06-04] MEDS: Atorvastatin Calcium 80 MG Tablet PO (20:32)
[2021-06-04 20:33] VITALS: BP 120/63; PULSE 67
[2021-06-05] MEDS: Clotrimazole 10 MG Troche MUCOUS MEM ×4 (07:09→21:56)
[2021-06-05 08:10] VITALS: BP 114/63; PULSE 66; RESP 18; TEMP 36.7; O2SAT 95
[2021-06-05] MEDS: APIXABAN 5 MG TABLET PO ×2 (09:09→21:56)
[2021-06-05] MEDS: Divalproex Sodium 250 MG Tablet 500 MG PO ×3 (09:09→21:56)
[2021-06-05 09:10] VITALS: PULSE 66
[2021-06-05] MEDS: Metoprolol Tartrate 25 MG Tablet 12.5 MG PO ×2 (09:10→21:55)
[2021-06-05] MEDS: Clopidogrel Bisulfate 75 MG Tablet PO (09:11)
[2021-06-05] MEDS: Sertraline 100 MG Tablet PO (09:11)
--- NOTE | 2021-06-05 12:18 | PN_ITS ---
Progress Note Afebrile VSS-the blood pressure is well controlled. Maintaining appropriate oxygen saturation on RA Oral intake is good Discussed with nursing - no problems that need addressed. He is sleeping well at night and he is very cooperative and motivated to get better. Mood is getting better and I think now that he sees he is improving he is more opti mistic about his recovery/prognosis. Reviewed the PT/OT/ST notes Medication list reviewed. Do denies chest pain, calf pain, lightheadedness, N/V, abdominal pain, shortness of breath. He denies cephalgia and he has had no seizure activity. Physical Exam Const alert, oriented x3, no apparent distress and healthy appearing HEENT normocephalic and moist oral mucous membranes Eyes PERRL, EOMs intact bilaterally and no scleral icterus Neck supple and no JVD Resp normal respiratory effort, normal air movement, no use of accessory muscles and clear to auscultation bilaterally Resp Narrative: Not tachypneic and no conversational dyspnea. Effort and Inspection: able to speak in complete sentences Cardio regular rate, regular rhythm and no murmurs GI normal to inspection, nondistended, normoactive bowel sounds, soft to palpation, non-tender and non-distended GI Narrative: No guarding with palpation. Normal bowel sounds. Narrative: sometimes incontinent of urine....primarily because he misses the urinal and is needing someone to hold it for him Extremity normal capillary refill, no calf tenderness and no pedal edema Skin General Skin Exam: no breakdown Rashes: no rashes Neuro Neuro Narrative: ambulating with a SPC today without LOB. He is now doing steps. Still with L side neglect. Psych mental status grossly normal, cooperative, activity/motor behavior normal and denies hallucinations Psych Narrative: Appearance: grossly normal, appropriate and well kempt Attitude: calm Activity / Motor Behavior: appropriate eye contact Speech: normal speech Memory / Cognition: cognition impaired Assessment & Plan Assessment/Plan (1) Physical debility: (2) Left-sided neglect: (3) Oropharyngeal dysphagia: (4) Left hemiplegia: (5) Acute ischemic stroke: (6) Bipolar disorder: (7) Depression: PLAN: Continue therapy. Making good progress but, not ready for DC home yet since his works and the kids are in school and he is not safe alone yet. Visit Charges Inpatient E&M: 98331 Subs Hosp L2
[2021-06-05 19:40] VITALS: BP 135/88; PULSE 73; RESP 18; TEMP 36.7; O2SAT 95
[2021-06-05 21:55] VITALS: BP 135/88; PULSE 73
[2021-06-05] MEDS: Atorvastatin Calcium 80 MG Tablet PO (21:56)
[2021-06-05] MEDS: MELATONIN 3 MG TABLET PO (21:56)
[2021-06-05 22:00] VITALS: PULSE 73; RESP 18; O2SAT 95
--- NOTE | 2021-06-06 01:25 | NURSING ---
REVIEWED AND AGREE WITH LODGE ATTENDANT'S FUNCTIONAL ASSESSMENT AND HANDOFF CHARTING.
[2021-06-06] MEDS: Clotrimazole 10 MG Troche MUCOUS MEM ×5 (06:17→20:42)
--- NOTE | 2021-06-06 07:33 | NURSING ---
pt refused am care this am when offered stating no i'm good. pt declined to change clothes or wash his face and hands or brush his teeth. aries rn made aware in report this am
[2021-06-06] MEDS: APIXABAN 5 MG TABLET PO ×2 (07:41→20:41)
[2021-06-06] MEDS: Divalproex Sodium 250 MG Tablet 500 MG PO ×3 (07:41→20:41)
[2021-06-06 07:42] VITALS: PULSE 66
[2021-06-06] MEDS: Metoprolol Tartrate 25 MG Tablet 12.5 MG PO ×2 (07:42→20:44)
[2021-06-06] MEDS: Sertraline 100 MG Tablet PO (07:43)
[2021-06-06] MEDS: Clopidogrel Bisulfate 75 MG Tablet PO (07:43)
[2021-06-06 07:53] VITALS: BP 103/54; PULSE 68; RESP 16; TEMP 36.5; O2SAT 93
[2021-06-06 19:16] VITALS: BP 110/61; PULSE 69; RESP 16; TEMP 36.6; O2SAT 96
[2021-06-06] MEDS: Atorvastatin Calcium 80 MG Tablet PO (20:41)
[2021-06-06] MEDS: MELATONIN 3 MG TABLET PO (20:42)
[2021-06-06 20:44] VITALS: BP 110/61; PULSE 69
[2021-06-07] MEDS: Clotrimazole 10 MG Troche MUCOUS MEM ×3 (05:57→20:27)
[2021-06-07 07:45] VITALS: PULSE 77
[2021-06-07] MEDS: Metoprolol Tartrate 25 MG Tablet 12.5 MG PO ×2 (07:45→20:26)
[2021-06-07] MEDS: Sertraline 100 MG Tablet PO (07:45)
[2021-06-07] MEDS: Clopidogrel Bisulfate 75 MG Tablet PO (07:45)
[2021-06-07] MEDS: Divalproex Sodium 250 MG Tablet 500 MG PO ×3 (07:46→20:25)
[2021-06-07] MEDS: APIXABAN 5 MG TABLET PO ×2 (07:46→20:26)
[2021-06-07 07:59] VITALS: BP 106/64; PULSE 69; RESP 16; TEMP 36.7; O2SAT 98
--- NOTE | 2021-06-07 11:26 | PCM.PN.BLA ---
Progress Note Afebrile VSS-blood pressure is well controlled Maintaining appropriate oxygen saturation on RA Oral intake is good Discussed with nursing - no problems that need addressed Reviewed the PT/OT/ST notes-he has now been ascending/descending 12 steps with 1 rail at contact-guard assist/standby assist. He is reciprocal stepping. Medication list reviewed. Claudia is coming in today for family training. He has some muscle movement in the LUE now. Still having some problems with neglect of the Left side/ubaldo LUE. He is sleeping well. He is making progress with speech therapy but, short term memory is poor yet. Still having some problem with more complex directions and higher level executive function. His mood is good and he is very upbeat. Has been going outside at night with his family. He denies calf pain, chest pain, shortness of breath, palpitations, nausea/vomiting, abdominal pain. He also denies lightheadedness.He is able to do to curb steps with a straight cane at contact-guard assist x2. Physical Exam Const alert, oriented x3 and no apparent distress Constitutional Narrative: he is making very good progress with therapy. He is seeing that he is improving and he is making good connections to figure out how to move differently. Has started to be able to make a fist with the left hand at times. He is still requiring moderate assistance with lower body dressing but only minimal assistance with upper body dressing. Still needing moderate assistance with bathing and maximal assistance with toileting. General Appearance: cooperative, comfortable, well kempt and well developed HEENT normocephalic, head/scalp atraumatic and moist oral mucous membranes Eyes PERRL, EOMs intact bilaterally and no scleral icterus Neck No nuchal rigidity, supple, no JVD and No no carotid bruits Chest Chest: symmetrical chest wall rise Resp normal respiratory effort, normal air movement, no use of accessory muscles and clear to auscultation bilaterally Resp Narrative: Not tachypneic and no conversational dyspnea. Effort and Inspection: able to speak in complete sentences Cardio regular rate, regular rhythm, S2 normal heart sound, no murmurs, no rub and no gallops GI normal to inspection, nondistended, normoactive bowel sounds, soft to palpation, non-tender and non-distended GI Narrative: No guarding with palpation. Normal bowel sounds. Narrative: incontinent of urine at times. Extremity normal capillary refill, no joint enlargement, no calf tenderness and no pedal edema Skin General Skin Exam: no breakdown Rashes: no rashes Neuro Neuro Narrative: Still with Left side neglect and still requiring moderate assistance with toileting, bathing and lower body dressing. Psych mental status grossly normal, thought process normal and cooperative Psych Narrative: He is frequently smiling when I see him in the halls and smiling a lot when his family visits. Sleeping well. No sx of hypomania. tolerating the Sertraline 100 mg daily well with no adverse effects. Appearance: grossly normal, appropriate and well kempt Attitude: calm Activity / Motor Behavior: appropriate eye contact Speech: normal speech Memory / Cognition: cognition impaired Assessment & Plan Assessment/Plan (1) Physical debility: (2) Oropharyngeal dysphagia: (3) Left hemiplegia: (4) Cognitive dysfunction: (5) Acute ischemic stroke: (6) Left-sided neglect: PLAN: 1. Continue therapy. He is making good progress and is working hard. He is only 46 YO and Hopefully with more therapy he can be retrained to do another job and re-enter the work force to support his family. His works and currently she is the only source of income. Aníbal must be able to get to the bathroom and toilet prior to going home. 2. Continue sertraline at 100 mg p.o. daily Visit Charges Inpatient E&M: 41944 Subs Hosp L2
[2021-06-07 19:23] VITALS: BP 126/59; PULSE 69; RESP 16; TEMP 36.7; O2SAT 98
[2021-06-07 20:26] VITALS: BP 126/59; PULSE 69
[2021-06-07] MEDS: Atorvastatin Calcium 80 MG Tablet PO (20:26)
[2021-06-07] MEDS: MELATONIN 3 MG TABLET PO (20:27)
[2021-06-08] MEDS: Clotrimazole 10 MG Troche MUCOUS MEM ×4 (06:40→22:00)
[2021-06-08 07:38] VITALS: PULSE 70
[2021-06-08] MEDS: Sertraline 100 MG Tablet PO (07:38)
[2021-06-08] MEDS: Clopidogrel Bisulfate 75 MG Tablet PO (07:38)
[2021-06-08] MEDS: APIXABAN 5 MG TABLET PO ×2 (07:38→21:54)
[2021-06-08] MEDS: Divalproex Sodium 250 MG Tablet 500 MG PO ×3 (07:38→21:53)
[2021-06-08] MEDS: Metoprolol Tartrate 25 MG Tablet 12.5 MG PO ×2 (07:38→21:54)
[2021-06-08 07:40] VITALS: BP 114/71; PULSE 52; RESP 16; TEMP 36.6; O2SAT 99
[2021-06-08 19:00] VITALS: BP 139/69; PULSE 62; RESP 18; TEMP 36.8; O2SAT 95
[2021-06-08 21:54] VITALS: BP 139/69; PULSE 62
[2021-06-08] MEDS: Atorvastatin Calcium 80 MG Tablet PO (21:54)
[2021-06-08] MEDS: MELATONIN 3 MG TABLET PO (21:55)
[2021-06-09] MEDS: Clotrimazole 10 MG Troche MUCOUS MEM ×5 (06:30→19:57)
[2021-06-09 07:38] VITALS: BP 113/58; PULSE 59; RESP 17; TEMP 36.6; O2SAT 93
[2021-06-09] MEDS: Clopidogrel Bisulfate 75 MG Tablet PO (08:10)
[2021-06-09] MEDS: Divalproex Sodium 250 MG Tablet 500 MG PO ×3 (08:10→19:59)
[2021-06-09 08:11] VITALS: PULSE 70
[2021-06-09] MEDS: APIXABAN 5 MG TABLET PO ×2 (08:11→19:58)
[2021-06-09] MEDS: Sertraline 100 MG Tablet PO (08:11)
[2021-06-09] MEDS: Metoprolol Tartrate 25 MG Tablet 12.5 MG PO ×2 (08:11→19:57)
[2021-06-09 19:37] VITALS: BP 110/62; PULSE 67; RESP 18; TEMP 36.8; O2SAT 96
[2021-06-09 19:57] VITALS: BP 110/62; PULSE 67
[2021-06-09] MEDS: MELATONIN 3 MG TABLET PO (19:57)
[2021-06-09] MEDS: Atorvastatin Calcium 80 MG Tablet PO (19:58)
[2021-06-09] MEDS: Menthol/Lanolin/Calamine/Znox 113 GM Tube 1 APPLIC TOPICAL (19:59)
[2021-06-10] MEDS: Clotrimazole 10 MG Troche MUCOUS MEM ×3 (04:23→16:58)
[2021-06-10 07:30] VITALS: BP 110/75; PULSE 72; RESP 16; TEMP 36.2; O2SAT 96
[2021-06-10] MEDS: Divalproex Sodium 250 MG Tablet 500 MG PO ×3 (07:41→20:55)
[2021-06-10] MEDS: Sertraline 100 MG Tablet PO (07:42)
[2021-06-10] MEDS: Clopidogrel Bisulfate 75 MG Tablet PO (07:42)
[2021-06-10 07:43] VITALS: PULSE 70
[2021-06-10] MEDS: Metoprolol Tartrate 25 MG Tablet 12.5 MG PO ×2 (07:43→20:55)
[2021-06-10] MEDS: APIXABAN 5 MG TABLET PO ×2 (07:44→20:55)
--- NOTE | 2021-06-10 11:24 | PN_ITS ---
Progress Note Afebrile VSS Maintaining appropriate oxygen saturation on RA Oral intake is good Discussed with nursing - no problems that need addressed Reviewed the PT/OT/ST notes Medication list reviewed. He tells me that he feels frustrated and depressed at times but, he generally is able to get himself out of it. The frustration is over not getting better as fast as he would like. He is c/o pain in the left shoulder now that he has recovered some movement and PT is working with muscle strengthening. He is also c/o some low back pain which he also gets at home when he lies on his back. It wakes him up in the middle of the night and he usually takes Tylenol or Motrin. the back pain does not bother him at night. He denies CP, LYLES, N/V, SOB, light headedness. Physical Exam Const alert, oriented x3 and no apparent distress General Appearance: cooperative and comfortable Eyes PERRL and EOMs intact bilaterally Resp clear to auscultation bilaterally Effort and Inspection: able to speak in complete sentences Cardio regular rate, regular rhythm, S1 normal heart sound, S2 normal heart sound, no murmurs, no rub and no gallops GI normal to inspection, nondistended, normoactive bowel sounds Extremity no calf tenderness and no pedal edema Extremity Narrative: He has pain with palpation of the subdeltoid area on the L shoulder. There has been some atrophy of the L deltoid since he has not been able to move the LUE much since the CVA. There is no redness and no increased warmth to touch. Skin General Skin Exam: no breakdown Rashes: no rashes Neuro Neuro Narrative: making good progress. He was able to extend his LUE today. 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 Psych Psych Narrative: He seems a little down today but, he makes good eye contact and he has good modulation of his voice. No tears. Assessment & Plan Assessment/Plan (1) Acute ischemic stroke: (2) Subdeltoid bursitis of left shoulder joint: (3) Muscle atrophy of upper extremity: (4) Depression: QUALIFIERS: Depression Type: reactive depression Qualified Code(s): F32.9 - Major depressive disorder, single episode, unspecified (5) Physical debility: (6) Left hemiplegia: (7) Atrial fibrillation with RVR: PLAN: 1. CBC, CMP and lipid panel in the a.m. 2. Continue therapy 3. Add Tylenol 1 GM Q 8 H. 4. Arthritis cream to the L shoulder TID.......can also use on the back PRN 5. Continue the Sertraline 6. F/U with neurology and cardiology as an OP Visit Charges Inpatient E&M: 62848 Subs Hosp L2
[2021-06-10] MEDS: Acetaminophen 500 MG Tablet 1000 MG PO ×2 (14:14→20:57)
[2021-06-10] MEDS: Arthritis Pain Compound 60 CLICK TUBE TOPICAL ×2 (14:17→20:54)
[2021-06-10 19:50] VITALS: BP 120/71; PULSE 69; RESP 16; TEMP 36.7; O2SAT 96
[2021-06-10 20:55] VITALS: BP 120/71; PULSE 69
[2021-06-10] MEDS: Atorvastatin Calcium 80 MG Tablet PO (20:55)
[2021-06-10] MEDS: MELATONIN 3 MG TABLET PO (20:57)
[2021-06-11 05:40] LABS: Hematocrit 39.8 % (40-54); Hemoglobin 13.5 g/dL (13.0-16.5); Mean Corp Hgb Conc 33.9 g/dL (32-36); Mean Corpuscular Hgb 34.5 pg (27.0-32.0); Mean Corpuscular Volume 101.8 fL (80-94); Mean Platelet Vol. 10.5 fl (6.2-12.0); Platelet Count 172 K/mm3 (150-450); RBC Distribution Width CV 13.5 % (11.6-14.6); RBC Distribution Width SD 50.8 fl (35.1-43.9); Red Blood Count 3.91 M/mm3 (4.6-6.2); White Blood Count 7.3 K/mm3 (4.4-11.0)
[2021-06-11] MEDS: Arthritis Pain Compound 60 CLICK TUBE TOPICAL ×3 (06:05→20:10)
[2021-06-11] MEDS: Acetaminophen 500 MG Tablet 1000 MG PO ×3 (06:05→20:13)
[2021-06-11 06:12] LABS: ALB/GLOB Ratio 0.7 RATIO (0.9-2.4); AST(SGOT) 14 U/L (15-37); Alanine Aminotransfer ALT/SGPT 16 U/L (16-61); Albumin, Serum 2.9 g/dL (3.2-5.0); Alkaline Phosphatase 55 U/L (45-117); Anion Gap 6 (5-15); BUN 21 mg/dL (7-18); BUN/Creat Ratio 25.5 RATIO (10-20); Calcium,Total 8.9 mg/dL (8.5-10.1); Chloride 103 mmol/L (98-107); Cholesterol 112 mg/dL (200); Creatinine, Serum 0.82 mg/dL (0.70-1.30); EST Glomerular Filtration Rate 106 mL/min (>60); Est Glom Filt Rate - Afr Amer 128 mL/min (>60); Estimated Creatinine Clearance 142.43 ml/min; Globulin 4.1 g/dL (2.2-4.2); Glucose 87 mg/dL (74-106); High Density Lipoprotein 35 mg/dL; Potassium 4.2 mmol/L (3.5-5.1); Sodium Level 136 mmol/L (136-145); Triglycerides 113 mg/dL; Very Low Density Lipoprotein 23 mg/dL (5-40)
[2021-06-11 07:07] VITALS: BP 118/77; PULSE 58; RESP 18; TEMP 36.8; O2SAT 95
[2021-06-11] MEDS: Clopidogrel Bisulfate 75 MG Tablet PO (09:25)
[2021-06-11] MEDS: APIXABAN 5 MG TABLET PO ×2 (09:25→20:12)
[2021-06-11] MEDS: Divalproex Sodium 250 MG Tablet 500 MG PO ×3 (09:25→20:11)
[2021-06-11] MEDS: Sertraline 100 MG Tablet PO (09:26)
[2021-06-11 10:00] VITALS: PULSE 72
[2021-06-11] MEDS: Metoprolol Tartrate 25 MG Tablet 12.5 MG PO (10:00)
--- NOTE | 2021-06-11 10:25 | PCM.PN.BLA ---
Progress Note Aníbal was seen on team rounds today. Afebrile VSS Maintaining appropriate oxygen saturation on RA Oral intake is good Discussed with nursing - no problems that need addressed Reviewed the PT/OT/ST notes Medication list reviewed. All lab from today is personally reviewed. White blood cell count, hemoglobin and platelets are all within normal limits. The BUN is elevated at 21 with a creatinine of 0.82 and a BUN/creatinine ratio of 25.5. Fasting glucose is normal. LFTs are unremarkable. Lipid panel shows triglycerides of 113, LDL of 54 and an HDL of 35. Aníbal denies nausea/vomiting/abdominal pain, chest pain, shortness of breath at rest or with exertion, lightheadedness. Physical Exam Const alert, oriented x3 and no apparent distress Constitutional Narrative: Smiling and making good eye contact. Joking with the staff. General Appearance: cooperative Eyes PERRL, EOMs intact bilaterally, conjunctivae normal and no scleral icterus Neck No nuchal rigidity General: trachea midline Resp normal respiratory effort, normal air movement and clear to auscultation bilaterally Effort and Inspection: able to speak in complete sentences Cardio regular rate, regular rhythm, S1 normal heart sound, S2 normal heart sound and no gallops GI normal to inspection, nondistended, normoactive bowel sounds Extremity no calf tenderness and no pedal edema Assessment & Plan Assessment/Plan (1) Acute ischemic stroke: (2) Low HDL (under 40): PLAN: 1. Add Niacin SA 500 mg at HS 2. Agreed on DC this coming Thursday to home Visit Charges Inpatient E&M: 58999 Subs Hosp L2
--- NOTE | 2021-06-11 13:30 | CASEMGMT ---
Social Work Team meeting held. Patient present as well as patient spouse. Discharge date set for 06/14/2021 per patient request, team agreeable. Patient next insurance update due on 06/14/2021. Patient plans to discharge to home with spouse. Team recommending for patient to have continued physical, occupational and speech therapy through outpatient therapy services. Patient is agreeable to recommendation and request for outpatient therapy services to be set up through [facility]. Patient is also interested in information about transportation to appointments in the future, but not the first appointments. This social welfare administrator to provide transportation information prior to discharge. Patient reports to have all needed DME already set up within the home. Patient denies concerns on returning to home with spouse. Proposed discharge date: 06/14/2021 Disposition: Home with spouse and outpatient therapy. Will continue to follow for: Transportation information Facilitating outpatient therapy services. Continued support. Elissa NEFF, KARLY
[2021-06-11 19:21] VITALS: BP 106/63; PULSE 67; RESP 16; TEMP 36.3; O2SAT 97
[2021-06-11] MEDS: Menthol/Lanolin/Calamine/Znox 113 GM Tube 1 APPLIC TOPICAL (20:10)
[2021-06-11] MEDS: Atorvastatin Calcium 80 MG Tablet PO (20:12)
[2021-06-11] MEDS: Niacin SA 500 MG Tablet PO (20:13)
[2021-06-11] MEDS: MELATONIN 3 MG TABLET PO (20:13)
[2021-06-11 20:25] VITALS: BP 96/63; PULSE 64
[2021-06-11 23:01] VITALS: BP 106/63; PULSE 67; RESP 16; TEMP 36.3; O2SAT 97
[2021-06-11 23:02] VITALS: PULSE 67; RESP 16
--- NOTE | 2021-06-12 02:43 | NURSING ---
Pt cooperative with care, meds given. Assisted pt to bathroom with cane. Pt steady on feet, good sense of safety awareness.
[2021-06-12] MEDS: Arthritis Pain Compound 60 CLICK TUBE TOPICAL ×3 (05:37→21:50)
[2021-06-12] MEDS: Acetaminophen 500 MG Tablet 1000 MG PO ×3 (05:38→21:50)
[2021-06-12 07:45] VITALS: BP 111/74; PULSE 61; RESP 18; TEMP 36.4; O2SAT 97
[2021-06-12 09:01] VITALS: PULSE 61
[2021-06-12] MEDS: Metoprolol Tartrate 25 MG Tablet 12.5 MG PO ×2 (09:01→21:51)
[2021-06-12] MEDS: APIXABAN 5 MG TABLET PO ×2 (09:01→21:51)
[2021-06-12] MEDS: Clopidogrel Bisulfate 75 MG Tablet PO (09:01)
[2021-06-12] MEDS: Sertraline 100 MG Tablet PO (09:01)
[2021-06-12] MEDS: Divalproex Sodium 250 MG Tablet 500 MG PO ×3 (09:01→21:51)
[2021-06-12 19:30] VITALS: BP 119/67; PULSE 69; RESP 18; TEMP 36.9; O2SAT 95
[2021-06-12 21:51] VITALS: BP 119/67; PULSE 69
[2021-06-12] MEDS: Atorvastatin Calcium 80 MG Tablet PO (21:51)
[2021-06-12] MEDS: MELATONIN 3 MG TABLET PO (21:52)
[2021-06-12] MEDS: Niacin SA 500 MG Tablet PO (21:52)
[2021-06-13] MEDS: Acetaminophen 500 MG Tablet 1000 MG PO ×3 (06:50→21:53)
[2021-06-13] MEDS: Arthritis Pain Compound 60 CLICK TUBE TOPICAL ×3 (06:50→21:50)
[2021-06-13 08:03] VITALS: BP 108/64; PULSE 58; RESP 18; TEMP 36.2; O2SAT 95
[2021-06-13 08:15] VITALS: BP 108/64; PULSE 62
[2021-06-13] MEDS: Divalproex Sodium 250 MG Tablet 500 MG PO ×3 (08:15→21:51)
[2021-06-13] MEDS: Metoprolol Tartrate 25 MG Tablet 12.5 MG PO ×2 (08:15→21:51)
[2021-06-13] MEDS: APIXABAN 5 MG TABLET PO ×2 (08:16→21:51)
[2021-06-13] MEDS: Clopidogrel Bisulfate 75 MG Tablet PO (08:16)
[2021-06-13] MEDS: Sertraline 100 MG Tablet PO (08:17)
--- NOTE | 2021-06-13 09:08 | CASEMGMT ---
Social Work Order for outpatient therapies faxed to [facility]. Will continue to follow. Elissa NEFF, KARLY
--- NOTE | 2021-06-13 10:10 | CASEMGMT ---
Social Work Order for outpatient therapy faxed to [facility]. Elissa Garcia PHYSICAL SECURITY ENGINEER, KARLY
[2021-06-13] MEDS: Menthol/Lanolin/Calamine/Znox 113 GM Tube 1 APPLIC TOPICAL (13:32)
--- NOTE | 2021-06-13 14:35 | CASEMGMT ---
Social Work Received appointment schedule for patient outpatient therapy. Appointment reminders provided to patient and added to patient D/C plan. Proposed discharge date: 06/14/2021 Disposition: Home with spouse and outpatient therapy. Elissa NEFF, KARLY
--- NOTE | 2021-06-13 18:39 | PCM.DC ---
Discharge Instructions Diet Discharge Diet: Low fat / Low cholesterol and 4000 mg Sodium Diet Activity Discharge Activity: May Not Drive, May Shower and - (use a cane or a walker when ambulating outside the house for at least the next 1-2 weeks) Weight Bearing Status: Full weight bearing Dressing / Incision Call your doctor if you observe: Fever of 101 or Higher, Inability to urinate, Inability to have a bowel movement, Shortness of breath, Dizziness, Fainting spells, Chest pain, Increased palpitations (irregular heartbeat), Calf discomfort and Uncontrolled pain Follow Up Care Please Follow Up With: Manjeet Aguilera MD Test Results: Test results from this visit will be discussed in further detail at your follow-up appointment, if applicable. Discharge Plan Admission Admit Date/Time: 05/23/21 12:28 Primary Reason for Your Visit: Debility due to large embolic ischemic CVA Attending Provider: Sandra Barbosa Primary Care Provider: Alexander Adam Instructions Patient Instructions: Intimacy After Stroke, Preparing Your Home After Stroke, Counseling for Depression, Stroke Prevent Another Caregiver, Kicking the Smoking Habit, Stroke Prevent Live W Atrial Fib Additional Instructions / Restrictions: 1. You awesome in rehab and worked very hard. I hope that you will continue to improve. You do have a problem with a visual deficit and must remember to scan from R to left so that you can read and be aware of what is on your left side. You are only now regaining movement and strength in the left arm. You MUST not drive. Generally patients with strokes have poor safety awareness and they think they can do more than they actually can. Do not drive. It will put you and your passengers at risk as well as the people in the cars around you. there is a driving school in [place] that you can go to when the neurologist thinks you are ready to determine if you are really safe to drive. 2. 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 Sometimes patients have no deficits from a stroke after they have done therapy but, many do not get all their function back and you had a large stroke. Sometimes we just have to make peace with our disabilities and move forward. 3. 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 You sit all day, most smoke and most eat a crappy diet of fast food. If you are able to drive again you can not return to that behavior and expect to stay healthy. You are a young man with a young family that I know you want to be there for......take better care of yourself. 4. If you have any questions after you leave rehab please do not hesitate to call me. Office: [phone] Rodrigo Spangler and I wish you a long healthy happy fulfilling life. It was a pleasure getting to know you and seeing you progress so far. Discharge Orders/Prescriptions Prescriptions: New atorvastatin 80 mg Tablet 80 mg PO QHS Qty: 30 RF: 0 acetaminophen 500 mg Tablet 1,000 mg PO Q6H PRN (Reason: fever or pain) Qty: 1 RF: 0 Eliquis 5 mg Tablet 5 mg PO BID Qty: 60 RF: 0 Arthritis Pain Compound 0 click topical TID Qty: 0 RF: 0 melatonin 3 mg Tablet 3 mg PO QHS Qty: 30 RF: 0 metoprolol tartrate 25 mg Tablet 12.5 mg PO BID Qty: 30 RF: 0 niacin 500 mg Tablet Extended Release 500 mg PO QHS Qty: 30 RF: 0 nicotine 21 mg/24 hr Patch 24 Hour 21 mg transdermal DAILY Qty: 14 RF: 0 sertraline 100 mg Tablet 100 mg PO DAILY Qty: 30 RF: 0 Continued aspirin 81 MG tablet,chewable 81 mg PO DAILY@0800 RF: 0 clopidogrel 75 mg Tablet 75 mg PO DAILY Qty: 30 RF: 0 divalproex 500 mg tablet extended release 24 hr 1,000 mg PO QHS Qty: 60 RF: 0 Held sildenafil 100 mg Tablet 100 mg PO DAILY RF: 0 Hold Instructions: Please do not take this medication until the neurologist Okays it........it can elevate the BP and you just had a stroke so this is not desirable yet. Discontinued atorvastatin 40 mg tablet 40 mg PO QHS RF: 0 losartan 25 mg tablet 25 mg PO DAILY RF: 0 metoprolol tartrate 50 mg tablet 50 mg PO BID RF: 0 hydrochlorothiazide 12.5 mg capsule 12.5 mg PO DAILY RF: 0 Referrals / Follow Up: Cameron Black MD [STAFF PHYSICIAN] - Alexander Adam MD [Primary Care Provider] - Manjeet Aguilera MD [NON-STAFF] - Disposition Disposition (needs filled in before D/C Order can be placed): Home, Self Care
--- NOTE | 2021-06-13 19:28 | DS.PCM_ITS ---
Providers Date of Admission: 05/23/21 Date of Discharge: 06/14/21 Primary Care Physician: Dr. 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 (6) Facial droop due to stroke: Status: Acute (7) Oropharyngeal dysphagia: Status: Acute Code(s): R13.12 - Dysphagia, oropharyngeal phase (8) Urinary incontinence: Status: Resolved Code(s): R32 - Unspecified urinary incontinence (9) Depression: Status: Acute Code(s): F32.9 - Major depressive disorder, single episode, unspecified Qualifiers: Depression Type: reactive depression Qualified Code(s): F32.9 - Major depressive disorder, single episode, unspecified (10) Muscle atrophy of upper extremity: Status: Acute Code(s): M62.58 - Muscle wasting and atrophy, not elsewhere classified, other site (11) Low HDL (under 40): Status: Acute Code(s): E78.6 - Lipoprotein deficiency (12) Subdeltoid bursitis of left shoulder joint: Status: Acute Code(s): M75.52 - Bursitis of left shoulder (13) Overweight (BMI 25.0-29.9): Status: Acute Code(s): E66.3 - Overweight (14) Bipolar disorder: Status: Acute Code(s): F31.9 - Bipolar disorder, unspecified (15) Presence of stent in coronary artery: Status: Chronic Code(s): Z95.5 - Presence of coronary angioplasty implant and graft (16) Essential hypertension: Status: Chronic Code(s): I10 - Essential (primary) hypertension (17) Hyperlipidemia: Status: Chronic Code(s): E78.5 - Hyperlipidemia, unspecified (18) Atherosclerosis of coronary artery of [place] heart without angina pectoris: Status: Chronic Code(s): I25.10 - Atherosclerotic heart disease of [place] coronary artery without angina pectoris Qualifiers: Coronary Disease-Associated Artery/Lesion type: [place] artery Qualified Code(s): I25.10 - Atherosclerotic heart disease of [place] coronary artery without angina pectoris (19) Atrial fibrillation with RVR: Status: Acute Code(s): I48.91 - Unspecified atrial fibrillation (20) Chronic anticoagulation: Status: Acute Code(s): Z79.01 - half-way (current) use of anticoagulants Plan: 1. Discharge home with OP PT/OT/ST 2. Follow up with Dr. Adam in 7-10 days 3. Consider getting an event monitor at some point. Binge drinking may have caused the AF and now that he is no longer drinking he may not have AF. 4. NO driving 5. Has a follow up appt with Dr. Aguilera (neurology) 6. Follow up with Dr. Black for cardiology 7. Follow up with Dr. Krause for BPD and depression 8. No smoking Medications at Discharge Home Medications sildenafil 100 mg PO DAILY 05/16/21 aspirin 81 mg PO DAILY@0800 05/23/21 Arthritis Pain Compound 0 click TOPICAL TID #0 06/13/21 acetaminophen 1,000 mg PO Q6H PRN #1 tab 06/13/21 apixaban [Eliquis] 5 mg PO BID #60 tab 06/13/21 atorvastatin 80 mg PO QHS #30 tab 06/13/21 clopidogrel 75 mg PO DAILY #30 tab 06/13/21 divalproex 1,000 mg PO QHS #60 tab 06/13/21 melatonin 3 mg PO QHS #30 tab 06/13/21 metoprolol tartrate 12.5 mg PO BID #30 tab 06/13/21 niacin 500 mg PO QHS #30 tab 06/13/21 nicotine 21 mg TRANSDERMAL DAILY #14 ea 06/13/21 sertraline 100 mg PO DAILY #30 tab 06/13/21 Hospital Course Operations None Procedures None Summary of Care Provided Minutes Spent on Discharge: 45 Hospital Course: DOMENICO FERREIRA, is a 46 YO M with a PMH of BPD, tobacco dependence, CAD, obesity, PAF(not on anticoagulation), HTN, ED, migraines, dyslipidemia and daily alcohol consumption who presented to an OSH ED on 05/17/21 with c/o Left side weakness and numbness and facial droop. A noncontrasted head CT showed no acute findings. CTA showed large subocclusive clot in the proximal right internal carotid artery. He was given a rectal ASA. Telestroke Consult was obtained with Dr. Earl. The pt was outside the window for TPA. Dr. Earl recommended transfer to [facility] for possible mechanical thrombectomy. He was not eligible for clot retrieval due to the proximal location of the clot in the R carotid artery bifurcation. He was placed on a heparin drip. Hemoglobin A1c was 5.4 and the LDL was 81. Echocardiogram showed normal left ventricular size and wall thickness. There were no regional wall motion abnormalities and the ejection fraction was normal. There was no significant valvular heart disease. There was no PFO. He had no intervention while at [facility]. He was seen by PT/OT/ST and recommendation was for an acute rehab unit at [facility]. He was transferred to [facility] acute rehab unit on 05/23/21 for 3 hours of therapy daily to restore function/independence at or near his prior level. 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 His 's name is Claduia and they have 4 children. He was diagnosed with BPD within the past few years and he saw Dr. Krause at behavioral Health at [facility]. He was placed on Depakote. His tells me that sometimes he gets very depressed. He thinks his father was bipolar but, he does not know much about his father and they are estranged. He was crying frequently at admission and was very worried about his future. He wants to know if he will get all better or if he will be like this the rest of his life. He was placed on Sertraline that was titrated up from 50 mg to 100 mg during his admission and he is tolerating this dose with no hypomania. He has a better + attitude and now assures me that he will continue to work hard and he will be back to driving truck......this may be unrealistic due to LUE weakness, Left side neglect. He was able to quit smoking for a time after the PTCA of the RCA in 2018 but, he has gone back to smoking. He also tells me that he never drinks when he is on the road but when he is at home he will drink 2 12 packs of beer a week and 2 shots a day. He binges when he gets home. He quit with a nicotine patch in the past. He was placed on a 21 mg patch and he denied serious cravings at the time of discharge. He was also counselled about smoking cessation and Alcohol cessation, ubaldo the binge drinking. Aníbal did very well in therapy. He has modified Racheal score at admission to rehab was 5 and at the time of discharge it is 2. He has ambulated up to 1000 feet with a standard cane on various surfaces. He is able to go up and down curbs. He can a sense/descend 13 steps with a single handrail at standby assist/contact-guard assist. He requires only minimal assistance with bathing and minimal assistance with lower body dressing, primarily with putting his shoes on.. He is independent with upper body dressing and grooming. He is doing well with a minced/moist diet with thin liquids. The left side neglect is exacerbated with increased impulsivity. When he slows down he is better able to complete his tasks. When he is cleared to try driving by neurology and therapy we recommend he attend the driving safety school in [place] so he can be assessed for safe driving performance. He was instructed at [place] NOT to drive. He was discharged home on 06/14/21 and will have ongoing therapy as an OP. DME had previously been set up. He was afebrile for the duration of his stay in rehab. The blood pressure has been well controlled and the pulse ox is 95 to 97% on room air. He will follow up with Dr. Adam, Dr. Aguilera, Dr. Krause and Dr. Luis post [place]. He also has an appt at the previous hospital [place] to repeat a CTA or angiogram. He was instructed not to use Sildenafil until he talks this over with the neurologist. Physical Exam Const alert, oriented x3 and no apparent distress General Appearance: cooperative and comfortable HEENT moist oral mucous membranes Neck no lymphadenopathy, no JVD and no carotid bruits Chest Chest: symmetrical chest wall rise Resp normal respiratory effort, normal air movement, no use of accessory muscles and clear to auscultation bilaterally Effort and Inspection: able to speak in complete sentences Cardio regular rate, regular rhythm, S1 normal heart sound, S2 normal heart sound, no murmurs, no rub and no gallops GI normal to inspection, nondistended, normoactive bowel sounds Extremity normal capillary refill, no calf tenderness and no pedal edema Extremity Narrative: he has mild edema in the L hand due to inactivity Skin General Skin Exam: no breakdown Rashes: no rashes Neuro oriented x3 and CN's II-XII intact bilaterally Neuro Narrative: 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 He is ambulating with a straight cane now and is doing steps in a reciprocal motion now. Facial droop is improving. Psych mental status grossly normal, affect normal, activity/motor behavior normal, denies hallucinations, denies homicidal ideation and denies suicidal ideation Appearance: grossly normal and appropriate Attitude: calm Activity / Motor Behavior: appropriate eye contact; Negative for psychomotor agitation, fidgetting, hyperactive or disorganized Speech: normal speech Weight / BMI Weight Weight: 249 lb 1.957 oz Body Mass Index (BMI) 30.0 ABG / Lab / Microbiology Data Result Diagrams: 06/11/21 05:28 06/11/21 05:28 D/C Instructions Discharge Diet: Low fat / Low cholesterol and 4000 mg Sodium Diet Weight Bearing Status: Full weight bearing Call your doctor if you observe: Fever of 101 or Higher, Inability to urinate, Inability to have a bowel movement, Shortness of breath, Dizziness, Fainting spells, Chest pain, Increased palpitations (irregular heartbeat), Calf discomfort and Uncontrolled pain Please Follow Up With: Manjeet Aguilera MD Meaningful Use Info Meaningful Use Diagnoses (Choose all that apply): Ischemic CVA CVA Therapy Assessed for PT,OT and/or ST?: Yes Ischemic Stroke Antithrombotic order at d/c?: Yes Dx of Atrial fib/flutter?: Yes Anticoagulant at discharge?: Yes Statins at discharge?: Yes Primary Dx Acute Ischemic CVA?: Yes IV tPA ordered during stay?: No Reason IV t-PA not ordered: Treatment not Indicated Discharge Plan Admission Admit Date/Time: 05/23/21 12:28 Primary Reason for Your Visit: Debility due to large embolic ischemic CVA Attending Provider: Sandra Barbosa Primary Care Provider: Alexander Adam Instructions Patient Instructions: Intimacy After Stroke, Preparing Your Home After Stroke, Counseling for Depression, Stroke Prevent Another Caregiver, Kicking the Smoking Habit, Stroke Prevent Live W Atrial Fib Additional Instructions / Restrictions: 1. You awesome in rehab and worked very hard. I hope that you will continue to improve. You do have a problem with a visual deficit and must remember to scan from R to left so that you can read and be aware of what is on your left side. You are only now regaining movement and strength in the left arm. You MUST not drive. Generally patients with strokes have poor safety awareness and they think they can do more than they actually can. Do not drive. It will put you and your passengers at risk as well as the people in the cars around you. there is a driving school in [place] that you can go to when the neurologist thinks you are ready to determine if you are really safe to drive. 2. 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 Sometimes patients have no deficits from a stroke after they have done therapy but, many do not get all their function back and you had a large stroke. Sometimes we just have to make peace with our disabilities and move forward. 3. 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 You sit all day, most smoke and most eat a crappy diet of fast food. If you are able to drive again you can not return to that behavior and expect to stay healthy. You are a young man wi th a young family that I know you want to be there for......take better care of yourself. 4. If you have any questions after you leave rehab please do not hesitate to call me. Office: [phone] Rodrigo Spangler and I wish you a long healthy happy fulfilling life. It was a pleasure getting to know you and seeing you progress so far. Discharge Orders/Prescriptions Prescriptions: New atorvastatin 80 mg Tablet 80 mg PO QHS Qty: 30 RF: 0 acetaminophen 500 mg Tablet 1,000 mg PO Q6H PRN (Reason: fever or pain) Qty: 1 RF: 0 Eliquis 5 mg Tablet 5 mg PO BID Qty: 60 RF: 0 Arthritis Pain Compound 0 click topical TID Qty: 0 RF: 0 melatonin 3 mg Tablet 3 mg PO QHS Qty: 30 RF: 0 metoprolol tartrate 25 mg Tablet 12.5 mg PO BID Qty: 30 RF: 0 niacin 500 mg Tablet Extended Release 500 mg PO QHS Qty: 30 RF: 0 nicotine 21 mg/24 hr Patch 24 Hour 21 mg transdermal DAILY Qty: 14 RF: 0 sertraline 100 mg Tablet 100 mg PO DAILY Qty: 30 RF: 0 Continued aspirin 81 MG tablet,chewable 81 mg PO DAILY@0800 RF: 0 clopidogrel 75 mg Tablet 75 mg PO DAILY Qty: 30 RF: 0 divalproex 500 mg tablet extended release 24 hr 1,000 mg PO QHS Qty: 60 RF: 0 Held sildenafil 100 mg Tablet 100 mg PO DAILY RF: 0 Hold Instructions: Please do not take this medication until the neurologist Okays it........it can elevate the BP and you just had a stroke so this is not desirable yet. Discontinued atorvastatin 40 mg tablet 40 mg PO QHS RF: 0 losartan 25 mg tablet 25 mg PO DAILY RF: 0 metoprolol tartrate 50 mg tablet 50 mg PO BID RF: 0 hydrochlorothiazide 12.5 mg capsule 12.5 mg PO DAILY RF: 0 Referrals / Follow Up: Cameron Black MD [STAFF PHYSICIAN] - Alexander Adam MD [Primary Care Provider] - Manjeet Aguilera MD [NON-STAFF] - Disposition Disposition (needs filled in before D/C Order can be placed): Home, Self Care Charges/Coding Visit Charges Inpatient E&M: 26011 Disch Hosp
[2021-06-13 19:30] VITALS: BP 133/77; PULSE 67; RESP 16; TEMP 36.8; O2SAT 97
[2021-06-13 21:51] VITALS: BP 133/67; PULSE 67
[2021-06-13] MEDS: Atorvastatin Calcium 80 MG Tablet PO (21:51)
[2021-06-13] MEDS: MELATONIN 3 MG TABLET PO (21:53)
[2021-06-13] MEDS: Niacin SA 500 MG Tablet PO (21:53)
[2021-06-14] MEDS: Acetaminophen 500 MG Tablet 1000 MG PO (06:26)
[2021-06-14 07:35] VITALS: BP 116/63; PULSE 56; RESP 18; TEMP 36.4; O2SAT 96
[2021-06-14 08:04] VITALS: BP 116/63; PULSE 64
[2021-06-14] MEDS: APIXABAN 5 MG TABLET PO (08:04)
[2021-06-14] MEDS: Metoprolol Tartrate 25 MG Tablet 12.5 MG PO (08:04)
[2021-06-14] MEDS: Sertraline 100 MG Tablet PO (08:04)
[2021-06-14] MEDS: Clopidogrel Bisulfate 75 MG Tablet PO (08:04)
[2021-06-14] MEDS: Divalproex Sodium 250 MG Tablet 500 MG PO ×2 (08:05→11:57)
[2021-06-14 15:54] VITALS: BP 120/66; PULSE 64; RESP 17; TEMP 36.4; O2SAT 97
--- NOTE | 2021-06-14 15:55 | NURSING ---
Discharged home with family. Discharged instructions, medications and appointments reviewed with pt and . denies questions or concerns
== END 2021-06-14 15:56 | disposition home or self-care (01) | DRG 57 ==
PROVIDERS: Admitting Provider Internal Medicine; PCP Family Medicine; Visit Provider Internal Medicine
DX: I69.354 Hemiplegia and hemiparesis following cerebral infarction affecting left non-dominant side (principal); I69.392 Facial weakness following cerebral infarction; E66.9 Obesity, unspecified; I25.10 Atherosclerotic heart disease of native coronary artery without angina pectoris; I48.0 Paroxysmal atrial fibrillation; F17.210 Nicotine dependence, cigarettes, uncomplicated; F31.9 Bipolar disorder, unspecified; Z79.899 Other long term (current) drug therapy; Z79.82 Long term (current) use of aspirin; Z79.02 Long term (current) use of antithrombotics/antiplatelets; I10 Essential (primary) hypertension; E78.5 Hyperlipidemia, unspecified; I25.2 Old myocardial infarction; Z95.5 Presence of coronary angioplasty implant and graft; R13.12 Dysphagia, oropharyngeal phase; Z68.30 Body mass index [BMI] 30.0-30.9, adult; M75.52 Bursitis of left shoulder; M62.50 Muscle wasting and atrophy, not elsewhere classified, unspecified site; R32 Unspecified urinary incontinence
CPT/HCPCS: 36415; 80048; 80053; 80061; 80164; 81001; 83735; 84100; 85027; 92507; 92523; 92526; 92610; 94762; 96125; 97110; 97112; 97116; 97129; 97130; 97162; 97166; 97530; 97535; 97802; 97803; 99251; 99406; G0463

== ENCOUNTER → 2021-08-09 15:44 | Outpatient (CLI) | payer OTHER, SELFPAY ==
--- NOTE | 2021-08-09 16:00 | CT_ITS ---
STUDY: CTA NECK WITH CONTRAST REASON FOR EXAM: Male, 46 years old. DISSECTION R CAROTID ARTERY RADIATION DOSAGE (If Supplied By Facility): CTDIvol = ( 20.74 ) mGy, DLP = ( 655.63 ) mGycm TECHNIQUE: CT angiography with multi-detector data acquisition was performed from the aortic arch to the skull base following intravenous administration of IV 100mL Isovue-370. MIP images were reconstructed from the axial data set. Post-processing of the angiographic images was performed, with multiplanar reformation and 3D reconstruction. Individualized dose optimization techniques were used for this CT. COMPARISON: None. FINDINGS: AORTIC ARCH: Normal visualized aortic arch. Normal origins of the brachiocephalic, left common carotid, and left subclavian arteries. RIGHT CAROTID ARTERIES: Normal right common carotid artery (CCA). Normal right common carotid bulb. Normal origin of the right internal carotid (ICA) artery without a hemodynamically significant stenosis. Normal visualized cervical portion of the right internal carotid artery. Normal origin of the right external carotid artery (ECA). LEFT CAROTID ARTERIES: Normal left common carotid artery (CCA). Minor calcific plaquing of the left common carotid bulb. Normal origin of the left internal carotid (ICA) artery without a hemodynamically significant stenosis. Normal visualized cervical portion of the left internal carotid artery. Normal origin of the left external carotid artery (ECA). VERTEBRAL ARTERIES: Left vertebral is dominant and normal caliber. The right vertebral is hypoplastic and terminates in PICA which is normal developmental variant. CT/CTA Neck W/WO Contrast IMPRESSION: Minor atherosclerotic change without evidence for hemodynamically significant stenosis utilizing NASCET criteria Electronically Signed: Senthil Christian MD at 17:00 EDT , Service support ,
[2021-08-09 16:15] LABS: EGFR FINGERSTICK > 60.0000 mL/min (>60)
== END ==
PROVIDERS: PCP Family Medicine; Referring Provider Psychiatry & Neurology Neurology; Visit Provider Psychiatry & Neurology Neurology
DX: I77.71 Dissection of carotid artery (principal)
CPT/HCPCS: 70498; Q9967; A4216

== ENCOUNTER 2021-11-06 10:00 | Outpatient (RCR) | payer OTHER, SELFPAY ==
--- NOTE | 2021-06-19 09:43 | HP.PTEVAL_ITS ---
Patient's Visit Information DOMENICO FERREIRA is a 46 year old M referred to Physical Therapy by Dr. Alexander Adam MD with a diagnosis of CVA/ L hemiplegia. Date of Evaluation: 06/19/21 Physical Therapist: Enrique Laguna, PT, ATC - Visit Plan Frequency: 2-3x /Week Duration: 4-6 Weeks Plan: L LE stretching and strengthening, gait training, stair negotiation, core strengthening, balance and proprio, nustep, and HEP - Subjective CVA: 05/16/21. Pt reports he was laying on the couch when his told him dinner was ready. Pt reports he was not able to get off the couch on his own, so his helped him. Pt reports he ate dinner (although he drug his arm through his plate multiple times) and then ascended a flight of stairs and took a shower prior to going to the ER. Pt reports he then had a CT scan which revealed a CVA. Pt reports he feels like his L leg is getting much stronger, and is almost back to normal. Pt reports his greatest complaint is the lack of function with his L UE. Pt is R hand dominant. 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 Pt reports he is not in pain today. Pt reports no difficulty with stair negotiation at this time. Pt notes he does feel like his balance is off a little. No sleep difficulty secondary to pain. Pt reports rolling over in bed is difficult at this time. Pt reports he is not limited with any IADL's secondary to L LE. - Objective Neuro: B LE sensation is WNL to light touch. B patellar and achilles reflex= 2/3. MMT: R LE is grossly 5/5 throughout. L LE is grossly 4/5 jthroughout. ROM: B LE's are WFL with the exception of L knee flexion and ankle DF being minimally limited. FGA: - Balance/Special Test Scores Functional Gait Assessment Score: 22 % Disability: 26.6700 Lower Extremity Functional Score: 27 - Goals Goal 1:: Increase L LE strength x 1 grade to aid with stair negotiation Goal Time Frame: 4-6 Weeks Goal 2:: Increase FGA score x 5 points to aid with improving ambulation Goal Time Frame: 4-6 Weeks Goal 3:: I with HEP - Rehabilitation Potential Physical Therapy Diagnosis: Pt has L LE weakness, an unsteady gait pattern, and is unable to work at this time secondary to CVA Rehabilitation Potential: Good - Anticipated Interventions Patient/Client Instruction: Educate patient on: Condition, Plan of Care For the Purpose of:: To improve safety, To improve self management Therapeutic Exercise to Include: Strength training, Endurance training, Balance training, Flexibilty training, Gait and locomotor training, Dynamic Lumbar Stabilization For the Purpose of:: To increase ROM, To improve muscle performance and motor function, To improve performance and independence with ADL's, To improve gait and locomotor functions Thank you for the opportunity to evaluate your patient. For Medicare and Medicare HMO plans, please review the plan of care and approve it. It will need to be FAXED BACK to us at [phone] for Medicare purposes. For Medicare only, by signing this I certify the plan of care. Please let me know if there are questions or concerns regarding this plan of care. Physician Signature: Date:
--- NOTE | 2021-06-21 07:41 | HP.SP.AD_ITS ---
History - History Date of Eval: 06/19/21 Medical Diagnosis (from RX): Stroke (I63.9); L Hemiplegia (G81.94) Previous speech therapy: Yes Results: Patient participated in 3 weeks of in patient skilled ST intervention at [facility] targeting dysphagia, dysarthria & cognitive function - attention, executive function and L visuospatial neglect. During in patient admission, Pt demonstrated significant improvement in use of compensa tory swallowing strategies w/ improved safety and decreased buccal pocketing/anterior bolus loss. Marked improvement in labial seal/facial symmetry and speech intelligibility. Evolving insight re: L neglect - impulsivity is the biggest cause of errors w/attention L. Able to complete tasks w/ 100% accuracy once he is made aware of errors and slows down. At d/c, ST recommending to continue w/outpatient speech therapy targeting high level cognitive/executive functions w/ a focus on L visual inattention, as he is self employed and has a strong desire to return to his prior level of independence and cognitive function. Without continued therapy, he is a safety risk d/t visual neglect & for further cognitive decline. Other Relevant Medical History/Diagnoses/Surgery: PMH: BPD, tobacco dependence, CAD, obesity, PAF(not on anticoagulation), HTN, ED, migraines, dyslipidemia and daily alcohol consumption. DOMENICO FERREIRA, is a 46 YO M who experienced L side weakness and numbness and facial droop on 05/17/21. Pt has a hx of noncontrasted head CT showing no acute findings. CTA showed large subocclusive clot in the proximal right internal carotid artery. He was given a rectal ASA. Telestroke Consult was obtained with Dr. Earl. The pt was outside the window for TPA. Dr. Earl recommended transfer to [facility] for possible mechanical thrombectomy. He was not eligible for clot retrieval due to the proximal location of the clot in the R carotid artery bifurcation. Pt seen today for skilled out patient speech therapy evaluation 2/2 CVA to further discuss inpatient rehab recommendations, personal goals, and how to improve Pt's independence w/tasks at home and at work. 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 Pt reports previously being independent w/medication management prior to CVA, however his currently helps him w/placing meds in pill box. Pt would like to be independent again. Pt reports great frustration w/L neglect via providing real-life examples. Pt reported he was walking on his sidewalk and almost fell off L side of the sidewalk 2/2 his severe L neglect. Pt also providing examples of people passing him in public on the L and that he does not realize he did not allow enough space for them to pass him. Pt reports wanting to continue to be pushed in therapy, however reports his impulsive demeanor has been a barrier for him with therapy targeting L neglect thus far. Pt reports using an jaelyn on his phone to practice attending to targets on the L side. 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 The CLQT is to assess strength and weaknesses in five cognitive domains. Severity ratings are within normal limits, mild, moderate, severe deficits. The subtests are as follows: Date: 06/21/21 - Attention Attention: Mild - Memory Memory: WNL - Executive Functions Executive Functions: Mild - Language Language: WNL - Visuospatial Skills Visuospatial Skills: Mild - Composite Severity Rating Composite Severity Rating: Mild - Clock Drawing Severity Rating Clock Drawing Severity Rating: Mild - CLQT Comments Progress from Inpatient Rehab On 06/03/21 Pt performed with the following cognitive domain scores: Attention = 138/215 (a score of 180+ is considered WNL for patient?s age) *MODERATE IMPAIRMENT* ? Memory = 148/185 (a score of 155+ is considered WNL for patient?s age) *MILD IMPAIRMENT* ? Executive Functioning = 17/40 (a score of 24+ is considered WNL for patient?s age) *MODERATE IMPAIRMENT* ? Language = 30/37 (a score of 29+ is considered WNL for patient?s age) *WNL* ? Visuospatial Skills = 60/105 (a score of 82+ is considered WNL for patient?s age) *MILD IMPAIRMENT* ? Clock Drawing: Score = 8/13 (a score of 12+ is considered WNL for patient?s age) *MODERATE IMPAIRMENT*. Pt's cognitive domain scores on this date are as follows: Cognitive Domain Scores: Attention = 173/215 (MILD); Memory = 175/185 (WNL); Executive Functioning = 23/40 (MILD); Language = 32/37 (WNL); Visuospatial Skills = 81/105 (MILD); Clock Drawing = 11/13 (MILD). On 06/03/21: Composite Severity Rating - 2.8/4.0 (a score of 3.5 or higher is considered WNL for patient?s age) *MILD*. Today's evaluation: Composite Severity Rating - 3.4/4.0 *MILD* Plan - Plan Plan: Will recommend Pt for weekly outpatient speech therapy to address mod- severe cognitive impairment characterized by deficits in attention, left neglect, visuospatial skills, and higher level executive functioning (including med management). Pt would benefit from cognitive training to improve cognitive functioning which would assist in completing ADLs/iADLs. Without skilled ST services, the Pt is at risk for decreased independence completing daily living tasks. - Recommendations MBS: No Treatment Warranted: Yes - Frequency Frequency: 1x/Week Duration: 4 Months Visits in this POC: 16 - Prognosis Prognosis: Excellent - Goals that are Established: Determination:: Goals will be added/modified as deemed necessary and appropriate. Therapy will be discontinued when results of re-evaluation indicate therapy is no longer needed or lack of progress has been documented. - Goal #1-5 Goal #1: Pt will complete complex executive functioning tasks including planning, organizing, and sequencing tasks with 90% acc independently across 3 measured opportunities. Goal #2: Pt will complete functional complex problem solving/reasoning, safety awareness, medication management, and finance management tasks with 90% acc independently across 3 measured opportunities Goal #3: Pt will complete complex sustained, alternating, divided attention tasks w/ a focus on left neglect with 90% acc independently across 3 measured opportunities. Education - Patient has Indicated that the Following Identified Educational Needs: None The Patient has indicated that they have no educational or learning abilities that may effect their care.: Yes - Patient Instruction Patient Education: Diagnosis, Treatment Plan, Goals Person Taught: Patient Teaching Method: Discussion Response to teaching: Return demonstration, Verbalize understanding
--- NOTE | 2021-06-24 08:37 | HP.OTEVAL ---
Patient's Visit Information DOMENICO FERREIRA is a 46 year old M, referred to Occupational Therapy by Dr. Alexander Adam MD, with a diagnosis of CVA left UE weakness.. Date of Evaluation: 06/21/21 Occupational Therapist: Savita Pelaez, KIRAR/Rayo, CHT - Subjective This 46 year old male was seen for OT eval with sx of CVA: pt states he went to hospital on 05/16/21. pt feels he actually had difficulty a couple days prior. Pt reports he was laying on the couch when his told him dinner was ready. Pt reports he was not able to get off the couch on his own, so his helped him. Pt reports he ate dinner (although he drug his arm through his plate multiple times) and then ascended a flight of stairs and took a shower prior to going to the ER. Pt reports he then had a CT scan which revealed a CVA. Pt reports he feels like his L leg is getting much stronger, and is almost back to normal. Pt reports his greatest complaint is the lack of function with his L UE. Pt is R hand dominant. 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 Pt reports he is not in pain today. Pt reports no difficulty with stair negotiation at this time. Pt notes he does feel like his balance is off a little. No sleep difficulty secondary to pain. Pt reports rolling over in bed is difficult at this time. Pt reports he is not limited with any IADL's secondary to L LE. - ADLs Dressing: Socks, Shoes Comments: needs assist Fasteners: Tie shoes, Buttons, Zippers, Belt Eating: Use silverware, Cut food Bathing: Handle washcloth & soap, Wash hair, Squeeze shampoo bottle Comments: use of right hand only Grooming: Trim nails Kitchen: Chop with knife, Peel fruits & vegetables, Open jars, Open bottle caps, Ziplock bags, Take dish out of oven, Load/unload it application support analyst Yard: Mow lawn, [place], [place] Comments: pt is unable to do yard work pts son's (ages 19 &17) are mowing the grass. Miscellaneous: Use hand tools, Use power tools, Use computer keyboard, Drive, Function in drive through window Comments: pt lives in a two story home with 2 entry steps- no rails. Pts bedroom is on second floor- pt reports he id fine on stairs-. pt and 4 children (22, 19, 17, 14). pt states family is mtg. house hold. 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 pt states he worked at least 70 hours a week. pt states he would at most drive 700miles. pt states he does have a trimmer hand to keep [employer] going. - ROM Shoulder: right WNL left flaccid Elbow: right WNL left trace Forearm: right WNL left trace Wrist: right WNL left trace ROM Comments: pt right hand demo full digital ROM. left hand flaccid - Strength Shoulder: right 5/5 left flaccid Elbow: right 5/5 left flaccid Forearm: right 5/5 left flaccid Wrist: right 5/5 left flaccid Assistant To The President: right 120# left trace Lateral Pinch: right 16# left NT Tripod Pinch: right 12# left NT Strength Comments: right MF and RF tip amputations at age 2.5 years of age - Sensation Sensation Comments: denies - Movement Muscle Tone: slight biceps tone - Quick DASH-Disab of Arm,Shoulder& Hand Quick DASH Score: 85.0000 - Goals Goal:: pt will demo increase in left UE strength 3/5 mmt to perform full ROM. Goal:: Pt will demo shoulder flext to 120* to increase ind. with dressing tasks by d/c. pt will demo full left elbow ROM to increase ind. with use of bilateral hands for ADls by d/c. PT will demo wrist ext to 40* to increase pts ind. with ADls and IADLs by d/c. pt will demo functional left c++ quant developer to grasp and release med. and large objects for increase ind. with ADls and IADLs by d/c - Rehabilitation General Assessment: pt demo with limited left UE ROM and strength from CVA. pt limited with all ADLS and IADLs at this time. pt would benefit from skilled OT services 2-3x week for 12 weeks. Rehabilitation Potential: Good - Anticipated Interventions A/AAROM/PROM, Strengthening, Ergonomic Education, Neuro Reeducation, ADL Training, Education re assistive Equipment, Education re Diagnosis, Caregiver Training, Home Program - Visit Plan Frequency: 2-3x /Week Duration: 3 Months TEXT: Thank you for the opportunity to evaluate your patient. For Medicare and Medicare HMO plans, please review the plan of care and approve it. It will need to be FAXED BACK to us at [phone] for Medicare purposes. Please let me know if there are questions or concerns regarding this plan of care. Physician Signature: Date:
--- NOTE | 2021-07-22 10:05 | HP.PTREVAL ---
Dr. Alexander Adam MD, It has been my pleasure to treat DOMENICO FERREIRA over the last 11 visits for CVA/ L hemiplegia. Please see the progress note below for an update on the physical therapy plan of care! Subjective: Pt reports his L LE is coming along well. Pt reports he feels strong in his R leg Objective/Function: L LE MMT: L hip flexion and knee extension= 4-/5. All other N LE MMT 5/5 throughout. FGA: . Pt still displays mild balance deficits that would keep him from returning to work at this time. Pt is still showing significant improvements, but lacks functional skills that would allow him to return to work at this time. Plan Plan: Continue to focus on strengthening and balance activities Balance/Gait/Functional tests - Balance/Special Test Scores Functional Gait Assessment Score: 25 % Disability: 16.6700 Lower Extremity Functional Score: 61 Goals Goal 1:: Increase L LE strength x 1 grade to aid with stair negotiation Goal Time Frame: 4-6 Weeks Goal Progress: Progressing Goal 2:: Increase FGA score x 5 points to aid with improving ambulation Goal Time Frame: 4-6 Weeks Goal Progress: Progressing Goal 3:: I with HEP Goal Progress: Progressing Anticipated Interventions Patient/Client Instruction: Educate patient on: Condition, Plan of Care For the Purpose of:: To improve safety, To improve self management Therapeutic Exercise to Include: Strength training, Endurance training, Balance training, Flexibilty training, Gait and locomotor training, Dynamic Lumbar Stabilization For the Purpose of:: To increase ROM, To improve muscle performance and motor function, To improve performance and independence with ADL's, To improve gait and locomotor functions Please do not hesitate to contact me at [phone] by phone or if you have questions or concerns regarding this new plan of care! Sincerely, Enrique Laguna, PT, ATC
--- NOTE | 2021-07-25 08:27 | HP.OTREVAL ---
Dr. Alexander Adam MD, It has been my pleasure to treat DOMENICO FERREIRA over the last 13 visits for CVA left UE weakness.. Please see the progress note below for an update on the occupational therapy plan of care! Subjective: pt arrives states he is constantly working with his fingers- but he is trying to get back to his normal life as in use of left UE for opening doors, etc. pt states he is getting dressed. pt states he was able to sign into his computer wit use of left UE. Objective/Function: pt demo with a increase in left shoulder AROM. left shoulder flex at 100*. left shoulder abduction 90*. left elbow elbow -10/135. left forearm supination 40* pronation 65. left wrist 65/45. pt is getting a good return of left UE control and is demo with digit ROM Plan Frequency: 2-3x /Week Duration: 3 Months Plan: Cont POC Goals - Goals Patient Goals: Regain Mobility, Use Hand/Wrist/Arm Normally Again, Be More Independent in ADLS Goal:: pt will demo increase in left UE strength 3/5 mmt to perform full ROM. Goal:: Pt will demo shoulder flext to 120* to increase ind. with dressing tasks by d/c. pt will demo full left elbow ROM to increase ind. with use of bilateral hands for ADls by d/c (this goal is met). Pt will demo left forarm supination/pronation by 40* or greater to recieve object and hold in hand iND by d/c. PT will demo wrist ext to 40* to increase pts ind. with ADls and IADLs by d/c. pt will demo functional left manager operating to grasp and release med. and large objects for increase ind. with ADls and IADLs by d/c Anticipated Interventions Anticipated Interventions: A/AAROM/PROM, Strengthening, Ergonomic Education, Neuro Reeducation, ADL Training, Education re assistive Equipment, Education re Diagnosis, Caregiver Training, Home Program Please do not hesitate to contact me at [phone] by phone or if you have questions or concerns regarding this new plan of care! Sincerely, Savita Pelaez, OTR/L, CHT
--- NOTE | 2021-08-28 14:37 | HP.SP.DC_ITS ---
ST Discharge Summary - Discharged: Discharge: Pt was seen for initial cognitive evaluation at [facility] on 06/19/21 s/p CVA. Pt attended 12 additional consecutive sessions following initial evaluation to target attention w/ a focus on left neglect, problem solving/reasoning, executive functioning, and safety awareness. Following Pt?s success w/tasks during therapy, current level of cognitive function, and self-report of no further difficulty w/home activities, Pt deemed appropriate for d/c from speech therapy at this time. Pt provided w/home carry over activities to continue targeting complex executive functioning tasks. Discussed Pt to seek additional support from psychologist to assist w/identifying emotions and how to process them. Pt discharged from speech therapy caseload on this date, 08/28/21. Thank you for allowing me to participate the care of your Pt. Will reevaluate at Pt?s request following script from physician.
--- NOTE | 2021-09-03 10:01 | HP.PTDCSUM ---
It has been my pleasure to treat DOMENICO FERREIRA referred by Dr. Alexander Adam MD, with the diagnosis of CVA/ L hemiplegia for a total of 22 visit(s). Discharge Date: Please see the following information for a summary of their discharge status. Subjective: Pt reports No pain at this time. Pt notes this has helped him out tremendously. Its my left arm that limits me now Left shoulder Pain Intensity (Out of 10): 0 % Improvement: 90 Objective/Function: B LE strength is 5/5 throughout with the exception of L hip flex and knee flex= 4+/5. FGA= 29/30. Pt is I with HEP. Rx goals achieved Goal 1:: Increase L LE strength x 1 grade to aid with stair negotiation Goal Progress: Goal Met Goal 2:: Increase FGA score x 5 points to aid with improving ambulation Goal Progress: Goal Met Goal 3:: I with HEP Goal Progress: Goal Met Plan: Discharge to HEP If there are questions or concerns regarding this patient's physical therapy, please feel free to call me at [phone]. Thank you for the referral of this patient. Sincerely, Enrique Laguna, PT, ATC Balance/Gait/Functional tests - Balance/Special Test Scores Functional Gait Assessment Score: 29 % Disability: 3.3400 Lower Extremity Functional Score: 78
--- NOTE | 2021-10-03 12:19 | OTREVAL_ITS ---
Dr. Alexander Adam MD, It has been my pleasure to treat DOMENICO FERREIRA over the last 35 visits for CVA left UE weakness.. Please see the progress note below for an update on the occupational therapy plan of care! Subjective: pt states he has concerns with his fine motor - states he has initiated using left pinch and freight air brake fitter but continues to struggle with manipulation of fasteners and use of left freight air brake fitter/UE with cooking and dressing tasks. Objective/Function: right 9-hole peg test 18.61 sec. left 9-hole peg test 4:47 sec. left freight air brake fitter 28#. left lateral pinch 11#. left tripod pinch 12#. pt has made good gains in Left UE- and now will transition to Fine motor skills to increase pts ind. with buttons/zippers and manipulating fasteners. pt demo need for skilled OT services 3x week for 4 weeks. Plan Frequency: 3x /Week Duration: 2 Months Plan: change POC to initiate fine motor skills to increase pts ind. with manipulation of fasteners and bilateral hand skills for cooking and other daily tasks. Goals - Goals Patient Goals: Regain Mobility, Use Hand/Wrist/Arm Normally Again, Be More Independent in ADLS Goal:: pt will demo increase in left UE strength 4+/5 mmt to perform full ROM. Goal:: Pt will demo shoulder flext to 165* to increase ind. with dressing tasks by d/c. pt will demo full left elbow ROM to increase ind. with use of bilateral hands for ADls by d/c (this goal is met). Pt will demo left forarm supination/pronation by 40* or greater to recieve object and hold in hand iND by d/c. PT will demo wrist ext to 40* to increase pts ind. with ADls and IADLs by d/c. pt will demo functional left freight air brake fitter to grasp and release med. and large objects for increase ind. with ADls and IADLs by d/c Goal:: pt will demo the ability to pick pulling machine tender small objects with fluid motion and decreasing 9-hole peg time to under 2 min. indicating increase in FMS by d/c Goal:: pt will demo the ability to button/unbutton and manipulate fasteners to increase pts ind. with ADls by d/c Anticipated Interventions Anticipated Interventions: A/AAROM/PROM, Strengthening, Ergonomic Education, Neuro Reeducation, ADL Training, Education re assistive Equipment, Education re Diagnosis, Caregiver Training, Home Program Please do not hesitate to contact me at [phone] by phone or if you have questions or concerns regarding this new plan of care! Sincerely, Savita Pelaez, OTR/L, CHT
== END 2021-11-06 19:00 | disposition home or self-care (01) ==
LOC: OT 10:00
PROVIDERS: PCP Family Medicine; Referring Provider Family Medicine; Visit Provider Family Medicine
DX: I69.354 Hemiplegia and hemiparesis following cerebral infarction affecting left non-dominant side (principal)
CPT/HCPCS: 92507; 92523; 97110; 97112; 97140; 97161; 97164; 97166; 97530

== ENCOUNTER 2022-03-28 13:13 | Observation (INO) | payer OTHER, SELFPAY ==
[2022-03-28] VITALS (7 sets, daily range): BP systolic 103–129; BP diastolic 64–77; PULSE 68–88; RESP 15–20; TEMP 36.3–37.2; O2SAT 96–98; BMI 32.1; BMI 32.0
--- NOTE | 2022-03-28 13:48 | CT_ITS ---
STUDY: CT BRAIN WITHOUT CONTRAST REASON FOR EXAM: Male, 46 years old. seizure TECHNIQUE: Transaxial CT imaging of the brain was performed without administration of intravenous contrast material. Individualized dose optimization techniques were used for this CT. COMPARISON: May 16 2021 8:16pm FINDINGS: Normal calvarium. Normal soft tissues. 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 Normal size ventricles and extra-axial spaces for the patient''s age. Normal white matter tracts of the cerebral hemispheres. Normal basal ganglia and thalami. Normal brainstem. Normal cerebellum. There is no intracranial hemorrhage. There are no findings of an acute ischemic infarction. There is sinus disease. ASPECTS 10 CT/Brain/Head without Contrast IMPRESSION: There are no acute intracranial findings. 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 Electronically Signed: Enrique Durham MD at 14:28 EDT ,
--- NOTE | 2022-03-28 13:48 | RAD_ITS ---
STUDY: X-RAY CHEST REASON FOR EXAM: Male, 46 years old. Technologist Notes pt. had twitching and numbness in left arm and leg. states previous stroke last year. states left side was affected. still has deficits. states symptoms seem back to pt. normal sob TECHNIQUE: XR Chest 1 View COMPARISON: 05.16.21 FINDINGS: There is no demonstrated pleural abnormality. Normal size heart. Normal mediastinum and frank. Normal visualized pulmonary arteries. Normal visualized aortic arch and descending thoracic aorta. There are diffuse degenerative changes of the visualized thoracic spine. There is degenerative osteoarthritis of the bilateral shoulders. There is no demonstrated abnormality of the visualized soft tissue structures of the upper abdomen. RAD/Chest 1 View (Portable) IMPRESSION: There are no acute findings. Electronically Signed: Enrique Durham MD at 15:11 EDT ,
--- NOTE | 2022-03-28 13:52 | EDS_ITS ---
HPI History of Present Illness Chief Complaint: Neuro S/Sx Narrative Narrative: Patient presents with left arm tremor while he was at [facility]. He has left-sided deficits from an old stroke and started having numbness in his left leg and shaking of his left arm. This has resolved upon ED arrival. However as I am talking to him he starts having a partial seizure in his left arm which then progressed to a partial complex seizure including his left leg and some decreased mentation but he was still able to respond somewhat. This also resolved on its own. [facility] Medical History Alcohol use Atherosclerosis of coronary artery of [place] heart without angina pectoris Atrial fibrillation with RVR Bipolar disorder Erectile dysfunction Essential hypertension Hyperlipidemia NSTEMI (non-ST elevated myocardial infarction) Presence of stent in coronary artery (~12/21/17) Home Medications sildenafil 100 mg tablet 100 mg PO DAILY ED 05/16/21 [History Last Taken Unknown] aspirin 81 mg chewable tablet 81 mg PO DAILY@0800 supplement 05/23/21 [History Last Taken Unknown] acetaminophen 500 mg tablet 1,000 mg PO Q6H PRN fever or pain #1 TAB 06/13/21 [Rx Last Taken Unknown] divalproex 500 mg tablet,extended release 24 hr 1,000 mg PO QHS BIPOLAR #60 tabs 06/13/21 [Rx Last Taken Unknown] melatonin 3 mg tablet 3 mg PO QHS #30 tabs 06/13/21 [Rx Last Taken Unknown] niacin 500 mg tablet,extended release 500 mg PO QHS #90 tabs 07/15/21 [Rx Last Taken Unknown] atorvastatin 80 mg tablet 80 mg PO QHS #30 tabs 09/30/21 [Rx Last Taken Unknown] apixaban 5 mg tablet (Eliquis) 5 mg PO BID #60 tabs 11/25/21 [Rx Last Taken Unknown] metoprolol tartrate 25 mg tablet 25 mg PO DAILY 11/25/21 [History Last Taken Unknown] sertraline 100 mg tablet 150 mg PO DAILY 11/25/21 [History Last Taken Unknown] Allergy/AdvReac Type Severity Reaction Status Date / Time No Known Allergies Allergy Verified 11/25/21 13:38 Family History Mother No problems noted. Surgical History History of hand surgery Presence of coronary angioplasty implant and graft Social History Smoking Status: Former smoker alcohol intake: current alcohol intake frequency: a few times a week Alcohol type: beer, wine and hard liquor details: 2 12pks a week and 2 shots a day - binges. Does not drink when on the road substance use type: does not use caffeine: Yes Type: carbonated beverages what type of physical activity do you participate in: none seatbelt use: never do you feel safe at home: Yes ROS ROS ED ROS Narrative Past medical history: Reviewed in [facility] and at bedside Medications: Reviewed Social history: Noncontributory Review of systems: All systems negative except as indicated General: No fever Eyes: No visual changes ENT: No upper airway congestion, normal voice Neck: No neck pain Cardiovascular: No chest pain Respiratory: No shortness of breath or cough Gastrointestinal: No abdominal pain, nausea vomiting or diarrhea Genitourinary: No dysuria Musculoskeletal: Denies myalgias no difficulty with ambulation Skin: No rash Neurological: As in HPI Psych: No recent behavioral changes Hematologic: No easy bleeding or easy bruising EXAM Physical Exam Narrative Exam Narrative: Physical exam General: Patient appears uncomfortable Head: Normocephalic, Atraumatic Eyes: Conjunctiva not pale ENT: Moist mucous membranes. Slight left-sided facial droop Neck: Supple, Nontender, No lymphadenopathy Cardiovascular: Regular rate, Regular rhythm. No obvious murmurs Respiratory: No distress, CTA bilaterally Abdomen: Soft, Nontender, Nondistended Back: Nontender, Normal Inspection. Negative for: CVA tenderness Extremities: Nontender, No edema Skin: Normal color, No rash Neurological: Alert,, oriented. And some talking to him he has left arm and left leg seizure activity. After the seizure activity stopped he has decree strength in his left arm which is chronic he has normal strength and his left leg, sensory is intact he has no facial droop. Psychological: Normal affect Const Vital Signs: 03/28/22 13:14 Temperature 98.9 F Temperature Source Temporal Pulse Rate 76 Respiratory Rate 20 H Blood Pressure 126/69 H Blood Pressure Mean 88 Pulse Ox 98 Oxygen Delivery Method Room Air Discharge Plan Triage Chief Complaint: Neuro S/Sx ED Provider: Huan Neff Dx/Rx/DC Orders Prescriptions: No Action metoprolol tartrate 25 mg tablet 25 mg PO DAILY sertraline 100 mg tablet 150 mg PO DAILY Eliquis 5 mg tablet 5 mg PO BID Qty: 60 11RF sildenafil 100 mg Tablet 100 mg PO DAILY Hold Instructions: Please do not take this medication until the neurologist Okays it........it can elevate the BP and you just had a stroke so this is not desirable yet. aspirin 81 MG tablet,chewable 81 mg PO DAILY@0800 acetaminophen 500 mg Tablet 1,000 mg PO Q6H PRN (Reason: fever or pain) Qty: 1 0RF melatonin 3 mg Tablet 3 mg PO QHS Qty: 30 0RF divalproex 500 mg tablet extended release 24 hr 1,000 mg PO QHS Qty: 60 0RF niacin 500 mg tablet extended release 500 mg PO QHS Qty: 90 3RF atorvastatin 80 mg tablet 80 mg PO QHS Qty: 30 12RF Primary Care Provider: Alexander Adam Referrals: Alexander Adam MD [Primary Care Provider] -
[2022-03-28] MEDS: LORazepam 2 MG/ML Syringe 1 MG IV (13:53)
[2022-03-28 13:59] LABS: Basophil# 0.04 X10^3/uL; Basophil% 0.6 % (0-1); Eosinophil# 0.48 X10^3/uL; Eosinophils% 6.7 % (0-5); Hematocrit 44.4 % (40-54); Hemoglobin 15.3 g/dL (13.0-16.5); Lymphocyte % 27.8 % (19-41); Mean Corp Hgb Conc 34.5 g/dL (32-36); Mean Corpuscular Hgb 35.3 pg (27.0-32.0); Mean Corpuscular Volume 102.3 fL (80-94); Mean Platelet Vol. 9.7 fl (6.2-12.0); Monocyte# 0.67 X10^3/uL; Monocyte% 9.3 % (0-10); NRBC Flagged by Analyzer 0 % (0-5); Neutrophil # 3.96 X10^3/uL (2.7-7.7); Platelet Count 279 K/mm3 (150-450); RBC Distribution Width CV 13.2 % (11.6-14.6); RBC Distribution Width SD 50.4 fl (35.1-43.9); Red Blood Count 4.34 M/mm3 (4.6-6.2); White Blood Count 7.2 K/mm3 (4.4-11.0)
[2022-03-28 14:14] LABS: International Normalized Ratio 1.1; Prothrombin Time (Protime)PT. 13.6 SECONDS (11.7-14.9)
[2022-03-28 14:16] LABS: ALB/GLOB Ratio 0.7 RATIO (0.9-2.4); AST(SGOT) 35 U/L (15-37); Alanine Aminotransfer ALT/SGPT 27 U/L (16-61); Albumin, Serum 3.2 g/dL (3.2-5.0); Alkaline Phosphatase 99 U/L (45-117); Anion Gap 9 (5-15); BUN 8 mg/dL (7-18); BUN/Creat Ratio 7.5 RATIO (10-20); Calcium,Total 9.1 mg/dL (8.5-10.1); Chloride 99 mmol/L (98-107); Creatinine, Serum 1.07 mg/dL (0.70-1.30); EST Glomerular Filtration Rate 78 mL/min (>60); Est Glom Filt Rate - Afr Amer 95 mL/min (>60); Globulin 4.5 g/dL (2.2-4.2); Glucose 88 mg/dL (74-106); Potassium 4.2 mmol/L (3.5-5.1); Protein, Total 7.7 g/dL (6.4-8.2); Sodium Level 134 mmol/L (136-145); Troponin-I HS 4 pg/mL (3.0-78.0)
[2022-03-28] MEDS: levETIRAcetam IV 1,000 MG/100 ML BAG 400 MG IV (14:50)
--- NOTE | 2022-03-28 15:02 | CM.ED ---
PARUL Note Referral Source: Case Find Referral Reason: Family had called out for help for patient PARUL met with patient's and son who were in the [place]. Patient had an seizure. SW provided emotional support to patient's family. PARUL advised that this account underwriter remains available if needs arises. Tanisha ABRAHAM
--- NOTE | 2022-03-28 15:16 | EDS_ITS ---
HPI History of Present Illness Chief Complaint: Neuro S/Sx Narrative Narrative: Patient presents with a seizure, this is in the distribution of his stroke which happened a year ago. This happened just prior to arrival it was left arm, but as I walk into the room the left arm starts to shake and then progresses to the left leg and patient is somewhat confused although still responsive. This also is self-limited. No recent fever or chills he is not withdrawing from intermittent medications, he is on Zoloft as well as Depakote. [facility] Medical History Alcohol use Atherosclerosis of coronary artery of [place] heart without angina pectoris Atrial fibrillation with RVR Bipolar disorder Erectile dysfunction Essential hypertension Hyperlipidemia NSTEMI (non-ST elevated myocardial infarction) Presence of stent in coronary artery (~12/21/17) Home Medications aspirin 81 mg chewable tablet 81 mg PO DAILY@0800 supplement 05/23/21 [History Last Taken Unknown] melatonin 3 mg tablet 3 mg PO QHS #30 tabs 06/13/21 [Rx Last Taken Unknown] niacin 500 mg tablet,extended release 500 mg PO QHS #90 tabs 07/15/21 [Rx Last Taken Unknown] atorvastatin 80 mg tablet 80 mg PO QHS #30 tabs 09/30/21 [Rx Last Taken Unknown] apixaban 5 mg tablet (Eliquis) 5 mg PO BID #60 tabs 11/25/21 [Rx Last Taken Unknown] metoprolol tartrate 25 mg tablet 25 mg PO DAILY 11/25/21 [History Last Taken Unknown] sertraline 100 mg tablet 150 mg PO DAILY 11/25/21 [History Last Taken Unknown] divalproex 500 mg tablet,extended release 24 hr 1,500 mg PO QHS BIPOLAR 03/28/22 [History Last Taken 03/27/22] Allergy/AdvReac Type Severity Reaction Status Date / Time No Known Allergies Allergy Verified 11/25/21 13:38 Family History Mother No problems noted. Surgical History History of hand surgery Presence of coronary angioplasty implant and graft Social History Smoking Status: Former smoker alcohol intake: current alcohol intake frequency: a few times a week Alcohol type: beer, wine and hard liquor details: 2 12pks a week and 2 shots a day - binges. Does not drink when on the road substance use type: does not use caffeine: Yes Type: carbonated beverages what type of physical activity do you participate in: none seatbelt use: never do you feel safe at home: Yes ROS ROS ED ROS Narrative Past medical history: Reviewed Medications: Reviewed Social history: Noncontributory Review of systems: All systems negative except as indicated General: No fever Eyes: No visual changes ENT: No upper airway congestion, normal voice Neck: No neck pain Cardiovascular: No chest pain Respiratory: No shortness of breath or cough Gastrointestinal: No abdominal pain, nausea vomiting or diarrhea Genitourinary: No dysuria Musculoskeletal: Denies myalgias no difficulty with ambulation Skin: No rash Neurological: As in HPI Psych: No recent behavioral changes Hematologic: No easy bleeding or easy bruising EXAM Physical Exam Narrative Exam Narrative: Physical exam General: Well nourished, Well developed, No Acute Distress Head: Normocephalic, Atraumatic Eyes: Conjunctiva not pale ENT: Moist mucous membranes Neck: Supple, Nontender, No lymphadenopathy Cardiovascular: Regular rate, Regular rhythm Respiratory: No distress, CTA bilaterally Abdomen: Soft, Nontender, Nondistended Back: Nontender, Normal Inspection. Negative for: CVA tenderness Extremities: Nontender, No edema Skin: Normal color, No rash Neurological: Seizure ongoing as I walk into the room, when this stopped there is left-sided weakness including the left arm which is worse than the left leg. Otherwise no other focal deficits Psychological: Normal affect Const Vital Signs: 03/28/22 13:14 Temperature 98.9 F Temperature Source Temporal Pulse Rate 76 Respiratory Rate 20 H Blood Pressure 126/69 H Blood Pressure Mean 88 Pulse Ox 98 Oxygen Delivery Method Room Air MDM MDM MDM Narrative Medical decision making narrative: Patient has an unremarkable work-up I gave him Ativan and Keppra he has not had further seizures. Regardless I will observe him states he has had multiple seizures. He will need Zoloft DC'd and restarted on a different antidepressants. Lab Data Labs: Laboratory Results - last 24 hr 06/24/22 06/24/22 06/24/22 13:50 13:50 13:50 WBC 7.2 RBC 4.34 L Hgb 15.3 Hct 44.4 MCV 102.3 H MCH 35.3 H MCHC 34.5 RDW Std Deviation 50.4 H RDW Coeff of Emma 13.2 Plt Count 279 MPV 9.7 Immature Gran % (Auto) 0.600 Neut % (Auto) 55.0 Lymph % (Auto) 27.8 [place] % (Auto) 9.3 Eos % (Auto) 6.7 H Baso % (Auto) 0.6 Absolute Neuts (auto) 4.0 Absolute Lymphs (auto) 2.00 Nucleated RBC % 0 PT 13.6 INR 1.1 Sodium 134 L Potassium 4.2 Chloride 99 Carbon Dioxide 26.0 Anion Gap 9 BUN 8 Creatinine 1.07 Estim Creat Clear Calc 106.40 Est GFR (MDRD) Af Amer 95 Est GFR (MDRD) Non-Af 78 BUN/Creatinine Ratio 7.5 L Glucose 88 Calcium 9.1 Magnesium 2.0 Total Bilirubin 0.40 AST 35 ALT 27 Alkaline Phosphatase 99 Troponin I High Sens 4 Total Protein 7.7 Albumin 3.2 Globulin 4.5 H Albumin/Globulin Ratio 0.7 L Radiography Diagnostic Testing: Clinical Impression(s) from Imaging Studies Brain CT 03/28/22 13:48 IMPRESSION: There are no acute intracranial findings. 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 Electronically Signed: Enrique Durham MD at 14:28 EDT , Chest X-Ray 03/28/22 13:48 IMPRESSION: There are no acute findings. Electronically Signed: Enrique Durham MD at 15:11 EDT , Discharge Plan Triage Chief Complaint: Neuro S/Sx ED Provider: Huan Neff Dx/Rx/DC Orders Clinical Impression: Complex partial seizure, CVA, old, alterations of sensations Prescriptions: No Action metoprolol tartrate 25 mg tablet 25 mg PO DAILY sertraline 100 mg tablet 150 mg PO DAILY Eliquis 5 mg tablet 5 mg PO BID Qty: 60 11RF sildenafil 100 mg Tablet 100 mg PO DAILY Hold Instructions: Please do not take this medication until the neurologist Okays it........it can elevate the BP and you just had a stroke so this is not desirable yet. aspirin 81 MG tablet,chewable 81 mg PO DAILY@0800 acetaminophen 500 mg Tablet 1,000 mg PO Q6H PRN (Reason: fever or pain) Qty: 1 0RF melatonin 3 mg Tablet 3 mg PO QHS Qty: 30 0RF divalproex 500 mg tablet extended release 24 hr 1,000 mg PO QHS Qty: 60 0RF niacin 500 mg tablet extended release 500 mg PO QHS Qty: 90 3RF atorvastatin 80 mg tablet 80 mg PO QHS Qty: 30 12RF Primary Care Provider: Alexander Adam Referrals: Alexander Adam MD [Primary Care Provider] - Disposition Disposition: Acute Care Hospital [facility]
--- NOTE | 2022-03-28 18:22 | HP.PCM.HOS_ITS ---
HPI - General General Date of Admission: 03/28/22 Date of Service: 03/28/22 Chief Complaint: Seizure HPI Narrative DOMENICO FERREIRA, is a 46 M who presents to the emergency room at [facility] after he had a witnessed neurological event today-patient's left arm jerked violently when he tried to get out of his pickup truck today and he was not able to bear weight on his left leg. He was brought in for evaluation to the ER here, during the time he was in the ER, it was witnessed that his left arm and left leg were shaking and the patient's mental status was altered. This lasted only for a couple of minutes, patient told this examiner that he remembers the episode at home. 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 Patient is on Eliquis chronically. Work-up in the emergency room today included a CT of the brain which showed no acute intracranial findings, there was an old infarct of the right MCA noted. Patient CBC was unremarkable. Patient's CHEM panel was unremarkable. During the time patient was having what appeared to be a complex partial seizure today in the ER, he was given 1 mg of Ativan and he was loaded with 1000 mg of Keppra. Patient will be placed in observation status on PCU, IV Keppra will be continued, patient will be reevaluated in the morning, EEG will be performed. I suspect the patient may be able to go home tomorrow if he remains medically stable. Patient does have a neurologist that he sees on a chronic basis (Dr. Aguilera) in [facility]. [facility] Medical History Alcohol use Atherosclerosis of coronary artery of [place] heart without angina pectoris Atrial fibrillation with RVR Bipolar disorder Erectile dysfunction Essential hypertension Hyperlipidemia NSTEMI (non-ST elevated myocardial infarction) Presence of stent in coronary artery (~12/21/17) Home Medications aspirin 81 mg chewable tablet 81 mg PO DAILY@0800 supplement 05/23/21 [History Last Taken 03/28/22] melatonin 3 mg tablet 3 mg PO QHS #30 tabs 06/13/21 [Rx Last Taken Unknown] niacin 500 mg tablet,extended release 500 mg PO QHS #90 tabs 07/15/21 [Rx Last Taken 03/27/22] atorvastatin 80 mg tablet 80 mg PO QHS #30 tabs 09/30/21 [Rx Last Taken 03/27/22] apixaban 5 mg tablet (Eliquis) 5 mg PO BID #60 tabs 11/25/21 [Rx Last Taken 03/28/22] metoprolol tartrate 25 mg tablet 25 mg PO BID 11/25/21 [History Last Taken 03/28/22] sertraline 100 mg tablet 150 mg PO DAILY 11/25/21 [History Last Taken 03/28/22] divalproex 500 mg tablet,extended release 24 hr 1,500 mg PO QHS BIPOLAR 03/28/22 [History Last Taken 03/27/22] Allergy/AdvReac Type Severity Reaction Status Date / Time No Known Allergies Allergy Verified 11/25/21 13:38 Family History Mother No problems noted. Surgical History History of hand surgery Presence of coronary angioplasty implant and graft Social History Smoking Status: Current some day smoker tobacco type: cigarettes alcohol intake: current alcohol intake frequency: a few times a week Alcohol type: beer, wine and hard liquor details: 2 12pks a week and 2 shots a day - binges. Does not drink when on the road substance use type: does not use caffeine: Yes Type: carbonated beverages what type of physical activity do you participate in: none seatbelt use: never do you feel safe at home: Yes ROS Constitutional Constitutional: Denies anorexia, change in weight, fever(s), night sweats or weakness Eyes Eyes: Denies blurry vision, change in vision, discharge from eye(s) or eye pain ENT HEENT: Denies abnormal hearing, ear pain or epistaxis Cardiovascular Cardiovascular: Denies chest pain, claudication, dyspnea on exertion, edema, lightheadedness, orthopnea or palpitations Respiratory/Chest Respiratory/Chest: Denies cough, excessive phlegm production, hemoptysis, productive cough, shortness of breath at rest or shortness of breath with exertion Gastrointestinal Gastrointestinal: Denies abdominal pain, coffee ground emesis, constipation, diarrhea, dyspepsia, hematemesis, hematochezia, melena, nausea or vomiting Genitourinary Genitourinary: Denies dysuria, hematuria, urinary frequency, urinary hesitancy, urinary incontinence or urinary urgency Musculoskeletal Musculoskeletal: Denies back pain, joint pain, joint stiffness, joint swelling, myalgias or neck pain Neurologic Neurologic: Reports seizure-like activity; Denies abnormal gait, abnormal speech, dizziness, focal weakness, headache(s), loss of vision, numbness, other visual disturbances, paresthesias, syncope or tingling Psychiatric Psychiatric: Reports other Details: Patient has a history of bipolar disorder ; Denies anxiety, cognitive impairment, depression, irritability, mood swings or suicidal ideation Endocrine Endocrinology: Denies change in body appearance, cold intolerance, excessive sweating, heat intolerance, polydipsia or polyuria Hematologic/Lymphatic Hematologic/Lymphatic: Denies none, anemia, easy bleeding, easy bruising or ly mphadenopathy Allergic/Immunologic Allergic/Immunologic: Denies rhinitis, urticaria, eczemia or asthma Vital Signs Vital Signs Vital Signs: 03/28/22 13:14 03/28/22 16:39 03/28/22 17:09 Temperature 98.9 F 97.4 F L 97.9 F Temperature Source Temporal Temporal Oral Pulse Rate 76 68 71 Respiratory Rate 20 H 18 15 Blood Pressure 126/69 H 103/64 108/64 Blood Pressure Mean 88 77 78 Blood Pressure Source Monitor Blood Pressure Position Semi-Fowlers Blood Pressure Location Left Arm Pulse Ox 98 97 97 Oxygen Delivery Method Room Air Room Air Room Air Weight Weight: 122.583 kg Body Mass Index (BMI) 32.0 Physical Exam Const alert, oriented x3, no apparent distress and healthy appearing General Appearance: cooperative, well kempt and well developed Orientation / Consciousness: awake, oriented to person, oriented to place and oriented to time HEENT normocephalic, head/scalp atraumatic, hearing grossly normal bilaterally and moist oral mucous membranes Eyes PERRL, EOMs intact bilaterally and conjunctivae normal Neck nuchal rigidity, supple, no JVD, thyroid normal and no carotid bruits General: trachea midline Resp normal respiratory effort, no retractions, no use of accessory muscles and clear to auscultation bilaterally Auscultation: Negative for rales, rhonchi or wheezes Cardio regular rate, regular rhythm, S1 normal heart sound, S2 normal heart sound, no murmurs, no rub and no gallops GI normal to inspection, nondistended, normoactive bowel sounds, soft to palpation, non-tender and non-distended Extremity no clubbing, cyanosis or edema Skin no rashes or lesions noted General Skin Exam: no breakdown Neuro oriented x3, CN's II-XII intact bilaterally and no sensory deficits noted Neuro Narrative: Patient has some left-sided weakness in the arm and leg when compared with his right side Sensorium / Orientation: awake, alert, oriented to person, oriented to place and oriented to time Speech: speech normal Psych affect normal Results Lab / Micro Data Result Diagrams: 03/28/22 13:50 03/28/22 13:50 Labs: Laboratory Results - last 24 hr 03/28/22 13:50: WBC 7.2, RBC 4.34 L, Hgb 15.3, Hct 44.4, MCV 102.3 H, MCH 35.3 H , MCHC 34.5, RDW Std Deviation 50.4 H, RDW Coeff of Emma 13.2, Plt Count 279, MPV 9.7, Immature Gran % (Auto) 0.600, Neut % (Auto) 55.0, Lymph % (Auto) 27.8, [place] % (Auto) 9.3, Eos % (Auto) 6.7 H, Baso % (Auto) 0.6, Absolute Neuts (auto) 4.0, Absolute Lymphs (auto) 2.00, Nucleated RBC % 0 03/28/22 13:50: PT 13.6, INR 1.1 03/28/22 13:50: Sodium 134 L, Potassium 4.2, Chloride 99, Carbon Dioxide 26.0, Anion Gap 9, BUN 8, Creatinine 1.07, Estim Creat Clear Calc 106.40, Est GFR (MDRD) Af Amer 95, Est GFR (MDRD) Non-Af 78, BUN/Creatinine Ratio 7.5 L, Glucose 88, Calcium 9.1, Magnesium 2.0, Total Bilirubin 0.40, AST 35, ALT 27, Alkaline Phosphatase 99, Troponin I High Sens 4, Total Protein 7.7, Albumin 3.2, Globulin 4.5 H, Albumin/Globulin Ratio 0.7 L Radiology Impression Brain CT 03/28/22 13:48 IMPRESSION: There are no acute intracranial findings. 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 Electronically Signed: Enrique Durham MD at 14:28 EDT , Chest X-Ray 03/28/22 13:48 IMPRESSION: There are no acute findings. Electronically Signed: Enrique Durham MD at 15:11 EDT , Assessment & Plan Assessment/Plan (1) Complex partial seizure: PLAN: Plan 1. Focal onset aware seizure-patient will be admitted to PCU, he will be given IV Keppra, he will remain on the remainder of his other medications. EEG will be performed. Patient will be reevaluated tomorrow #2 cerebrovascular disease-patient has had a past history of a right MCA stroke, he will remain on his present medications #3 bipolar disorder-patient will remain on Zoloft and Depakote #4 hyperlipidemia-patient will remain on a statin, he is also on niacin #5 coronary artery disease-stable at this time patient will remain on aspirin #6 paroxysmal atrial fibrillation-patient is currently on apixaban, he will remain on rate control medication. Charges/Coding Visit Charges OBSV E&M: 49715 Initial observation care L3
[2022-03-28] MEDS: 0.9% Saline Lock 10 ML Syringe IV (21:09)
[2022-03-28] MEDS: APIXABAN 5 MG TABLET PO (21:10)
[2022-03-28] MEDS: Divalproex (ER) 500 MG Tablet 1500 MG PO (21:10)
[2022-03-28] MEDS: Metoprolol Tartrate 25 MG Tablet PO (21:11)
[2022-03-28] MEDS: Atorvastatin Calcium 80 MG Tablet PO (21:11)
[2022-03-28] MEDS: Niacin SA 500 MG Tablet PO (21:11)
[2022-03-29 03:15] VITALS: BP 118/77; PULSE 70; RESP 18; TEMP 36.4; O2SAT 98
[2022-03-29 04:04] VITALS: PULSE 67
[2022-03-29 06:40] VITALS: PULSE 74
[2022-03-29 09:10] VITALS: BP 115/72; PULSE 76; RESP 18; TEMP 36.4; O2SAT 96
[2022-03-29 09:13] VITALS: PULSE 76
[2022-03-29] MEDS: Aspirin 81 MG TAB.CHEW PO (09:13)
[2022-03-29] MEDS: Metoprolol Tartrate 25 MG Tablet PO (09:13)
[2022-03-29] MEDS: APIXABAN 5 MG TABLET PO (09:13)
[2022-03-29] MEDS: Sertraline 100 MG Tablet 150 MG PO (09:13)
--- NOTE | 2022-03-29 09:46 | DCINST_ITS ---
Discharge Instructions Diet Discharge Diet: No restrictions Activity Discharge Activity: May Not Drive Additional Activity Instructions:: Avoid operating any heavy machinery or driving Follow Up Care Test Results: Test results from this visit will be discussed in further detail at your follow- up appointment, if applicable. Discharge Plan Admission Admit Date/Time: 03/28/22 15:52 Primary Reason for Your Visit: seizure disorder Attending Provider: Jaxson Barnes Primary Care Provider: Alexander Adam Discharge Orders/Prescriptions Prescriptions: New levetiracetam [Keppra] 500 mg tablet 500 mg PO BID Qty: 60 1RF Continued metoprolol tartrate 25 mg tablet 25 mg PO BID sertraline 100 mg tablet 150 mg PO DAILY Eliquis 5 mg tablet 5 mg PO BID Qty: 60 11RF aspirin 81 MG tablet,chewable 81 mg PO DAILY@0800 melatonin 3 mg Tablet 3 mg PO QHS Qty: 30 0RF divalproex 500 mg tablet extended release 24 hr 1,500 mg PO QHS niacin 500 mg tablet extended release 500 mg PO QHS Qty: 90 3RF atorvastatin 80 mg tablet 80 mg PO QHS Qty: 30 12RF Referrals / Follow Up: Alexander Adam MD [Primary Care Provider] - Disposition Disposition (needs filled in before D/C Order can be placed): Home, Self Care
--- NOTE | 2022-03-29 10:03 | TELEMED_ITS ---
[facility] has confirmed receipt of a request for visit. This document confirms receipt of the order initiating the consult. To find the results of the consultation, please view the patient's reports for the scanned Telemed Consult.
--- NOTE | 2022-03-29 11:15 | PCM.DC.SUM ---
Providers Date of Admission: 03/28/22 Date of Discharge: 03/29/22 Primary Care Physician: Dr. Alexander Adam MD Reason For Visit: SEIZURE Diagnosis Discharge Diagnosis (1) Complex partial seizure: Status: Acute Code(s): G40.209 - Localization-related (focal) (partial) symptomatic epilepsy and epileptic syndromes with complex partial seizures, not intractable, without status epilepticus Plan 1. Focal onset aware seizure #2 cerebrovascular disease #3 bipolar disorder #4 hyperlipidemia #5 coronary artery disease #6 paroxysmal atrial fibrillation Medications at Discharge Home Medications aspirin 81 mg chewable tablet 81 mg PO DAILY@0800 supplement 05/23/21 melatonin 3 mg tablet 3 mg PO QHS #30 tabs 06/13/21 niacin 500 mg tablet,extended release 500 mg PO QHS #90 tabs 07/15/21 atorvastatin 80 mg tablet 80 mg PO QHS #30 tabs 09/30/21 apixaban 5 mg tablet (Eliquis) 5 mg PO BID #60 tabs 11/25/21 metoprolol tartrate 25 mg tablet 25 mg PO BID 11/25/21 sertraline 100 mg tablet 150 mg PO DAILY 11/25/21 divalproex 500 mg tablet,extended release 24 hr 1,500 mg PO QHS BIPOLAR 03/28/22 levetiracetam 500 mg tablet (Keppra) 500 mg PO BID #60 tabs 03/29/22 Hospital Course Operations None Procedures Electroencephalogram Summary of Care Provided Minutes Spent on Discharge: 31 Hospital Course: This 46-year-old white male was seen in the emergency room at [facility] after having an episode at home in his driveway of shaking of his left arm. Patient stated that he then went to get out of his pickup truck and could not bear weight on his left leg. Work-up in the emergency room included a CT of the brain which showed evidence of an old stroke which was known to have happened a year ago, labs were unremarkable except a BUN of 21. While being evaluated in the emergency room, patient had another episode of left arm shaking along with left leg shaking and became confused for a brief period of time. Patient was given IV Keppra and 1 mg of Ativan IV. Patient states that he remembered these 2 episodes. Patient was placed in observation status on PCU, he was given IV Keppra, the following day patient underwent an EEG whose results are pending at the time of this dictation. Patient was seen and examined on 03/29/2022: On examination he appeared in good health and spirits. Vital signs as documented. Skin warm and dry and without overt rashes. Neck without JVD, neck was supple, trachea midline, thyroid was normal. Lungs clear bilaterally, normal air movement was noted. Heart exam notable for regular rhythm, normal sounds and absence of murmurs, rubs or gallops. Abdomen unremarkable and without evidence of organomegaly, masses, or abdominal aortic enlargement. Bowel sounds are present, abdomen is not distended. Extremities nonedematous, no cyanosis was noted, no clubbing was noted. Neuro: Cranial nerves II through XII are grossly intact, no focal motor deficits were noted, sensation to light touch and pinprick intact, motor exam 5/5 throughout. Psych: Patient is alert and oriented x3, he does not appear anxious or depressed, he does not appear agitated. Patient was felt to be stable for discharge on 03/29/2022, due to the fact the patient has had a previous stroke, he had a neurologist that he was seeing as an outpatient, patient was instructed to call next week to make an appointment for follow-up. Weight / BMI Weight Weight: 122.583 kg Body Mass Index (BMI) 32.0 ABG / Lab / Microbiology Data Result Diagrams: 03/28/22 13:50 03/28/22 13:50 Laboratory: Laboratory Results - last 24 hr 03/28/22 13:50: WBC 7.2, RBC 4.34 L, Hgb 15.3, Hct 44.4, MCV 102.3 H, MCH 35.3 H, MCHC 34.5, RDW Std Deviation 50.4 H, RDW Coeff of Emma 13.2, Plt Count 279, MPV 9.7, Immature Gran % (Auto) 0.600, Neut % (Auto) 55.0, Lymph % (Auto) 27.8, Dane % (Auto) 9.3, Eos % (Auto) 6.7 H, Baso % (Auto) 0.6, Absolute Neuts (auto) 4.0, Absolute Lymphs (auto) 2.00, Nucleated RBC % 0 03/28/22 13:50: PT 13.6, INR 1.1 03/28/22 13:50: Sodium 134 L, Potassium 4.2, Chloride 99, Carbon Dioxide 26.0, Anion Gap 9, BUN 8, Creatinine 1.07, Estim Creat Clear Calc 106.40, Est GFR (MDRD) Af Amer 95, Est GFR (MDRD) Non-Af 78, BUN/Creatinine Ratio 7.5 L, Glucose 88, Calcium 9.1, Magnesium 2.0, Total Bilirubin 0.40, AST 35, ALT 27, Alkaline Phosphatase 99, Troponin I High Sens 4, Total Protein 7.7, Albumin 3.2, Globulin 4.5 H, Albumin/Globulin Ratio 0.7 L Radiography Diagnostic Testing: Radiology Impression Brain CT 03/28/22 13:48 IMPRESSION: There are no acute intracranial findings. 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 Electronically Signed: Enrique Durham MD at 14:28 EDT , Chest X-Ray 03/28/22 13:48 IMPRESSION: There are no acute findings. Electronically Signed: Enrique Durham MD at 15:11 EDT , D/C Instructions Discharge Diet: No restrictions Additional Activity Instructions: Avoid operating any heavy machinery or driving Meaningful Use Info Meaningful Use Diagnoses (Choose all that apply): None applicable Discharge Plan Admission Admit Date/Time: 03/28/22 15:52 Primary Reason for Your Visit: seizure disorder Attending Provider: Jaxson Barnes Primary Care Provider: Alexander Adam Discharge Orders/Prescriptions Prescriptions: New levetiracetam [Keppra] 500 mg tablet 500 mg PO BID Qty: 60 1RF Continued metoprolol tartrate 25 mg tablet 25 mg PO BID sertraline 100 mg tablet 150 mg PO DAILY Eliquis 5 mg tablet 5 mg PO BID Qty: 60 11RF aspirin 81 MG tablet,chewable 81 mg PO DAILY@0800 melatonin 3 mg Tablet 3 mg PO QHS Qty: 30 0RF divalproex 500 mg tablet extended release 24 hr 1,500 mg PO QHS niacin 500 mg tablet extended release 500 mg PO QHS Qty: 90 3RF atorvastatin 80 mg tablet 80 mg PO QHS Qty: 30 12RF Referrals / Follow Up: Alexander Adam MD [Primary Care Provider] - Disposition Disposition (needs filled in before D/C Order can be placed): Home, Self Care Charges/Coding Visit Charges OBSV E&M: 48015 Observation care discharge
== END 2022-03-29 09:50 | disposition home or self-care (01) ==
LOC: ED 15:21 → PCU 03-29 09:50
PROVIDERS: Admitting Provider Internal Medicine; Emergency Provider Emergency Medicine; PCP Family Medicine; Visit Provider Internal Medicine
DX: G40.209 Localization-related (focal) (partial) symptomatic epilepsy and epileptic syndromes with complex partial seizures, not intractable, without status epilepticus (principal); F31.9 Bipolar disorder, unspecified; I48.0 Paroxysmal atrial fibrillation; F17.210 Nicotine dependence, cigarettes, uncomplicated; Z79.82 Long term (current) use of aspirin; E78.5 Hyperlipidemia, unspecified; I25.10 Atherosclerotic heart disease of native coronary artery without angina pectoris; I10 Essential (primary) hypertension; I25.2 Old myocardial infarction; Z79.899 Other long term (current) drug therapy; Z79.01 Long term (current) use of anticoagulants
CPT/HCPCS: 70450; 71045; 80053; 83735; 84484; 85025; 85610; 95819; 96365; 96366; 96375; 99218; 99285; 99406; J7040; A4216; G0378

== ENCOUNTER → 2022-04-22 | Outpatient (CLI) | payer OTHER, SELFPAY ==
[2022-04-22 18:01] LABS: Hematocrit 45.1 % (40-54); Hemoglobin 15.4 g/dL (13.0-16.5); Mean Corp Hgb Conc 34.1 g/dL (32-36); Mean Corpuscular Hgb 35.2 pg (27.0-32.0); Platelet Count 238 K/mm3 (150-450); RBC Distribution Width CV 13.3 % (11.6-14.6); Red Blood Count 4.38 M/mm3 (4.6-6.2); White Blood Count 7.3 K/mm3 (4.4-11.0)
[2022-04-22 19:04] LABS: Valproic Acid (Depakene) Level 52 ug/mL (50-100); Vitamin B12 725 pg/mL (211-911); Vitamin D,25 Hydroxy 33.6 ng/mL
[2022-04-22 19:07] LABS: ALB/GLOB Ratio 0.7 RATIO (0.9-2.4); AST(SGOT) 54 U/L (15-37); Alanine Aminotransfer ALT/SGPT 51 U/L (16-61); Albumin, Serum 3.2 g/dL (3.2-5.0); Alkaline Phosphatase 110 U/L (45-117); Anion Gap 8 (5-15); BUN 7 mg/dL (7-18); BUN/Creat Ratio 5.9 RATIO (10-20); Calcium,Total 9.6 mg/dL (8.5-10.1); Chloride 101 mmol/L (98-107); Cholesterol 157 mg/dL (200); Creatinine, Serum 1.18 mg/dL (0.70-1.30); EST Glomerular Filtration Rate 70 mL/min (>60); Est Glom Filt Rate - Afr Amer 84 mL/min (>60); Globulin 4.9 g/dL (2.2-4.2); Glucose 123 mg/dL (74-106); High Density Lipoprotein 69 mg/dL; Iron 102 ug/dL (65-175); Potassium 4.1 mmol/L (3.5-5.1); Protein, Total 8.1 g/dL (6.4-8.2); Sodium Level 135 mmol/L (136-145); Triglycerides 120 mg/dL; Very Low Density Lipoprotein 24 mg/dL (5-40)
== END | disposition home or self-care (01) ==
LOC: MFPLAB 16:35
PROVIDERS: PCP Family Medicine; Visit Provider Family Medicine
DX: G40.109 Localization-related (focal) (partial) symptomatic epilepsy and epileptic syndromes with simple partial seizures, not intractable, without status epilepticus (principal); I10 Essential (primary) hypertension; R53.83 Other fatigue
CPT/HCPCS: 36415; 80053; 80061; 80164; 82306; 82607; 83540; 84403; 84443; 85027

== ENCOUNTER → 2022-08-18 | Outpatient (CLI) | payer OTHER, SELFPAY ==
[2022-08-18 18:46] LABS: ALB/GLOB Ratio 0.8 RATIO (0.9-2.4); AST(SGOT) 88 U/L (15-37); Alanine Aminotransfer ALT/SGPT 82 U/L (16-61); Albumin, Serum 3.4 g/dL (3.2-5.0); Alkaline Phosphatase 102 U/L (45-117); Anion Gap 12 (5-15); BUN 8 mg/dL (7-18); BUN/Creat Ratio 8.6 RATIO (10-20); Calcium,Total 9.5 mg/dL (8.5-10.1); Chloride 101 mmol/L (98-107); Creatinine, Serum 0.93 mg/dL (0.70-1.30); EST Glomerular Filtration Rate 92 mL/min (>60); Est Glom Filt Rate - Afr Amer 111 mL/min (>60); Globulin 4.4 g/dL (2.2-4.2); Glucose 78 mg/dL (74-106); Potassium 3.9 mmol/L (3.5-5.1); Protein, Total 7.8 g/dL (6.4-8.2); Sodium Level 139 mmol/L (136-145)
== END | disposition home or self-care (01) ==
PROVIDERS: PCP Family Medicine; Visit Provider Psychiatry & Neurology Neurology
DX: G40.109 Localization-related (focal) (partial) symptomatic epilepsy and epileptic syndromes with simple partial seizures, not intractable, without status epilepticus (principal)
CPT/HCPCS: 36415; 80053

== ENCOUNTER 2022-09-12 14:30 | Outpatient (RCR) | payer OTHER, SELFPAY ==
--- NOTE | 2022-05-19 17:40 | HP.OTEVAL_ITS ---
Patient's Visit Information DOMENICO FERREIRA is a 47 year old M, referred to Occupational Therapy by Dr. Alexander Adam MD, with a diagnosis of CVA with left UE weakness. Date of Evaluation: 05/19/22 Occupational Therapist: Savita Pelaez, KIRAR/Rayo, CHT - Subjective This 47 year old male was seen for OT eval with dx of CVA 2020 and in March 28 2022 he began having seizures- states they are calling it partial complex seizure. On Keppra now to assist with his seizures- pt states he has noticed a significant decline in left UE ROM and strength- limit bilateral hand skills increasing need of assistance with his ADLs and IADLs. pt would like to return to therapy to gain more strength and function to return to a MELLISSA level with his ADls and IADLS. pt states his works full-time and he is home mostly by himself- states he can do one handed simple meals - ADLs Fasteners: Tie shoes, Buttons, Zippers, Snaps, Belt Eating: Use silverware, Cut food, Butter bread Kitchen: Open jars, Open bottle caps, Ziplock bags, Lift saucepan, Take dish out of oven, Load/unload electrical and instrument mechanic Comments: use of right UE only Household: Laundry Comments: right handed - ROM Shoulder: right WNL left 110* Elbow: right 0/140 left 0/130* Forearm: right WNL left limited supination 30* pronation 60* Wrist: right wrist WNL left 15*/30* Opposition: Kapandji opposition scale right 10 left 4 ROM Comments: pt demo limited with functional grasp of left hand-. limited release of object - Strength Shoulder: right peak force 27# left 10# Elbow: right biceps 35/37# peak force left biceps 23#/26# peak force Foreign Exchange Trader: right 115# left 30# Lateral Pinch: right 16# left 8# Tripod Pinch: right 16# left unable Strength Comments: pt demo with limited strength of left UE increasing assistance of ADLs and IADls - Sensation Sensation Comments: denies - Nine Hole Peg Right: 21.75 sec. Left: unable - In-Hand Manipulation Finger to Palm Translation: Normal - Right, Unable - Left Palm to Finger Translation: Normal - Right, Unable - Left Shift: Normal - Right, Unable - Left Rotation: Normal - Right, Unable - Left - Stroke Specific Quality of Life Total SS-QOL Score: 107 - Goals Goal:: pt will demo a increase in peak force resistance by 15# or greater indicating a increase in pts strength by dc. pt will demo a increase in left firmware test engineer strength to 50# or greater to increase pts ind. with ADLs and IADLS Goal:: Pt will demo shoulder flext to 165* to increase ind. with dressing tasks by d/c. Pt will demo left forearm supination/pronation by 40* or greater to receive object and hold in hand iND by d/c. pt will demo functional left firmware test engineer to grasp and release med. and large objects for increase ind. with ADls and IADLs by d/c Goal:: pt will demo the ability to filler picker small objects with fluid motion and decreasing 9-hole peg time to under 2 min. indicating increase in FMS by d/c. pt will demo the ability to increase bilateral hand skills by demo button/unbutton and manipulate fasteners to increase pts ind. with ADls by d/c - Rehabilitation General Assessment: pt demo with left UE weakness limiting his IND with ADLs and IADls. 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 pt would benefit from skilled OT services 2-3x 4 weeks to increase his IND with ADLs and IADLs. PT demo understanding and agree to POC. Rehabilitation Potential: Good - Anticipated Interventions A/AAROM/PROM, Strengthening, Ergonomic Education, Fine Motor Coord/Jermain, Neuro Reeducation, ADL Training, Education re assistive Equipment, Education re Diagnosis, Home Program - Visit Plan Frequency: 2-3x /Week Duration: 4 Weeks TEXT: Thank you for the opportunity to evaluate your patient. For Medicare and Medicare HMO plans, please review the plan of care and approve it. It will need to be FAXED BACK to us at [phone] for Medicare purposes. Please let me know if there are questions or concerns regarding this plan of care. Physician Signature: Date:
--- NOTE | 2022-05-19 17:46 | HP.PTEVAL_ITS ---
Patient's Visit Information DOMENICO FERREIRA is a 47 year old M referred to Physical Therapy by Dr. 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 Date of Evaluation: 05/19/22 Physical Therapist: Manjeet Lopez, PT, Cert MDT, OCS - Visit Plan Frequency: 2x /Week Duration: 4 Weeks Plan: PT INTERVETIONS PROGRESSIVE BALANCE TRAINING,STRENGTHNENING LLE- HIP/QUADS, FUNCTIONAL STRENGTHENING AND ENDURANCE PROGRAM - Subjective This 47 y/o male presents to physical therapy with CVA LUE > RUE which occurred May 2021. Patient had blood clot affecting left UE /LE . Recently ,patient had partial complex seizures ,March 28 2022 felt shocking like symptoms in left hand /arm went to ER then 45 min later had a another seizure. Patient had MRI which was negative , Then tried test to determine if have a 2nd seizure then was D/C to home. Hospital started Kepra. Thus wants to start PT. Patient denies paresthesia. Patient does have low back pain . Patient has difficulty with fine motor skills. Patient needs assist with dressing and shoes. Patient is I with bathing. Patient needs assist with bathing . Denies LOB or falls. But ,patient has fallen several times past 3 months. Patient has dizziness with transitional movements . Patient had one episode knee giving way. Patient has difficulty sleeping. Patient condition affects QOL and function and has diificuklty with bhousework and yardwork on uneven surfaces. SOCAIL: marries. VOCATION: unemployed - Objective POSTURE: mild forward posture. NEURO: denies paresthesia/tingling ,reflexes Achilles and patella 1/3,mild ataxia LLE ,LUE hypotonic. PALPATION: unremarkable. GAIT: ambulates with decrease stance time LLE ,swing phase and push off during the gait cycle. FLEXABLITY: hamstrings mod tight. MMT: ( peak force). quads 18.8,hamstrings 17.8 ,hip flexion 12.5 ,hip abduction 10.7. SLS : LLE unable - Balance/Special Test Scores Functional Gait Assessment Score: 18 % Disability: 40.0000 CATSIB Score (Max score 120 seconds): 110 Lower Extremity Functional Score: 40 30 Second Chair Rise Test Seconds: 7 - Goals Goal 1:: Patient to be I with HEP balance and conditioning Goal Time Frame: 4-6 Weeks Goal 2:: Patient to improve strength peal force hip by 5-10 to improve gait Goal Time Frame: 4-6 Weeks Goal 3:: Patient to improve functional gait assessment score by 5-10 points to improve function and gait/balnce Goal Time Frame: 4-6 Weeks Goal 4:: Patient to improve 30sec sit-stand by 5 to improve endurance Goal Time Frame: 4-6 Weeks Goal 5:: Patient to improve LFES score by 5-10 points to improve gait and QOL Goal Time Frame: 4-6 Weeks - Rehabilitation Potential Physical Therapy Diagnosis: This patient had CVA affecting left side May 2021 and most recently had seizure causing some impairments with weakness and blance deficits affects overall function endurance for ADL's thus will benefit from skilled PT Rehabilitation Potential: Good - Anticipated Interventions Patient/Client Instruction: Educate patient on: Condition, Plan of Care For the Purpose of:: To decrease pain, To increase ROM, To improve muscle performance and motor function, To improve ability to perform ADL's, To increase tolerance to activity/condition/position, To improve ability of physical actions for home/community/work/leisure, To improve health of tissue, To decrease soft tissue restriction, To increase flexibility/ROM, To improve endurance, To improve balance, To assume or resume ADL's, To improve tolerance to ADL's Therapeutic Exercise to Include: Strength training, Power training, Endurance training, Balance training, Coordination, Flexibilty training Comment: BLE QUADS/HAMS/HIP For the Purpose of:: To improve muscle performance and motor function, To improve ability to perform ADL's, To increase tolerance to activity/cond ition/position, To improve ability of physical actions for home/community/work/leisure, To improve health of tissue, To decrease soft tissue restriction, To increase flexibility/ROM, To improve endurance, To improve balance, To improve safety with gait, To improve tolerance to ADL's Thank you for the opportunity to evaluate your patient. For Medicare and Medicare HMO plans, please review the plan of care and approve it. It will need to be FAXED BACK to us at [phone] for Medicare purposes. For Medicare only, by signing this I certify the plan of care. Please let me know if there are questions or concerns regarding this plan of care. Physician Signature: Date:
--- NOTE | 2022-05-19 17:48 | HP.OTEVAL_ITS ---
Patient's Visit Information DOMENICO FERREIRA is a 47 year old M, referred to Occupational Therapy by Dr. Alexander Adam MD, with a diagnosis of CVA with left UE weakness. Date of Evaluation: 05/19/22 Occupational Therapist: Savita Pelaez, KIRAR/Rayo, CHT - Subjective This 47 year old male was seen for OT eval with dx of CVA 2020 and in March 28 2022 he began having seizures- states they are calling it partial complex seizure. On Keppra now to assist with his seizures- pt states he has noticed a significant decline in left UE ROM and strength- limit bilateral hand skills increasing need of assistance with his ADLs and IADLs. pt would like to return to therapy to gain more strength and function to return to a MELLISSA level with his ADls and IADLS. pt states his works full-time and he is home mostly by himself- states he can do one handed simple meals - ADLs Fasteners: Tie shoes, Buttons, Zippers, Snaps, Belt Eating: Use silverware, Cut food, Butter bread Kitchen: Open jars, Open bottle caps, Ziplock bags, Lift saucepan, Take dish out of oven, Load/unload metal cut off saw tender Comments: use of right UE only Household: Laundry Comments: right handed - ROM Shoulder: right WNL left 110* Elbow: right 0/140 left 0/130* Forearm: right WNL left limited supination 30* pronation 60* Wrist: right wrist WNL left 15*/30* Opposition: Kapandji opposition scale right 10 left 4 ROM Comments: pt demo limited with functional grasp of left hand-. limited release of object - Strength Shoulder: right peak force 27# left 10# Elbow: right biceps 35/37# peak force left biceps 23#/26# peak force Tile Picker: right 115# left 30# Lateral Pinch: right 16# left 8# Tripod Pinch: right 16# left unable Strength Comments: pt demo with limited strength of left UE increasing assistance of ADLs and IADls - Sensation Sensation Comments: denies - Nine Hole Peg Right: 21.75 sec. Left: unable - In-Hand Manipulation Finger to Palm Translation: Normal - Right, Unable - Left Palm to Finger Translation: Normal - Right, Unable - Left Shift: Normal - Right, Unable - Left Rotation: Normal - Right, Unable - Left - Stroke Specific Quality of Life Total SS-QOL Score: 107 - Goals Goal:: pt will demo a increase in peak force resistance by 15# or greater indicating a increase in pts strength by dc. pt will demo a increase in left cyanide furnace operator strength to 50# or greater to increase pts ind. with ADLs and IADLS Goal:: Pt will demo shoulder flext to 165* to increase ind. with dressing tasks by d/c. Pt will demo left forearm supination/pronation by 40* or greater to receive object and hold in hand iND by d/c. pt will demo functional left cyanide furnace operator to grasp and release med. and large objects for increase ind. with ADls and IADLs by d/c Goal:: pt will demo the ability to roller picker small objects with fluid motion and decreasing 9-hole peg time to under 2 min. indicating increase in FMS by d/c. pt will demo the ability to increase bilateral hand skills by demo button/unbutton and manipulate fasteners to increase pts ind. with ADls by d/c - Rehabilitation General Assessment: pt demo with left UE weakness limiting his IND with ADLs and IADls. 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 pt would benefit from skilled OT services 2-3x 4 weeks to increase his IND with ADLs and IADLs. PT demo understanding and agree to POC. Rehabilitation Potential: Good - Anticipated Interventions A/AAROM/PROM, Strengthening, Ergonomic Education, Fine Motor Coord/Jermain, Neuro Reeducation, ADL Training, Education re assistive Equipment, Education re Diagnosis, Home Program - Visit Plan Frequency: 2-3x /Week Duration: 4 Weeks TEXT: Thank you for the opportunity to evaluate your patient. For Medicare and Medicare HMO plans, please review the plan of care and approve it. It will need to be FAXED BACK to us at [phone] for Medicare purposes. Please let me know if there are questions or concerns regarding this plan of care. Physician Signature: Date:
--- NOTE | 2022-06-23 10:30 | HP.OTREVAL ---
Dr. Alexander Adam MD, It has been my pleasure to treat DOMENICO FERREIRA over the last 9 visits for CVA with left UE weakness. Please see the progress note below for an update on the occupational therapy plan of care! Subjective: Pt Objective/Function: pt demo with a 20# farm field manager strength this session- this is down from his initial eval- not sure if he is having side affect from seizure medication-. pt FMS is improving demo ability to product picker med. objects- (pt still will swing arm out and use shoulder). pt would benefit from cont. OT services to continue toward pts goals Plan Frequency: 2-3x /Week Duration: 4 Weeks Visits in this POC: 12 Goals - Goals Patient Goals: Regain Strength, Be More Independent in ADLS Goal:: pt will demo a increase in peak force resistance by 15# or greater indicating a increase in pts strength by dc. pt will demo a increase in left farm field manager strength to 50# or greater to increase pts ind. with ADLs and IADLS Goal:: Pt will demo shoulder flext to 165* to increase ind. with dressing tasks by d/c. Pt will demo left forearm supination/pronation by 40* or greater to receive object and hold in hand iND by d/c. pt will demo functional left farm field manager to grasp and release med. and large objects for increase ind. with ADls and IADLs by d/c Goal:: pt will demo the ability to product picker small objects with fluid motion and decreasing 9-hole peg time to under 2 min. indicating increase in FMS by d/c. pt will demo the ability to increase bilateral hand skills by demo button/unbutton and manipulate fasteners to increase pts ind. with ADls by d/c Anticipated Interventions Anticipated Interventions: A/AAROM/PROM, Strengthening, Ergonomic Education, Fine Motor Coord/Jermain, Neuro Reeducation, ADL Training, Education re assistive Equipment, Education re Diagnosis, Home Program Please do not hesitate to contact me at [phone] by phone or if you have questions or concerns regarding this new plan of care! Sincerely, Savita Pelaez, OTR/L, CHT
--- NOTE | 2022-08-25 12:26 | OTREVAL_ITS ---
Dr. Alexander Adam MD, It has been my pleasure to treat DOMENICO FERREIRA over the last 24 visits for CVA with left UE weakness. Please see the progress note below for an update on the occupational therapy plan of care! Subjective: Pt arrived 7 minute late today. Pt stated he has insurance until end of August and then changing to [employer]. Pt stated that he has started getting tremors in his L hand sometimes. Objective/Function: pt demo with two finger left shoulder subluxation - pt demo with initiation of shoulder flexion going into abduction-. pt demo elbow ROM WFL. trace of forearm supination. Nail Assembly Machine Operator strength R- 130# L- 25#. Tripod grasp. R- 22#. L-couldn't do. Lateral grasp. R- 24#. L- 11#. Shoulder flexion. PROM-115. AROM- 85 (with noted trunk lean). Pronation AROM- 20. Supination- Unable. pt demo with decline in Left UE AROM-. noted increase tone of all digits of left hand to min-mod- pt will need bracing at night. pt demo with need to cont. therapy services 2x week for next 8 weeks to ensure understanding of HEP and necessity of bracing to support digits and shoulder- Plan Frequency: 2-3x /Week Duration: 4 Weeks Visits in this POC: 24 Plan: Continue POC. Goals - Goals Patient Goals: Regain Strength, Be More Independent in ADLS Goal:: pt will demo a increase in peak force resistance by 15# or greater indicating a increase in pts strength by dc. pt will demo a increase in left director sanitation bureau strength to 50# or greater to increase pts ind. with ADLs and IADLS Goal:: Pt will demo shoulder flext to 165* to increase ind. with dressing tasks by d/c. Pt will demo left forearm supination/pronation by 40* or greater to receive object and hold in hand iND by d/c. pt will demo functional left director sanitation bureau to grasp and release med. and large objects for increase ind. with ADls and IADLs by d/c Goal:: pt will demo the ability to fruit picker machine operator small objects with fluid motion and decreasing 9-hole peg time to under 2 min. indicating increase in FMS by d/c. pt will demo the ability to increase bilateral hand skills by demo button/unbu tton and manipulate fasteners to increase pts ind. with ADls by d/c Anticipated Interventions Anticipated Interventions: A/AAROM/PROM, Strengthening, Ergonomic Education, Fine Motor Coord/Jermain, Neuro Reeducation, ADL Training, Education re assistive Equipment, Education re Diagnosis, Home Program Please do not hesitate to contact me at [phone] by phone or if you have questions or concerns regarding this new plan of care! Sincerely, Savita Pelaez, OTR/L, CHT
--- NOTE | 2022-09-16 07:41 | HP.OTDCNRP_ITS ---
DOMENICO FERREIRA was seen in my office for initial evaluation on 05/19/22. The following Plan of Care was established for this patient: Initial Frequency: 2-3x /Week Initial Duration: 4 Weeks Plan: cont POC Anticipated Interventions: A/AAROM/PROM, Strengthening, Ergonomic Education, F ine Motor Coord/Jermain, Neuro Reeducation, ADL Training, Education re assistive Equipment, Education re Diagnosis, Home Program This patient was last seen in our office 09/12/22. Pertinent comments regarding their Occupational therapy will appear below: Pt was seen for 29 visits following CVA and seizure dx. pt continued to demo need for skilled OT services but Pt canceled remaining visits. Pt d/c at this time. At this point I will be discontinuing this patient from occupational therapy. I would be happy to see this patient again in the future if found appropriate by the physician. Thank you! Savita Pelaez, OTR/L, CHT
--- NOTE | 2022-11-11 14:10 | HP.PT.NRP ---
DOMENICO FERREIRA was seen in my office for initial evaluation on 05/19/22. The following Plan of Care was established for this patient: Initial Frequency: 2x /Week Initial Duration: 4 Weeks Patient/Client Instruction: Educate patient on: Condition, Plan of Care For the Purpose of:: To decrease pain, To increase ROM, To improve muscle performance and motor function, To improve ability to perform ADL's, To increase tolerance to activity/condition/position, To improve ability of physical actions for home/community/work/leisure, To improve health of tissue, To decrease soft tissue restriction, To increase flexibility/ROM, To improve endurance, To improve balance, To assume or resume ADL's, To improve tolerance to ADL's Therapeutic Exercise to Include: Strength training, Power training, Endurance training, Balance training, Coordination, Flexibilty training For the Purpose of:: To improve muscle performance and motor function, To improve ability to perform ADL's, To increase tolerance to activity/condition/position, To improve ability of physical actions for home/community/work/leisure, To improve health of tissue, To decrease soft tissue restriction, To increase flexibility/ROM, To improve endurance, To improve balance, To improve safety with gait, To improve tolerance to ADL's This patient was last seen in our office . Pertinent comments regarding their Physical therapy will appear below: Patient was seen for PT for post CVA focusing on strengthening ,functional strengthening and high level balance activities . At this point I will be discontinuing this patient from physical therapy. I would be happy to see this patient again in the future if found appropriate by the physician. Thank you! Manjeet Lopez, PT, Cert MDT, OCS Balance/Gait/Functional tests - Balance/Special Test Scores Functional Gait Assessment Score: 24 % Disability: 20.0000 CATSIB Score (Max score 120 seconds): 110 Lower Extremity Functional Score: 40 30 Second Chair Rise Test Seconds: 8
== END 2022-09-12 19:00 | disposition home or self-care (01) ==
LOC: PT 14:30
PROVIDERS: PCP Family Medicine; Referring Provider Family Medicine; Visit Provider Family Medicine
DX: R53.1 Weakness (principal)
CPT/HCPCS: 97110; 97112; 97162; 97166; 97167; 97168; 97530

== ENCOUNTER 2023-01-24 14:18 | Emergency (ER) | payer BC, SELFPAY ==
[2023-01-24] VITALS (11 sets, daily range): BP systolic 118–136; BP diastolic 57–93; PULSE 58–82; RESP 13–24; TEMP 36.6; O2SAT 93–98; BMI 28.9
--- NOTE | 2023-01-24 14:20 | CT_ITS ---
EXAM: CT HEAD WITHOUT INTRAVENOUS CONTRAST CLINICAL INDICATION: Neuro deficit, acute, stroke suspected TECHNIQUE: Multiple axial images were obtained of the head without intravenous contrast. This CT exam was performed using one or more of the following dose reduction techniques: automated exposure control, adjustment of the mA and/or kV according to patient size, and/or use of iterative reconstruction technique. This report was created using [employer] report generation technology. RADIATION DOSE: CTDIvol = 44.99 mGy, DLP = 880.47 mGy-cm COMPARISON: CT head without contrast 03/28/2022. FINDINGS: BRAIN AND EXTRA-AXIAL SPACES: Abnormal hypodense edema along the right CHANTELL territory consistent with acute ischemic infarct. Old ischemic infarct with cystic encephalomalacia and atrophy in the right MCA territory accounting for extra-axial dislocation of the posterior body, occipital horn and atrium of right lateral ventricle. Right cerebral peduncle atrophy is unchanged. No intra- or extra-axial hemorrhage. No intracranial mass or mass effect. Posterior fossa structures are unremarkable. No hydrocephalus. Basal cisterns are patent. BONES/JOINTS: See above. SINUSES: Unremarkable as visualized. Clear. MASTOID AIR CELLS: Unremarkable. Clear. ORBITS: Visualized globes, extraocular muscles, optic nerves and retrobulbar fat appear unremarkable. CT/STROKE Brain/Head without Cont IMPRESSION: 1. Acute cortical gyral ischemic infarct along the entire right CHANTELL territory, new since 03/28/2022.. 2. Old ischemic infarct with cystic encephalomalacia and atrophy involving a large portion of the right MCA territory causing Wallerian degeneration of the right cerebral peduncle. This is unchanged. N.B. : The above Results were Read Back by Jeromy Mazariegos MD to Jeromy Matamoros MD, and understanding confirmed on 01/24/2023 14:37:54 (ET). Electronically Signed: Jeromy Mazariegos MD at 14:39 EDT ,
--- NOTE | 2023-01-24 14:20 | EKG12_ITS ---
Test Reason : STROKE Blood Pressure : / mmHG Vent. Rate : 079 BPM Atrial Rate : 079 BPM P-R Int : 152 ms QRS Dur : 066 ms QT Int : 374 ms P-R-T Axes : 086 057 055 degrees QTc Int : 428 ms Normal sinus rhythm Junctional ST depression, probably abnormal Abnormal ECG Confirmed by JACINTO RAMOS, RHETT ([id number]), editor book ANA MARIA ARMAS ([id number]) on 01/26/2023 11:18:52 AM Referred By: Confirmed By:RHETT CASEY MD
--- NOTE | 2023-01-24 14:21 | CT_ITS ---
STUDY: CTA HEAD AND NECK WITH CONTRAST REASON FOR EXAM: Male, 47 years old. Neuro deficit, acute, stroke suspected RADIATION DOSAGE (If Supplied By Facility): CTDIvol = ( 26.76 ) mGy, DLP = ( 736.75 ) mGycm TECHNIQUE: CT angiography was performed with a multi-detector CT scanner. Data acquisition was obtained from the skull base through the vertex following intravenous administration of IV 100mL Isovue-[id number]. MIP images were reconstructed from the axial data set. Post-processing of the angiographic images was performed, with multiplanar reformation and 3D reconstruction. Individualized dose optimization techniques were used for this CT. COMPARISON: CTA head and neck 05/16/2021 and CTA neck 08/09/2021. FINDINGS: Occluded petrous segments of the right internal carotid artery. Normal petrous segments of the left internal carotid artery. Occluded cavernous segments of the right internal carotid artery and the right posterior paraclinoid internal carotid artery. Diminished flow and small caliber of the right supraclinoid ICA bifurcation due to partial thromboembolic occlusion. Normal left cavernous carotid artery with a normal supraclinoid bifurcation. Occluded proximal right A1 segment, right A2 segment, right pericallosal artery and right callosomarginal artery. Marked decrease in size of the hypoplastic left A1 segment. No visible anterior communicating artery. Smaller left A2 segment and left anterior pericallosal artery. Decreased size and irregularity of the right M1 segment and decreased flow and small caliber of the M2 segments of the right middle cerebral artery. Normal left M1 and M2 segments of the middle cerebral arteries, with a normal M1 bifurcation. No visible right posterior communicating artery (PCOM). Normal left posterior communicating artery (PCOM). Normal bilateral vertebral arteries. Markedly hypoplastic intradural segment of the right vertebral artery. Normal basilar artery with a normal basilar bifurcation. The visualized bilateral superior cerebellar (SCA) arteries are normal. Normal bilateral P1, P2 and visualized P3 segments of the posterior cerebral arteries. There is no demonstrated aneurysm of the teller of [place]. Abnormal hypodense cortical gyral edema along the right CHANTELL territory. This is due to acute ischemic infarction. AORTIC ARCH: Normal visualized aortic arch. Normal origins of the brachiocephalic, left common carotid, and left subclavian arteries. RIGHT CAROTID ARTERIES: Normal right common carotid artery (CCA). Complete occlusion of the right carotid bulb. 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 Normal origin of the right external carotid artery (ECA). LEFT CAROTID ARTERIES: Normal left common carotid artery (CCA). Normal left carotid bulb. Normal origin of the left internal carotid (ICA) artery without a hemodynamically significant stenosis. Normal visualized cervical portion of the left internal carotid artery. Normal origin of the left external carotid artery (ECA). VERTEBRAL ARTERIES: Normal bilateral vertebral arteries. The right vertebral artery is hypoplastic. CT/STROKE CTA Head AND Neck W/Con IMPRESSION: 1. 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 Partial thromboembolic occlusion with irregular narrowing of the right M1 segment and partial thromboembolic occlusion with decreased flow to the M2 segments of the right middle cerebral artery. These are new when compared to CTA head and neck of 05/16/2021 and 08/09/2021. 2. Much smaller size of the hypoplastic left A1 segment and distally. 3. Normal posterior circulation. 4. Normal bilateral common carotid arteries, bilateral external carotid arteries, left cervical internal carotid artery and left intracranial internal carotid artery. 5. Normal aortic arch and origins of the great vessels. N.B. : The above Results were Read Back by Jeromy Mazariegos MD to Jeromy Matamoros MD, and understanding confirmed on 01/24/2023 15:08:06 (ET). Electronically Signed: Jeromy Mazariegos MD at 15:25 EDT ,
--- NOTE | 2023-01-24 14:21 | ED.VIS.STROK ---
HPI History of Present Illness Chief Complaint: Stroke Alert Narrative Narrative: 47-year-old male past medical history of CVA last year with left-sided residual deficit of left arm and leg weakness was found in his garage by his son today with change in mental status. Per EMS, patient complained of a stroke, and was not making sense. His speech was garbled. His last known well time was sometime yesterday evening, but not known. He states that he was out in his garage looking for parts of a table. He will intermittently follow commands. He admitted to EMS to drinking alcohol yesterday evening, but none today. Was unknown how long he was in his garage or how long he had been on the floor of the garage. 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 He has hypertension and hyperlipidemia and coronary artery disease as well. [facility] Medical History Alcohol use Atherosclerosis of coronary artery of [place] heart without angina pectoris Atrial fibrillation with RVR Bipolar disorder CVA, old, alterations of sensations Erectile dysfunction Essential hypertension Hyperlipidemia NSTEMI (non-ST elevated myocardial infarction) Presence of stent in coronary artery (~12/21/17) Home Medications aspirin 81 mg chewable tablet 81 mg PO DAILY@0800 supplement 05/23/21 [History Last Taken 03/28/22] sertraline 100 mg tablet 150 mg PO DAILY 11/25/21 [History Last Taken 03/28/22] divalproex 500 mg tablet,extended release 24 hr 1,500 mg PO QHS BIPOLAR 03/28/22 [History Last Taken 03/27/22] levetiracetam 500 mg tablet (Keppra) 500 mg PO BID #60 tabs 03/29/22 [Rx Last Taken Unknown] metoprolol tartrate 25 mg tablet 25 mg PO BID #60 tabs 05/21/22 [Rx Last Taken Unknown] hydrochlorothiazide 12.5 mg capsule 12.5 mg PO DAILY #90 caps 05/29/22 [Rx Last Taken Unknown] losartan 25 mg tablet 25 mg PO DAILY #90 tabs 06/26/22 [Rx Last Taken Unknown] niacin 500 mg tablet,extended release 500 mg PO QHS #90 tabs 08/13/22 [Rx Last Taken Unknown] atorvastatin 80 mg tablet 80 mg PO QHS #30 tabs 10/15/22 [Rx Last Taken Unknown] apixaban 5 mg tablet (Eliquis) 5 mg PO BID #60 tabs 12/23/22 [Rx Last Taken Unknown] Allergy/AdvReac Type Severity Reaction Status Date / Time No Known Allergies Allergy Verified 01/24/23 15:17 Family History Mother No problems noted. Surgical History History of hand surgery Presence of coronary angioplasty implant and graft Social History Smoking Status: Smoker, status unknown alcohol intake: current alcohol intake frequency: 3 or more drinks per day Alcohol type: wine substance use type: does not use caffeine: Yes Type: carbonated beverages Number of servings: 2 what type of physical activity do you participate in: none seatbelt use: never do you feel safe at home: Yes ROS ROS ED ROS Narrative Unable to obtain review of systems from patient secondary to him intermittently answering questions, current condition with altered mental status. Review of Systems ROS Unobtainable: due to mental status and other Details: Intermittently responding to questions EXAM Physical Exam Narrative Exam Narrative: Afebrile. Vital signs noted. HEENT: Normocephalic. Atraumatic. PERRL, EOMI. Neck soft and supple. No point tenderness or step off. Cardiovascular: Regular rate and rhythm. No murmurs, rubs, or gallops appreciated. Respiratory: No tachypnea. Lungs clear to auscultation bilaterally. Gastrointestinal: Abdomen soft, nontender, with normoactive bowel sounds. No rebound or guarding. Neurological: Awake. Alert. Left-sided hemiaplasia with muscle spasticity of left upper extremity. Questionable eye deviation to right. Skin: No rash. Normal color. No pallor. NIH of 7, mainly for left facial droop which is chronic for the patient, along with his left upper and lower extremity hemiplegia as he does have some movement of his left upper extremity with muscle spasticity, and left lower leg problems. He has no problems with dysarthria or expressive aphasia. Musculoskeletal: No pedal edema. Full range of motion extremities. Const Vital Signs: 01/24/23 14:21 01/24/23 14:24 01/24/23 14:44 Temperature 97.9 F Temperature Source Temporal Pulse Rate 65 82 Respiratory Rate 18 24 H Blood Pressure 120/57 L 136/81 H Blood Pressure Mean 78 99 Pulse Ox 97 93 Oxygen Delivery Method Room Air Room Air 01/24/23 14:48 01/24/23 14:50 01/24/23 15:23 Temperature Temperature Source Pulse Rate 70 76 Respiratory Rate 18 19 H Blood Pressure Blood Pressure Mean Pulse Ox 98 98 98 Oxygen Delivery Method Room Air Room Air Room Air 01/24/23 15:20 01/24/23 15:50 01/24/23 16:00 Temperature Temperature Source Pulse Rate 70 74 58 L Respiratory Rate 24 H 17 23 H Blood Pressure 118/87 H 134/93 H Blood Pressure Mean 97 106 Pulse Ox 98 96 98 Oxygen Delivery Method Room Air Room Air 01/24/23 16:20 01/24/23 16:50 Temperature Temperature Source Pulse Rate 68 66 Respiratory Rate 13 21 H Blood Pressure 127/79 H Blood Pressure Mean 95 Pulse Ox 98 97 Oxygen Delivery Method Room Air Room Air MDM MDM MDM Narrative Medical decision making narrative: Prehospital stroke team had been called. Patient has normal blood sugar in the 130s. After evaluation in the ambulance bay, concern is for large vessel occlusion given his inability to gaze entirely to the left, but I am unsure if this is secondary to a mental status change. He already has baseline left-sided weakness. His son is now at the bedside who states that once again his last known well time is unknown and may have been sometime last evening. He had gone over to his father's house to check on him, and found him on the garage floor and not with it. The CT of the brain and CTA of the head and neck was obtained as he was taken immediately to the CT scanner. I discussed the results with the radiologist, Dr. Mazariegos directly who states there is a new CHANTELL territory stroke with edema noted on the plain CT scan. I also discussed the CTA of the head and neck results, and the radiologist states that there is a new carotid occlusion and new right CHANTELL occlusion. He states that the original MCA infarct was because of a carotid occlusion, but in August 2022, that had resolved in comparison films. Given that he has a new carotid and CHANTELL occlusion, patient was discussed with the [facility] teleneurologist. It was agreed that he requires transfer for large vessel occlusion given the radiology read and the patient's clinical picture. Transportation by air is currently unavailable secondary to weather. Ground crew will be obtained for transport to the [facility] emergency department. Accepting physician is Dr. Montes. Disposition is transferred in stable condition. Critical care time 31 minutes. I reviewed his initial laboratory work, and he has normal CBC with a WBC count of 7.7, hemoglobin normal 13.9, platelet count normal at 233, coagulation studies are normal with an INR of 1.1, and a PTT of 24.5. In review of his electrolytes, sodium low at 133, but he has been hyponatremic in the past, with a BUN of 7 and a creatinine of 0.88, glucose appropriately elevated at 123 with a normal anion gap of 6. High-sensitivity troponin is 8. Additionally, I interpreted his chest x-ray independently and see no evidence of pneumonia or pneumothorax. I reviewed the radiology report which confirms my independent interpretation. EKG obtained and also interpreted by myself which demonstrates normal sinus rhythm at 79 bpm without ectopy or acute ST changes. No STEMI. No significant change from EKG dated May 16, 2021. History & Record Review Discussion w/independent historian: Family (Son) Additional record(s) reviewed:: Prior ED visit and Prior labs Lab Data Attestation: I reviewed the patient's lab results. Labs: Laboratory Results - last 24 hr 01/24/23 01/24/23 01/24/23 15:05 15:05 15:05 WBC 7.7 RBC 3.83 L Hgb 13.9 Hct 41.0 MCV 107.0 H MCH 36.3 H MCHC 33.9 RDW Std Deviation 52.3 H RDW Coeff of Emma 13.2 Plt Count 233 MPV 9.8 Immature Gran % (Auto) 0.500 Neut % (Auto) 88.9 H Lymph % (Auto) 4.9 L Sunflower % (Auto) 5.6 Eos % (Auto) 0.0 Baso % (Auto) 0.1 Absolute Neuts (auto) 6.9 Absolute Lymphs (auto) 0.38 L Nucleated RBC % 0 Differential Comment SCANNED PT 14.2 INR 1.1 APTT 24.5 Sodium 133 L Potassium 3.8 Chloride 104 Carbon Dioxide 23.0 Anion Gap 6 BUN 7 Creatinine 0.88 Estim Creat Clear Calc 127.97 Est GFR (MDRD) Af Amer 119 Est GFR (MDRD) Non-Af 98 BUN/Creatinine Ratio 8.0 L Glucose 123 H Calcium 9.1 Troponin I High Sens 8 Ethyl Alcohol 01/24/23 15:05 WBC RBC Hgb Hct MCV MCH MCHC RDW Std Deviation RDW Coeff of Emma Plt Count MPV Immature Gran % (Auto) Neut % (Auto) Lymph % (Auto) Sunflower % (Auto) Eos % (Auto) Baso % (Auto) Absolute Neuts (auto) Absolute Lymphs (auto) Nucleated RBC % Differential Comment PT INR APTT Sodium Potassium Chloride Carbon Dioxide Anion Gap BUN Creatinine Estim Creat Clear Calc Est GFR (MDRD) Af Amer Est GFR (MDRD) Non-Af BUN/Creatinine Ratio Glucose Calcium Troponin I High Sens Ethyl Alcohol < 3.0 Radiography Chest X-Ray - ED: 1 View, Read by ED Physician and Normal Diagnostic Testing: Clinical Impression(s) from Imaging Studies Brain CT 01/24/23 14:20 IMPRESSION: 1. Acute cortical gyral ischemic infarct along the entire right CHANTELL territory, new since 03/28/2022.. 2. Old ischemic infarct with cystic encephalomalacia and atrophy involving a large portion of the right MCA territory causing [place] degeneration of the right cerebral peduncle. This is unchanged. N.B. : The above Results were Read Back by Jeromy Mazariegos MD to Jeromy Matamoros MD, and understanding confirmed on 01/24/2023 14:37:54 (ET). Electronically Signed: Jeromy Mazariegos MD at 14:39 EDT , ADDENDUM: 01/24/23 1446 IMPRESSION: 1. Acute cortical gyral ischemic infarct along the entire right CHANTELL territory, new since 03/28/2022.. 2. Old ischemic infarct with cystic encephalomalacia and atrophy involving a large portion of the right MCA territory causing [place] degeneration of the right cerebral peduncle. This is unchanged. N.B. : The above Results were Read Back by Jeromy Mazariegos MD to Jeromy Matamoros MD, and understanding confirmed on 01/24/2023 14:37:54 (ET). Electronically Signed: Jeromy Mazariegos MD at 14:39 EDT , Head/Neck CTA 01/24/23 14:21 IMPRESSION: 1. 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 Partial thromboembolic occlusion with irregular narrowing of the right M1 segment and partial thromboembolic occlusion with decreased flow to the M2 segments of the right middle cerebral artery. These are new when compared to CTA head and neck of 05/16/2021 and 08/09/2021. 2. Much smaller size of the hypoplastic left A1 segment and distally. 3. Normal posterior circulation. 4. Normal bilateral common carotid arteries, bilateral external carotid arteries, left cervical internal carotid artery and left intracranial internal carotid artery. 5. Normal aortic arch and origins of the great vessels. N.B. : The above Results were Read Back by Jeromy Mazariegos MD to Jeromy Matamoros MD, and understanding confirmed on 01/24/2023 15:08:06 (ET). Electronically Signed: Jeromy Mazariegos MD at 15:25 EDT , ADDENDUM: 01/24/23 1532 IMPRESSION: 1. 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 Partial thromboembolic occlusion with irregular narrowing of the right M1 segment and partial thromboembolic occlusion with decreased flow to the M2 segments of the right middle cerebral artery. These are new when compared to CTA head and neck of 05/16/2021 and 08/09/2021. 2. Much smaller size of the hypoplastic left A1 segment and distally. 3. Normal posterior circulation. 4. Normal bilateral common carotid arteries, bilateral external carotid arteries, left cervical internal carotid artery and left intracranial internal carotid artery. 5. Normal aortic arch and origins of the great vessels. N.B. : The above Results were Read Back by Jeromy Mazariegos MD to Jeromy Matamoros MD, and understanding confirmed on 01/24/2023 15:08:06 (ET). Electronically Signed: Jeromy Mazariegos MD at 15:25 EDT , Chest X-Ray 01/24/23 15:21 IMPRESSION: No acute findings in the chest and no significant interval change when compared to 03/28/2022. Electronically Signed: Jeromy Mazariegos MD at 15:39 EDT , Management Discussion w/another healthcare provider: Architectural Inspector, Radiologist and Other (Stroke, Teleneurology) Critical Care Time Critical care time (excluding procedures): 30-74 minutes (31), Including time spent:, Discussing w/Patient &/or Family/Tax Compliance Agent, Discussing w/Consultants, Arranging Admission or Transfer and Performing Direct Patient Care at Bedside Discharge Plan Triage Chief Complaint: Stroke Alert ED Provider: Jeromy Matamoros Dx/Rx/DC Orders Clinical Impression: Acute right CHANTELL stroke, Carotid artery occlusion, Acute alteration in mental status, Chronic anticoagulation Prescriptions: No Action sertraline 100 mg tablet 150 mg PO DAILY aspirin 81 MG tablet,chewable 81 mg PO DAILY@0800 divalproex 500 mg tablet extended release 24 hr 1,500 mg PO QHS levetiracetam [Keppra] 500 mg tablet 500 mg PO BID Qty: 60 1RF metoprolol tartrate 25 mg tablet 25 mg PO BID Qty: 60 11RF hydrochlorothiazide 12.5 mg capsule 12.5 mg PO DAILY Qty: 90 3RF losartan 25 mg tablet 25 mg PO DAILY Qty: 90 3RF niacin 500 mg tablet extended release 500 mg PO QHS Qty: 90 3RF atorvastatin 80 mg tablet 80 mg PO QHS Qty: 30 12RF Eliquis 5 mg tablet 5 mg PO BID Qty: 60 11RF Primary Care Provider: Alexander Adam Referrals: Alexander Adam MD [Primary Care Provider] - Disposition Disposition: Acute Care Hospital Discharge Location: [facility] Discharge Date/Time: 01/24/23 17:11
[2023-01-24 15:14] LABS: Absolute Lymphocyte Count 0.38 X10^3/uL (0.83-4.51); Absolute Neutrophil Count 6.9 X10^3/uL (2.0-7.7); Basophil# 0.01 X10^3/uL; Basophil% 0.1 % (0-1); Hemoglobin 13.9 g/dL (13.0-16.5); Lymphocyte # 0.38 X10^3/ul (0.83-4.51); Lymphocyte % 4.9 % (19-41); Mean Corp Hgb Conc 33.9 g/dL (32-36); Mean Corpuscular Hgb 36.3 pg (27.0-32.0); Mean Platelet Vol. 9.8 fl (6.2-12.0); Monocyte# 0.43 X10^3/uL; Monocyte% 5.6 % (0-10); NRBC Flagged by Analyzer 0 % (0-5); Neutrophil # 6.87 X10^3/uL (2.7-7.7); Neutrophil % 88.9 % (47-70); POSITIVE DIFFERENTIAL YES; Platelet Count 233 K/mm3 (150-450); RBC Distribution Width CV 13.2 % (11.6-14.6); RBC Distribution Width SD 52.3 fl (35.1-43.9); Red Blood Count 3.83 M/mm3 (4.6-6.2); White Blood Count 7.7 K/mm3 (4.4-11.0)
[2023-01-24 15:17] LABS: Differential Indicated SCAN CRITERIA MET
--- NOTE | 2023-01-24 15:21 | RAD_ITS ---
EXAM: XR CHEST, 1 VIEW CLINICAL INDICATION: Neuro deficit, acute, stroke suspected TECHNIQUE: Frontal view of the chest. This report was created using [employer] report generation technology. COMPARISON: 03/28/2022. FINDINGS: LUNGS AND PLEURAL SPACES: Mild pulmonary hypoinflation. No pneumothorax. No effusion. HEART: Unremarkable. Cardiac silhouette not enlarged. MEDIASTINUM: Central airways and mediastinal contour are unremarkable. BONES/JOINTS: Unremarkable. SOFT TISSUES: Unremarkable. RAD/Chest 1 View IMPRESSION: No acute findings in the chest and no significant interval change when compared to 03/28/2022. Electronically Signed: Jeromy Mazariegos MD at 15:39 EDT ,
[2023-01-24 15:22] LABS: International Normalized Ratio 1.1; Prothrombin Time (Protime)PT. 14.2 SECONDS (11.7-14.9)
[2023-01-24 15:24] LABS: Partial Thromboplast Time 24.5 Seconds (24.1-36.2)
[2023-01-24 15:31] LABS: Anion Gap 6 (5-15); BUN 7 mg/dL (7-18); Calcium,Total 9.1 mg/dL (8.5-10.1); Chloride 104 mmol/L (98-107); Creatinine, Serum 0.88 mg/dL (0.70-1.30); EST Glomerular Filtration Rate 98 mL/min (>60); Est Glom Filt Rate - Afr Amer 119 mL/min (>60); Estimated Creatinine Clearance 127.97 ml/min; Glucose 123 mg/dL (74-106); Potassium 3.8 mmol/L (3.5-5.1); Sodium Level 133 mmol/L (136-145); Troponin-I HS 8 pg/mL (3.0-78.0)
--- NOTE | 2023-01-24 15:37 | ED.RN ---
[facility] called for transport turned down due to weather.
[2023-01-24 15:38] LABS: Differential Comment SCANNED
--- NOTE | 2023-01-24 15:38 | ED.RN ---
physicians ambulance called for transport, made priority transplant eta 40 mins
--- NOTE | 2023-01-24 15:51 | ED.RN ---
PATIENTS BARTOLO CALLED FOR AN UPDATE. BARTOLO STATES HER SON CALLED HER UPSET AND WANTED TO GET MORE INFORMATION ON WHAT IS GOING ON. BARTOLO UPDATED THAT PT WILL BE TRANSFERRED TO [facility] FOR A BLOOD CLOT IN HIS [place]. INSURANCE INFORMATION FOR PATIENT TAKEN OVER PHONE ALSO FOR REGISTRATION. BARTOLO INFORMED IF SHE HAS ANY MORE QUESTIONS TO CALL IN FOR AN UPDATE.
[2023-01-24 16:00] LABS: Alcohol, Blood (Medical)-Serum < 3.0 mg/dL
== END 2023-01-24 17:11 | disposition short-term general hospital (02) ==
PROVIDERS: Emergency Provider Emergency Medicine; PCP Family Medicine; Visit Provider Emergency Medicine
DX: I63.521 Cerebral infarction due to unspecified occlusion or stenosis of right anterior cerebral artery (principal); I69.354 Hemiplegia and hemiparesis following cerebral infarction affecting left non-dominant side; I65.21 Occlusion and stenosis of right carotid artery; I25.10 Atherosclerotic heart disease of native coronary artery without angina pectoris; F17.200 Nicotine dependence, unspecified, uncomplicated; I25.2 Old myocardial infarction; Z79.899 Other long term (current) drug therapy; Z95.5 Presence of coronary angioplasty implant and graft; Z79.01 Long term (current) use of anticoagulants
CPT/HCPCS: 70450; 70496; 70498; 71045; 80048; 82077; 84484; 85025; 85610; 85730; 93005; 99285; Q9967; A4216